=== PATIENT | male | born 1945 | race Caucasian/White ===

== ENCOUNTER → 2018-04-24 | Outpatient (CLI) | payer MEDICARE ==
[2018-04-24 16:02] LABS: Blood Urea Nitrogen 12 mg/dL (9-20)
--- NOTE | 2018-04-25 08:13 | CT ---
EXAMINATION TYPE: CT chest w con DATE OF EXAM: 04/24/2018 COMPARISON: 10/01/2014 HISTORY: f/u lung ca CT DLP: 541 mGycm, Automated exposure control for dose reduction was used. CONTRAST: Performed injected with 100 mL of Isovue 300. TECHNIQUE: Axial images were obtained at 5 mm thick sections. Reconstructed images are reviewed on [employer] computer in the coronal plane. FINDINGS: Portion of the thyroid visualized is normal. There is a 3.5 cm spiculated mass in the left upper lobe. Findings are highly suggestive for recurren t lung cancer. There is some thickening along the major fissure on the right. Small area of pneumonitis within the r ight middle lobe. Series 4 image 19 there is a right infrahilar area of increased density. Series 3 i mage 25. Neoplasm at this level should be considered. Small hiatal hernia is present. There is a 1.0 cm lymph node in the pretracheal space. Multiple small shotty lymph nodes are also pr esent at the level of the aortopulmonic window. Few small left axillary nodes are present. The ascending aorta diameter at the level of the main pulmonary artery is 3.4 cm. The main pulmonary artery diameter at the bifurcation is 2.[address] sections are obtained through the upper abdomen. Calcifications are within the pancreas co mpatible with chronic pancreatitis. The common bile duct and pancreatic duct prominent at the head of the pancreas. Left renal cyst is noted. IMPRESSIONS: 1. Left upper lobe lung mass. Findings are compatible with recurrent lung cancer. 2. Suspicious soft tissue density right infrahilar region right. 3. A 1.0 cm enlarged pretracheal lymph node. 4. Recommend additional workup with PET CT. 5. Chronic pancreatitis. There are dilated pancreatic and common bile ducts at the head of the pancre as. A [place] level critical message alert has been initiated for Cale Arenas DO via the [employer] Critical Results System on 04/25/2018 8:10 AM. This message alert has been sent to Cale godoy DO via the preferences provided by the clinician for the receipt of Radiology Critical Findings. Message ID [id number].
== END | disposition home or self-care (01) ==
LOC: RADCTMAIN 15:07
PROVIDERS: ATTEND Family Medicine
DX: R91.8 Other nonspecific abnormal finding of lung field (principal); R59.0 Localized enlarged lymph nodes; J44.9 Chronic obstructive pulmonary disease, unspecified; Z85.118 Personal history of other malignant neoplasm of bronchus and lung; Z01.812 Encounter for preprocedural laboratory examination
CPT/HCPCS: 82565; 84520; 71260; 36415; Q9967

== ENCOUNTER → 2018-06-15 | Outpatient (CLI) | payer MEDICARE ==
--- NOTE | 2018-06-17 07:09 | PE ---
EXAMINATION TYPE: PET CT fusion skull to thigh DATE OF EXAM: 06/15/2018 COMPARISON: Chest CT April 24, 2018. CT abdomen January 01, 2017. CT chest abdomen and pelvis October 01, 2014. HISTORY: Right-sided lung cancer progress study had surgery in 2008 and radiation treatment in 2016 TECHNIQUE: Following the intravenous administration of 15.07 mCi of F-18 FDG, whole body images are performed from the skull base to the midthigh. Images are reviewed on the computer in the coronal, a xial, and sagittal planes. Reconstructed rotating images are created on independent workstation and reviewed on the computer. A noncontrast CT is performed in conjunction with the PET scan. SCAN: Subsequent Scan FINDINGS: SKULL BASE AND NECK: No areas of suspicious hypermetabolic uptake are present. CHEST, MEDIASTINUM, AND HILAR REGION: There is background mild underlying emphysematous change redemo nstrated. There is redemonstration of left upper lobe mass measuring 3.3 x 3.0 cm axial image 76, max SUV is 11.6. There are right hilar clips and masslike scarring extending anteriorly Image 90, this area is ametabolic consistent with posttreatment change and no residual active maligna ncy. No additional areas of suspicious hypermetabolic uptake in the thorax are identified. ABDOMEN AND PELVIS: No areas of suspicious hypermetabolic uptake are seen. OSSEOUS STRUCTURES: No areas of suspicious hypermetabolic uptake. OTHER CT: Mild to moderate calcified plaque bilateral carotid bulbs level is present. Some calcification and scarring in the right lung base is present. There is moderate to severe 3 vess el coronary artery calcification and/or stents, correlate clinically. Cholecystectomy clips are present. There is calcifications and ductal dilatation and the pancreas, pr esumed product of chronic pancreatitis. Some cystic change in the pancreatic head is unchanged back t hrough 2015 CT presumed product of chronic pancreatitis possible pseudocyst. Severe calcified plaque of aorta is redemonstrated extending into iliac branch vessels. There are sca ttered diverticula throughout the colon most prominent in the sigmoid colon. There is facet arthropathy in the lower lumbar spine. Mild to moderate compression fracture L2 and L 4 level. There is redemonstration of large 6.0 cm lateral diverticulum second portion of duodenum axial image 146 with air-fluid level. There is 5.0 cm simple appearing cyst laterally left kidney axial image 144. IMPRESSION: New neoplasm left upper lobe suspected. No additional areas of suspicious hypermetabolic uptake are identified.
== END | disposition home or self-care (01) ==
LOC: RADPETMAIN 15:36
PROVIDERS: ATTEND Internal Medicine Hematology & Oncology
DX: C34.12 Malignant neoplasm of upper lobe, left bronchus or lung (principal)
CPT/HCPCS: 78815; A9552

== ENCOUNTER 2018-06-20 08:15 | Observation (INO) | payer MEDICARE ==
[2018-06-20] MEDS ORDERED: ALPRAZolam 0.25 MG TAB PO ONE (08:51)
[2018-06-20 09:26] LABS: Platelet Count 464 k/uL (150-450)
[2018-06-20 09:31] LABS: Prothrombin Time 10.4 sec (9.0-12.0)
[2018-06-20] MEDS ORDERED: HYDROmorphone 1 MG/ML 1 ML SYRINGE IVP STA (10:36)
--- NOTE | 2018-06-20 10:57 | XR ---
EXAMINATION TYPE: XR chest 1V portable DATE OF EXAM: 06/20/2018 COMPARISON: 09/30/2015 HISTORY: Post left lung biopsy TECHNIQUE: Single frontal view of the chest is obtained. FINDINGS: There is a large left upper lobe mass and changes of diffuse COPD. Right hilar soft tissue prominence noted. Postbiopsy there is a left apical pneumothorax measuring approximately 15%. Athero sclerotic change aorta. Arthropathy of the shoulders. IMPRESSION: 1. There is an approximate 15% left apical pneumothorax.
--- NOTE | 2018-06-20 11:14 | CT ---
EXAMINATION TYPE: CT biopsy lung RT DATE OF EXAM: 06/20/2018 COMPARISON: HISTORY: Lung mass-left side (biopsy) CT DLP: 2260 mGycm The procedure is discussed with the patient, the risks, complications, benefits and alternatives, wer e discussed and any questions were answered. Informed consent was obtained. The patient is placed s upine on the CT table, prepped and draped in the usual sterile fashion. Utilizing a 18-gauge core biopsy needle access into the left upper lobe lobe mass was achieved with t wo. Pathology pending. All elements of maximal barrier and sterile technique were utilized. The pa tient remained stable throughout the procedure. There is a small approximate 15% postprocedural pneum othorax. Patient was asymptomatic. Chest x-ray to follow. IMPRESSION: 1. Successful CT guided core biopsy of a left upper lobe lung mass
--- NOTE | 2018-06-20 13:06 | XR ---
EXAMINATION TYPE: XR chest 1V DATE OF EXAM: 06/20/2018 COMPARISON: 06/20/2018 HISTORY: Post left lung biopsy TECHNIQUE: Single frontal view of the chest is obtained. FINDINGS: Large left upper lobe lung mass seen. No significant interval change in size of the approx imately 20% left pneumothorax. Right-sided hilar prominence noted with postsurgical changes. Underlyi ng COPD noted. Heart size is at the upper limits of normal. No overt failure. IMPRESSION: Approximate 20% left-sided pneumothorax demonstrates no significant interval change..
--- NOTE | 2018-06-20 15:02 | XR ---
EXAMINATION TYPE: XR chest 1V portable DATE OF EXAM: 06/20/2018 HISTORY: Status post left-sided lung biopsy. Follow-up pneumothorax COMPARISON: 06/20/2018 TECHNIQUE: Single view of the chest is submitted. FINDINGS: Left-sided pneumothorax redemonstrated and appears to be slightly smaller in size and currently is es timated at 15%. No evidence for midline shift. Left upper lobe spiculated mass. Postsurgical changes right lung. Hyperinflation compatible with COPD. The heart is stable. Hilar and mediastinal structures are within normal limits. Degenerative changes are seen of the dorsal spine. IMPRESSION: 1. Left-sided pneumothorax redemonstrated and appears to be slightly smaller in size and currently i s estimated at 15%.
[2018-06-20] MEDS: HYDROmorphone 1 MG/ML 1 ML SYRINGE IVP PRN (15:21)
[2018-06-20] MEDS: HYDROcodone/APAP 10-325MG 1 EACH TAB PO PRN (16:38)
[2018-06-20] MEDS: IPRATROPIUM-ALBUTEROL 3 ML NEB INHALATION SCH (20:13)
[2018-06-20] MEDS: LIPASE PROTEASE AMYLASE PO SCH (20:31)
--- NOTE | 2018-06-20 20:36 | P.HPIM ---
History of Present Illness H&P Date: 06/20/18 Chief Complaint: Pneumothorax after Lung Mass Biopsy Mr. Wen is a very pleasant 72-year-old male patient who has significant history of ETOH and Tobacco Abuse. He has not consumed alcohol in over 3 years, he does continue to smoke. He has medical history consistent with COPD, recurrent Pancreatitis, approximately 10+ episodes over the past 3 years, history of non small cell lung cancer in which he underwent right upper lobectomy in 2003, no systemic chemotherapy was indicated as this was early stage and finding. 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 In 2014 yet another RML lung lesion was identified and biopsy was performed revealing non-small cell lung cancer - adenocarcinoma, this was treated with SBRT. Cardiothoracic surgeon was performed by Dr. aPtricio out of [facility] and his adjuvant radiation therapy with Dr. Kaminski at [facility]. He has been monitored with CT scans by Dr. Kaminski since. In 2014 ZOË nodule 8mm was first identified. His most recent scan showed increase in this lesion and concern for a third primary malignancy. He was seen in consultation with Dr. Lester, a PET-CT was set up as well as a core biopsy of the ZOË mass. Pet Scan was performed on 06/15/18 - No distant mets or FDG-Avid adenopathy was revealed, although the suspicious mass in ZOË was 3.3cmx3.0cm with SUV FDG 11.6. He was therefore set up for Biopsy and this was performed today with interventional radiology as an outpatient. Unfortunately, post procedure a 20%pneumothorax was identified, as he was high risk with his overall poor lung secondary to extensive COPD. A repeat chest xray was performed 4 hours post procedure and did not show worsening of the pneumothorax, although still present. He has complaints of increasing pain since procedure and mild cough, therefore it was felt best to monitor him overnight and repeat another xray in [facility]. I seen and evaluated patient, at bedside. No complaints of shortness of reath at rest, vitals remain stable, mild tachycardia. Oxygen saturation is 98% on room air. He is eating, no nausea or vomitng. Review of Systems A 14 point review of systems was assessed and completed and all negative except HPI Past Medical History Past Medical History: Cancer, GERD/Reflux, Osteoarthritis (OA), Pneumonia Additional Past Medical History / Comment(s): Right lung cancer 2003 and first resection done (got MRSA at that time in incision), second resection in 2008, lung cancer reoccured in 12/2014 and found new nodule in right lung had radiation in February 2015. Pancreatitis,chronic back pain History of Any Multi-Drug Resistant Organisms: MRSA Date of last positivie culture/infection: 2003 MDRO Source:: BACK Past Surgical History: Cholecystectomy, Orthopedic Surgery Additional Past Surgical History / Comment(s): RESECTION TO RIGHT LUNG TWICE (RT MIDDLE AND RT LOWER LOBECTOMY), RT KNEE SCOPE x2 Past Anesthesia/Blood Transfusion Reactions: Motion Sickness Past Psychological History: No Psychological Hx Reported Additional Psychological History / Comment(s): Pt resides with his spouse. He is normally independent. He uses no assistive device or home care. Smoking Status: Unknown if ever smoked Past Alcohol Use History: None Reported, Heavy Additional Past Alcohol Use History / Comment(s): quit smoking 06-10-18,Pt states he smokes about 1 ppd and started smoking at age 14-15 yrs on and off. STOPPED DRINKING ETOH 2015 Past Drug Use History: None Reported - Past Family History Father Family Medical History: Cancer Mother Family Medical History: Dementia Additional Family Medical History / Comment(s): Crohn's disease Medications and Allergies Home Medications Medication Instructions Recorded Confirmed Type HYDROcodone/APAP 10-325MG [[place] 0.5 tab PO BID PRN 06/11/18 06/11/18 History 10-325] Ibandronate Sodium [Boniva] 150 mg PO QMONTH 06/11/18 06/11/18 History Ipratropium/Albuterol Sulfate 1 puff INHALATION QID 06/11/18 06/11/18 History [Combivent Respimat Inhaler] Rvmzok-Lzfcezsw-Clpqmyy [Zenpep 20] 1 each PO AC-TID 06/11/18 06/11/18 History Meloxicam 15 mg PO DAILY 06/11/18 06/11/18 History Omeprazole 20 mg PO DAILY 06/11/18 06/11/18 History Allergies Allergy/AdvReac Type Severity Reaction Status Date / Time No Known Allergies Allergy Verified 06/11/18 10:23 Physical Exam Vitals: Vital Signs Temp Pulse Resp BP BP Pulse Ox 06/20/18 14:25 66 127/66 97 04/18/19 13:25 69 114/65 98 06/20/18 12:55 65 119/66 99 06/20/18 12:25 67 130/66 96 06/20/18 12:22 16 06/20/18 12:10 68 113/71 96 06/20/18 11:55 60 132/72 96 06/20/18 11:40 97.8 F 55 L 16 120/63 98 06/20/18 11:00 59 L 18 121/74 98 06/20/18 10:45 63 16 116/77 97 06/20/18 10:30 65 18 114/89 97 06/20/18 10:23 87 18 108/70 95 06/20/18 10:05 84 18 115/59 93 L 06/20/18 09:34 98.4 F 83 18 133/64 94 L Intake and Output 06/20/18 06/20/18 06/20/18 06:59 14:59 22:59 Intake Total 840 Balance 840 Intake: Oral 240 Other 600 Gen: Alert, NAD Head: NCNT Neck: Supple, trachea midline No palpable adenopathy cervical, supraclavicular Lungs: Decreased throughout, No increased effort or accessory muscle use noted Heart: Tachy, reg Abdomen: Non-tender , ND, BS x4 Extremities: No edema, no rashes Neuro: No sensory or motor deficits Results CBC & Chem 7: 06/20/18 09:15 Labs: Abnormal Lab Results - Last 24 Hours (Table) 06/20/18 Range/Units 09:15 Plt Count 464 H (150-450) k/uL Chest x-ray: report reviewed Thrombosis Risk Factor Assmnt - DVT/VTE Prophylaxis DVT/VTE Prophylaxis: Pharmacologic Prophylaxis ordered - Choose All That Apply Any of the Below Risk Factors Present?: No Other Risk Factors: Yes Each Risk Factor Represents 2 Points: Age 61-74 years Thrombosis Risk Factor Assessment Total Risk Factor Score: 2 Thrombosis Risk Factor Assessment Level: Low Risk Assessment and Plan (1) Pneumothorax after biopsy Current Visit: Yes Status: Acute Code(s): J95.811 - POSTPROCEDURAL PNEUMOTHORAX SNOMED Code(s): 86534822 Plan: Assessment and Recommendations: Left Pneumothorax after biopsy: - 20% left sided pneumothorax - Patient relatively asymptomatic - Oxygenation greater than 95% on room air ZOË Mass in Lung - 3.3cmx3.0cm with FDG avidity 11 - Status Post Core Biopsy - Await Pathology - Supportive care for pain Recurrent Pancreatitis History: - No symptoms at this time Hx: Non-small Cell Lung Cancer in 2004 and 2014 - Treated with RUL resection, Wedge resection and SBRT VTE and GI Prophylaxis. Plan: - Monitor overnight with TMS, q4 hours VS and Pulse ox - Repeat Chest xray in am - PRN Dilaudid/Bowel Regimen - Pulmonary Evaluation DIPSO PLAN: After Chest Xray in am if stable [place] REA
[2018-06-21] MEDS: IPRATROPIUM-ALBUTEROL 3 ML NEB INHALATION SCH ×2 (02:58→08:45)
[2018-06-21] MEDS ORDERED: PANTOPRAZOLE 40 MG TABLET PO SCH (07:30)
[2018-06-21] MEDS: HYDROmorphone 1 MG/ML 1 ML SYRINGE IVP PRN (07:50)
[2018-06-21] MEDS: LIPASE PROTEASE AMYLASE PO SCH (07:51)
[2018-06-21 07:53] VITALS: BP 114/67; RESP 18; TEMP 97.7
[2018-06-21] MEDS: HYDROcodone/APAP 10-325MG 1 EACH TAB PO PRN (08:39)
[2018-06-21 08:55] VITALS: PULSE 84
[2018-06-21] MEDS ORDERED: MELOXICAM 7.5 MG TAB PO SCH (09:00)
--- NOTE | 2018-06-21 09:10 | XR ---
EXAMINATION TYPE: XR chest 2V DATE OF EXAM: 06/21/2018 COMPARISON: NONE TECHNIQUE: PA and lateral views submitted. HISTORY: Pneumothorax FINDINGS: There is a persistent left-sided 15-20% left pneumothorax. Upper lobe mass is again seen and there is evidence of previous surgery in the right with diffuse COPD. Atherosclerotic change aorta. IMPRESSION: 1. Approximate 15-20% left-sided pneumothorax.
--- NOTE | 2018-06-21 12:43 | P.PN ---
Progress Note - Text Progress Note Date: 06/21/18 We were asked to see this gentleman yesterday by Dr. Kilgore as he was at another hospital and received a call for an urgent consult for pneumothorax. As we were in the building already, we examined the patient yesterday who was found to be in no distress, with excellent oxygen saturations on room air, and the ability to achieve 3000 mL on his incentive spirometry. CXR was reviewed by Dr. Osorio, and no intervention was warranted. His CXR this morning was also reviewed by Dr. Osorio who felt his pneumothorax was less than 10%, the patient continues to be in no distress and would like to go home. From our standpoint, there is no surgical intervention warranted and the patient may be discharged to home with follow up in the office. This was discussed with Dr. Kilgore and he is in agreement.
--- NOTE | 2018-06-21 12:51 | P.DS ---
Providers Date of admission: 06/20/18 15:36 Expected date of discharge: 06/21/18 Attending physician: Aurora Lester Consults: 06/20/18 15:32 Consult Physician Routine Consulting Provider: Allan Becerra Consult Reason/Comments: pneumothorax post biopsy Do you want consulting provider notified?: Yes Placement Type Exists?: Yes Primary care physician: Cale Arenas - Discharge Diagnosis(es) (1) Pneumothorax after biopsy Current Visit: Yes Status: Acute Plan - Discharge Summary Discharge Rx Participant: No New Discharge Prescriptions: Continue Ipratropium/Albuterol Sulfate [Combivent Respimat Inhaler] 1 puff INHALATION QID HYDROcodone/APAP 10-325MG [[place] 10-325] 0.5 tab PO BID PRN PRN Reason: Pain Omeprazole 20 mg PO DAILY Meloxicam 15 mg PO DAILY Qahgws-Pgflcvzl-Zjfurzl [Zenpep 20] 1 each PO AC-TID Ibandronate Sodium [Boniva] 150 mg PO QMONTH Discharge Medication List HYDROcodone/APAP 10-325MG [[place] 10-325] 0.5 tab PO BID PRN 06/11/18 [History] Ibandronate Sodium [Boniva] 150 mg PO QMONTH 06/11/18 [History] Ipratropium/Albuterol Sulfate [Combivent Respimat Inhaler] 1 puff INHALATION QID 06/11/18 [History] Jteqhc-Rflefqve-Jjijcaf [Zenpep 20] 1 each PO AC-TID 06/11/18 [History] Meloxicam 15 mg PO DAILY 06/11/18 [History] Omeprazole 20 mg PO DAILY 06/11/18 [History] Follow up Appointment(s)/Referral(s): Aurora Lester MD [STAFF PHYSICIAN] - 1 Week Patient Instructions/Handouts: Needle Biopsy of the Lung (DC)
--- NOTE | 2018-06-21 13:29 | P.CNPUL ---
History of Present Illness Consult date: 06/21/18 Requesting physician: Aurora Lester Reason for consult: other Chief complaint: Small pneumothorax following CT-guided core biopsy of the lung History of present illness: This is a 72-year-old white male patient of Dr. Arenas, with past medical history of recurrent adenocarcinoma of the right lung, which patient underwent right upper lobectomy in 2003, and at that time patient did not require systemic chemotherapy. In 2008 he developed recurrent suspicious area in the right middle lobe and underwent wedge resection, and pathology revealed necrotizing granuloma. In 2014 on the other right middle lobe lung lesion was identified and the biopsy showed adenocarcinoma of the lung was treated with as SBRT. There was a left upper lobe nodule initially measuring 8 mm that has been under surveillance since 2014, with the recent increase in this lesion. Outpatient PET scan on 06/15/2018 showed no distant metastases, with the suspicious mass in the left upper lobe measuring 3.3 cm x 3.0 cm with the SUV 11.6, with no evidence of distant metastases. She underwent CT-guided lung biopsy of the left upper lobe lesion on 06/20/2018, and developed a 20% pneumothorax on the left. Patient does have underlying history of COPD, chronic tobacco abuse, EtOH. Clinically patient remained stable, repeat chest x-ray was taken 4 hours later, and did not show worsening of the pneumothorax. On the chest x-ray was taken this morning, showing 15-20% left-sided pneumothorax. We're asked to see the patient in evaluation for the procedure pneumothorax. During our evaluation patient is resting comfortably in bed, she is on room air, with a pulse ox of 98%, hemodynamically stable, no acute complaints, lung sounds are equal bilaterally, respirations are even and nonlabored. Review of Systems All systems: negative Constitutional: Denies chills, Denies fever Eyes: denies blurred vision, denies pain Ears, nose, mouth and throat: Denies headache, Denies sore throat Cardiovascular: Denies chest pain, Denies shortness of breath Respiratory: Denies cough Gastrointestinal: Denies abdominal pain, Denies diarrhea, Denies nausea, Denies vomiting Musculoskeletal: Denies myalgias Integumentary: Denies pruritus, Denies rash Neurological: Denies numbness, Denies weakness Psychiatric: Denies anxiety, Denies depression Endocrine: Denies fatigue, Denies weight change Past Medical History Past Medical History: Cancer, GERD/Reflux, Osteoarthritis (OA), Pneumonia Additional Past Medical History / Comment(s): Right lung cancer 2003 and first resection done (got MRSA at that time in incision), second resection in 2008, lung cancer reoccured in 12/2014 and found new nodule in right lung had radiation in February 2015. Pancreatitis,chronic back pain History of Any Multi-Drug Resistant Organisms: MRSA Date of last positivie culture/infection: 2003 MDRO Source:: BACK Past Surgical History: Cholecystectomy, Orthopedic Surgery Additional Past Surgical History / Comment(s): RESECTION TO RIGHT LUNG TWICE (RT MIDDLE AND RT LOWER LOBECTOMY), RT KNEE SCOPE x2 Past Anesthesia/Blood Transfusion Reactions: Motion Sickness Past Psychological History: No Psychological Hx Reported Additional Psychological History / Comment(s): Pt resides with his spouse. He is normally independent. He uses no assistive device or home care. Smoking Status: Unknown if ever smoked Past Alcohol Use History: None Reported, Heavy Additional Past Alcohol Use History / Comment(s): quit smoking 06-10-18,Pt states he smokes about 1 ppd and started smoking at age 14-15 yrs on and off. STOPPED DRINKING ETOH 2015 Past Drug Use History: None Reported - Past Family History Father Family Medical History: Cancer Mother Family Medical History: Dementia Additional Family Medical History / Comment(s): Crohn's disease Medications and Allergies Home Medications Medication Instructions Recorded Confirmed Type HYDROcodone/APAP 10-325MG [[place] 0.5 tab PO BID PRN 06/11/18 06/11/18 History 10-325] Ibandronate Sodium [Boniva] 150 mg PO QMONTH 06/11/18 06/11/18 History Ipratropium/Albuterol Sulfate 1 puff INHALATION QID 06/11/18 06/11/18 History [Combivent Respimat Inhaler] Zaexdk-Hepnsavj-Jjeetvm [Zenpep 20] 1 each PO AC-TID 06/11/18 06/11/18 History Meloxicam 15 mg PO DAILY 06/11/18 06/11/18 History Omeprazole 20 mg PO DAILY 06/11/18 06/11/18 History Allergies Allergy/AdvReac Type Severity Reaction Status Date / Time No Known Allergies Allergy Verified 06/11/18 10:23 Physical Exam Vitals: Vital Signs Temp Pulse Pulse Resp BP Pulse Ox 06/21/18 08:55 84 06/21/18 08:46 80 06/21/18 07:53 97.7 F 64 18 114/67 98 06/21/18 04:00 16 06/21/18 00:00 16 06/20/18 23:42 98.4 F 70 16 107/65 95 06/20/18 20:25 79 06/20/18 20:16 77 06/20/18 20:00 16 06/20/18 14:25 66 127/66 97 06/20/18 13:25 69 114/65 98 Intake and Output 06/20/18 06/21/18 06/21/18 22:59 06:59 14:59 Intake Total 840 440 Balance 840 440 Intake: Oral 240 440 Other 600 Other: Voiding Method Toilet Toilet # Voids 1 GENERAL EXAM: Alert, pleasant 72-year-old white male on room air comfortable in no apparent distress. HEAD: Normocephalic/atraumatic. EYES: Normal reaction of pupils, equal size. Conjunctiva pink, sclera white. NOSE: Clear with pink turbinates. THROAT: No erythema or exudates. NECK: No masses, no JVD, no thyroid enlargement, no adenopathy. CHEST: No chest wall deformity. Symmetrical expansion. LUNGS: Equal air entry with no crackles, wheeze, rhonchi or dullness. Diminished breath sounds at the bases CVS: Regular rate and rhythm, normal S1 and S2, no gallops, no murmurs, no rubs ABDOMEN: Soft, nontender. No hepatosplenomegaly, normal bowel sounds, no guarding or rigidity. EXTREMITIES: No clubbing, no edema, no cyanosis, 2+ pulses and upper and lower extremities. MUSCULOSKELETAL: Muscle strength and tone normal. SPINE: No scoliosis or deformity SKIN: No rashes CENTRAL NERVOUS SYSTEM: Alert and oriented -3. No focal deficits, tone is normal in all 4 extremities. PSYCHIATRIC: Alert and oriented -3. Appropriate affect. Intact judgment and insight. Results - Laboratory Findings CBC and BMP: 06/20/18 09:15 PT/INR, D-dimer PT 10.4 sec (9.0-12.0) 06/20/18 09:15 INR 1.0 (<1.2) 06/20/18 09:15 Abnormal lab findings: Abnormal Labs 06/20/18 09:15 Plt Count 464 H - Diagnostic Findings Chest x-ray: report reviewed, image reviewed Assessment and Plan Plan: Assessment: #1. Small postprocedural pneumothorax on the left, estimated to be between 15- 20% following CT-guided lung biopsy of the left upper lobe lesion suspicious for primary lung cancer #2. History of recurrent adenocarcinoma of the right lung, with initial occurrence in 2004 status post right upper lobectomy, and recent recurrence in 2014 in the right middle lobe with biopsy positive for adenocarcinoma treated with SBRT #3. Recent increase in size of the left upper lobe nodule, that he has been under surveillance since 2014, showed increased uptake on the PET scan, no evidence of distant metastases #4. Chronic and ongoing nicotine dependence #5. History of EtOH abuse #6. Previous history of pneumonia #7. GERD/reflux #8. History of MRSA infection in the wound from a previous back surgery Plan: Chest x-rays have been reviewed with Dr. Granado, patient was seen and evaluated by Dr. Granado, clinically stable, pneumothorax in the left lung estimated to be between 15-20%, no intervention needed, patient is cleared for discharge home today. We'll follow up with Dr. Lester. I performed a history & physical examination of the patient and discussed their management with my nurse practitioner, Gayatri Temple. I reviewed the nurse practitioner's note and agree with the documented findings and plan of care. Lung sounds are positive for clear breath sounds. The findings and the impression was discussed with the patient. I attest to the documentation by the nurse practitioner. Time with Patient: Greater than 30
== END 2018-06-21 12:52 | disposition home or self-care (01) ==
LOC: RADPROMAIN 08:15 → 1SOBS 10:58 → RADPROMAIN 15:36 → 1SOBS 15:36
PROVIDERS: ADMIT Internal Medicine Hematology & Oncology; ATTEND Internal Medicine Hematology & Oncology
DX: J95.811 Postprocedural pneumothorax (principal); C34.12 Malignant neoplasm of upper lobe, left bronchus or lung; J44.9 Chronic obstructive pulmonary disease, unspecified; K21.9 Gastro-esophageal reflux disease without esophagitis; G89.29 Other chronic pain; M54.9 Dorsalgia, unspecified; M19.90 Unspecified osteoarthritis, unspecified site; Z79.83 Long term (current) use of bisphosphonates; Z79.1 Long term (current) use of non-steroidal anti-inflammatories (NSAID); Z90.2 Acquired absence of lung [part of]; Z85.118 Personal history of other malignant neoplasm of bronchus and lung; Z87.01 Personal history of pneumonia (recurrent); Z92.21 Personal history of antineoplastic chemotherapy; Z86.14 Personal history of Methicillin resistant Staphylococcus aureus infection; Z87.891 Personal history of nicotine dependence; Z92.3 Personal history of irradiation; Z80.9 Family history of malignant neoplasm, unspecified; Z83.79 Family history of other diseases of the digestive system; Z81.8 Family history of other mental and behavioral disorders
CPT/HCPCS: 94640 ×2; 88305; 85049; 85610; 88342; 88341; 36415; 71045; 71046; 32405; 77012; G0378 ×2; J1170 ×2

== ENCOUNTER → 2018-11-07 | Outpatient (CLI) | payer MEDICARE ==
--- NOTE | 2018-11-07 14:56 | CT ---
EXAMINATION TYPE: CT chest wo/w con DATE OF EXAM: 11/07/2018 COMPARISON: 06/15/2018 HISTORY: Malignant neoplasm of upper lobe, Lt bronchus or lung CT DLP: 657.5 mGycm Automated exposure control for dose reduction was used. CONTRAST: CT scan of the chest is performed without and with IV Contrast, patient injected with 100 mL of Isovu e 300. FINDINGS: LUNGS: Left upper lobe mass currently measures approximately 3.0 x 2.0 x 2.2 cm versus 3.3 cm previou sly. Postoperative changes about the right hilum with the adjacent soft tissue unchanged measuring ap proximately 1.8 cm versus 1.8 cm previously. Right hilar retraction noted. There is severe emphysemat ous change noted and COPD. No additional nodules or masses appreciated at this time. MEDIASTINUM: There are no greater than 1 cm hilar or mediastinal lymph nodes. No pericardial effusi on is seen. Thoracic aorta is of normal caliber. The heart is not enlarged. UPPER ABDOMEN: Chronic pancreatitis changes. Hypoattenuating lesion left kidney. Right-sided nephroli thiasis. Mild Loss of thoracic vertebral body height at several levels. OTHER: No additional significant abnormality is seen. IMPRESSION: 1. Spiculated left upper lobe mass with dimensions given above. This is a site of known malignancy. 2. Postsurgical changes right hilum with residual soft tissue in right hilar retraction unchanged.
== END | disposition home or self-care (01) ==
LOC: RADCTMAIN 12:29
PROVIDERS: ATTEND Radiology Radiation Oncology
DX: C34.12 Malignant neoplasm of upper lobe, left bronchus or lung (principal); Z90.2 Acquired absence of lung [part of]; Z98.890 Other specified postprocedural states
CPT/HCPCS: 82565; 84520; 71270; 36415; Q9967

== ENCOUNTER → 2019-02-17 | Outpatient (CLI) | payer MEDICARE ==
--- NOTE | 2019-02-17 11:24 | CT ---
EXAMINATION TYPE: CT chest abdomen wo/w con DATE OF EXAM: 02/17/2019 COMPARISON: 11/07/2018 as well as a PET/CT 06/15/2018 HISTORY: History of lung cancer. CT DLP: 2018 mGycm CONTRAST: CT scan of the chest, abdomen is performed with Oral Contrast and without and with IV Contrast, patie nt injected with 80 mL of Isovue 300. CT Chest: LUNGS: Left upper lobe mass is smaller in size with nodule now measuring approximately 2.1 x 1.5 cm v ersus 3.0 x 2.2 cm. Postoperative changes about the right hilum with soft tissue noted to measure jorje roximately 2 cm versus 1.8 cm previously. Underlying emphysematous changes. No new masses are seen. N o pleural effusion. MEDIASTINUM: Thoracic aorta is of normal caliber. The heart is not enlarged. No evidence for media stinal mass or adenopathy. HILAR STRUCTURES: No evidence for mass left hilar adenopathy measures approximately 1.7 cm versus 1.7 cm previously. OTHER: No significant abnormality. CONTRAST CT ABDOMEN FINDINGS: LIVER/GB: The gallbladder is surgically absent. No space occupying hepatic lesion. Biliary tree is of normal caliber. PANCREAS: Chronic pancreatitis changes multiple calcifications noted in dilatation of the pancreatic duct. SPLEEN: No splenic enlargement. No lesion seen. ADRENALS: No nodule. No thickening. KIDNEYS/BLADDER: No hydronephrosis. No nephrolithiasis left renal cystic lesion redemonstrated. No solid renal lesions identified. BOWEL: Normal appendix. Normal bowel caliber. No inflammation. LYMPH NODES: No greater than 1cm abdominal or pelvic lymph nodes are appreciated. AORTA: No significant abnormality. OSSEOUS STRUCTURES: No significant abnormality is seen. OTHER: No significant additional abnormality is seen. IMPRESSION: 1. Left upper lobe mass is smaller in size with soft tissue persisting and currently measuring 2.1 x 1.5 cm. 2. Postoperative changes about the right hilum with persistent soft tissue minimally changed relative to prior study. 3. Changes of chronic pancreatitis pancreatic duct dilatation. 4. Loss of vertebral body height unchanged.
== END | disposition home or self-care (01) ==
LOC: RADCTMAIN 09:47
PROVIDERS: ATTEND Radiology Radiation Oncology
DX: K86.1 Other chronic pancreatitis (principal); K86.89 Other specified diseases of pancreas; C34.12 Malignant neoplasm of upper lobe, left bronchus or lung; Z90.2 Acquired absence of lung [part of]; Z98.890 Other specified postprocedural states
CPT/HCPCS: 36415; 71270; 74170; 82565; 84520

== ENCOUNTER → 2019-08-08 | Outpatient (CLI) | payer MEDICARE ==
--- NOTE | 2019-08-08 13:39 | CT ---
EXAMINATION TYPE: CT chest wo con DATE OF EXAM: 08/08/2019 COMPARISON: 02/17/2019, 11/07/2018, 01/01/2017 HISTORY: Malignant neoplasm of Lt upper lung CT DLP: 381.8 mGycm. Automated Exposure Control for Dose Reduction was Utilized. TECHNIQUE: CT scan of the thorax is performed without IV contrast. FINDINGS: LUNGS: Left upper lobe mass measures approximately 3 x 1.6 cm versus 2.1 x 1.5 cm. There is adjacen t subsegmental consolidation. Postoperative changes about the right hilum with soft tissue noted to measure approximately 2 cm vers us 2cm previously. Underlying emphysematous changes. No new masses are seen. No pleural effusion. Additional subsegmenta l consolidation most typical of atelectasis or scar. Pleural-based calcifications are seen which can be associated with asbestos related disease. MEDIASTINUM: Lack of IV contrast is noted to limit evaluation for mediastinal and especially hilar ad enopathy. There are no definitive greater than 1 cm hilar or mediastinal lymph nodes. Calcified lymph nodes are noted and there is extensive coronary artery calcification. Heart size at the upper limits of normal. OTHER: No bladder surgically removed. There is mild intrahepatic biliary dilation likely postoperativ e. Small hiatal hernia is noted. Numerous calcifications involving the pancreas are noted suggestive of chronic pancreatitis. There is a cystic lesion involving the head of the pancreas measuring 2.6 cm . Atherosclerotic change of the aorta noted. Simple appearing left renal cyst noted.. Degenerative change of the spine with multiple age-indeterminate compression deformities are stable. IMPRESSION: 1. Left upper lobe mass measures 3 x 1.6 cm and previously measured 2.1 x 1.5 cm. 2. postsurgical changes involving the right lung with soft tissue prominence measuring 2 cm and stabl e from the prior exam where it measured 2 cm. 3. Diffuse COPD. 4. Changes of chronic pancreatitis with cystic lesion involving the head of the pancreas stable from the exam of 11/07/2018. However, it does appear to be increased in size from the exam of 01/01/2017 whe re it was not seen with certainty. Differential diagnosis would include pancreatic pseudocyst or loca lized dilation of the pancreatic duct. Cystic neoplasm of pancreas not excluded.
== END | disposition home or self-care (01) ==
LOC: RADCTMAIN 12:53
PROVIDERS: ATTEND Radiology Radiation Oncology
DX: R91.8 Other nonspecific abnormal finding of lung field (principal); J44.9 Chronic obstructive pulmonary disease, unspecified; Z98.890 Other specified postprocedural states; C34.12 Malignant neoplasm of upper lobe, left bronchus or lung; Z90.2 Acquired absence of lung [part of]; Z92.3 Personal history of irradiation
CPT/HCPCS: 71250

== ENCOUNTER → 2019-11-14 | Outpatient (CLI) | payer MEDICARE ==
--- NOTE | 2019-11-17 10:45 | PE ---
EXAMINATION TYPE: PET CT fusion skull to thigh DATE OF EXAM: 11/14/2019 COMPARISON: Prior PET/CT June 15, 2018. Prior CT August 08, 2019 and older CTs. HISTORY: Lung cancer progress study. Right-sided lung cancer treated in 2003 and 2008. Left-sided l molina cancer treated with radiation treatment in July 2018 TECHNIQUE: Following the intravenous administration of 9.26 mCi of F-18 FDG, whole body images are p erformed from the skull base to the midthigh. Images are reviewed on the computer in the coronal, ax ial, and sagittal planes. Reconstructed rotating images are created on independent workstation and r eviewed on the computer. A noncontrast CT is performed in conjunction with the PET scan. SCAN: Subsequent Scan FINDINGS: SKULL BASE AND NECK: No new areas of abnormal hypermetabolic uptake. CHEST, MEDIASTINUM, AND HILAR REGION: Background of fairly moderate underlying emphysematous changes redemonstrated. At site of left upper to mid lung neoplasm, there is a persistent spiculated hypermet abolic 2.5 x 2.4 cm lesion axial image 81, max SUV is 7.09 diminished from prior (11.6). There is alyssa e adjacent linear scarring extending laterally and superiorly along with more focal masslike atelecta sis or scarring laterally that is ametabolic axial image 80 on the current study. There is new left suprahilar mass or hypermetabolic adenopathy difficult to discern from adjacent lef t pulmonary artery on noncontrast CT measuring roughly 2.3 x 1.5 cm axial image 87, max SUV is 7.69. There is suspected additional hypermetabolic anterior left hilar 1.9 x 1.6 cm lymph node axial image 90 superior aspect, max SUV is 6.86. There is new 1.0 x 1.0 cm hypermetabolic left tracheobronchial lymph node axial image 85, max SUV is 4.74. Slightly suspicious 1.6 x 0.6 cm subcarinal lymph node axial image 93 shows enlargement, mild hyperme tabolic uptake, max SUV less than 2.5. Following of this area advised. Persistent right hilar surgical clips and masslike scarring extending anteriorly without suspicious h ypermetabolic uptake is redemonstrated. ABDOMEN AND PELVIS: Normal excretion is present. Nonspecific bowel uptake noted. No areas of suspicio us hypermetabolic uptake. No new adrenal masses are noted. OSSEOUS STRUCTURES: No new areas of suspicious hypermetabolic uptake. OTHER CT: Mild to moderate calcified plaque left greater than right carotid bulbs level is redemonstr ated. Some calcification and scarring posteriorly in the right lung base is redemonstrated. There is modera te to severe 3 vessel coronary artery calcification and/or stents and demonstrated, correlate clinica lly. Cholecystectomy clips are present. There is calcifications and ductal dilatation and the pancreas, pr esumed product of chronic pancreatitis. Some cystic change in the pancreatic head is unchanged back t hrough 2015 CT presumed product of chronic pancreatitis possible pseudocyst. Severe calcified plaque of aorta is redemonstrated extending into iliac branch vessels. There are sca ttered diverticula throughout the colon most prominent in the sigmoid colon. There is facet arthropathy in the lower lumbar spine. Mild to moderate compression fracture L2 and L4 level. Scoliotic curvature redemonstrated. There is redemonstration of large 6.0 cm lateral diverticulum second portion of duodenum axial image 150 with air-fluid level. There is 5.0 cm simple appearing cyst laterally left kidney axial image 149. Poorly distended bladder noted. Prominent prostate, Suspect BPH. IMPRESSION: Overall mixed response, improved max SUV in the left upper lung nodule also diminished in size from prior PET/CT. There is however new hypermetabolic thoracic adenopathy noted as detailed ab ove.
== END | disposition home or self-care (01) ==
LOC: RADPETMAIN 10:15
PROVIDERS: ATTEND Internal Medicine Hematology & Oncology
DX: R59.0 Localized enlarged lymph nodes (principal); R91.1 Solitary pulmonary nodule; C34.12 Malignant neoplasm of upper lobe, left bronchus or lung; Z92.3 Personal history of irradiation; Z92.21 Personal history of antineoplastic chemotherapy
CPT/HCPCS: 78815; A9552

== ENCOUNTER → 2019-11-19 | Outpatient (CLI) | payer MEDICARE ==
--- NOTE | 2019-11-19 22:48 | MR ---
EXAMINATION TYPE: MR brain wo/w con DATE OF EXAM: 11/19/2019 COMPARISON: NONE HISTORY: Lung Cancer-rule out mets TECHNIQUE: Multiplanar, multisequence images of the brain and brainstem is performed without and with IV contras t, utilizing 7.5 mL intravenous Gadavist . FINDINGS: Diffusion weighted images demonstrate no evidence of a recent infarct or other diffusion ab normality. There is no worrisome extra-axial fluid collection. Diffuse ventricular and sulcal promin ence. Scattered foci of T2 hyperintensity seen throughout the deep and periventricular white matter. Midline structures demonstrate normal morphology. The craniocervical junction appears within normal limits. Post contrast images demonstrate no suspicious enhancement or enhancing masses. Incidental d ominant left vertebral artery. The dural venous sinuses appear patent. The visualized sinuses are raj ar and the globes are intact. IMPRESSION: Mild to moderate diffuse cerebral atrophy and chronic small vessel ischemic changes. No s uspicious enhancement to suggest metastatic disease to the brain.
== END | disposition home or self-care (01) ==
LOC: RADMRIMAIN 15:30
PROVIDERS: ATTEND Internal Medicine Hematology & Oncology
DX: C34.12 Malignant neoplasm of upper lobe, left bronchus or lung (principal); G31.9 Degenerative disease of nervous system, unspecified; I67.82 Cerebral ischemia
CPT/HCPCS: 70553; A9585

== ENCOUNTER → 2020-01-23 | Outpatient (CLI) | payer MEDICARE ==
--- NOTE | 2020-01-24 08:33 | PE ---
Nuclear medicine PET/CT HISTORY: Lung cancer, C 30 4. 0.2, subsequent Patient received 13 mCi F-18 FDG intravenously in delayed scanning was performed from the skull base to the mid thighs. Localization and attenuation correction CT scan was performed. Correlation to prior nuclear medicine PET/CT 11/14/2019 Chest and neck: There is interval increased rate pharmaceutical uptake, adenopathy in the subcarinal and retrocaval pretracheal mediastinum. Aorticopulmonary window node seen on prior exam is slightly i ncreased in size and also shows radiopharmaceutical uptake as does the patient's left hilar and left upper lobe mass. There is no pleural or pericardial effusion. Coronary artery calcifications are pres ent. No supraclavicular or cervical adenopathy or suspicious radiopharmaceutical uptake. ABDOMEN: There is no evident adrenal mass. No retroperitoneal adenopathy. No abnormal liver uptake is identified. Abnormalities in the head of the pancreas, calcifications consistent with chronic pancre atitis are again seen. Osseous structures are stable. IMPRESSION: There has been some interval progression in mediastinal uptake.
== END | disposition home or self-care (01) ==
LOC: RADPETMAIN 07:44
PROVIDERS: ATTEND Internal Medicine Hematology & Oncology
DX: C34.12 Malignant neoplasm of upper lobe, left bronchus or lung (principal); R91.8 Other nonspecific abnormal finding of lung field
CPT/HCPCS: 78815; A9552

== ENCOUNTER → 2020-04-19 | Outpatient (CLI) | payer MEDICARE ==
[2020-04-19 12:56] LABS: African American GFR (CKD) >90 (>60 ml/min/1.73 sqM); Blood Urea Nitrogen 14 mg/dL (9-20); Non-African American GFR(CKD) >90 (>60 ml/min/1.73 sqM)
--- NOTE | 2020-04-19 15:53 | CT ---
EXAMINATION TYPE: CT chest w con DATE OF EXAM: 04/19/2020 COMPARISON: 08/08/2019 HISTORY: Lung cancer CT DLP: 520 mGycm, Automated exposure control for dose reduction was used. CONTRAST: Performed injected with 100 ml mL of Isovue 300. TECHNIQUE: Axial images were obtained at 5 mm thick sections. Reconstructed images are reviewed on [employer] computer in the coronal plane. FINDINGS: Portion of the thyroid visualized is normal. There is a spiculated mass within the left apex. This measures 3.5 x 2.1 cm. This appears stable with out evidence of interval growth. Some apical emphysematous changes are present. Right infrahilar scarring remains present. The appearance is stable. Emphysematous changes are at the lung bases greater on the right. There may be a left hilar lymph node with a transverse dimension of 0.9 cm. Couple of small pretrache al lymph nodes are present, larger measures 0.9 cm. These appear to have hypodense centers. Enlarged lymphadenopathy is not identified. These were present previously but appear better visualized on thes e postcontrast images. The ascending aorta diameter at the level of the main pulmonary artery is 3.3 cm. The main pulmonary artery diameter at the bifurcation is 2.[address] sections are obtained through the upper abdomen. There is a large left renal cyst. Chronic pancreatitis changes are evident. IMPRESSIONS: 1. Stable appearance to the suspected scarring left apex and right infrahilar region.
== END | disposition home or self-care (01) ==
LOC: RADCTMAIN 12:10
PROVIDERS: ATTEND Internal Medicine Hematology & Oncology
DX: C34.12 Malignant neoplasm of upper lobe, left bronchus or lung (principal)
CPT/HCPCS: 82565; 84520; 71260; 36415; Q9967

== ENCOUNTER → 2020-08-03 | Outpatient (CLI) | payer MEDICARE ==
--- NOTE | 2020-08-03 17:30 | XR ---
EXAMINATION TYPE: XR chest 2V DATE OF EXAM: 08/03/2020 COMPARISON: Chest x-ray dated 06/21/2018 HISTORY: C34.12 F41.9 Z85.118 J44.9 TECHNIQUE: Frontal and lateral views of the chest are obtained. FINDINGS: The masslike density in the left upper lobe is no longer seen, there is some strand-like d ensities at this level. Probable scarring again noted in the right mid lung. Prominence of pulmonary artery may be due to pulmonary artery hypertension. There is no evident pneumothorax or pleural effus ion. Probable scarring present at the right lung base. Patient is rotated. Cardiomediastinal silhouet te shows a similar appearance. There is increased lung volume and flattening the hemidiaphragms consi stent with underlying COPD. IMPRESSION: Posttreatment changes are suspected. Correlate for COPD. There is underlying emphysema.
== END | disposition home or self-care (01) ==
LOC: RADXRMAIN 15:21
PROVIDERS: ATTEND Internal Medicine Hematology & Oncology
DX: J43.9 Emphysema, unspecified (principal); F41.9 Anxiety disorder, unspecified; C34.12 Malignant neoplasm of upper lobe, left bronchus or lung
CPT/HCPCS: 71046

== ENCOUNTER → 2020-08-16 | Outpatient (CLI) | payer MEDICARE ==
--- NOTE | 2020-08-16 22:20 | CT ---
EXAMINATION TYPE: CT ChestAbdPelvis w con DATE OF EXAM: 08/16/2020 COMPARISON: Prior PET/CT January 23, 2020 and older studies. Chest CT April 19, 2020. HISTORY: follow up lung cancer CT DLP: 704.1 mGycm. Automated Exposure Control for Dose Reduction was Utilized. CONTRAST: CT scan of the thorax, abdomen and pelvis is performed with oral and with IV Contrast, patient inject ed with 100 mL of Isovue 300. FINDINGS: LUNGS: Background moderate underlying emphysematous change is redemonstrated. Worsening spiculated le hui in the left upper lobe extending inferiorly to level of the left pulmonary artery measuring 4.9 x 2.5 cm current study increased in size from most recent CT. Areas of abnormal hypermetabolic uptake noted on recent PET/CT. New linear scarring and/or atelectasis superior lateral aspect left lower lobe axial image 24. Additi onal mild areas of groundglass opacity in the left lower lobe. Mild to moderate chronic scarring thro ughout the right lung. No pleural effusion or pneumothorax seen bilaterally. MEDIASTINUM: Marked improvement in abnormal subcarinal enlarged lymph node from prior PET/CT now not enlarged. Similar right tracheobronchial lymph node axial image 22 is smaller in size fairly stable f rom most recent CT. Subcentimeter AP window lymph node axial image 22 also smaller in size from PET/C T stable or slightly smaller from most recent CT. No new greater than 1 cm adenopathy. No cardiomegal y or pericardial effusion is seen. Moderate to severe three-vessel coronary artery calcification. LIVER/GB: Cholecystectomy clips. PANCREAS: Calcifications and glandular atrophy with ductal dilatation in the pancreatic head consiste nt with product of chronic pancreatitis. No significant change from prior. SPLEEN: No significant abnormality is seen. ADRENALS: No significant abnormality is seen. KIDNEYS: There is 5.0 cm thin-walled cyst laterally in the mid to lower pole of the left kidney. Symm etric cord measuring uptake and excretion without hydronephrosis seen bilaterally. Mild wall thickeni ng in the urinary bladder presumed related to outlet obstruction from BPH, correlate clinically. BOWEL: Diffuse colonic diverticulosis greatest in the left and sigmoid colon. No CT evidence for acut e diverticulitis. GENITAL ORGANS: Enlarged prostate consistent with BPH bulging on the bladder base. LYMPH NODES: No greater than 1cm abdominal or pelvic lymph nodes are appreciated. OSSEOUS STRUCTURES: Scoliotic curvature in the lumbar spine. Mild to moderate height loss involving t he L2 and L4 vertebra. Moderate to severe disc space narrowing at right L3-L4 level. Moderate axial j oint space loss in both hips. OTHER: Moderate calcified plaque of the aorta extends into branch vessels. IMPRESSION: Improved thoracic adenopathy from most recent PET/CT. More prominent left upper lobe sca rlike opacity on current study is nonspecific as portion reflected hypermetabolic neoplasm and portio n reflected adjacent atelectatic change and/or scarring on most recent PET/CT. No new suspicious mass es or adenopathy.
== END | disposition home or self-care (01) ==
LOC: RADECHMAIN 11:55
PROVIDERS: ATTEND Internal Medicine Hematology & Oncology
DX: Z03.89 Encounter for observation for other suspected diseases and conditions ruled out (principal); C34.12 Malignant neoplasm of upper lobe, left bronchus or lung; R59.0 Localized enlarged lymph nodes
CPT/HCPCS: 82565; 84520; 71260; 74177; 36415; Q9967

== ENCOUNTER → 2020-09-06 | Outpatient (CLI) | payer MEDICARE ==
--- NOTE | 2020-09-06 16:43 | CT ---
EXAMINATION TYPE: High-resolution CT chest DATE OF EXAM: 09/06/2020 COMPARISON: 08/16/2020 and 04/19/2020 HISTORY: 75-year-old male C34.12, LUNG CA TECHNIQUE: Contiguous high-resolution axial scanning of the chest without IV contrast utilizing 1 mm slice thickness and 1 cm gap per HRCT protocol. Both prone and supine imaging is performed. CT DLP: 612.80 mGycm Automated exposure control for dose reduction was used. FINDINGS: Heart normal size without pericardial effusion. Three-vessel coronary artery calcifications are prese nt. Aorta normal caliber with mild atherosclerotic arch calcifications and shortness of branching anatomy . No thoracic lymphadenopathy aligned for HRCT technique. Background moderate centrilobular emphysema. Redemonstrated focal masslike consolidation and volume loss along the anterior right midlung extendin g from the hilum to the anterior pleural surface. On axial image 14 series 4, there appears slightly more bulky than prior exam measuring 2.1 cm thick versus 1.7 cm, previously. Left upper lobe suprahilar mass measures 4.0 x 2.4 cm versus 4.2 x 2.3 cm, previously. Scattered areas of pleural-parenchymal scarring are redemonstrated bilaterally. No new consolidation or pleural effusion. No honeycombing, thickening of the bronchovascular bundles, tree-in-bud opacities, predominantly grou ndglass. Surgical material in the right lower lobe. Visualized upper abdomen shows partial visualization of a large left renal cyst measuring at least 4. 9 cm. Calcification throughout the atrophic pancreas suggesting sequela of chronic pancreatitis. IMPRESSION: 1. 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 NO SPECIFIC HRCT FINDINGS OF INTERSTITIAL PNEUMONITIS/INTERSTITIAL MARIAM G DISEASE. 2. LEFT UPPER LOBE, SUPRAHILAR MASS IS ESTIMATED AT 4.0 X 2.4 CM (VERSUS 4.2 X 2.3 CM, PREVIOUSLY), N OT SIGNIFICANTLY CHANGED. 3. FOCAL MASSLIKE CONSOLIDATION AND VOLUME LOSS ANTERIOR RIGHT MIDLUNG, LIKELY SITE OF TREATED DISEA SE MAY BE SLIGHTLY MORE BULKY MEASURING 2.1 CM THICK VERSUS 1.7 CM, PREVIOUSLY. CONTINUED FOLLOW-UP R ECOMMENDED. 4. NO DEFINITE RECURRENT MEDIASTINAL LYMPHADENOPATHY ALLOWING FOR HRCT TECHNIQUE. 5. COPD WITH MODERATE EMPHYSEMA. AREAS OF BILATERAL PLEURAL PARENCHYMAL SCARRING AND SOME POST SURGIC AL CHANGE AT THE RIGHT BASE.
== END | disposition home or self-care (01) ==
LOC: RADCTMAIN 15:36
PROVIDERS: ATTEND Internal Medicine Hematology & Oncology
DX: Z03.89 Encounter for observation for other suspected diseases and conditions ruled out (principal); C34.12 Malignant neoplasm of upper lobe, left bronchus or lung; J43.9 Emphysema, unspecified
CPT/HCPCS: 71250

== ENCOUNTER → 2021-01-03 | Outpatient (CLI) | payer MEDICARE ==
[2021-01-03 12:54] LABS: African American GFR (CKD) >90 (>60 ml/min/1.73 sqM); Blood Urea Nitrogen 10 mg/dL (9-20); Non-African American GFR(CKD) 88 (>60 ml/min/1.73 sqM)
--- NOTE | 2021-01-04 09:11 | CT ---
EXAMINATION TYPE: CT ChestAbdPelvis w con DATE OF EXAM: 01/03/2021 COMPARISON: 08/16/2020, 04/19/2020, 01/23/2020 HISTORY: 75-year-old male C34.12 Lung ca, Z01.818 Chemo exposure TECHNIQUE: Contiguous axial scanning of the chest, abdomen, and pelvis performed with IV Contrast, pa tient injected with 100 mL of Isovue 300. Delayed images through the kidneys were obtained. Coronal/s agittal reconstructions performed. CT DLP: 1051.6 mGycm Automated exposure control for dose reduction was used. FINDINGS: CHEST: Heart normal size without pericardial effusion. Three-vessel coronary artery calcifications are prese nt in remarkable for coronary artery disease. Borderline ectasia aortic root 3.5 cm. Mild atherosclerotic arch calcifications within benign short v essel branching anatomy. Borderline to mildly enlarged caliber to the main right and left pulmonary arteries measuring up to 2 .6 cm each suggesting underlying pulmonary arterial hypertension. No thoracic lymphadenopathy by CT size criteria. Moderate to advanced centrilobular emphysema. Focal opacity left upper lobe measures 3.4 x 2.0 cm christine neda 4.2 x 2.3 cm on 08/16/2020. Focal consolidation and volume loss anterior right upper lobe is unchanged. Scattered areas of scarring and some subpleural interstitial thickening are unchanged. Surgical material at the right base. No consolidation or pleural effusion. ABDOMEN: Tiny hiatal hernia. Trace air in the periphery of the left liver lobe suggesting a small focus of por sadiq venous air. Calcifications throughout the pancreas suggesting chronic pancreatitis. The body and tail is atrophic . There is cystic dilatation at the head and neck of the pancreas measuring up to 3.6 x 2.9 cm versus 3.9 x 2.9 cm on 04/19/2020, not significantly changed. Portal venous system is patent. Stable promine nce to the bile duct at 9 mm. 5.9 cm diverticulum projecting anteriorly from the second portion of the duodenum. Cholecystectomy clips. 1.2 cm nodule right adrenal gland and 1.4 cm nodularity left adrenal gland both unchanged. Fullness of the right renal collecting system but with symmetric uptake and excretion of contrast fro m the kidneys, probably transient. Lateral left renal cyst measuring 5.3 cm. Adrenal glands within normal limits. Moderate atherosclerotic calcifications throughout the abdominal aorta and iliac arteries. There may be more severe segmental areas of narrowing within the iliac arteries. No dilated small bowel, free fluid, or free air. Tiny fatty and local hernia. No mesenteric or retroperitoneal lymphadenopathy seen. Unable to exclude pneumatosis along the ascending colon. There are small foci of portal venous air. M oderate stool burden. Generalized colonic diverticulosis. A large 5.5 cm air locule along the distal sigmoid along the posterior bladder dome likely prominent air distention of a colonic diverticula. PELVIS: Bladder is urine distended. Prostate gland enlargement 4.6 cm wide. There may be more focal nodularit y along the left lateral aspect of the prostate gland, axial image 110. Impression onto the posterior bladder base suggesting BPH. There is mild cul-de-sac free fluid noted. No pelvic lymphadenopathy se en. BONES: Moderate degenerative change of the hips. There may be a small early focus of AVN anterior left femor al head. Endplate deformities L2 and L4 vertebral bodies and also higher up at T7 and T8 vertebral nithya dies are unchanged back to 08/16/2020. IMPRESSION: 1. APPARENT PNEUMATOSIS ALONG THE RIGHT SIDE OF THE COLON WITH SMALL FOCI OF PORTAL VENOUS AIR. FINDI NGS CAN BE SEEN IN THE SETTING OF BOWEL WALL ISCHEMIA. CORRELATE WITH LACTIC ACID LEVELS AND SURGICAL CONSULTATION. TRACE PELVIC FREE FLUID IS LIKELY REACTIVE. NO FREE AIR SEEN. 2. THERE IS MODERATE TO SEVERE ATHEROSCLEROTIC CHANGES THROUGHOUT THE ABDOMINAL AORTA AND ILIAC ARTER IES, SIMILAR TO PRIOR EXAM. THE PORTAL VENOUS SYSTEM APPEARS PATENT. 3. COPD WITH ADVANCED EMPHYSEMA AND SCATTERED PLEURAL PARENCHYMAL SCARRING REDEMONSTRATED. FOCAL OPAC ITY LEFT UPPER LOBE IS SLIGHTLY SMALLER AT 3.4 CM VERSUS 4.2 CM, PREVIOUSLY. FOCAL CONSOLIDATION AND VOLUME LOSS ANTERIOR RIGHT UPPER LOBE IS UNCHANGED, LIKELY SITE OF TREATED DISEASE. NO EVIDENCE FOR D ISEASE PROGRESSION. 4. STABLE CHANGES OF CHRONIC PANCREATITIS AND CYSTIC CHANGE AT THE PANCREATIC HEAD AND NECK MEASURING 3.6 X 2.9 CM. IPMN OR CYSTIC PANCREATIC NEOPLASM ARE NOT EXCLUDED AND CAN CONTINUE TO BE FOLLOWED. 5. PROSTATOMEGALY WITH SLIGHT SOFT TISSUE FULLNESS ALONG THE LEFT LATERAL ASPECT. SUSPECTED BPH. GAIL ELATE WITH PSA VALUES TO EXCLUDE UNDERLYING PROSTATE CANCER. 6. CAD, PULMONARY ARTERIAL HYPERTENSION, TINY HIATAL HERNIA, GENERALIZED COLONIC DIVERTICULOSIS, STAB LE NODULARITY OF THE ADRENAL GLANDS, AND STABLE CHRONIC VERTEBRAL BODY ENDPLATE DEFORMITIES. 7. THERE IS A 5.5 CM AIR LOCULE ALONG THE DISTAL SIGMOID COLON, LIKELY LARGE AIR DISTENTION OF A COLO AFTAB DIVERTICULA, NEW FROM PRIOR EXAM. NO ASSOCIATED INFLAMMATION HERE. UNCLEAR CLINICAL SIGNIFICANCE. A Red level critical message alert has been initiated for Aurora Lester MD via the [email or web address] Critical Results System on 01/04/2021 9:07 AM. This message alert has been sent to Aurora Lester MD via the preferences provided by the clinician for the receipt of Radiology Critical Findings. Message ID [id number].
== END | disposition home or self-care (01) ==
LOC: RADCTMAIN 11:55
PROVIDERS: ATTEND Internal Medicine Hematology & Oncology
DX: C34.12 Malignant neoplasm of upper lobe, left bronchus or lung (principal); K63.89 Other specified diseases of intestine; J44.9 Chronic obstructive pulmonary disease, unspecified; K86.1 Other chronic pancreatitis
CPT/HCPCS: 82565; 84520; 71260; 74177; 36415; Q9967

== ENCOUNTER 2021-01-04 12:48 | Emergency (ER) | payer MEDICARE ==
[2021-01-04 13:23] VITALS: TEMP 97
--- NOTE | 2021-01-04 16:10 | ED ---
General Adult HPI - General Chief complaint: Recheck/Abnormal Lab/Rx Stated complaint: sent by Time Seen by Provider: 01/04/21 13:15 Source: patient, RN notes reviewed, old records reviewed Mode of arrival: ambulatory Limitations: no limitations - History of Present Illness Initial comments: This is a 75-year-old male who is came to the emergency department because his oncologist told him that there was a concerning finding on his CAT scan. Maicol t states she has lung cancer started on chemotherapy and is now on immunotherapy. Patient states she went in for routine CT of the chest abdomen pelvis and he got a call today that is oncologist wants to come to the emergency department. Patient denies any chest pain palpitations difficulty breathing or shortness of breath per patient denies abdominal pain patient denies nausea vomiting states she has a little bit of diarrhea. Patient denies any back pain. Patient states he feels at his baseline and has no complaints. - Related Data Home Medications Medication Instructions Recorded Confirmed HYDROcodone/APAP 10-325MG [[place] 0.5 - 1 tab PO BID PRN 06/11/18 01/04/21 10-325] Ipratropium/Albuterol Sulfate 1 puff INHALATION RT-QID 06/11/18 01/04/21 [Combivent Respimat Inhaler] Meloxicam 15 mg PO DAILY 06/11/18 01/04/21 Omeprazole 20 mg PO BID 06/11/18 01/04/21 Durvalumab [Imfinzi] 1 dose IV Q30D 01/04/21 01/04/21 Escitalopram [Lexapro] 20 mg PO DAILY 01/04/21 01/04/21 LORazepam [Ativan] 1 mg PO HS 01/04/21 01/04/21 LORazepam [Ativan] 1 mg PO HS PRN 01/04/21 01/04/21 Levothyroxine Sodium [Synthroid] 50 mcg PO DAILY 01/04/21 01/04/21 Lipase/Protease/Amylase [Emiliano Inamn 24,000 units PO BID 01/04/21 01/04/21 24,000 Units Capsule] Allergies Allergy/AdvReac Type Severity Reaction Status Date / Time No Known Allergies Allergy Verified 01/04/21 16:34 Review of Systems ROS Statement: Those systems with pertinent positive or pertinent negative responses have been documented in the HPI. ROS Other: All systems not noted in ROS Statement are negative. Past Medical History Past Medical History: Cancer, GERD/Reflux, Osteoarthritis (OA), Pneumonia Additional Past Medical History / Comment(s): Right lung cancer 2003 and first resection done (got MRSA at that time in incision), second resection in 2008, lung cancer reoccured in 12/2014 and found new nodule in right lung had radiation in February 2015. Pancreatitis,chronic back pain, lung CA reoccured 2020 History of Any Multi-Drug Resistant Organisms: MRSA Date of last positivie culture/infection: 2003 MDRO Source:: BACK Past Surgical History: Cholecystectomy, Orthopedic Surgery Additional Past Surgical History / Comment(s): RESECTION TO RIGHT LUNG TWICE (RT MIDDLE AND RT LOWER LOBECTOMY), RT KNEE SCOPE x2 Past Anesthesia/Blood Transfusion Reactions: Motion Sickness Past Psychological History: No Psychological Hx Reported Smoking Status: Never smoker Past Alcohol Use History: None Reported Past Drug Use History: None Reported - Past Family History Father Family Medical History: Cancer Mother Family Medical History: Dementia Additional Family Medical History / Comment(s): Crohn's disease General Exam - General Exam Comments Initial Comments: GENERAL: Patient is well-developed and well-nourished. Patient is nontoxic and well- hydrated and is in no acute distress. ENT: Neck is soft and supple. No significant lymphadenopathy is noted. Oropharynx is clear. Moist mucous membranes. Neck has full range of motion without eliciting any pain. EYES: The sclera were anicteric and conjunctiva were pink and moist. Extraocular movements were intact and pupils were equal round and reactive to light. Eyelids were unremarkable. PULMONARY: Unlabored respirations. Good breath sounds bilaterally. No audible rales rhonchi or wheezing was noted. CARDIOVASCULAR: There is a regular rate and rhythm without any murmurs gallops or rubs. ABDOMEN: Soft and nontender with normal bowel sounds. SKIN: Skin is clear with no lesions or rashes and otherwise unremarkable. NEUROLOGIC: Patient is alert and oriented x3. Cranial nerves II through XII are grossly intact. Motor and sensory are also intact. Normal speech, volume and content. Symmetrical smile. MUSCULOSKELETAL: Normal extremities with adequate strength and full range of motion. No lower extremity swelling or edema. No calf tenderness. LYMPHATICS: No significant lymphadenopathy is noted PSYCHIATRIC: Normal psychiatric evaluation. Limitations: no limitations Course Vital Signs 01/04/21 13:15 Temperature 97.0 F L Pulse Rate 75 Respiratory 20 Rate Blood Pressure 123/66 O2 Sat by Pulse 98 Oximetry Medical Decision Making - Medical Decision Making I reviewed the CAT scan shows pneumatosis of the colon and some air in the venous system. I verified this with a second radiologist. I spoke with Dr. Lester he wanted the patient admitted [facility] I spoke with Dr. Gentile said he would be on consult with the patient. I will back in and spoke to the patient and his were in agreement to admission. Approximately an hour after I spoke to the doctor's about admitting the patient the patient decided to leave AMA. - Lab Data Result diagrams: 01/04/21 16:29 01/04/21 16:29 Lab Results 01/04/21 01/04/21 01/04/21 Range/Units 16:29 16:29 16:29 WBC 7.4 (3.8-10.6) k/uL RBC 3.28 L (4.30-5.90) m/uL Hgb 12.1 L (13.0-17.5) gm/dL Hct 34.7 L (39.0-53.0) % MCV 105.9 H (80.0-100.0) fL MCH 36.8 H (25.0-35.0) pg MCHC 34.8 (31.0-37.0) g/dL RDW 12.5 (11.5-15.5) % Plt Count 354 (150-450) k/uL MPV 7.1 Neutrophils % 75 % Lymphocytes % 9 % Monocytes % 9 % Eosinophils % 4 % Basophils % 1 % Neutrophils # 5.5 (1.3-7.7) k/uL Lymphocytes # 0.7 L (1.0-4.8) k/uL Monocytes # 0.7 (0-1.0) k/uL Eosinophils # 0.3 (0-0.7) k/uL Basophils # 0.0 (0-0.2) k/uL Macrocytosis Slight Sodium 126 L (137-145) mmol/L Potassium 4.6 (3.5-5.1) mmol/L Chloride 96 L (98-107) mmol/L Carbon Dioxide 23 (22-30) mmol/L Anion Gap 7 mmol/L BUN 12 (9-20) mg/dL Creatinine 0.72 (0.66-1.25) mg/dL Est GFR (CKD-EPI)AfAm >90 (>60 ml/min/1.73 sqM) Est GFR (CKD-EPI)NonAf >90 (>60 ml/min/1.73 sqM) Glucose 101 H (74-99) mg/dL Plasma Lactic Acid Amado 0.8 (0.7-2.0) mmol/L Calcium 8.6 (8.4-10.2) mg/dL Total Bilirubin 0.5 (0.2-1.3) mg/dL AST 24 (17-59) U/L ALT 19 (4-49) U/L Alkaline Phosphatase 52 (38-126) U/L Total Protein 6.2 L (6.3-8.2) g/dL Albumin 3.6 (3.5-5.0) g/dL Disposition Clinical Impression: Pneumatosis intestinalis, Diarrhea Disposition: Left Against Medical Advice Referrals: Cale Arenas DO [Primary Care Provider] - 1-2 days Time of Disposition: 18:04
[2021-01-04 16:43] LABS: Basophils % (A) 1 %; Eosinophils # (A) 0.3 k/uL (0-0.7); Eosinophils % (A) 4 %; HCT 34.7 % (39.0-53.0); HGB 12.1 gm/dL (13.0-17.5); Lymphocytes # (A) 0.7 k/uL (1.0-4.8); Lymphocytes % (A) 9 %; MCH 36.8 pg (25.0-35.0); MCHC 34.8 g/dL (31.0-37.0); MCV 105.9 fL (80.0-100.0); Macrocytosis Slight; Mean Platelet Volume 7.1; Monocytes # (A) 0.7 k/uL (0-1.0); Monocytes % (A) 9 %; Neutrophils # (A) 5.5 k/uL (1.3-7.7); Neutrophils % (A) 75 %; Platelet Count 354 k/uL (150-450); RBC 3.28 m/uL (4.30-5.90); RDW 12.5 % (11.5-15.5); WBC 7.4 k/uL (3.8-10.6)
[2021-01-04 16:58] LABS: ALT 19 U/L (4-49); AST 24 U/L (17-59); African American GFR (CKD) >90 (>60 ml/min/1.73 sqM); Albumin 3.6 g/dL (3.5-5.0); Alkaline Phosphatase 52 U/L (38-126); Anion Gap 7 mmol/L; Blood Urea Nitrogen 12 mg/dL (9-20); Calcium 8.6 mg/dL (8.4-10.2); Carbon Dioxide 23 mmol/L (22-30); Chloride 96 mmol/L (98-107); Glucose 101 mg/dL (74-99); Non-African American GFR(CKD) >90 (>60 ml/min/1.73 sqM); Potassium 4.6 mmol/L (3.5-5.1); Sodium 126 mmol/L (137-145); Total Bilirubin 0.5 mg/dL (0.2-1.3); Total Protein 6.2 g/dL (6.3-8.2)
[2021-01-04 18:18] VITALS: BP 124/73; PULSE 65; RESP 18
== END 2021-01-04 18:05 | disposition left against medical advice (07) ==
LOC: EC 12:48
DX: K63.89 Other specified diseases of intestine (principal); R19.7 Diarrhea, unspecified; K21.9 Gastro-esophageal reflux disease without esophagitis; Z79.899 Other long term (current) drug therapy
CPT/HCPCS: 36415; 80053; 83605; 85025; 99283

== ENCOUNTER 2021-04-10 18:54 | Inpatient (IN) | payer MEDICARE ==
[2021-04-10] MEDS ORDERED: SODIUM CHLORIDE 0.9% 500 ML 500 ML IV STA (19:17)
[2021-04-10] MEDS ORDERED: IPRATROPIUM-ALBUTEROL 3 ML NEB INHALATION STA (19:17)
--- NOTE | 2021-04-10 19:25 | ED ---
General Adult HPI - General Chief complaint: Shortness of Breath Stated complaint: JENNIFER Time Seen by Provider: 04/10/21 19:15 Source: patient, RN notes reviewed, old records reviewed Mode of arrival: ambulatory Limitations: no limitations - History of Present Illness Initial comments: 75-year-old male, alert and oriented presents to the emergency room ambulatory with complaints of shortness of breath for months. Patient states that over the past 2 days he has had increasing shortness of breath with cough and congestion. He did see his primary care doctor who put him on Zithromax on Sunday. He states he continues to be short of breath worse with exertion. He denies any chest pain. Denies any fevers. He has been vaccinated against coronavirus and received his booster. He does have a history of lung cancer and is currently undergoing treatment. He states he does get infusions at the [facility] and is scheduled next week for infusion. -: month(s) (2) Severity scale (1-10): 0 - Related Data Home Medications Medication Instructions Recorded Confirmed HYDROcodone/APAP 10-325MG [[place] 0.5 tab PO BID 06/11/18 04/10/21 10-325] Ipratropium/Albuterol Sulfate 1 puff INHALATION RT-QID 06/11/18 04/10/21 [Combivent Respimat Inhaler] Meloxicam 15 mg PO DAILY@1200 06/11/18 04/10/21 Omeprazole 20 mg PO DAILY@1200 06/11/18 04/10/21 Durvalumab [Imfinzi] 1 dose IV Q30D 01/04/21 04/10/21 Escitalopram [Lexapro] 20 mg PO DAILY@1200 01/04/21 04/10/21 LORazepam [Ativan] 1 mg PO HS 01/04/21 04/10/21 Lipase/Protease/Amylase [Creon Dr 24,000 units PO BID 01/04/21 04/10/21 24,000 Units Capsule] Acetaminophen Tab [Tylenol Tab] 500 mg PO BID 04/10/21 04/10/21 Azithromycin [Zithromax] 500 mg PO DAILY 04/10/21 04/10/21 Levothyroxine Sodium [Synthroid] 75 mcg PO DAILY 04/10/21 04/10/21 Allergies Allergy/AdvReac Type Severity Reaction Status Date / Time No Known Allergies Allergy Verified 04/10/21 22:59 Review of Systems ROS Statement: Those systems with pertinent positive or pertinent negative responses have been documented in the HPI. ROS Other: All systems not noted in ROS Statement are negative. Past Medical History Past Medical History: Cancer, GERD/Reflux, Osteoarthritis (OA), Pneumonia Additional Past Medical History / Comment(s): Right lung cancer 2003 and first resection done (got MRSA at that time in incision), second resection in 2008, lung cancer reoccured in 12/2014 and found new nodule in right lung had radiation in February 2015. Pancreatitis,chronic back pain, lung CA reoccured 2019 History of Any Multi-Drug Resistant Organisms: MRSA Date of last positivie culture/infection: 2003 MDRO Source:: BACK Past Surgical History: Cholecystectomy, Orthopedic Surgery Additional Past Surgical History / Comment(s): RESECTION TO RIGHT LUNG TWICE (RT MIDDLE AND RT LOWER LOBECTOMY), RT KNEE SCOPE x2 Past Anesthesia/Blood Transfusion Reactions: Motion Sickness Past Psychological History: No Psychological Hx Reported Smoking Status: Never smoker Past Alcohol Use History: None Reported Past Drug Use History: None Reported - Past Family History Father Family Medical History: Cancer Mother Family Medical History: Dementia Additional Family Medical History / Comment(s): Crohn's disease General Exam Limitations: no limitations General appearance: alert, in no apparent distress Eye exam: Present: normal appearance, EOMI ENT exam: Present: normal exam, normal oropharynx, mucous membranes moist Neck exam: Present: normal inspection, full ROM. Absent: tenderness, meningismus, lymphadenopathy, thyromegaly Respiratory exam: Present: wheezes, rales, decreased breath sounds. Absent: rhonchi, stridor, chest wall tenderness Expanded Location: Wheezes: Left, Upper, Lower, Decreased Breath Sounds: Right Cardiovascular Exam: Present: regular rate GI/Abdominal exam: Present: soft. Absent: distended, tenderness Extremities exam: Present: normal inspection, full ROM, normal capillary refill. Absent: tenderness, pedal edema, joint swelling, calf tenderness Back exam: Present: normal inspection. Absent: tenderness, CVA tenderness (R), CVA tenderness (L) Neurological exam: Present: alert, oriented X3, normal gait Psychiatric exam: Present: normal affect, normal mood Skin exam: Present: warm, dry, intact. Absent: cyanosis, diaphoretic Course Vital Signs 04/10/21 04/10/21 04/10/21 18:59 20:30 20:52 Temperature 97.8 F Pulse Rate 90 68 Respiratory 22 16 Rate Blood Pressure 110/71 O2 Sat by Pulse 96 Oximetry 04/10/21 22:04 Temperature Pulse Rate 72 Respiratory 16 Rate Blood Pressure 115/60 O2 Sat by Pulse 97 Oximetry - Reevaluation(s) Reevaluation #1: 04/10/21 21:45 Patient states that he is feeling better after the DuoNeb treatment. Oxygen saturation is 97% however he states when he gets up and walks to the bathroom he gets very short of breath again. He thinks he should stay in the hospital. Lung sounds with inspiratory and expiratory wheezes. Time: 21:45 EKG Findings - EKG Results: EKG: sinus rhythm (Ventricular rate 83, HI interval 0.194, QRS 0.76, QTC 0.458) Medical Decision Making - Medical Decision Making 75-year-old male, alert and oriented presents with complaints of shortness of breath for months worsening over the past 2 days. He was put on zithromax on Sunday by his PCP. He denies any chest pain or fevers. He has been vaccinated against coronavirus with a booster. He does have a history of non-small cell lung cancer, underwent a right upper lobectomy in 2004 and right middle lobe lobectomy in 2014. Currently undergoing treatment at the [facility] and is scheduled next week for infusion. Chest x-ray shows pulmonary fibrotic changes. Bilateral pulmonary scarring not changed from old exam dated 08/03/2020. There is pleural diaphragmatic scarring in the right lung base. Course predominantly interstitial infiltrate in the mid and upper lung calvert with blunting of the right costophrenic angle. No evidence of heart failure. Troponin is elevated at 0.436. EKG shows normal sinus rhythm no ectopy, no ST elevation. Patient was started on heparin. Cardiology was consulted, Dr. Walters at 2206. Sodium is 126 patient states he has had a problem with hyponatremia in the past and his doctor thinks it may be related to his medications. Patient was concerned about getting steroids for his COPD exacerbation. States that his oncologist told him he should not take steroids while getting his infusions which he is scheduled for next week. I did speak with Dr. Lynch who agreed to give patient a dose of solumedrol in the emergency room and then hold further doses until evaluated. Patient will be admitted for a NSTEMI, COPD exacerbation, and hyponatremia. Patient is agreeable to this plan of care. Case discussed with Dr. Treadwell. - Lab Data Result diagrams: 04/10/21 19:52 04/10/21 19:52 Lab Results 04/10/21 04/10/21 04/10/21 Range/Units 19:52 19:52 19:52 WBC 12.2 H (3.8-10.6) k/uL RBC 3.96 L (4.30-5.90) m/uL Hgb 14.2 (13.0-17.5) gm/dL Hct 41.9 (39.0-53.0) % MCV 105.9 H (80.0-100.0) fL MCH 35.8 H (25.0-35.0) pg MCHC 33.8 (31.0-37.0) g/dL RDW 12.1 (11.5-15.5) % Plt Count 341 (150-450) k/uL MPV 7.6 Neutrophils % 83 % Lymphocytes % 6 % Monocytes % 5 % Eosinophils % 4 % Basophils % 1 % Neutrophils # 10.2 H (1.3-7.7) k/uL Lymphocytes # 0.7 L (1.0-4.8) k/uL Monocytes # 0.7 (0-1.0) k/uL Eosinophils # 0.5 (0-0.7) k/uL Basophils # 0.1 (0-0.2) k/uL Macrocytosis Slight PT 10.4 (9.0-12.0) sec INR 1.0 (<1.2) APTT 26.3 (22.0-30.0) sec D-Dimer 0.63 H (<0.60) mg/L FEU Sodium 126 L (137-145) mmol/L Potassium 5.0 (3.5-5.1) mmol/L Chloride 95 L (98-107) mmol/L Carbon Dioxide 22 (22-30) mmol/L Anion Gap 9 mmol/L BUN 14 (9-20) mg/dL Creatinine 0.68 (0.66-1.25) mg/dL Est GFR (CKD-EPI)AfAm >90 (>60 ml/min/1.73 sqM) Est GFR (CKD-EPI)NonAf >90 (>60 ml/min/1.73 sqM) Glucose 104 H (74-99) mg/dL Plasma Lactic Acid Amado (0.7-2.0) mmol/L Calcium 8.9 (8.4-10.2) mg/dL Magnesium 1.8 (1.6-2.3) mg/dL Total Bilirubin 0.7 (0.2-1.3) mg/dL AST 31 (17-59) U/L ALT 30 (4-49) U/L Alkaline Phosphatase 61 (38-126) U/L Troponin I (0.000-0.034) ng/mL Total Protein 7.0 (6.3-8.2) g/dL Albumin 4.1 (3.5-5.0) g/dL 04/10/21 04/10/21 Range/Units 19:52 19:52 WBC (3.8-10.6) k/uL RBC (4.30-5.90) m/uL Hgb (13.0-17.5) gm/dL Hct (39.0-53.0) % MCV (80.0-100.0) fL MCH (25.0-35.0) pg MCHC (31.0-37.0) g/dL RDW (11.5-15.5) % Plt Count (150-450) k/uL MPV Neutrophils % % Lymphocytes % % Monocytes % % Eosinophils % % Basophils % % Neutrophils # (1.3-7.7) k/uL Lymphocytes # (1.0-4.8) k/uL Monocytes # (0-1.0) k/uL Eosinophils # (0-0.7) k/uL Basophils # (0-0.2) k/uL Macrocytosis PT (9.0-12.0) sec INR (<1.2) APTT (22.0-30.0) sec D-Dimer (<0.60) mg/L FEU Sodium (137-145) mmol/L Potassium (3.5-5.1) mmol/L Chloride (98-107) mmol/L Carbon Dioxide (22-30) mmol/L Anion Gap mmol/L BUN (9-20) mg/dL Creatinine (0.66-1.25) mg/dL Est GFR (CKD-EPI)AfAm (>60 ml/min/1.73 sqM) Est GFR (CKD-EPI)NonAf (>60 ml/min/1.73 sqM) Glucose (74-99) mg/dL Plasma Lactic Acid Amado 0.8 (0.7-2.0) mmol/L Calcium (8.4-10.2) mg/dL Magnesium (1.6-2.3) mg/dL Total Bilirubin (0.2-1.3) mg/dL AST (17-59) U/L ALT (4-49) U/L Alkaline Phosphatase (38-126) U/L Troponin I 0.436 H* (0.000-0.034) ng/mL Total Protein (6.3-8.2) g/dL Albumin (3.5-5.0) g/dL Disposition Clinical Impression: Elevated troponin, Hyponatremia, COPD exacerbation, Carcinoma, lung, NSTEMI (non-ST elevated myocardial infarction) Disposition: ADMITTED IP TO THIS HOSP Referrals: Cale Arenas DO [Primary Care Provider] - 1-2 days
--- NOTE | 2021-04-10 20:10 | XR ---
EXAMINATION TYPE: XR chest 2V DATE OF EXAM: 04/10/2021 COMPARISON: 08/03/2020 HISTORY: Short of breath TECHNIQUE: 2 views FINDINGS: There is coarse predominantly interstitial infiltrate in the mid and upper lung calvert. Hea rt size is normal. There is some blunting of the right costophrenic angle. There is no mediastinal ad enopathy. Bony thorax is intact. There is osteopenia. IMPRESSION: Pulmonary fibrotic changes. Bilateral pulmonary scarring not significantly different than old exam. Pleural diaphragmatic scarring right lung base without change. No heart failure.
[2021-04-10 20:12] LABS: Basophils # (A) 0.1 k/uL (0-0.2); Basophils % (A) 1 %; Eosinophils # (A) 0.5 k/uL (0-0.7); Eosinophils % (A) 4 %; HCT 41.9 % (39.0-53.0); HGB 14.2 gm/dL (13.0-17.5); Lymphocytes # (A) 0.7 k/uL (1.0-4.8); Lymphocytes % (A) 6 %; MCH 35.8 pg (25.0-35.0); MCHC 33.8 g/dL (31.0-37.0); MCV 105.9 fL (80.0-100.0); Macrocytosis Slight; Mean Platelet Volume 7.6; Monocytes # (A) 0.7 k/uL (0-1.0); Monocytes % (A) 5 %; Neutrophils # (A) 10.2 k/uL (1.3-7.7); Neutrophils % (A) 83 %; Platelet Count 341 k/uL (150-450); RBC 3.96 m/uL (4.30-5.90); RDW 12.1 % (11.5-15.5); WBC 12.2 k/uL (3.8-10.6)
[2021-04-10 20:27] LABS: Partial Thromboplastin Time 26.3 sec (22.0-30.0); Prothrombin Time 10.4 sec (9.0-12.0)
[2021-04-10 21:20] LABS: ALT 30 U/L (4-49); AST 31 U/L (17-59); African American GFR (CKD) >90 (>60 ml/min/1.73 sqM); Albumin 4.1 g/dL (3.5-5.0); Alkaline Phosphatase 61 U/L (38-126); Anion Gap 9 mmol/L; Blood Urea Nitrogen 14 mg/dL (9-20); Calcium 8.9 mg/dL (8.4-10.2); Carbon Dioxide 22 mmol/L (22-30); Chloride 95 mmol/L (98-107); Glucose 104 mg/dL (74-99); Magnesium 1.8 mg/dL (1.6-2.3); Non-African American GFR(CKD) >90 (>60 ml/min/1.73 sqM); Sodium 126 mmol/L (137-145); Total Bilirubin 0.7 mg/dL (0.2-1.3)
[2021-04-10] MEDS ORDERED: methylPREDNISolone SOD SUCCI 125 MG/2 ML VIAL IV STA (21:55)
[2021-04-10] MEDS ORDERED: HEPARIN SODIUM 1,000 UN/ML (10ML VL) IV PRN (21:56)
[2021-04-10] MEDS ORDERED: HEPARIN SODIUM 1,000 UN/ML (10ML VL) IV ONE (21:56)
[2021-04-10] MEDS ORDERED: ASPIRIN 81 MG PO STA (22:15)
[2021-04-10] MEDS ORDERED: NALOXONE 0.4 MG/ML 1 ML VIAL IV PRN (22:33)
[2021-04-10] MEDS ORDERED: ACETAMINOPHEN TAB 325 MG TAB PO PRN (22:33)
[2021-04-10] MEDS: SODIUM CHLORIDE 0.9% 1,000 ML IV SCH (23:02)
[2021-04-10] MEDS: HEPARIN SOD,PORK IN 0.45% NACL 25,000 UNIT in 0.45% NACL 1 250ML.BAG IV SCH (23:09)
[2021-04-11 04:10] LABS: Basophils % (A) 0 %; Eosinophils # (A) 0.1 k/uL (0-0.7); Eosinophils % (A) 1 %; HCT 40.9 % (39.0-53.0); HGB 13.7 gm/dL (13.0-17.5); Lymphocytes # (A) 0.4 k/uL (1.0-4.8); Lymphocytes % (A) 5 %; MCH 35.8 pg (25.0-35.0); MCHC 33.6 g/dL (31.0-37.0); MCV 106.8 fL (80.0-100.0); Macrocytosis Slight; Mean Platelet Volume 7.4; Monocytes # (A) 0.1 k/uL (0-1.0); Monocytes % (A) 1 %; Neutrophils # (A) 7.3 k/uL (1.3-7.7); Neutrophils % (A) 93 %; Platelet Count 314 k/uL (150-450); RBC 3.84 m/uL (4.30-5.90); WBC 7.9 k/uL (3.8-10.6)
[2021-04-11 04:25] LABS: Partial Thromboplastin Time 51.7 sec (22.0-30.0); Prothrombin Time 10.7 sec (9.0-12.0)
[2021-04-11] MEDS: LEVOTHYROXINE 75 MCG TAB PO SCH (07:11)
[2021-04-11] MEDS: IPRATROPIUM-ALBUTEROL 3 ML NEB INHALATION SCH ×4 (08:04→19:29)
[2021-04-11] MEDS: HYDROcodone/APAP 10-325MG 1 EACH TAB PO SCH ×2 (08:18→21:16)
[2021-04-11] MEDS: ASPIRIN 81 MG PO SCH (08:18)
[2021-04-11] MEDS: AZITHROMYCIN 500 MG TAB PO SCH (08:19)
[2021-04-11] MEDS: PANTOPRAZOLE 40 MG/10 ML VIAL IV SCH (08:19)
[2021-04-11 08:29] LABS: African American GFR (CKD) >90 (>60 ml/min/1.73 sqM); Anion Gap 8 mmol/L; Blood Urea Nitrogen 12 mg/dL (9-20); Calcium 8.9 mg/dL (8.4-10.2); Carbon Dioxide 17 mmol/L (22-30); Chloride 103 mmol/L (98-107); Glucose 218 mg/dL (74-99); Non-African American GFR(CKD) >90 (>60 ml/min/1.73 sqM); Potassium 4.5 mmol/L (3.5-5.1); Sodium 128 mmol/L (137-145)
--- NOTE | 2021-04-11 09:46 | P.HPIM ---
History of Present Illness This is a pleasant 75 years old male with past medical history of GERD, a arthritis, right lung cancer status post resection in 2003 and second resection 2008, recurrent and 2015, pancreatitis, chronic back pain. He follows with Dr. Lester for his lung cancer and he getting radiotherapy at [facility] as well as effusion treatment once a month Presents because of dyspnea , which has been progressively worse over the last 2 weeks patient noticed lately he could not shovel his snow, he got tired when he walks his detached cataract that he had to sit down prior to hospitalize He denies chest pain or coughing. No abdominal pain or weakness or dizziness. He denies smoking, he quit drinking alcohol because of his chronic pancreatitis Vitas looks stable and patient is afebrile and he is saturating 98% on room air WBC this morning was normal at 7.9, hemoglobin 13.7, platelet count is normal 317. D-dimer slightly elevated 0.6. Sodium 126, creatinine normal 0.6. Liver enzymes are normal. Troponin is elevated at 0.4, 0.9 and 0.6. Coronavirus not detected. Chest x-ray: Pulmonary fibrotic changes. Bilateral pulmonary scarring, not changed from old exam. Pleural diaphragmatic scarring right lung base. Without change. No heart failure EKG showed normal sinus rhythm at [address]-T changes Patient was started on heparin drip and aspirin at emergency room. Review of Systems CONSTITUTIONAL: No fever, no malaise, no fatigue. HEENT: No recent visual problems or hearing problems. Denied any sore throat. CARDIOVASCULAR: No orthopnea, PND, no palpitations, no syncope. PULMONARY: No chest wall tendernessTINAL: No diarrhea, no nausea, no vomiting, no abdominal pain. Normoactive bowel sounds. NEUROLOGICAL: No headaches, no weakness, no numbness. HEMATOLOGICAL: Denies any bleeding or petechiae. GENITOURINARY: Denies any burning micturition, frequency, or urgency. MUSCULOSKELETAL/RHEUMATOLOGICAL: Denies any joint pain, swelling, or any muscle pain. ENDOCRINE: Denies any polyuria or polydipsia. Past Medical History Past Medical History: Cancer, GERD/Reflux, Osteoarthritis (OA), Pneumonia Additional Past Medical History / Comment(s): Right lung cancer 2003 and first resection done (got MRSA at that time in incision), second resection in 2008, lung cancer reoccured in 12/2014 and found new nodule in right lung had radiation in February 2015. Pancreatitis,chronic back pain, lung CA reoccured 2019 History of Any Multi-Drug Resistant Organisms: MRSA Date of last positivie culture/infection: 2003 MDRO Source:: BACK Past Surgical History: Cholecystectomy, Orthopedic Surgery Additional Past Surgical History / Comment(s): RESECTION TO RIGHT LUNG TWICE (RT MIDDLE AND RT LOWER LOBECTOMY), RT KNEE SCOPE x2 Past Anesthesia/Blood Transfusion Reactions: Motion Sickness Past Psychological History: No Psychological Hx Reported Smoking Status: Never smoker Past Alcohol Use History: None Reported Past Drug Use History: None Reported - Past Family History Father Family Medical History: Cancer Mother Family Medical History: Dementia Additional Family Medical History / Comment(s): Crohn's disease Medications and Allergies Home Medications Medication Instructions Recorded Confirmed Type HYDROcodone/APAP 10-325MG [[place] 0.5 tab PO BID 06/11/18 04/10/21 History 10-325] Ipratropium/Albuterol Sulfate 1 puff INHALATION RT-QID 06/11/18 04/10/21 History [Combivent Respimat Inhaler] Meloxicam 15 mg PO DAILY@1200 06/11/18 04/10/21 History Omeprazole 20 mg PO DAILY@1200 06/11/18 04/10/21 History Durvalumab [Imfinzi] 1 dose IV Q30D 01/04/21 04/10/21 History Escitalopram [Lexapro] 20 mg PO DAILY@1200 01/04/21 04/10/21 History LORazepam [Ativan] 1 mg PO HS 01/04/21 04/10/21 History Lipase/Protease/Amylase [Creon Dr 24,000 units PO BID 01/04/21 04/10/21 History 24,000 Units Capsule] Acetaminophen Tab [Tylenol Tab] 500 mg PO BID 04/10/21 04/10/21 History Azithromycin [Zithromax] 500 mg PO DAILY 04/10/21 04/10/21 History Levothyroxine Sodium [Synthroid] 75 mcg PO DAILY 04/10/21 04/10/21 History Allergies Allergy/AdvReac Type Severity Reaction Status Date / Time No Known Allergies Allergy Verified 04/10/21 22:59 Physical Exam Vitals: Vital Signs Temp Pulse Resp BP Pulse Ox 04/11/21 06:45 84 18 100/58 96 04/11/21 02:21 67 18 119/62 98 04/10/21 22:04 72 16 115/60 97 04/10/21 21:05 72 04/10/21 20:52 68 04/10/21 20:30 16 04/10/21 18:59 97.8 F 90 22 110/71 96 Intake and Output 04/10/21 04/11/21 04/11/21 22:59 06:59 14:59 Other: Weight 72.575 kg GENERAL: The patient is alert and oriented x3, not in any acute distress. Well developed, well nourished. HEENT: Pupils are round and equally reacting to light. EOMI. No scleral icterus. No conjunctival pallor. Normocephalic, atraumatic. No pharyngeal erythema. No thyromegaly. CARDIOVASCULAR: S1 and S2 present. No murmurs, rubs, or gallops. PULMONARY: Chest is clear to auscultation, no wheezing or crackles. ABDOMEN: Soft, nontender, nondistended, normoactive bowel sounds. No palpable organomegaly. MUSCULOSKELETAL: No joint swelling or deformity. EXTREMITIES: No cyanosis, clubbing, or pedal edema. NEUROLOGICAL: Gross neurological examination did not reveal any focal deficits. SKIN: No rashes. No petechiae Results CBC & Chem 7: 04/11/21 03:59 04/11/21 03:59 Labs: Abnormal Lab Results - Last 24 Hours (Table) 04/10/21 04/10/21 04/10/21 Range/Units 19:52 19:52 19:52 WBC 12.2 H (3.8-10.6) k/uL RBC 3.96 L (4.30-5.90) m/uL MCV 105.9 H (80.0-100.0) fL MCH 35.8 H (25.0-35.0) pg Neutrophils # 10.2 H (1.3-7.7) k/uL Lymphocytes # 0.7 L (1.0-4.8) k/uL APTT (22.0-30.0) sec D-Dimer 0.63 H (<0.60) mg/L FEU Sodium 126 L (137-145) mmol/L Chloride 95 L (98-107) mmol/L Glucose 104 H (74-99) mg/dL Troponin I (0.000-0.034) ng/mL 04/10/21 04/11/21 04/11/21 Range/Units 19:52 00:21 02:54 WBC (3.8-10.6) k/uL RBC (4.30-5.90) m/uL MCV (80.0-100.0) fL MCH (25.0-35.0) pg Neutrophils # (1.3-7.7) k/uL Lymphocytes # (1.0-4.8) k/uL APTT (22.0-30.0) sec D-Dimer (<0.60) mg/L FEU Sodium (137-145) mmol/L Chloride (98-107) mmol/L Glucose (74-99) mg/dL Troponin I 0.436 H* 0.910 H* 0.683 H* (0.000-0.034) ng/mL 04/11/21 04/11/21 Range/Units 03:59 03:59 WBC (3.8-10.6) k/uL RBC 3.84 L (4.30-5.90) m/uL MCV 106.8 H (80.0-100.0) fL MCH 35.8 H (25.0-35.0) pg Neutrophils # (1.3-7.7) k/uL Lymphocytes # 0.4 L (1.0-4.8) k/uL APTT 51.7 H (22.0-30.0) sec D-Dimer (<0.60) mg/L FEU Sodium (137-145) mmol/L Chloride (98-107) mmol/L Glucose (74-99) mg/dL Troponin I (0.000-0.034) ng/mL Assessment and Plan Assessment: Elevated troponin, suspicious for non-STEMI History of right lung cancerUndergoing chemotherapy once a month History of GERD History of osteoarthritis Chronic back pain History of pancreatitis Plan: This is a pleasant 75 years old male who presents with possible non-STEMI Continue with aspirin and heparin drip Cardiology consult Check echocardiogram monitor sodium, check serum and urine osmolality and urine sodium. Check TSH Labs and medication were reviewed.. Continue same treatment. Continue with symptomatic treatment. Resume home medication. Monitor lytes and vitals. DVT and GI prophylaxis. Further recommendations depends on the clinical course of the patient DVT prophylaxis: heparin GI Prophylaxis: Ppi PT/OT: Pending Prognosis is guarded
[2021-04-11 10:13] LABS: T4, Free (Free Thyroxine) 0.94 ng/dL (0.78-2.19)
[2021-04-11] MEDS ORDERED: PANTOPRAZOLE 40 MG TABLET PO SCH (12:00)
[2021-04-11] MEDS ORDERED: IPRATROPIUM-ALBUTEROL 3 ML NEB INHALATION PRN (12:27)
[2021-04-11] MEDS ORDERED: NITROGLYCERIN SL TABS 0.4 MG TAB SUBLINGUAL PRN (12:36)
[2021-04-11] MEDS: NON FORMULARY DRUG (Lipase/Protease/Amylase [Creon Dr 24,000 Unit Capsule] 1 EACH Capsule) PO SCH ×2 (12:59→21:23)
[2021-04-11] MEDS: ESCITALOPRAM 20 MG TAB PO SCH (13:05)
[2021-04-11] MEDS: MELOXICAM 7.5 MG TAB PO SCH (13:05)
[2021-04-11] MEDS: methylPREDNISolone SOD SUCCI 125 MG/2 ML VIAL IV SCH ×3 (13:06→23:54)
[2021-04-11 13:08] LABS: Partial Thromboplastin Time 34.3 sec (22.0-30.0)
[2021-04-11] MEDS: SODIUM CHLORIDE 0.9% 1,000 ML IV SCH ×2 (13:10→23:54)
--- NOTE | 2021-04-11 13:39 | P.CRDCN ---
History of Present Illness History of present illness: This is a 75 year old male with a past medical history of lung cancer, history of 2 prior right lung resections at [facility] in 2004 and in 2008, recurrent in 2015. He follows with Dr. Lester for his lung cancer and is getting radiotherapy,as well as effusion treatment once a month. History of former nicotine dependence states he quit many years ago, former alcohol abuse quit 4-5 years ago, history of chronic pancreatitis, cholecystectomy, hypothyroidism. Patient presents with worsening exertional dyspnea for 2-3 days. He states over the weekend he began to noticed he had worsening shortness of breath with activity. He states he normally can do his daily activities, walk to his garage and shovel the snow with no difficulty. However, over the weekend he states he can barely walk to his garage which is about 50 feet without feeling short of breath. Sunday he was walking into the house, had another episode of acute onset shortness of breath and was also diaphoretic. He denies palpitations, chest pain, nausea, vomiting, lightheadedness, dizziness, syncope or near syncope, he denies symptoms of orthopnea or PND. He denies history of VT, Stroke, Diabetes, CAD, hypertension, dyslipidemia. DIAGNOSTICS EKG reveals sinus rhythm, heart rate heart rate 82, T wave inversion in lead aVL, no significant STT wave abnormality cyst chest acute ischemia. Prior EKG in 2016 with similar findings. Telemetry tracings indicate sinus mechanism, heart rate in the 80s-90s. Chest xray pulmonary changes. Bilateral pulmonary scarring not significantly different from old exam. No heart failure.Diaphragmatic scarring right lung base without change Laboratory reviewed, troponin 0.4, 0.91, 0.68, WBC 7.9, hemoglobin 13.7, platelets 214, sodium 128, potassium 4.5, BUN 12, serum creatinine 0.6, COVID-19 negative. Current home medications include azithromycin 500 mg daily, Lexapro, Combivent inhaler, Synthroid, meloxicam, omeprazole, creon REVIEW OF SYSTEMS At the time of my exam: CONSTITUTIONAL: Denies fever or chills. CARDIOVASCULAR: Denies chest pain, shortness of breath, orthopnea, PND or palpitations. RESPIRATORY: Denies cough. GASTROINTESTINAL: Denies abdominal pain, diarrhea, constipation, nausea or vomiting. MUSCULOSKELETAL: Denies myalgias. NEUROLOGIC: Denies numbness, tingling, headache or weakness. ENDOCRINE: Denies fatigue, weight change, polydipsia or polyurina. GENITOURINARY: Denies burning, hematuria or urgency with micturation. HEMATOLOGIC: Denies history of anemia or bleeding. PHYSICAL EXAMINATION Blood pressure 119/60, heart rate 77, afebrile, oxygen saturation is 95% on room air CONSTITUTIONAL: No apparent distress. HEENT: Head is normocephalic. Pupils are equal, round. Sclerae anicteric. Mucous membranes of the mouth are moist. No JVD. No carotid bruit. CHEST EXAMINATION: Lungs right upper lobe and right lower lobe with expiratory wheezing to auscultation, other lung calvert clear to auscultation. No chest wall tenderness is noted on palpation or with deep breathing. HEART EXAMINATION: Regular rate and rhythm. S1, S2 heard. No murmurs, gallops or rub. ABDOMEN: Soft, nontender. Positive bowel sounds. EXTREMITIES: 2+ peripheral pulses, no lower extremity edema and no calf tenderness. SKIN: Warm, dry NEUROLOGIC EXAMINATION: Patient is awake, alert and oriented x3. ASSESSMENT NSTEMI History of lung cancer status post prior to right lung resections in 2003 and in 2008, recurrent lung cancer in 2014, currently on radiotherapy and effusion treatment once a month Former nicotine dependence Former alcohol abuse History of chronic pancreatitis Hypothyroidism PLAN Continue IV heparin drip Obtain 2D echocardiogram and doppler study to assess cardiac structure and function. Continue aspirin, statin Plan for cardiac catheterization with Dr. Baldwin tomorrow. I have discussed the risks, benefits and alternative therapies for the above- mentioned procedure and for both sedation/analgesia as well as necessary blood product administration, if indicated, as they pertain to this patient. The patient has indicated understanding and acceptance of the risks and procedures discussed. Questions have been answered appropriately and he is agreeable to move forward with the above-stated procedure. Further evaluation based on clinical course Thank you kindly for this consultation. Nurse practitioner note has been reviewed by physician. Signing provider agrees with the documented findings, assessment, and plan of care. Past Medical History Past Medical History: Cancer, GERD/Reflux, Osteoarthritis (OA), Pneumonia Additional Past Medical History / Comment(s): Right lung cancer 2003 and first resection done (got MRSA at that time in incision), second resection in 2008, lung cancer reoccured in 12/2014 and found new nodule in right lung had radiation in February 2015. Pancreatitis,chronic back pain, lung CA reoccured 2019 History of Any Multi-Drug Resistant Organisms: MRSA Date of last positivie culture/infection: 2003 MDRO Source:: BACK Past Surgical History: Cholecystectomy, Orthopedic Surgery Additional Past Surgical History / Comment(s): RESECTION TO RIGHT LUNG TWICE (RT MIDDLE AND RT LOWER LOBECTOMY), RT KNEE SCOPE x2 Past Anesthesia/Blood Transfusion Reactions: Motion Sickness Past Psychological History: No Psychological Hx Reported Smoking Status: Never smoker Past Alcohol Use History: None Reported Past Drug Use History: None Reported - Past Family History Father Family Medical History: Cancer Mother Family Medical History: Dementia Additional Family Medical History / Comment(s): Crohn's disease Medications and Allergies Home Medications Medication Instructions Recorded Confirmed Type HYDROcodone/APAP 10-325MG [[place] 0.5 tab PO BID 06/11/18 04/10/21 History 10-325] Ipratropium/Albuterol Sulfate 1 puff INHALATION RT-QID 06/11/18 04/10/21 History [Combivent Respimat Inhaler] Meloxicam 15 mg PO DAILY@1200 06/11/18 04/10/21 History Omeprazole 20 mg PO DAILY@1200 06/11/18 04/10/21 History Durvalumab [Imfinzi] 1 dose IV Q30D 01/04/21 04/10/21 History Escitalopram [Lexapro] 20 mg PO DAILY@1200 01/04/21 04/10/21 History LORazepam [Ativan] 1 mg PO HS 01/04/21 04/10/21 History Lipase/Protease/Amylase [Creon Dr 24,000 units PO BID 01/04/21 04/10/21 History 24,000 Units Capsule] Acetaminophen Tab [Tylenol Tab] 500 mg PO BID 04/10/21 04/10/21 History Azithromycin [Zithromax] 500 mg PO DAILY 04/10/21 04/10/21 History Levothyroxine Sodium [Synthroid] 75 mcg PO DAILY 04/10/21 04/10/21 History Allergies Allergy/AdvReac Type Severity Reaction Status Date / Time No Known Allergies Allergy Verified 04/10/21 22:59 Physical Exam Vitals: Vital Signs Temp Pulse Resp BP Pulse Ox 04/11/21 06:45 84 18 100/58 96 04/11/21 02:21 67 18 119/62 98 04/10/21 22:04 72 16 115/60 97 04/10/21 21:05 72 04/10/21 20:52 68 04/10/21 20:30 16 04/10/21 18:59 97.8 F 90 22 110/71 96 Intake and Output 04/10/21 04/11/21 04/11/21 22:59 06:59 14:59 Other: Weight 72.575 kg Results 04/11/21 03:59 04/11/21 03:59 Cardiac Enzymes 04/10/21 04/10/21 04/11/21 Range/Units 19:52 19:52 00:21 AST 31 (17-59) U/L Troponin I 0.436 H* 0.910 H* (0.000-0.034) ng/mL 04/11/21 Range/Units 02:54 AST (17-59) U/L Troponin I 0.683 H* (0.000-0.034) ng/mL Coagulation 04/10/21 04/11/21 Range/Units 19:52 03:59 PT 10.4 10.7 (9.0-12.0) sec APTT 26.3 51.7 H (22.0-30.0) sec CBC 04/10/21 04/11/21 Range/Units 19:52 03:59 WBC 12.2 H 7.9 (3.8-10.6) k/uL RBC 3.96 L 3.84 L (4.30-5.90) m/uL Hgb 14.2 13.7 (13.0-17.5) gm/dL Hct 41.9 40.9 (39.0-53.0) % Plt Count 341 314 (150-450) k/uL Comprehensive Metabolic Panel 04/10/21 Range/Units 19:52 Sodium 126 L (137-145) mmol/L Potassium 5.0 (3.5-5.1) mmol/L Chloride 95 L (98-107) mmol/L Carbon Dioxide 22 (22-30) mmol/L BUN 14 (9-20) mg/dL Creatinine 0.68 (0.66-1.25) mg/dL Glucose 104 H (74-99) mg/dL Calcium 8.9 (8.4-10.2) mg/dL AST 31 (17-59) U/L ALT 30 (4-49) U/L Alkaline Phosphatase 61 (38-126) U/L Total Protein 7.0 (6.3-8.2) g/dL Albumin 4.1 (3.5-5.0) g/dL Current Medications Generic Name Dose Route Start Last Admin Trade Name Freq PRN Reason Stop Dose Admin Acetaminophen 650 mg 04/10/21 22:33 Acetaminophen Tab 325 Mg Tab PO Q6HR PRN Mild Pain or Fever > 100.5 Hydrocodone Bitart/Acetaminophen 0.5 each 04/11/21 09:00 Hydrocodone/Apap 10-325mg 1 Each Tab PO BID [facility] Albuterol/Ipratropium 3 ml 04/11/21 08:00 Ipratropium-Albuterol 3 Ml Neb INHALATION RT-QID [facility] Azithromycin 500 mg 04/11/21 09:00 Azithromycin 500 Mg Tab PO DAILY [facility] Escitalopram Oxalate 20 mg 04/11/21 12:00 Escitalopram 20 Mg Tab PO DAILY@1200 [facility] Heparin Sodium (Porcine) 0 unit 04/10/21 21:56 Heparin Sodium 1,000 Un/Ml (10ml Vl) IV PER PROTOCOL PRN Low PTT Protocol Heparin Sodium/Sodium Chloride 250 mls @ 8.709 mls/hr 04/10/21 22:00 04/10/21 23:09 25,000 unit/ Sodium Chloride IV 12 units/kg/hr .Q24H GERALDO 8.709 mls/hr Administration Protocol 12 UNITS/KG/HR Sodium Chloride 1,000 mls @ 75 mls/hr 04/10/21 22:45 04/10/21 23:02 Saline 0.9% IV 75 mls/hr .[id number] GERALDO Administration Levothyroxine Sodium 75 mcg 04/11/21 06:30 04/11/21 07:11 Levothyroxine 75 Mcg Tab PO 75 mcg DAILY@0630 GERALDO Administration Lorazepam 1 mg 04/11/21 21:00 Lorazepam 0.5 Mg Tab PO HS [facility] Meloxicam 15 mg 04/11/21 12:00 Meloxicam 7.5 Mg Tab PO DAILY@1200 [facility] Naloxone HCl 0.2 mg 04/10/21 22:33 Naloxone 0.4 Mg/Ml 1 Ml Vial IV Q2M PRN Opioid Reversal Non-Formulary Medication 24,000 units 04/11/21 09:00 Lipase/Protease/Amylase [Emiliano Inman 24,000 Unit Capsule] PO BID [facility] Pantoprazole Sodium 40 mg 04/11/21 09:00 Pantoprazole 40 Mg/10 Ml Vial IV DAILY [facility]ER[facility] Pantoprazole Sodium 40 mg 04/11/21 12:00 Pantoprazole 40 Mg Tablet PO DAILY@1200 [facility] Intake and Output 04/10/21 04/11/21 04/11/21 22:59 06:59 14:59 Other: Weight 72.575 kg 04/11/21 03:59 04/10/21 19:52
--- NOTE | 2021-04-11 14:04 | P.CNPUL ---
History of Present Illness Consult date: 04/11/21 Requesting physician: Gallo Treadwell Reason for consult: dyspnea Chief complaint: Exertional dyspnea History of present illness: This is a 75 -year-old white male patient of Dr. 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 Both of these lung resections have taken place at the [facility]. In 2014 right middle lobe lung lesion was identified and the biopsy showed adenocarcinoma of the lung and was treated with an SBRT. In 2015, left upper lobe nodule was starting to increase in size and showed increased uptake on the PET scan with no evidence of distant metastasis, patient is under the care of Dr. Lester. He is currently getting radiotherapy and infusion therapy once a month. He does have history of COPD, and chronic nicotine dependence. He has a previous history of EtOH abuse. He has had MRSA infection in the past. Patient presented to the emergency department on 04/10/2021 with complaints of exertional dyspnea, he was at home in his usual state of health, and he was trying to take the trash out of his detached garage when he felt like he could not walk because of his increased shortness of breath, he denied any other symptoms, no chest pain, no cough, no palpitations, no phlegm production, no fever or chills. Chest x-ray in the emergency department showed pulmonary fibrotic changes, bilateral pulmonary scarring, pleural diaphragmatic scarring at the right lung base without change. His EKG on admission showed normal sinus rhythm. No acute ST or T-wave changes. His admission blood work showed a troponin elevation of 0.436, subsequently increased to 0.910, and 0.683. Patient tested negative for COVID-19, his white blood cell count was mildly elevated at 12.2, hemoglobin was 14.2, his d-dimer is 0.63, his INR is 1.0, his sodium is 126, potassium is 5.0, chloride is 95, C O2 is 22, BUN of 14, creatinine 0.68, LFTs are within normal limits. he was started on heparin infusion because of his elevated troponins, cardiology consultation has been obtained, and echocardiogram has been ordered, patient is also being considered for cardiac catheterization. Currently breathing comfortably, he is sitting in the recliner, in the emergency department he is awaiting a bed on selective care unit, he is on room air satting 95%, vital signs have been stable, he is in sinus mechanism with a Review of Systems All systems: negative Constitutional: Denies chills, Denies fever Eyes: denies blurred vision, denies pain Ears, nose, mouth and throat: Denies headache, Denies sore throat Cardiovascular: Reports dyspnea on exertion, Denies chest pain, Denies shortness of breath Respiratory: Denies cough Gastrointestinal: Denies abdominal pain, Denies diarrhea, Denies nausea, Denies vomiting Musculoskeletal: Denies myalgias Integumentary: Denies pruritus, Denies rash Neurological: Denies numbness, Denies weakness Psychiatric: Denies anxiety, Denies depression Endocrine: Denies fatigue, Denies weight change Past Medical History Past Medical History: Cancer, GERD/Reflux, Osteoarthritis (OA), Pneumonia Additional Past Medical History / Comment(s): Right lung cancer 2003 and first resection done (got MRSA at that time in incision), second resection in 2008, lung cancer reoccured in 12/2014 and found new nodule in right lung had radiation in February 2015. Pancreatitis,chronic back pain, lung CA reoccured 2019 History of Any Multi-Drug Resistant Organisms: MRSA Date of last positivie culture/infection: 2003 MDRO Source:: BACK Past Surgical History: Cholecystectomy, Orthopedic Surgery Additional Past Surgical History / Comment(s): RESECTION TO RIGHT LUNG TWICE (RT MIDDLE AND RT LOWER LOBECTOMY), RT KNEE SCOPE x2 Past Anesthesia/Blood Transfusion Reactions: Motion Sickness Past Psychological History: No Psychological Hx Reported Smoking Status: Never smoker Past Alcohol Use History: None Reported Past Drug Use History: None Reported - Past Family History Father Family Medical History: Cancer Mother Family Medical History: Dementia Additional Family Medical History / Comment(s): Crohn's disease Medications and Allergies Home Medications Medication Instructions Recorded Confirmed Type HYDROcodone/APAP 10-325MG [[place] 0.5 tab PO BID 06/11/18 04/10/21 History 10-325] Ipratropium/Albuterol Sulfate 1 puff INHALATION RT-QID 06/11/18 04/10/21 History [Combivent Respimat Inhaler] Meloxicam 15 mg PO DAILY@1200 06/11/18 04/10/21 History Omeprazole 20 mg PO DAILY@1200 06/11/18 04/10/21 History Durvalumab [Imfinzi] 1 dose IV Q30D 01/04/21 04/10/21 History Escitalopram [Lexapro] 20 mg PO DAILY@1200 01/04/21 04/10/21 History LORazepam [Ativan] 1 mg PO HS 01/04/21 04/10/21 History Lipase/Protease/Amylase [Creon Dr 24,000 units PO BID 01/04/21 04/10/21 History 24,000 Units Capsule] Acetaminophen Tab [Tylenol Tab] 500 mg PO BID 04/10/21 04/10/21 History Azithromycin [Zithromax] 500 mg PO DAILY 04/10/21 04/10/21 History Levothyroxine Sodium [Synthroid] 75 mcg PO DAILY 04/10/21 04/10/21 History Allergies Allergy/AdvReac Type Severity Reaction Status Date / Time No Known Allergies Allergy Verified 04/10/21 22:59 Physical Exam Vitals: Vital Signs Temp Pulse Resp BP Pulse Ox 04/11/21 13:12 67 18 119/50 95 04/11/21 12:12 76 04/11/21 12:04 78 04/11/21 09:26 77 16 119/60 95 04/11/21 08:14 72 04/11/21 08:04 72 04/11/21 06:45 84 18 100/58 96 04/11/21 02:21 67 18 119/62 98 04/10/21 22:04 72 16 115/60 97 04/10/21 21:05 72 04/10/21 20:52 68 04/10/21 20:30 16 04/10/21 18:59 97.8 F 90 22 110/71 96 Intake and Output 04/10/21 04/11/21 04/11/21 22:59 06:59 14:59 Intake Total 122.071 Balance 122.071 Intake: Intake, IV Titration 122.071 Amount Heparin Sod,Pork in 0.45% 122.071 NaCl 25,000 unit In 0.45 % NaCl 1 250ml.bag @ 12 UNITS/KG/HR 8.709 mls/hr IV .Q24H [facility] Rx#: [id number] Other: Weight 72.575 kg GENERAL EXAM: Alert, very pleasant, 75-year-old white male, sitting up in the recliner, in the emergency Department, awaiting a bed for selective care unit, breathing comfortable, room air pulse ox is 95% comfortable in no apparent distress. HEAD: Normocephalic/atraumatic. EYES: Normal reaction of pupils, equal size. Conjunctiva pink, sclera white. NOSE: Clear with pink turbinates. THROAT: No erythema or exudates. NECK: No masses, no JVD, no thyroid enlargement, no adenopathy. CHEST: No chest wall deformity. Symmetrical expansion. LUNGS: Equal air entry with a few scattered crackles CVS: Regular rate and rhythm, normal S1 and S2, no gallops, no murmurs, no rubs ABDOMEN: Soft, nontender. No hepatosplenomegaly, normal bowel sounds, no guarding or rigidity. EXTREMITIES: No clubbing, no edema, no cyanosis, 2+ pulses and upper and lower extremities. MUSCULOSKELETAL: Muscle strength and tone normal. SPINE: No scoliosis or deformity SKIN: No rashes CENTRAL NERVOUS SYSTEM: Alert and oriented -3. No focal deficits, tone is normal in all 4 extremities. PSYCHIATRIC: Alert and oriented -3. Appropriate affect. Intact judgment and insight. Results - Laboratory Findings CBC and BMP: 04/11/21 03:59 04/11/21 03:59 PT/INR, D-dimer PT 10.7 sec (9.0-12.0) 04/11/21 03:59 INR 1.0 (<1.2) 04/11/21 03:59 D-Dimer 0.56 mg/L FEU (<0.60) 04/11/21 12:37 Abnormal lab findings: Abnormal Labs 04/10/21 04/10/21 04/10/21 19:52 19:52 19:52 WBC 12.2 H RBC 3.96 L MCV 105.9 H MCH 35.8 H Neutrophils # 10.2 H Lymphocytes # 0.7 L APTT D-Dimer 0.63 H Sodium 126 L Chloride 95 L Carbon Dioxide Glucose 104 H Osmolality Troponin I TSH 04/10/21 04/11/21 04/11/21 19:52 00:21 02:54 WBC RBC MCV MCH Neutrophils # Lymphocytes # APTT D-Dimer Sodium Chloride Carbon Dioxide Glucose Osmolality Troponin I 0.436 H* 0.910 H* 0.683 H* TSH 04/11/21 04/11/21 04/11/21 03:59 03:59 03:59 WBC RBC 3.84 L MCV 106.8 H MCH 35.8 H Neutrophils # Lymphocytes # 0.4 L APTT 51.7 H D-Dimer Sodium 128 L Chloride Carbon Dioxide 17 L Glucose 218 H Osmolality 271 L Troponin I TSH 6.460 H 04/11/21 12:37 WBC RBC MCV MCH Neutrophils # Lymphocytes # APTT 34.3 H D-Dimer Sodium Chloride Carbon Dioxide Glucose Osmolality Troponin I TSH - Diagnostic Findings Chest x-ray: report reviewed, image reviewed Additional studies: EKG reviewed Assessment and Plan Plan: Assessment: #1. Acute non-ST elevated myocardial infarction #2. Exertional dyspnea, related to the above #3. History of lung cancer status post to right lung resection seen 2003 and 2008, recurrent lung cancer in 2014 currently on radiation and infusion treatments, patient follows with Dr. Lester #4. Former nicotine dependence #5. Former alcohol abuse #6. History of chronic pancreatitis #7. Hypothyroidism Plan: From pulmonary perspective chest x-ray showing chronic bilateral pulmonary scarring likely related to previous history of radiation therapy D-dimer is within normal range and patient is already on heparin infusion No further workup is needed for PE Continue nebulized bronchodilators Continue IV Solu-Medrol Cardiology recommendations We'll follow his clinical course I performed a history & physical examination of the patient and discussed their management with my nurse practitioner, Gayatri Temple. I reviewed the nurse practitioner's note and agree with the documented findings and plan of care. Lung sounds are positive for dim breath sounds throughout the lung calvert. The findings and the impression was discussed with the patient. I attest to the documentation by the nurse practitioner. Time with Patient: Greater than 30
[2021-04-11] MEDS: BENZOCAINE/MENTHOL LOZENG 1 EACH LOZENGE MUCOUS MEM PRN (19:05)
[2021-04-11] MEDS: LORazepam 0.5 MG TAB PO SCH (21:16)
[2021-04-11] MEDS: ATORVASTATIN 40 MG TAB PO SCH (21:16)
[2021-04-11] MEDS: HEPARIN SOD,PORK IN 0.45% NACL 25,000 UNIT in 0.45% NACL 1 250ML.BAG IV SCH (23:30)
[2021-04-11] MEDS: SODIUM CHLORIDE 0.9% 1,000 ML in EMPTY BAG 1 BAG IV SCH (23:55)
[2021-04-12] MEDS: LEVOTHYROXINE 75 MCG TAB PO SCH (05:54)
[2021-04-12] MEDS: methylPREDNISolone SOD SUCCI 125 MG/2 ML VIAL IV SCH (05:54)
[2021-04-12] MEDS: ASPIRIN 81 MG PO SCH (05:54)
[2021-04-12] MEDS ORDERED: HEPARIN SODIUM,PORCINE 2,500 UNIT in SODIUM CHLORIDE 0.9% 250 ML IRRIGATION PRN (07:00)
[2021-04-12] MEDS ORDERED: HEPARIN SODIUM,PORCINE 10,000 UNIT in SODIUM CHLORIDE 0.9% 1,000 ML IRRIGATION PRN (07:00)
[2021-04-12] MEDS: IPRATROPIUM-ALBUTEROL 3 ML NEB INHALATION SCH ×4 (07:47→21:04)
[2021-04-12 08:30] LABS: African American GFR (CKD) >90 (>60 ml/min/1.73 sqM); Anion Gap 6 mmol/L; Blood Urea Nitrogen 14 mg/dL (9-20); Calcium 8.9 mg/dL (8.4-10.2); Carbon Dioxide 22 mmol/L (22-30); Chloride 102 mmol/L (98-107); Glucose 129 mg/dL (74-99); Non-African American GFR(CKD) >90 (>60 ml/min/1.73 sqM); Potassium 4.7 mmol/L (3.5-5.1); Sodium 130 mmol/L (137-145)
[2021-04-12] MEDS: PANTOPRAZOLE 40 MG/10 ML VIAL IV SCH (08:57)
[2021-04-12] MEDS: AZITHROMYCIN 500 MG TAB PO SCH (08:57)
[2021-04-12 09:27] LABS: Basophils % (A) 0 %; Eosinophils % (A) 0 %; HCT 38.5 % (39.0-53.0); HGB 12.9 gm/dL (13.0-17.5); Lymphocytes # (A) 0.6 k/uL (1.0-4.8); Lymphocytes % (A) 5 %; MCH 35.8 pg (25.0-35.0); MCHC 33.5 g/dL (31.0-37.0); MCV 106.8 fL (80.0-100.0); Macrocytosis Moderate; Mean Platelet Volume 8.1; Monocytes # (A) 0.8 k/uL (0-1.0); Monocytes % (A) 7 %; Neutrophils # (A) 9.2 k/uL (1.3-7.7); Neutrophils % (A) 85 %; Platelet Count 315 k/uL (150-450); RBC 3.61 m/uL (4.30-5.90); RDW 12.7 % (11.5-15.5); WBC 10.8 k/uL (3.8-10.6)
--- NOTE | 2021-04-12 10:51 | ECHOF ---
Referral Reason:elevated troponin MEASUREMENTS -------- HEIGHT: 170.2 cm WEIGHT: 72.6 kg BP: RVIDd: 2.2 cm (< 3.3) IVSd: 0.9 cm (0.6 - 1.1) LVIDd: 4.1 cm (3.9 - 5.3) LVPWd: 0.9 cm (0.6 - 1.1) IVSs: 1.9 cm LVIDs: 2.0 cm LVPWs: 1.5 cm Ao Diam: 3.9 cm (2.0 - 3.7) AV Cusp: 2.3 cm (1.5 - 2.6) LA Diam: 2.5 cm (2.7 - 3.8) MV EXCURSION: 13.189 mm (> 18.000) MV EF SLOPE: 80 mm/s (70 - 150) EPSS: 1.1 cm MV E Juan: 0.73 m/s MV DecT: 225 ms MV A Juan: 0.62 m/s MV E/A Ratio: 1.18 RAP: 5.00 mmHg RVSP: 17.49 mmHg FINDINGS -------- This was a technically good study. The left ventricular size is normal. Left ventricular wall thickness is normal. Overall left vent ricular systolic function is normal with, an EF between 55 - 60 %. The right ventricle is normal in size. The left atrial size is normal. The right atrial size is normal. The aortic valve is trileaflet and appears structurally normal. The mitral valve is normal. Mild mitral regurgitation is present. The tricuspid valve appears structurally normal. Mild tricuspid regurgitation present. Right vent ricular systolic pressure is normal at < 35 mmHg. There is no pulmonic regurgitation present. The aortic root size is normal. IVC Not well visulized. There is no pericardial effusion. CONCLUSIONS -------- 1. The left ventricular size is normal. 2. Left ventricular wall thickness is normal. 3. Overall left ventricular systolic function is normal with, an EF between 55 - 60 %. 4. Mild mitral regurgitation is present. 5. Mild tricuspid regurgitation present. 6. There is no pericardial effusion. GENERAL FOUNDRY WORKER: Melony Brown [facility]
--- NOTE | 2021-04-12 12:13 | P.PN ---
Subjective Progress Note Date: 04/12/21 Principal diagnosis: Exertional shortness of breath This is a 75 -year-old white male patient of Dr. 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 Both of these lung resections have taken place at the [facility]. In 2014 right middle lobe lung lesion was identified and the biopsy showed adenocarcinoma of the lung and was treated with an SBRT. In 2014, left upper lobe nodule was starting to increase in size and showed increased uptake on the PET scan with no evidence of distant metastasis, patient is under the care of Dr. Lester. He is currently getting radiotherapy and infusion therapy once a month. He does have history of COPD, and chronic nicotine dependence. He has a previous history of EtOH abuse. He has had MRSA infection in the past. Patient presented to the emergency department on 04/10/2021 with complaints of exertional dyspnea, he was at home in his usual state of health, and he was trying to take the trash out of his detached garage when he felt like he could not walk because of his increased shortness of breath, he denied any other symptoms, no chest pain, no cough, no palpitations, no phlegm production, no fever or chills. Chest x-ray in the emergency depart ment showed pulmonary fibrotic changes, bilateral pulmonary scarring, pleural diaphragmatic scarring at the right lung base without change. His EKG on admission showed normal sinus rhythm. No acute ST or T-wave changes. His admission blood work showed a troponin elevation of 0.436, subsequently i ncreased to 0.910, and 0.683. Patient tested negative for COVID-19, his white blood cell count was mildly elevated at 12.2, hemoglobin was 14.2, his d-dimer is 0.63, his INR is 1.0, his sodium is 126, potassium is 5.0, chloride is 95, CO2 is 22, BUN of 14, creatinine 0.68, LFTs are within normal limits. he was started on heparin infusion because of his elevated troponins, cardiology consultation has been obtained, and echocardiogram has been ordered, patient is also being considered for cardiac catheterization. Currently breathing comfortably, he is sitting in the recliner, in the emergency department he is awaiting a bed on selective care unit, he is on room air satting 95%, vital signs have been stable, he is in sinus mechanism with a controlled rate Objective - Vital Signs Vital signs: Vital Signs Temp 97.0 F L 04/12/21 11:46 Pulse 60 04/12/21 11:46 Resp 16 04/12/21 11:46 BP 123/61 04/12/21 11:46 Pulse Ox 97 04/12/21 11:46 Intake & Output 04/11/21 04/12/21 04/12/21 18:59 06:59 18:59 Intake Total 122.071 635 Balance 122.071 635 Weight 83.5 kg Intake: Intake, IV Titration 122.071 215 Amount Heparin Sod,Pork in 0.45% 122.071 NaCl 25,000 unit In 0.45 % NaCl 1 250ml.bag @ 12 UNITS/KG/HR 8.709 mls/hr IV .Q24H [facility] Rx#: [id number] Sodium Chloride 0.9% 1, 215 000 ml In Empty Bag 1 bag @ 1 ML/KG/HR 72.575 mls/ hr IV .[id number] [facility] Rx#: [id number] Oral 420 Other: # Voids 3 - Exam GENERAL EXAM: Alert, very pleasant, 75-year-old white male, resting in bed,breathing comfortable, room air pulse ox is 95% comfortable in no apparent distress. HEAD: Normocephalic/atraumatic. EYES: Normal reaction of pupils, equal size. Conjunctiva pink, sclera white. NOSE: Clear with pink turbinates. THROAT: No erythema or exudates. NECK: No masses, no JVD, no thyroid enlargement, no adenopathy. CHEST: No chest wall deformity. Symmetrical expansion. LUNGS: Equal air entry with a few scattered crackles CVS: Regular rate and rhythm, normal S1 and S2, no gallops, no murmurs, no rubs ABDOMEN: Soft, nontender. No hepatosplenomegaly, normal bowel sounds, no guarding or rigidity. EXTREMITIES: No clubbing, no edema, no cyanosis, 2+ pulses and upper and lower extremities. MUSCULOSKELETAL: Muscle strength and tone normal. SPINE: No scoliosis or deformity SKIN: No rashes CENTRAL NERVOUS SYSTEM: Alert and oriented -3. No focal deficits, tone is normal in all 4 extremities. PSYCHIATRIC: Alert and oriented -3. Appropriate affect. Intact judgment and insight. - Labs CBC & Chem 7: 04/12/21 07:34 04/12/21 07:34 Labs: Abnormal Lab Results - Last 24 Hours (Table) 04/11/21 04/11/21 04/11/21 Range/Units 12:37 12:37 18:46 WBC (3.8-10.6) k/uL RBC (4.30-5.90) m/uL Hgb (13.0-17.5) gm/dL Hct (39.0-53.0) % MCV (80.0-100.0) fL MCH (25.0-35.0) pg Neutrophils # (1.3-7.7) k/uL Lymphocytes # (1.0-4.8) k/uL APTT 34.3 H 43.5 H (22.0-30.0) sec Sodium (137-145) mmol/L Creatinine (0.66-1.25) mg/dL Glucose (74-99) mg/dL Procalcitonin <0.02 L (0.02-0.09) ng/mL 04/12/21 04/12/21 04/12/21 Range/Units 07:34 07:34 07:34 WBC 10.8 H (3.8-10.6) k/uL RBC 3.61 L (4.30-5.90) m/uL Hgb 12.9 L (13.0-17.5) gm/dL Hct 38.5 L (39.0-53.0) % MCV 106.8 H (80.0-100.0) fL MCH 35.8 H (25.0-35.0) pg Neutrophils # 9.2 H (1.3-7.7) k/uL Lymphocytes # 0.6 L (1.0-4.8) k/uL APTT 45.8 H (22.0-30.0) sec Sodium 130 L (137-145) mmol/L Creatinine 0.64 L (0.66-1.25) mg/dL Glucose 129 H (74-99) mg/dL Procalcitonin (0.02-0.09) ng/mL Assessment and Plan Plan: Assessment: #1. Acute non-ST elevated myocardial infarction #2. Exertional dyspnea, related to the above, improved #3. History of lung cancer status post to right lung resection seen 2003 and 2008, recurrent lung cancer in 2015 currently on radiation and infusion treatments, patient follows with Dr. Lester #4. Former nicotine dependence #5. Former alcohol abuse #6. History of chronic pancreatitis #7. Hypothyroidism Plan: Vital signs have been stable overnight Patient states his exertional dyspnea a bit improved No worsening cough, or phlegm production, no wheezing on today's exam We will switch the patient to oral prednisone, continue with bronchodilators Patient is scheduled for cardiac cath today Will await further cardiology recommendations We will continue to follow his clinical course I performed a history & physical examination of the patient and discussed their management with my nurse practitioner, Gayatri Temple. I reviewed the nurse practitioner's note and agree with the documented findings and plan of care. Lung sounds are positive for dim breath sounds throughout the lung calvert. The findings and the impression was discussed with the patient. I attest to the documentation by the nurse practitioner. Time with Patient: Less than 30
[2021-04-12] MEDS ORDERED: VERAPAMIL 2.5 MG/ML 2 ML AMP ONE (13:12)
[2021-04-12] MEDS ORDERED: LIDOCAINE 1% INJ 10MG/ML (20 ML MDV) ONE (13:13)
[2021-04-12] MEDS ORDERED: HEPARIN SODIUM 1,000 UN/ML (10ML VL) ONE (13:13)
[2021-04-12] MEDS ORDERED: IV FLUID CONTINUATION 200 ML IV ONE (13:30)
[2021-04-12] MEDS ORDERED: fentaNYL (PF) 50 MCG/ML 2 ML AMP ONE (13:38)
[2021-04-12] MEDS ORDERED: MIDAZOLAM 2 MG/2 ML VIAL IV ONE (13:40)
[2021-04-12] MEDS ORDERED: fentaNYL (PF) 50 MCG/ML 2 ML AMP IV ONE (13:43)
[2021-04-12] MEDS ORDERED: LIDOCAINE 1% INJ 10MG/ML (20 ML MDV) SQ ONE (13:43)
[2021-04-12] MEDS ORDERED: VERAPAMIL SYRINGE (5 MG/10 ML) INTRAARTER ONE (13:45)
[2021-04-12] MEDS ORDERED: SODIUM CHLORIDE 0.9% 1,000 ML IV ONE (13:57)
[2021-04-12] MEDS ORDERED: IOPAMIDOL-370 125ML BTL INJ ONE (14:05)
--- NOTE | 2021-04-12 14:17 | P.PN ---
Subjective This is a pleasant 75 years old male with past medical history of GERD, a arthritis, right lung cancer status post resection in 2004 and second resection 2008, recurrent and 2015, pancreatitis, chronic back pain. He follows with Dr. Lester for his lung cancer and he getting radiotherapy at [facility] as well as effusion treatment once a month Presents because of dyspnea , which has been progressively worse over the last 2 weeks patient noticed lately he could not shovel his snow, he got tired when he walks his detached cataract that he had to sit down prior to hospitalize He denies chest pain or coughing. No abdominal pain or weakness or dizziness. He denies smoking, he quit drinking alcohol because of his chronic pancreatitis Vitas looks stable and patient is afebrile and he is saturating 98% on room air WBC this morning was normal at 7.9, hemoglobin 13.7, platelet count is normal 317. D-dimer slightly elevated 0.6. Sodium 126, creatinine normal 0.6. Liver enzymes are normal. Troponin is elevated at 0.4, 0.9 and 0.6. Coronavirus not detected. Chest x-ray: Pulmonary fibrotic changes. Bilateral pulmonary scarring, not changed from old exam. Pleural diaphragmatic scarring right lung base. Without change. No heart failure EKG showed normal sinus rhythm at [address]-T changes Patient was started on heparin drip and aspirin at emergency room. 04/12/2021 Patient is admitted for acute non-ST elevation microinfarction patient is undergoing cardiac catheterization today. 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 His lung cancer remission situation is not clear. Constitutional: Denied any fatigue denied any fever. Cardio vascular: denied any chest pain, palpitations Gastrointestinal denied any nausea vomiting Pulmonary: Denied any shortness of breath cough Neurologic denied any new focal deficits All inpatient medications were reviewed and appropriate changes in these medications as dictated in the interval history and assessment and plan. Physical exam: GENERAL: The patient is alert and oriented x3, not in any acute distress. Well developed, well nourished. HEENT: Pupils are round and equally reacting to light. EOMI. No scleral icterus. No conjunctival pallor. Normocephalic, atraumatic. No pharyngeal erythema. No thyromegaly. CARDIOVASCULAR: S1 and S2 present. No murmurs, rubs, or gallops. PULMONARY: Chest is clear to auscultation, no wheezing or crackles. ABDOMEN: Soft, nontender, nondistended, normoactive bowel sounds. No palpable organomegaly. MUSCULOSKELETAL: No joint swelling or deformity. EXTREMITIES: No cyanosis, clubbing, or pedal edema. NEUROLOGICAL: Gross neurological examination did not reveal any focal deficits. SKIN: No rashes. No petechiae Assessment and Plan Assessment: Elevated troponin, suspicious for non-STEMI: Patient is undergoing cardiac Physician today -Exertional dyspnea probably secondary to coronary artery disease -Hypothyroidism--hyponatremia probably hypovolemic hyponatremia improving with IV fluids there may be a competent of SIADH. Urine osmolality and urine random sodium were obtained which is not consistent with hyperkalemia but patient is already receiving IV fluids lung cancerUndergoing Luce was chemo therapy undergoing radiation GERD osteoarthritis Chronic back pain History of pancreatitis DVT prophylaxis: heparin GI Prophylaxis: Ppi Objective - Vital Signs Vital signs: Vital Signs Temp 97.0 F L 04/12/21 11:46 Pulse 60 04/12/21 11:46 Resp 16 04/12/21 11:46 BP 123/61 04/12/21 11:46 Pulse Ox 97 04/12/21 11:46 Intake & Output 04/11/21 04/12/21 04/12/21 18:59 06:59 18:59 Intake Total 122.071 635 300 Balance 122.071 635 300 Weight 83.5 kg Intake: IV 300 Intake, IV Titration 122.071 215 Amount Heparin Sod,Pork in 0.45% 122.071 NaCl 25,000 unit In 0.45 % NaCl 1 250ml.bag @ 12 UNITS/KG/HR 8.709 mls/hr IV .Q24H [facility] Rx#: [id number] Sodium Chloride 0.9% 1, 215 000 ml In Empty Bag 1 bag @ 1 ML/KG/HR 72.575 mls/ hr IV .[id number] [facility] Rx#: [id number] Oral 420 Other: # Voids 3 - Labs CBC & Chem 7: 04/12/21 07:34 04/12/21 07:34 Labs: Abnormal Lab Results - Last 24 Hours (Table) 04/11/21 04/11/21 04/12/21 Range/Units 12:37 18:46 07:34 WBC 10.8 H (3.8-10.6) k/uL RBC 3.61 L (4.30-5.90) m/uL Hgb 12.9 L (13.0-17.5) gm/dL Hct 38.5 L (39.0-53.0) % MCV 106.8 H (80.0-100.0) fL MCH 35.8 H (25.0-35.0) pg Neutrophils # 9.2 H (1.3-7.7) k/uL Lymphocytes # 0.6 L (1.0-4.8) k/uL APTT 43.5 H (22.0-30.0) sec Sodium (137-145) mmol/L Creatinine (0.66-1.25) mg/dL Glucose (74-99) mg/dL Procalcitonin <0.02 L (0.02-0.09) ng/mL 04/12/21 04/12/21 Range/Units 07:34 07:34 WBC (3.8-10.6) k/uL RBC (4.30-5.90) m/uL Hgb (13.0-17.5) gm/dL Hct (39.0-53.0) % MCV (80.0-100.0) fL MCH (25.0-35.0) pg Neutrophils # (1.3-7.7) k/uL Lymphocytes # (1.0-4.8) k/uL APTT 45.8 H (22.0-30.0) sec Sodium 130 L (137-145) mmol/L Creatinine 0.64 L (0.66-1.25) mg/dL Glucose 129 H (74-99) mg/dL Procalcitonin (0.02-0.09) ng/mL
--- NOTE | 2021-04-12 16:07 | P.CONS ---
History of Present Illness - Reason for Consult Consult date: 04/12/21 Lung cancer Requesting physician: Vannessa Fulton - Chief Complaint SOB - History of Present Illness Mr. Wen is a very pleasant pt of Dr. Lester diagnosed with NSCLC in 2004, treated with RUL lobectomy. 2008 had RML granuloma removed with wedge resection. In 2014,he was found to have a suspicious lesion in RML,biopsy was positive for adenocarcinoma of the lung,it was treated with SBRT,completed in 2014 at [place]. 06/15/2018 PET revealed suspicious uptake in the ZOË mass that was seen previously, now larger at 3.5cm. CT guided biopsy was positive for adenocarcino ma consistent with lung primary, had SBRT completed in July 2018. PDL-1 was 15%, NGS revealed TP53 mutation. 08/08/19 CT chest revealed 3 cm ZOË mass (the previously irradiated one). 11/14/19 PET revealed persistent, but less, uptake in ZOË lesion, there was new left suprahilar lesion measured 2.3 cm with SUV of 7.69, new 1.9cm left hilar node, new 1 cm left tracheobronchial node and 1.6 cm subcarinal node with SUV 2.5. He was referred to Dr Villa, underwent EBUS but biopsies were negative, not diagnostic, mediastinoscopy could not be done due to his previous procedures. 01/23/20 PET revealed further disease progression in his chest. On 02/11/20 started weekly carboplatin/taxol with ra diation therapy and completed on 03/24/2020. 04/19/20 CT chest revealed slight improvement in his disease. 05/03/20 he started durvalumab. 08/17/20 CT chest revealed improvement in his disease. 09/06/[address] of chest revealed stable disease, no pneumonitis, significant COPD. 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 01/03/21 CT CAP revealed improvement in his lung cancer, however, there was a free air in abdomen, referred to ER at that time for evaluation. He has had cycle 12 of maintenance imfinzi, Q 4 weeks, due tomorrow. Pt admitted with SOB, progressive over 3 weeks, associated with cough, denied chest pain or tightness, he had elevated troponins, Na+ 128, CXR showing scarring, CBC, CMP overall normal. Pt may have some activity intolerance. No fever, nausea, abd pain acute changes in bowel or bladder. Review of Systems 10 point ROS is neg except as stated in HPI Past Medical History Past Medical History: Cancer, GERD/Reflux, Osteoarthritis (OA), Pneumonia Additional Past Medical History / Comment(s): Right lung cancer 2003 and first resection done (got MRSA at that time in incision), second resection in 2008, lung cancer reoccured in 12/2014 and found new nodule in right lung had radiation in February 2015. Pancreatitis,chronic back pain, lung CA reoccured 2019 History of Any Multi-Drug Resistant Organisms: MRSA Year Discovered:: 2003 MDRO Source:: BACK Past Surgical History: Cholecystectomy, Orthopedic Surgery Additional Past Surgical History / Comment(s): RESECTION TO RIGHT LUNG TWICE (RT MIDDLE AND RT LOWER LOBECTOMY), RT KNEE SCOPE x2 Past Anesthesia/Blood Transfusion Reactions: Motion Sickness Past Psychological History: No Psychological Hx Reported Smoking Status: Never smoker Past Alcohol Use History: None Reported Past Drug Use History: None Reported - Past Family History Father Family Medical History: Cancer Mother Family Medical History: Dementia Additional Family Medical History / Comment(s): Crohn's disease Medications and Allergies Home Medications Medication Instructions Recorded Confirmed Type HYDROcodone/APAP 10-325MG [[place] 0.5 tab PO BID 06/11/18 04/10/21 History 10-325] Ipratropium/Albuterol Sulfate 1 puff INHALATION RT-QID 06/11/18 04/10/21 History [Combivent Respimat Inhaler] Meloxicam 15 mg PO DAILY@1200 06/11/18 04/10/21 History Omeprazole 20 mg PO DAILY@1200 06/11/18 04/10/21 History Durvalumab [Imfinzi] 1 dose IV Q30D 01/04/21 04/10/21 History Escitalopram [Lexapro] 20 mg PO DAILY@1200 01/04/21 04/10/21 History LORazepam [Ativan] 1 mg PO HS 01/04/21 04/10/21 History Lipase/Protease/Amylase [Creon Dr 24,000 units PO BID 01/04/21 04/10/21 History 24,000 Units Capsule] Acetaminophen Tab [Tylenol Tab] 500 mg PO BID 04/10/21 04/10/21 History Azithromycin [Zithromax] 500 mg PO DAILY 04/10/21 04/10/21 History Levothyroxine Sodium [Synthroid] 75 mcg PO DAILY 04/10/21 04/10/21 History Allergies Allergy/AdvReac Type Severity Reaction Status Date / Time No Known Allergies Allergy Verified 04/10/21 22:59 Physical Exam Vitals: Vital Signs Temp Pulse Pulse Resp BP BP Pulse Ox 04/12/21 08:01 84 04/12/21 07:50 80 04/12/21 03:48 98.1 F 70 18 120/62 94 L 04/12/21 02:00 75 20 04/12/21 00:00 75 20 140/80 96 04/11/21 19:37 79 04/11/21 19:30 80 95 04/11/21 18:00 84 18 130/57 94 L 04/11/21 15:30 72 04/11/21 15:09 74 04/11/21 13:12 67 18 119/50 95 04/11/21 12:12 76 04/11/21 12:04 78 04/11/21 09:26 77 16 119/60 95 Intake and Output 04/11/21 04/12/21 04/12/21 22:59 06:59 14:59 Intake Total 395 240 Balance 395 240 Intake: Intake, IV Titration 75 140 Amount Sodium Chloride 0.9% 1, 75 140 000 ml In Empty Bag 1 bag @ 1 ML/KG/HR 72.575 mls/ hr IV .[id number] [facility] Rx#: [id number] Oral 320 100 Other: # Voids 3 Weight 83.5 kg - Constitutional General appearance: average body habitus, cooperative, no acute distress - EENT Eyes: anicteric sclerae, EOMI ENT: hearing grossly normal, normal oropharynx - Neck Neck: no lymphadenopathy - Respiratory Respiratory: bilateral: CTA - Cardiovascular Rhythm: regular Heart sounds: normal: S1, S2 Abnormal Heart Sounds: no systolic murmur, no diastolic murmur, no rub, no S3 Gallop, no S4 Gallop, no click, no other leg Peripheral Edema: bilateral: None - Gastrointestinal General gastrointestinal: no absent bowel sounds, no decreased bowel sounds, no distended, no hepatomegaly, no hyperactive bowel sounds, normal bowel sounds, no organomegaly, no rigid, no scaphoid, soft, no splenomegaly, no tenderness, no umbilical hernia, no ventral hernia - Integumentary Integumentary: normal - Neurologic Neurologic: CNII-XII intact - Musculoskeletal Musculoskeletal: strength equal bilaterally - Psychiatric Psychiatric: A&O x's 3, appropriate affect, intact judgment & insight Results CBC & Chem 7: 04/12/21 07:34 04/12/21 07:34 Labs: Abnormal Lab Results - Last 24 Hours (Table) 04/11/21 04/11/21 04/11/21 Range/Units 03:59 12:37 12:37 APTT 34.3 H (22.0-30.0) sec Sodium 128 L (137-145) mmol/L Carbon Dioxide 17 L (22-30) mmol/L Creatinine (0.66-1.25) mg/dL Glucose 218 H (74-99) mg/dL Osmolality 271 L (280-301) mosm/kg Procalcitonin <0.02 L (0.02-0.09) ng/mL TSH 6.460 H (0.465-4.680) mIU/L 04/11/21 04/12/21 Range/Units 18:46 07:34 APTT 43.5 H (22.0-30.0) sec Sodium 130 L (137-145) mmol/L Carbon Dioxide (22-30) mmol/L Creatinine 0.64 L (0.66-1.25) mg/dL Glucose 129 H (74-99) mg/dL Osmolality (280-301) mosm/kg Procalcitonin (0.02-0.09) ng/mL TSH (0.465-4.680) mIU/L Comments: ECHO report reviewed Chest x-ray: report reviewed Assessment and Plan (1) Elevated troponin Narrative/Plan: Cardiology has seen pt. Plan for PCTA, possible stent. If nothing found, recommend CTA to rule out PE. b Current Visit: Yes Status: Acute Priority: High Code(s): R77.8 - OTHER SPECIFIED ABNORMALITIES OF PLASMA PROTEINS SNOMED Code(s): 239338015 (2) Adenocarcinoma, lung Narrative/Plan: Stage IIIA. Pt has been on maintenance imfinzi x 12 cycles and has done very well. Last scans in Jan, no evidence of cancer progression. He will see Dr. Lester prior to resuming imfinzi. Appt in DC plan Current Visit: No Status: Chronic Priority: Medium Code(s): C34.90 - MALIGNANT NEOPLASM OF UNSP PART OF UNSP BRONCHUS OR LUNG SNOMED Code(s): 596432175 Plan: Doctor attests: I performed a history and physical examination of this patient, developed impression and plan of care, discussed with dictator. I agree with dictators note, documented as a scribe.
[2021-04-12] MEDS: SODIUM CHLORIDE 0.9% 1,000 ML IV SCH (16:33)
[2021-04-12] MEDS: NON FORMULARY DRUG (Lipase/Protease/Amylase [Creon Dr 24,000 Unit Capsule] 1 EACH Capsule) PO SCH ×2 (16:33→21:19)
[2021-04-12] MEDS: SODIUM CHLORIDE 0.9% 1,000 ML in EMPTY BAG 1 BAG IV SCH (16:33)
[2021-04-12] MEDS: MELOXICAM 7.5 MG TAB PO SCH (16:35)
[2021-04-12] MEDS: ESCITALOPRAM 20 MG TAB PO SCH (16:36)
[2021-04-12] MEDS: HYDROcodone/APAP 10-325MG 1 EACH TAB PO SCH ×2 (16:36→20:18)
[2021-04-12] MEDS: HEPARIN SOD,PORK IN 0.45% NACL 25,000 UNIT in 0.45% NACL 1 250ML.BAG IV SCH (17:44)
[2021-04-12] MEDS: LORazepam 0.5 MG TAB PO SCH (20:17)
[2021-04-12] MEDS: BENZOCAINE/MENTHOL LOZENG 1 EACH LOZENGE MUCOUS MEM PRN (20:17)
[2021-04-12] MEDS: ATORVASTATIN 40 MG TAB PO SCH (20:17)
--- NOTE | 2021-04-12 21:04 | P.CARDCATH ---
Description of Procedure: PROCEDURES PERFORMED: Left heart catheterization, bilateral coronary angiography INDICATION: NSTEMI HISTORY: Patient is a pleasant 75 year old male with history of lung cancer who has been having new episodes of dyspnea with minimal activity and was noted to have mildly elevated troponins concerning for unstable angina symptoms and therefore heart catheterization was recommmended. CONSENT:I have discussed the risks, benefits and alternative therapies for the above-mentioned procedure and for both sedation/analgesia as well as necessary blood product administration, if indicated, as they pertain to this patient. The patient has indicated understanding and acceptance of the risks and procedures discussed. PROCEDURE: After the risks, benefits and alternatives of the above mentioned procedure explained in detail with the patient, informed consent was obtained. Patient was taken to the catheterization lab and prepped and draped in usual fashion. 1% lidocaine was used to anesthetize the right radial artery. A 6- [place] sheath was placed in the right radial artery using modified Seldinger technique. Left coronary angiography was performed with a 5-[place] JL 3.5 catheter and right coronary angiography was performed with a 5-[place] JR5 catheter in various views. A 5-[place] FR5 catheter was inserted into the left v entricle and pressure measurements were obtained. The right radial sheath was removed and a TR band was placed with hemostasis achieved. The patient tolerated the procedure well. Patient was transported back to the post catheterization holding area in stable condition. Conscious Sedation: Patient was monitored under the direct supervision of vision of myself for conscious sedation using Versed and fentanyl for a total duration of 18 minutes HEMODYNAMICS: Ao: 139/75 LV: 129/3, LVEDP 9 SELECTIVE CORONARY ARTERIOGRAPHY: LEFT MAIN: The left main is a large caliber vessel which trifurcates into the LAD, ramus and circumflex. There is no significant stenosis. LEFT ANTERIOR DESCENDING CORONARY ARTERY: LAD is a large caliber vessel which wraps around to the apex. There is a mid LAD 40-50% stenosis at the level of a moderate caliber diagonal 1 branch. RAMUS INTERMEDIUS: The ramus is moderate caliber vessel with mid luminal irregularities. LEFT CIRCUMFLEX CORONARY ARTERY: Left circumflex is a moderate caliber vessel with ostial circumflex 30% stenosis and otherwise mild luminal irregularities and gives off 2 OM branches. RIGHT CORONARY ARTERY: The right coronary artery is a large caliber vessel which gives off a PDA and PLV branch and is the dominant vessel. There is calcification of the mid RCA however only 10-20% stenosis of the RCA. FINAL IMPRESSION: 1. Mild to moderate CAD as described above with 40-50% mid LAD stenosis, 30% ostial circumflex stenosis and 10-20% RCA stenosis. 2. Low normal left sided filling pressures PLAN: 1. Aggressive risk factor modification per most recent ACC/AHA guidelines. 2. Relatively normal epicardial coronary arteries with worst LAD lesion being 40-50% stenosis. Would recommend medical therapy however given rise and fall of troponins, microvascular dysfunction is a consideration and may consider trial of antianginals.
[2021-04-12] MEDS ORDERED: RX INFO: IV CONTRAST WAS GIVEN 1 EACH MISC MISCELLANE PRN (21:05)
[2021-04-12] MEDS: METOPROLOL SUCCINATE (ER) 25 MG TAB.ER.24H PO SCH (21:22)
[2021-04-13 00:25] VITALS: RESP 16
[2021-04-13] MEDS: SODIUM CHLORIDE 0.9% 1,000 ML in EMPTY BAG 1 BAG IV SCH (05:14)
[2021-04-13] MEDS: SODIUM CHLORIDE 0.9% 1,000 ML IV SCH (05:14)
[2021-04-13] MEDS: LEVOTHYROXINE 75 MCG TAB PO SCH (05:49)
[2021-04-13] MEDS: BENZOCAINE/MENTHOL LOZENG 1 EACH LOZENGE MUCOUS MEM PRN (06:11)
[2021-04-13] MEDS: IPRATROPIUM-ALBUTEROL 3 ML NEB INHALATION SCH ×3 (07:33→16:13)
[2021-04-13] MEDS: NON FORMULARY DRUG (Lipase/Protease/Amylase [Creon Dr 24,000 Unit Capsule] 1 EACH Capsule) PO SCH (07:59)
[2021-04-13 08:00] LABS: HCT 40.3 % (39.0-53.0); MCH 35.1 pg (25.0-35.0); MCHC 32.3 g/dL (31.0-37.0); MCV 108.7 fL (80.0-100.0); Macrocytosis Moderate; Mean Platelet Volume 7.5; Platelet Count 344 k/uL (150-450); RBC 3.71 m/uL (4.30-5.90); RDW 12.8 % (11.5-15.5); WBC 9.8 k/uL (3.8-10.6)
[2021-04-13] MEDS: ASPIRIN 81 MG PO SCH (08:00)
[2021-04-13] MEDS: PANTOPRAZOLE 40 MG/10 ML VIAL IV SCH (08:00)
[2021-04-13] MEDS: HYDROcodone/APAP 10-325MG 1 EACH TAB PO SCH (08:01)
[2021-04-13] MEDS: AZITHROMYCIN 500 MG TAB PO SCH (08:02)
[2021-04-13] MEDS: METOPROLOL SUCCINATE (ER) 25 MG TAB.ER.24H PO SCH (08:02)
[2021-04-13 08:07] LABS: African American GFR (CKD) >90 (>60 ml/min/1.73 sqM); Anion Gap 7 mmol/L; Blood Urea Nitrogen 14 mg/dL (9-20); Calcium 8.4 mg/dL (8.4-10.2); Carbon Dioxide 20 mmol/L (22-30); Chloride 102 mmol/L (98-107); Glucose 103 mg/dL (74-99); Non-African American GFR(CKD) >90 (>60 ml/min/1.73 sqM); Potassium 4.1 mmol/L (3.5-5.1); Sodium 129 mmol/L (137-145)
[2021-04-13] MEDS ORDERED: predniSONE 10 MG TAB PO SCH (09:00)
--- NOTE | 2021-04-13 10:38 | P.PN ---
Subjective Progress Note Date: 04/13/21 Principal diagnosis: Exertional shortness of breath This is a 75 -year-old white male patient of Dr. 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 Both of these lung resections have taken place at the [facility]. In 2014 right middle lobe lung lesion was identified and the biopsy showed adenocarcinoma of the lung and was treated with an SBRT. In 2014, left upper lobe nodule was starting to increase in size and showed increased uptake on the PET scan with no evidence of distant metastasis, patient is under the care of Dr. Lester. He is currently getting radiotherapy and infusion therapy once a month. He does have history of COPD, and chronic nicotine dependence. He has a previous history of EtOH abuse. He has had MRSA infection in the past. Patient presented to the emergency department on 04/10/2021 with complaints of exertional dyspnea, he was at home in his usual state of health, and he was trying to take the trash out of his detached garage when he felt like he could not walk because of his increased shortness of breath, he denied any other symptoms, no chest pain, no cough, no palpitations, no phlegm production, no fever or chills. Chest x-ray in the emergency depart ment showed pulmonary fibrotic changes, bilateral pulmonary scarring, pleural diaphragmatic scarring at the right lung base without change. His EKG on admission showed normal sinus rhythm. No acute ST or T-wave changes. His admission blood work showed a troponin elevation of 0.436, subsequently i ncreased to 0.910, and 0.683. Patient tested negative for COVID-19, his white blood cell count was mildly elevated at 12.2, hemoglobin was 14.2, his d-dimer is 0.63, his INR is 1.0, his sodium is 126, potassium is 5.0, chloride is 95, CO2 is 22, BUN of 14, creatinine 0.68, LFTs are within normal limits. he was started on heparin infusion because of his elevated troponins, cardiology consultation has been obtained, and echocardiogram has been ordered, patient is also being considered for cardiac catheterization. Currently breathing comfortably, he is sitting in the recliner, in the emergency department he is awaiting a bed on selective care unit, he is on room air satting 95%, vital signs have been stable, he is in sinus mechanism with a controlled rate On 04/13/2021 patient seen in follow-up on selective care unit, his awake and alert, in no acute distress, breathing comfortably, he is currently on room air with pulse ox of 100%, no worsening dyspnea, no cough, no phlegm production, no acute events overnight, patient had a heart catheterization yesterday and was found to have mild to moderate CAD with 40-50% mid LAD stenosis, 30% ostial circumflex stenosis in 10-20% RCA stenosis with low normal left-sided filling pressures, and aggressive risk modification strategy was recommended and medical therapy. In terms of his COPD, and currently seems to be stable, patient's IV steroids have been transitioned to oral prednisone taper. He remains on nebulized bronchodilators. He has had no fever or chills, today's labs have been reviewed, his white blood cell count is 9.8, hemoglobin is 13, platelet count is 344, serum sodium is 129, potassium is 4.1, chloride is 102, CO2 is 20, BUN is 14 creatinine 0.7. D-dimer was 0.56, patient remains on heparin infusion, CTA chest is pending to rule out possibility of underlying pulmonary embolism. Objective - Vital Signs Vital signs: Vital Signs Temp 97.5 F L 04/13/21 06:51 Pulse 67 04/13/21 08:12 Resp 16 04/13/21 08:12 BP 141/76 04/13/21 06:51 Pulse Ox 100 04/13/21 07:33 Intake & Output 04/12/21 04/13/21 04/13/21 18:59 06:59 18:59 Intake Total 400 1010 Output Total 1 Balance 399 1010 Intake: IV 400 Intake, IV Titration 750 Amount Sodium Chloride 0.9% 1, 750 000 ml @ 75 mls/hr IV . [id number] [facility] Rx#:[id number] Oral 260 Output: Urine 1 Other: Voiding Method Toilet # Voids 3 - Exam GENERAL EXAM: Alert, very pleasant, 75-year-old white male, resting in bed,breathing comfortable, room air pulse ox is 100% comfortable in no apparent distress. HEAD: Normocephalic/atraumatic. EYES: Normal reaction of pupils, equal size. Conjunctiva pink, sclera white. NOSE: Clear with pink turbinates. THROAT: No erythema or exudates. NECK: No masses, no JVD, no thyroid enlargement, no adenopathy. CHEST: No chest wall deformity. Symmetrical expansion. LUNGS: Equal air entry with a few scattered crackles CVS: Regular rate and rhythm, normal S1 and S2, no gallops, no murmurs, no rubs ABDOMEN: Soft, nontender. No hepatosplenomegaly, normal bowel sounds, no guarding or rigidity. EXTREMITIES: No clubbing, no edema, no cyanosis, 2+ pulses and upper and lower extremities. MUSCULOSKELETAL: Muscle strength and tone normal. SPINE: No scoliosis or deformity SKIN: No rashes CENTRAL NERVOUS SYSTEM: Alert and oriented -3. No focal deficits, tone is normal in all 4 extremities. PSYCHIATRIC: Alert and oriented -3. Appropriate affect. Intact judgment and insight. - Labs CBC & Chem 7: 04/13/21 06:55 04/13/21 06:55 Labs: Abnormal Lab Results - Last 24 Hours (Table) 04/13/21 04/13/21 04/13/21 Range/Units 00:23 06:55 06:55 RBC 3.71 L (4.30-5.90) m/uL MCV 108.7 H (80.0-100.0) fL MCH 35.1 H (25.0-35.0) pg APTT 55.8 H (22.0-30.0) sec Sodium 129 L (137-145) mmol/L Carbon Dioxide 20 L (22-30) mmol/L Glucose 103 H (74-99) mg/dL Assessment and Plan Plan: Assessment: #1. Acute non-ST elevated myocardial infarction, status post heart cathet erization which showed mild to moderate CAD with 40-50% mid LAD stenosis, 30% ostial circumflex stenosis in 10-20% RCA stenosis with low normal left-sided filling pressures, and aggressive risk modification strategy was recommended and medical therapy. #2. Exertional dyspnea, related to the above, improved #3. History of lung cancer status post to right lung resection seen 2003 and 2008, recurrent lung cancer in 2014 currently on radiation and infusion treatments, patient follows with Dr. Lester #4. Former nicotine dependence #5. Former alcohol abuse #6. History of chronic pancreatitis #7. Hypothyroidism Plan: Vital signs have been stable overnight No worsening dyspnea, no cough, no phlegm production, no fever Heart catheterization results have been noted CAD Medical management per cardiology Continue with the prednisone 30 mg daily, continue with bronchodilators Patient continues on heparin infusion until pulmonary embolism has been ruled out, CTA chest is pending this morning Overall clinically has improved since admission, vital signs have been stable We'll continue to follow his clinical course I performed a history & physical examination of the patient and discussed their management with my nurse practitioner, Gayatri Temple. I reviewed the nurse practitioner's note and agree with the documented findings and plan of care. Lung sounds are positive for dim breath sounds throughout the lung calvert. The findings and the impression was discussed with the patient. I attest to the documentation by the nurse practitioner. Time with Patient: Less than 30
[2021-04-13 11:35] VITALS: TEMP 97.6
[2021-04-13] MEDS: ESCITALOPRAM 20 MG TAB PO SCH (11:35)
[2021-04-13] MEDS: MELOXICAM 7.5 MG TAB PO SCH (11:35)
--- NOTE | 2021-04-13 12:04 | P.PN ---
Subjective Progress Note Date: 04/13/21 Objective - Vital Signs Vital signs: Vital Signs Temp 97.6 F 04/13/21 11:32 Pulse 84 04/13/21 11:32 Resp 16 04/13/21 11:32 BP 141/76 04/13/21 06:51 Pulse Ox 98 04/13/21 11:32 Intake & Output 04/12/21 04/13/21 04/13/21 18:59 06:59 18:59 Intake Total 400 1010 120 Output Total 1 Balance 399 1010 120 Intake: IV 400 Intake, IV Titration 750 Amount Sodium Chloride 0.9% 1, 750 000 ml @ 75 mls/hr IV . [id number] [facility] Rx#:[id number] Oral 260 120 Output: Urine 1 Other: Voiding Method Toilet # Voids 3 - Constitutional General appearance: Present: average body habitus, cooperative, no acute distress - EENT Eyes: Present: anicteric sclerae, EOMI ENT: Present: hearing grossly normal, normal oropharynx - Respiratory Respiratory: bilateral: CTA - Cardiovascular Rhythm: regular Heart sounds: normal: S1, S2 Abnormal Heart Sounds: Absent: systolic murmur, diastolic murmur, rub, S3 Gallop, S4 Gallop, click, other - Peripheral edema leg Peripheral Edema: bilateral: None - Gastrointestinal General gastrointestinal: Present: normal bowel sounds, soft - Neurologic Neurologic: Present: CNII-XII intact - Musculoskeletal Musculoskeletal: Present: strength equal bilaterally - Psychiatric Psychiatric: Present: A&O x's 3, appropriate affect, intact judgment & insight - Labs CBC & Chem 7: 04/13/21 06:55 04/13/21 06:55 Labs: Abnormal Lab Results - Last 24 Hours (Table) 04/13/21 04/13/21 04/13/21 Range/Units 00:23 06:55 06:55 RBC 3.71 L (4.30-5.90) m/uL MCV 108.7 H (80.0-100.0) fL MCH 35.1 H (25.0-35.0) pg APTT 55.8 H (22.0-30.0) sec Sodium 129 L (137-145) mmol/L Carbon Dioxide 20 L (22-30) mmol/L Glucose 103 H (74-99) mg/dL - Imaging and Cardiology Cardiology notes reviewed Assessment and Plan (1) Elevated troponin Narrative/Plan: Cardiology has seen pt. S/P PCTA, no stents needed. Pending CTA to rule out PE as a possible cause for elevated troponins. Pt remains on heparin drip until confirmed. If PE, BLE doppler for baseline will be ordered as will oral an ticoagulation. If no PE then heparin can be discontinued from a Hem/Onc standpoint. Current Visit: Yes Status: Acute Priority: High Code(s): R77.8 - OTHER SPECIFIED ABNORMALITIES OF PLASMA PROTEINS SNOMED Code(s): 372790982 (2) Adenocarcinoma, lung Narrative/Plan: Stage IIIA. Pt has been on maintenance imfinzi x 12 cycles and has done very well. Last scans in Jan, no evidence of cancer progression. He will see Dr. Lester prior to resuming imfinzi. Appt in DC plan Current Visit: No Status: Chronic Priority: Medium Code(s): C34.90 - MALIGNANT NEOPLASM OF UNSP PART OF UNSP BRONCHUS OR LUNG SNOMED Code(s): 543344398
--- NOTE | 2021-04-13 13:47 | CT ---
EXAMINATION TYPE: CT chest angio for PE DATE OF EXAM: 04/13/2021 COMPARISON: 01/03/2021 and 08/16/2020 HISTORY: 75-year-old male SOB, lung cancer TECHNIQUE: Contiguous axial scanning of the chest performed with IV Contrast, patient injected with 1 00 mL of Isovue 370. Coronal/sagittal MIP reconstructions performed. CT DLP: 3639 mGycm Automated exposure control for dose reduction was used. FINDINGS: Heart normal size without pericardial effusion. No flattening of the septum reflux of contrast into t he hepatic veins. Three-vessel coronary artery calcifications are present in remarkable for coronary artery disease. Mild atherosclerotic plaque and calcifications aortic arch with conventional branching anatomy. Large caliber to the main right pulmonary arteries measuring 2.7 cm compatible with pulmonary hyperte nsion. Satisfactory opacification of the pulmonary arterial system without evidence for pulmonary emb olus. No enlarging thoracic lymphadenopathy. Moderate emphysematous change. 3.6 x 2.3 cm left perihilar masslike opacity (versus 3.4 x 2.0 cm, pre viously). Overall similar appearance. Postsurgical change with pleural parenchymal scarring at the posterior right base. Focal volume loss and consolidation anterior right upper lobe is also unchanged, likely site of treat ed disease. Scattered endobronchial opacification involving segmental branches of the lower lobes and right middl e lobe. Suspect prior right upper lobectomy. Small hiatal hernia. Partially visualized cyst lateral left kidney measuring at least 4.9 cm and genao ges of chronic pancreatitis. Cystic area in the region of the pancreatic neck and distal body unchang ed. Duodenal diverticulum measuring 7.0 cm redemonstrated along with mild nodular thickening of the a drenal glands. There appears to be diffuse fold thickening of the gastric fundus and body should be correlated clini mauricio. Bones: Mild endplate deformities of T7 and T8 are unchanged. Osteopenia. IMPRESSION: 1. NO EVIDENCE FOR PULMONARY EMBOLUS. 2. COPD WITH MODERATE EMPHYSEMA AND PULMONARY ARTERIAL HYPERTENSION. CAD WITH 3 VESSEL CORONARY ARTER Y CALCIFICATIONS. 3. RELATIVELY STABLE LEFT PERIHILAR MASSLIKE OPACITY MEASURING 3.6 X 2.3 CM (VERSUS 3.4 X 2.0 CM, PRE VIOUSLY). APPROPRIATE ONCOLOGIC FOLLOW-UP RECOMMENDED. 4. STABLE VOLUME LOSS AND CONSOLIDATION ANTERIOR RIGHT UPPER LOBE LIKELY SITE OF TREATED DISEASE. 5. A FEW SCATTERED AREAS OF ENDOBRONCHIAL OPACIFICATION INVOLVING SEGMENTAL BRANCHES OF THE LOWER LOB ES AND RIGHT MIDDLE LOBE COMPATIBLE WITH AREAS OF MUCOID DEBRIS AND RETAINED PROMINENT SECRETIONS. 6. DIFFUSE FOLD THICKENING OF THE GASTRIC FUNDUS AND BODY. CORRELATE CLINICALLY FOR POSSIBLE GASTRITI S.
--- NOTE | 2021-04-13 15:39 | P.PN ---
Subjective This is a 75 year old male with a past medical history of lung cancer, history of 2 prior right lung resections at [facility] in 2004 and in 2008, recurrent in 2015. He follows with Dr. Lester for his lung cancer and is getting radiotherapy,as well as effusion treatment once a month. History of former nicotine dependence states he quit many years ago, former alcohol abuse quit 4-5 years ago, history of chronic pancreatitis, cholecystectomy, hypothyroidism. Patient presents with worsening exertional dyspnea for 2-3 days. He states over the weekend he began to noticed he had worsening shortness of breath with activity. He states he normally can do his daily activities, walk to his garage and shovel the snow with no difficulty. However, over the weekend he states he can barely walk to his garage which is about 50 feet without feeling short of breath. Sunday he was walking into the house, had another episode of acute onset shortness of breath and was also diaphoretic. On admission patient's troponins were elevated 0.4, 0.9, 0.68. Cardiac catheterization was recommended. On 04/12/2021 patient underwent cardiac catheterization with Dr. Baldwin which revealed Mild to moderate CAD with 40-50% mid LAD stenosis, 30% ostial circumf luz elena stenosis and 10-20% RCA stenosis. 04/13/2021 Patient seen and examined at bedside, no distress. Denies any chest pain or shortness of breath. Patient underwent computed tomography scan of the chest today which revealed no evidence of pulmonary embolism, COPD with moderate emphysema and pulmonary artery hypertension, CAD with 3 vessel coronary artery calcifications, relatively stable left perihilar masslike opacity, stable volume loss and consolidation anterior right upper lobe. Echocardiogram revealed EF 5560 percent, mild mitral regurgitation, mild tricuspid regurgitation. PHYSICAL EXAMINATION Vitals reviewed CONSTITUTIONAL: No apparent distress. HEENT: Neck Supple. No JVD CHEST EXAMINATION: Lungs right upper lobe and right lower lobe with expiratory wheezing to auscultation, other lung calvert clear to auscultation. No chest wall tenderness is noted on palpation or with deep breathing. HEART EXAMINATION: Regular rate and rhythm. S1, S2 heard. No murmurs, gallops or rub. ABDOMEN: Soft, nontender. Positive bowel sounds. EXTREMITIES: 2+ peripheral pulses, no lower extremity edema and no calf tenderness. SKIN: Warm, dry NEUROLOGIC EXAMINATION: Patient is awake, alert and oriented x3. ASSESSMENT Mild to moderate Coronary artery disease with 40-50% mid LAD stenosis, 30% ostial circumflex stenosis and 10-20% RCA stenosis. History of lung cancer status post prior to right lung resections in 2003 and in 2008, recurrent lung cancer in 2014, currently on radiotherapy and effusion treatment once a month Former nicotine dependence Former alcohol abuse History of chronic pancreatitis Hypothyroidism PLAN From cardiology perspective, CTA with no evidence of pulmonary embolism. Patient is stable to be discharged home from a cardiology perspective. Recommend continuing aspirin 81 mg daily, atorvastatin 40 mg daily metoprolol 12.5 mg daily Patient to follow up outpatient with Dr. Baldwin Nurse practitioner note has been reviewed by physician. Signing provider agrees with the documented findings, assessment, and plan of care. Objective - Vital Signs Vital signs: Vital Signs Temp 97.6 F 04/13/21 11:32 Pulse 84 04/13/21 11:32 Resp 16 04/13/21 11:32 BP 141/76 04/13/21 06:51 Pulse Ox 98 04/13/21 11:32 Intake & Output 04/12/21 04/13/21 04/13/21 18:59 06:59 18:59 Intake Total 400 1010 341.349 Output Total 1 Balance 399 1010 341.349 Intake: IV 400 Intake, IV Titration 750 221.349 Amount Heparin Sod,Pork in 0.45% 221.349 NaCl 25,000 unit In 0.45 % NaCl 1 250ml.bag @ 12 UNITS/KG/HR 8.709 mls/hr IV .Q24H [facility] Rx#: [id number] Sodium Chloride 0.9% 1, 750 000 ml @ 75 mls/hr IV . [id number] [facility] Rx#:[id number] Oral 260 120 Output: Urine 1 Other: Voiding Method Toilet # Voids 3 6 - Labs CBC & Chem 7: 04/13/21 06:55 04/13/21 06:55 Labs: Abnormal Lab Results - Last 24 Hours (Table) 04/13/21 04/13/21 04/13/21 Range/Units 00:23 06:55 06:55 RBC 3.71 L (4.30-5.90) m/uL MCV 108.7 H (80.0-100.0) fL MCH 35.1 H (25.0-35.0) pg APTT 55.8 H (22.0-30.0) sec Sodium 129 L (137-145) mmol/L Carbon Dioxide 20 L (22-30) mmol/L Glucose 103 H (74-99) mg/dL
[2021-04-13 17:39] VITALS: BP 130/75; PULSE 93
--- NOTE | 2021-04-14 15:01 | P.DS ---
Providers Date of admission: 04/10/21 23:30 Attending physician: Vannessa Fulton MD Consults: 04/10/21 22:34 Consult Physician Routine Consulting Provider: Allan Becerra Consult Reason/Comments: COPD exacerbation Do you want consulting provider notified?: Yes Consult Physician Routine Consulting Provider: Tawnya Walters Consult Reason/Comments: NSTEMI Do you want consulting provider notified?: Already Contacted 04/12/21 08:45 Consult Physician Urgent Consulting Provider: Keenan Pederson Consult Reason/Comments: lung cancer Do you want consulting provider notified?: Yes [facility]: Final Diagnosis -Elevated troponin, suspicious for non-STEMI: Coronary artery disease with medical management -Exertional dyspnea probably secondary to coronary artery disease -Hypothyroidism -hyponatremia probably hypovolemic hyponatremia improving with IV fluids there may be a competent of SIADH. -lung cancer with resection x3 history, recurrent, finished chemo therapy undergoing radiation -History COPD -GERD -osteoarthritis -Chronic back pain -History of pancreatitis -History chronic tobacco use, quit in 2019 Discharge Disposition Patient stable for discharge home, cleared by consultations. Hospital Course This is a pleasant 75 regular male who presents to the hospital with complaints of shortness of breath for months. Patient states that over the past 2 days he's had increasing shortness of breath with cough and congestion he was started on Zithromax from his PCP however he continues to be short of breath which is worse with exertion. Denies chest pain, fevers. Vaccinated against Covid with booster. Patient is a history of lung cancer and he is currently undergoing radiation, he has had 3 lumbar sections in the past and also had chemotherapy in the past. He gets his infusions at [facility] to schedule for an infusion next week. Past medical history significant for GERD, osteoporosis, pneumonia, rule out cancer diagnosed in 1999 for an first resection done at that time he did get MRSA in the incision, second resection in 2008, lung cancer recurred in December 2014 and found a nodule and right lung had radiation in February 2015. Also with history of pancreatitis, chronic back pain and recurrence of lung cancer in 2019. Patient lives with spouse and is usually independent patient quit smoking in 2019 with a 1 pack per day history. Chest x-ray on admission shows pulmonary fibrotic changes with bilateral pulmonary scarring. Patient admitted to hospital with consultations placed to cardiology pulmonary and oncology services. Vital signs on admission afebrile, heart rate 90, blood pressure 110/71, 96% room air. Labs on admission show white count 12.2, hemoglobin 14.2, d-dimer 0.63, sodium 126, potassium 5.0, chloride 95, CO2 22, glucose 104, troponins elevated to 0.436, 0.910, and 0.683. Calcitonin less than 0.02, TSH 6.460 and free T4 0.94. Urine osmolality 504, urine random sodium 102. Covid PCR not detected. Echocardiogram shows an EF of 55-60% with mild mitral regurgitation and mild tricuspid regurgitation. Patient underwent cardiac catheterization which revealed [id number] coronary artery disease with 40-50% mid LAD stenosis, 30% ostial circumflex stenosis and 10-20% RCA stenosis. Patient also had CTA chest negative for pulmonary embolism, COPD with moderate emphysema and pulmonary artery hypertension, demonstrates coronary artery disease with three-vessel coronary artery calcifications and relatively stable left perihilar masslike opacity stable volume loss and consolidation anterior right upper lobe. Patient treated with updrafts, IV steroids, PO Zithromax. Started on Lipitor, Toprol-XL, baby aspirin and sublingual nitroglycerin on discharge. Will complete oral steroid taper. 04/13/2021 Patient evaluated today resting in bed. Underwent CT angiography. He was cleared by all consultations for discharge. He currently denies chest pain, cough, shortness of breath. No acute events overnight. Patient's hopeful for discharge today. Labs today show white count 9.8, hemoglobin stable 13, sodium 129, potassium 4.1, chloride 102, CO2 20, BUN 14, creatinine 0.70, blood glucose 103, calcium 8.4. Patient does state that his sodium has been chronically low since he was started on creon after his insurance stopped covering the pancrease. Lungs are clear, S1-S2 auscultated, abdomen soft nontender, focal neurological exam is negative. Patient cleared for discharge to follow-up in the office with primary, cardiology, pulmonary and oncology services. Repeat labs in 2 days. Please see medication reconciliation for list of current medications. Thank you for allowing us to participate in the care of this patient. Patient Condition at Discharge: Fair Plan - Discharge Summary New Discharge Prescriptions: New Benzocaine/Menthol Lozeng [Cepacol lozenge] 1 each MUCOUS MEM Q6HR PRN lozenge PRN Reason: Cough predniSONE See Taper PO DAILY #7 tab Azithromycin [Zithromax] 500 mg PO DAILY #2 tab Atorvastatin [Lipitor] 40 mg PO HS #30 tab Nitroglycerin Sl Tabs [Nitrostat] 0.4 mg SUBLINGUAL Q5M PRN #20 tab PRN Reason: Chest Pain Metoprolol Succinate (ER) [Toprol XL] 12.5 mg PO DAILY #30 tab Aspirin 81 mg PO DAILY #30 tab Continue Ipratropium/Albuterol Sulfate [Combivent Respimat Inhaler] 1 puff INHALATION RT-QID HYDROcodone/APAP 10-325MG [[place] 10-325] 0.5 tab PO BID Omeprazole 20 mg PO DAILY@1200 Meloxicam 15 mg PO DAILY@1200 Durvalumab [Imfinzi] 1 dose IV Q30D LORazepam [Ativan] 1 mg PO HS Acetaminophen Tab [Tylenol] 500 mg PO BID Lipase/Protease/Amylase [Emiliano Inman 24,000 Unit Capsule] 24,000 units PO BID Escitalopram [Lexapro] 20 mg PO DAILY@1200 Levothyroxine Sodium [Synthroid] 75 mcg PO DAILY Discontinued Azithromycin [Zithromax] 500 mg PO DAILY Discharge Medication List HYDROcodone/APAP 10-325MG [[place] 10-325] 0.5 tab PO BID 06/11/18 [History] Ipratropium/Albuterol Sulfate [Combivent Respimat Inhaler] 1 puff INHALATION RT- QID 06/11/18 [History] Meloxicam 15 mg PO DAILY@1200 06/11/18 [History] Omeprazole 20 mg PO DAILY@1200 06/11/18 [History] Durvalumab [Imfinzi] 1 dose IV Q30D 01/04/21 [History] Escitalopram [Lexapro] 20 mg PO DAILY@1200 01/04/21 [History] LORazepam [Ativan] 1 mg PO HS 01/04/21 [History] Lipase/Protease/Amylase [Emiliano Inman 24,000 Unit Capsule] 24,000 units PO BID 01/04/21 [History] Acetaminophen Tab [Tylenol] 500 mg PO BID 04/10/21 [History] Levothyroxine Sodium [Synthroid] 75 mcg PO DAILY 04/10/21 [History] Aspirin 81 mg PO DAILY #30 tab 04/13/21 [Rx] Atorvastatin [Lipitor] 40 mg PO HS #30 tab 04/13/21 [Rx] Azithromycin [Zithromax] 500 mg PO DAILY #2 tab 04/13/21 [Rx] Benzocaine/Menthol Lozeng [Cepacol lozenge] 1 each MUCOUS MEM Q6HR PRN lozenge 04/13/21 [Rx] Metoprolol Succinate (ER) [Toprol XL] 12.5 mg PO DAILY #30 tab 04/13/21 [Rx] Nitroglycerin Sl Tabs [Nitrostat] 0.4 mg SUBLINGUAL Q5M PRN #20 tab 04/13/21 [Rx] predniSONE See Taper PO DAILY #7 tab 04/13/21 [Rx] Follow up Appointment(s)/Referral(s): Loiusa Kilgore MD [STAFF PHYSICIAN] - 04/29/21 2:45 pm (with Herminia Patel TIN FLIPPER) Valente Baldwin DO [STAFF PHYSICIAN] - 04/20/21 3:00 pm () Cale Arenas DO [Primary Care Provider] - 04/19/21 8:20 am (with Nancy) Aurora Lester MD [STAFF PHYSICIAN] - 04/26/21 2:30 pm Ambulatory/Diagnostic Orders: Basic Metabolic Panel [LAB.AMB] Time Frame: 2 Days, Location: None Selected Patient Instructions/Handouts: COPD (Chronic Obstructive Pulmonary Disease) (DC), Heart Catheterization (DC) Discharge Disposition: HOME SELF-CARE
== END 2021-04-13 17:27 | disposition home or self-care (01) | DRG 281 ==
LOC: EC 18:54 → 3SCARD 23:30
PROVIDERS: ADMIT Internal Medicine; ATTEND Internal Medicine
PROC: 4A023N7 Measurement of Cardiac Sampling and Pressure, Left Heart, Percutaneous Approach (ICD-10-PCS; principal; 2021-04-12 10:30)
PROC: B2111ZZ Fluoroscopy of Multiple Coronary Arteries using Low Osmolar Contrast (ICD-10-PCS; principal; 2021-04-12 10:30)
DX: I21.4 Non-ST elevation (NSTEMI) myocardial infarction (principal); C34.12 Malignant neoplasm of upper lobe, left bronchus or lung; E22.2 Syndrome of inappropriate secretion of antidiuretic hormone; I27.21 Secondary pulmonary arterial hypertension; E86.1 Hypovolemia; E03.9 Hypothyroidism, unspecified; J43.9 Emphysema, unspecified; Z20.822 Contact with and (suspected) exposure to COVID-19; I25.10 Atherosclerotic heart disease of native coronary artery without angina pectoris; J98.4 Other disorders of lung; I08.1 Rheumatic disorders of both mitral and tricuspid valves; K21.9 Gastro-esophageal reflux disease without esophagitis; G89.29 Other chronic pain; M54.9 Dorsalgia, unspecified; F10.11 Alcohol abuse, in remission; M81.0 Age-related osteoporosis without current pathological fracture; M19.90 Unspecified osteoarthritis, unspecified site; Z79.890 Hormone replacement therapy; Z79.1 Long term (current) use of non-steroidal anti-inflammatories (NSAID); Z79.899 Other long term (current) drug therapy; Z90.2 Acquired absence of lung [part of]; Z87.891 Personal history of nicotine dependence; Z90.49 Acquired absence of other specified parts of digestive tract; Z87.19 Personal history of other diseases of the digestive system; Z87.01 Personal history of pneumonia (recurrent); Z86.14 Personal history of Methicillin resistant Staphylococcus aureus infection; Z87.39 Personal history of other diseases of the musculoskeletal system and connective tissue; Z92.21 Personal history of antineoplastic chemotherapy; Z98.890 Other specified postprocedural states; Z83.79 Family history of other diseases of the digestive system; Z82.0 Family history of epilepsy and other diseases of the nervous system; Z80.9 Family history of malignant neoplasm, unspecified
CPT/HCPCS: 36415; 71046; 71275; 80048; 80053; 83605; 83735; 83930; 83935; 84145; 84300; 84439; 84443; 84484; 85025; 85027; 85379; 85610; 85730; 87635; 93005; 93306; 93458; 94640; 94760; 96361; 96365; 96366; 96375; 96376; 99285

== ENCOUNTER 2021-07-22 23:49 | Observation (INO) | payer MEDICARE ==
[2021-07-23] MEDS ORDERED: SODIUM CHLORIDE 0.9% 1,000 ML IV STA ×2 (00:22→03:16)
[2021-07-23] MEDS ORDERED: IPRATROPIUM-ALBUTEROL 3 ML NEB INHALATION STA ×2 (00:22→03:16)
--- NOTE | 2021-07-23 00:23 | ED ---
SOB HPI - General Chief Complaint: Shortness of Breath Stated Complaint: SOB Time Seen by Provider: 07/23/21 00:11 Source: patient, RN notes reviewed, old records reviewed Mode of arrival: EMS Limitations: no limitations - History of Present Illness Initial Comments: this is a 76-year-old male presenting with lung cancer history of lung cancer chest pain shortness of breath right-sided chest pain right-sided shortness of breath no travel history no sick contacts no fevers increased cough and increased congestion. Patient has history of lung cancer no history of DVT. Patient's symptoms are significant currently. MD Complaint: shortness of breath, cough, anxiety -: hour(s) Severity: moderate Severity scale (1-10): 7 Quality: aching Consistency: constant Improves With: oxygen, rest Worsens With: exertion, movement Known History Of: COPD, recurrent pneumonia Context: recent URI, anxiety, recent illness Associated Symptoms: chest pain, cough, sputum production Treatments Prior to Arrival: none - Related Data Home Medications Medication Instructions Recorded Confirmed HYDROcodone/APAP 10-325MG [[place] 0.5 tab PO BID 06/11/18 04/10/21 10-325] Ipratropium/Albuterol Sulfate 1 puff INHALATION RT-QID 06/11/18 04/10/21 [Combivent Respimat Inhaler] Meloxicam 15 mg PO DAILY@1200 06/11/18 04/10/21 Omeprazole 20 mg PO DAILY@1200 06/11/18 04/10/21 Durvalumab [Imfinzi] 1 dose IV Q30D 01/04/21 04/10/21 Escitalopram [Lexapro] 20 mg PO DAILY@1200 01/04/21 04/10/21 LORazepam [Ativan] 1 mg PO HS 01/04/21 04/10/21 Lipase/Protease/Amylase [Creon Dr 24,000 units PO BID 01/04/21 04/10/21 24,000 Unit Capsule] Acetaminophen Tab [Tylenol] 500 mg PO BID 04/10/21 04/10/21 Levothyroxine Sodium [Synthroid] 75 mcg PO DAILY 04/10/21 04/10/21 Previous Rx's Medication Instructions Recorded Aspirin 81 mg PO DAILY #30 tab 04/13/21 Atorvastatin [Lipitor] 40 mg PO HS #30 tab 04/13/21 Azithromycin [Zithromax] 500 mg PO DAILY #2 tab 04/13/21 Benzocaine/Menthol Lozeng [Cepacol 1 each MUCOUS MEM Q6HR PRN lozenge 04/13/21 lozenge] Metoprolol Succinate (ER) [Toprol 12.5 mg PO DAILY #30 tab 04/13/21 XL] Nitroglycerin Sl Tabs [Nitrostat] 0.4 mg SUBLINGUAL Q5M PRN #20 tab 04/13/21 predniSONE See Taper PO DAILY #7 tab 04/13/21 Allergies Allergy/AdvReac Type Severity Reaction Status Date / Time No Known Allergies Allergy Verified 04/10/21 22:59 Review of Systems ROS Statement: Those systems with pertinent positive or pertinent negative responses have been documented in the HPI. ROS Other: All systems not noted in ROS Statement are negative. Past Medical History Past Medical History: Cancer, GERD/Reflux, Osteoarthritis (OA), Pneumonia Additional Past Medical History / Comment(s): Right lung cancer 2003 and first resection done (got MRSA at that time in incision), second resection in 2008, lung cancer reoccured in 12/2014 and found new nodule in right lung had radi ation in February 2015. Pancreatitis,chronic back pain, lung CA reoccured 2020 History of Any Multi-Drug Resistant Organisms: MRSA Date of last positivie culture/infection: 2003 MDRO Source:: BACK Past Surgical History: Cholecystectomy, Orthopedic Surgery Additional Past Surgical History / Comment(s): RESECTION TO RIGHT LUNG TWICE (RT MIDDLE AND RT LOWER LOBECTOMY), RT KNEE SCOPE x2 Past Anesthesia/Blood Transfusion Reactions: Motion Sickness Past Psychological History: No Psychological Hx Reported Smoking Status: Never smoker Past Alcohol Use History: None Reported Past Drug Use History: None Reported - Past Family History Father Family Medical History: Cancer Mother Family Medical History: Dementia Additional Family Medical History / Comment(s): Crohn's disease General Exam General appearance: alert, in no apparent distress, anxious Head exam: Present: atraumatic, normocephalic, normal inspection Eye exam: Present: normal appearance, PERRL, EOMI. Absent: scleral icterus, conjunctival injection, periorbital swelling ENT exam: Present: normal exam, mucous membranes moist Neck exam: Present: normal inspection. Absent: tenderness, meningismus, lymphadenopathy Respiratory exam: Present: respiratory distress, wheezes, accessory muscle use, decreased breath sounds, prolonged expiratory. Absent: rales, rhonchi, stridor Cardiovascular Exam: Present: regular rate, normal rhythm, normal heart sounds. Absent: systolic murmur, diastolic murmur, rubs, gallop, clicks GI/Abdominal exam: Present: soft, normal bowel sounds. Absent: distended, tenderness, guarding, rebound, rigid Extremities exam: Present: normal inspection, full ROM, normal capillary refill. Absent: tenderness, pedal edema, joint swelling, calf tenderness Back exam: Present: normal inspection Neurological exam: Present: alert, oriented X3, CN II-XII intact Psychiatric exam: Present: normal affect, normal mood Skin exam: Present: warm, dry, intact, normal color. Absent: rash Course Vital Signs 07/22/21 07/23/21 07/23/21 23:51 00:38 00:44 Temperature 98.0 F Pulse Rate 79 82 84 Respiratory 20 Rate Blood Pressure 133/76 O2 Sat by Pulse Oximetry 07/23/21 02:24 Temperature Pulse Rate 98 Respiratory 24 Rate Blood Pressure 141/73 O2 Sat by Pulse 98 Oximetry - Reevaluation(s) Reevaluation #1: 07/23/21 03:19 medical record is reviewed Reevaluation #2: 07/23/21 03:19 patient has no real improvement so far here in the ER Reevaluation #3: 07/23/21 03:20 patient informed results questions answered - Consultations Consultation #1: spoke with TEE to agrees to admit this patient Medical Decision Making - Medical Decision Making 76 male with lung cancer and COPD. Severe COPD exacerbation with hypoxia recurrent breathing treatments and cough. Patient will be admitted for monitoring of pulse ox repeated breathing treatments and oxygen - Lab Data Result diagrams: 07/23/21 00:41 07/23/21 00:41 Lab Results 07/23/21 07/23/21 07/23/21 Range/Units 00:41 00:41 00:41 WBC 17.6 H (3.8-10.6) k/uL RBC 3.70 L (4.30-5.90) m/uL Hgb 12.8 L (13.0-17.5) gm/dL Hct 38.5 L (39.0-53.0) % MCV 104.0 H (80.0-100.0) fL MCH 34.5 (25.0-35.0) pg MCHC 33.2 (31.0-37.0) g/dL RDW 12.4 (11.5-15.5) % Plt Count 301 (150-450) k/uL MPV 7.1 Neutrophils % 89 % Lymphocytes % 4 % Monocytes % 3 % Eosinophils % 3 % Basophils % 0 % Neutrophils # 15.7 H (1.3-7.7) k/uL Lymphocytes # 0.6 L (1.0-4.8) k/uL Monocytes # 0.5 (0-1.0) k/uL Eosinophils # 0.6 (0-0.7) k/uL Basophils # 0.0 (0-0.2) k/uL Macrocytosis Slight PT 10.5 (9.0-12.0) sec INR 1.0 (<1.2) APTT 24.8 (22.0-30.0) sec D-Dimer 0.77 H (<0.60) mg/L FEU Sodium 128 L (137-145) mmol/L Potassium 4.1 (3.5-5.1) mmol/L Chloride 98 (98-107) mmol/L Carbon Dioxide 24 (22-30) mmol/L Anion Gap 6 mmol/L BUN 13 (9-20) mg/dL Creatinine 0.64 L (0.66-1.25) mg/dL Est GFR (CKD-EPI)AfAm >90 (>60 ml/min/1.73 sqM) Est GFR (CKD-EPI)NonAf >90 (>60 ml/min/1.73 sqM) Glucose 118 H (74-99) mg/dL Calcium 8.8 (8.4-10.2) mg/dL Magnesium 1.8 (1.6-2.3) mg/dL Total Bilirubin 0.6 (0.2-1.3) mg/dL AST 20 (17-59) U/L ALT 19 (4-49) U/L Alkaline Phosphatase 72 (38-126) U/L Troponin I (0.000-0.034) ng/mL NT-Pro-B Natriuret Pep pg/mL Total Protein 6.4 (6.3-8.2) g/dL Albumin 3.9 (3.5-5.0) g/dL 07/23/21 07/23/21 Range/Units 00:41 00:41 WBC (3.8-10.6) k/uL RBC (4.30-5.90) m/uL Hgb (13.0-17.5) gm/dL Hct (39.0-53.0) % MCV (80.0-100.0) fL MCH (25.0-35.0) pg MCHC (31.0-37.0) g/dL RDW (11.5-15.5) % Plt Count (150-450) k/uL MPV Neutrophils % % Lymphocytes % % Monocytes % % Eosinophils % % Basophils % % Neutrophils # (1.3-7.7) k/uL Lymphocytes # (1.0-4.8) k/uL Monocytes # (0-1.0) k/uL Eosinophils # (0-0.7) k/uL Basophils # (0-0.2) k/uL Macrocytosis PT (9.0-12.0) sec INR (<1.2) APTT (22.0-30.0) sec D-Dimer (<0.60) mg/L FEU Sodium (137-145) mmol/L Potassium (3.5-5.1) mmol/L Chloride (98-107) mmol/L Carbon Dioxide (22-30) mmol/L Anion Gap mmol/L BUN (9-20) mg/dL Creatinine (0.66-1.25) mg/dL Est GFR (CKD-EPI)AfAm (>60 ml/min/1.73 sqM) Est GFR (CKD-EPI)NonAf (>60 ml/min/1.73 sqM) Glucose (74-99) mg/dL Calcium (8.4-10.2) mg/dL Magnesium (1.6-2.3) mg/dL Total Bilirubin (0.2-1.3) mg/dL AST (17-59) U/L ALT (4-49) U/L Alkaline Phosphatase (38-126) U/L Troponin I <0.012 (0.000-0.034) ng/mL NT-Pro-B Natriuret Pep 109 pg/mL Total Protein (6.3-8.2) g/dL Albumin (3.5-5.0) g/dL - EKG Data -: EKG Interpreted by Me (EKG shows sinus rhythm 69 VA 161 QRS 90 QTC 410) - Radiology Data Radiology results: report reviewed (chest x-ray CT chest are relatively unchanged from prior, positive mass), image reviewed Disposition Clinical Impression: Cancer of right lung, COPD exacerbation, Acute exacerbation of chronic bronchitis, Hypoxia Disposition: ADMITTED IP TO THIS HOSP Condition: Fair Is patient prescribed a controlled substance at d/c from ED?: No Referrals: Cale Arenas DO [Primary Care Provider] - 1-2 days
[2021-07-23 01:06] LABS: Basophils % (A) 0 %; Eosinophils # (A) 0.6 k/uL (0-0.7); Eosinophils % (A) 3 %; HCT 38.5 % (39.0-53.0); HGB 12.8 gm/dL (13.0-17.5); Lymphocytes # (A) 0.6 k/uL (1.0-4.8); Lymphocytes % (A) 4 %; MCH 34.5 pg (25.0-35.0); MCHC 33.2 g/dL (31.0-37.0); Macrocytosis Slight; Mean Platelet Volume 7.1; Monocytes # (A) 0.5 k/uL (0-1.0); Monocytes % (A) 3 %; Neutrophils # (A) 15.7 k/uL (1.3-7.7); Neutrophils % (A) 89 %; Platelet Count 301 k/uL (150-450); RDW 12.4 % (11.5-15.5); WBC 17.6 k/uL (3.8-10.6)
[2021-07-23 01:25] LABS: ALT 19 U/L (4-49); AST 20 U/L (17-59); African American GFR (CKD) >90 (>60 ml/min/1.73 sqM); Albumin 3.9 g/dL (3.5-5.0); Alkaline Phosphatase 72 U/L (38-126); Anion Gap 6 mmol/L; Blood Urea Nitrogen 13 mg/dL (9-20); Calcium 8.8 mg/dL (8.4-10.2); Carbon Dioxide 24 mmol/L (22-30); Chloride 98 mmol/L (98-107); Glucose 118 mg/dL (74-99); Magnesium 1.8 mg/dL (1.6-2.3); Non-African American GFR(CKD) >90 (>60 ml/min/1.73 sqM); Potassium 4.1 mmol/L (3.5-5.1); Sodium 128 mmol/L (137-145); Total Bilirubin 0.6 mg/dL (0.2-1.3); Total Protein 6.4 g/dL (6.3-8.2)
[2021-07-23 01:35] LABS: Partial Thromboplastin Time 24.8 sec (22.0-30.0); Prothrombin Time 10.5 sec (9.0-12.0)
--- NOTE | 2021-07-23 01:53 | XR ---
EXAMINATION TYPE: XR chest 1V portable DATE OF EXAM: 07/23/2021 COMPARISON: 05/27/2021 HISTORY: Short of breath TECHNIQUE: FINDINGS: There is coarse interstitial density in the lungs. There is some coalescent infiltrate left upper lobe. There is emphysematous changes in the upper lobes. Heart size is normal. There are chest leads. No obvious heart failure. Bony thorax is intact. IMPRESSION: Emphysema and pulmonary fibrosis. There is increasing infiltrate left upper lobe compared to old exam.
--- NOTE | 2021-07-23 02:59 | CT ---
EXAMINATION TYPE: CT angio chest DATE OF EXAM: 07/23/2021 COMPARISON: 04/13/2021 HISTORY: SOB/elevated d-dimer. rule out PE CT DLP: 321.8 mGycm Automated exposure control for dose reduction was used. CONTRAST: Performed with IV Contrast, patient injected with 100 mL of Isovue 370. Images obtained from the thoracic inlet to the diaphragm with IV contrast. There are Three-D postproc essed images. There is some mild pulmonary emphysema. There is a stellate 4 cm infiltrate in the left midlung field this is in the posterior segment left upper lobe. Thoracic aorta is atheromatous. No aneurysm. No dissection. Ascending aorta measures 3.4 cm. There is no evidence of filling defect in the pulmonary arteries. There is right upper lobe mild perihilar in filtrate. The thoracic spine shows no focal bone destruction. There is 20% wedging of T7 vertebra. IMPRESSION: No evidence of pulmonary embolism. Left upper lobe mass without much change compared to 04/13/2021 CT s can. Right upper lobe perihilar infiltrate also without much change. Emphysema and pulmonary fibrosis.
[2021-07-23] MEDS ORDERED: methylPREDNISolone SOD SUCCI 125 MG/2 ML VIAL IV STA (03:16)
[2021-07-23] MEDS ORDERED: HYDROmorphone 1 MG/ML 1 ML SYRINGE IVP STA (03:16)
[2021-07-23] MEDS ORDERED: SODIUM CHLORIDE 0.9% 500 ML 500 ML IV STA (03:16)
[2021-07-23] MEDS: methylPREDNISolone SOD SUCCI 125 MG/2 ML VIAL IV SCH ×3 (07:44→20:01)
[2021-07-23] MEDS ORDERED: ALBUTEROL NEBULIZED 2.5 MG/3 ML INHALATION SCH (08:00)
[2021-07-23] MEDS: HYDROmorphone 1 MG/ML 1 ML SYRINGE IVP PRN ×2 (08:42→13:51)
--- NOTE | 2021-07-23 11:09 | P.HPIM ---
History of Present Illness H&P Date: 07/23/21 Chief Complaint: Shortness of breath Patient is a 76-year-old male with a known history of lung cancer in 2003 status postresection, recurrence and 2008 and 2014 status post radiation in February 2015, chronic back pain, pancreatitis and GERD and osteoarthritis also currently some day smoker presents to ER with complaints of worsening shortness of breath. Patient is also having right-sided sharp chest pain when he came to ER. Does have cough and congestion and whitish sputum production. Patient was unable to bring out any sputum and felt tightness in the chest. Patient is also complaining of headache with coughing. No fever no chills. No nausea vomiting or abdominal pain or diarrhea. Denies any dysuria or hematuria. Chest x-ray showed emphysema and pulmonary fibrosis. There is increasing infiltrate left upper lobe compared to prior exam. Laboratory test showed WBC 17.6 hemoglobin 12.8 and platelets 301 D-dimer is 0.77 CT angio of the chest showed no evidence of pulmonary embolism. Left upper lobe mass without much change compared to 04/13/2021 CT scan. Right upper lobe perihilar infiltrate also without much change. EKG showed normal sinus rhythm Sodium 128 potassium 4.1 chloride 98 bicarb is 24 BUN 13 and creatinine 0.64 and blood sugar is 118 troponin x1 negative proBNP 109 and liver enzymes are not elevated. Albumin 3.9. Review of Systems Constitutional: Patient denies any fever or chills . No generalized weakness or weight loss. Abdomen: Patient denied nausea vomiting and diarrhea and abdominal pain. Chest tightness. Cardiovascular: Patient denies any chest pain or short of breath no pa lpitations. Respiratory: Patient does have cough without sputum production and shortness of breath Neurologic: Patient denied any numbness or tingling headache. Musculoskeletal: Patient denies any complaints of joint swelling or deformity. Skin: Negative Psychiatric: Negative Endocrine: No heat or cold intolerance. No recent weight gain. Genitourinary: No dysuria or hematuria. All other 14 point ROS negative except the above Past Medical History Past Medical History: Cancer, GERD/Reflux, Osteoarthritis (OA), Pneumonia Additional Past Medical History / Comment(s): Right lung cancer 2003 and first resection done (got MRSA at that time in incision), second resection in 2008, lung cancer reoccured in 12/2014 and found new nodule in right lung had radiation in February 2015. Pancreatitis,chronic back pain, lung CA reoccured 2019 History of Any Multi-Drug Resistant Organisms: MRSA Date of last positivie culture/infection: 2003 MDRO Source:: BACK Past Surgical History: Cholecystectomy, Orthopedic Surgery Additional Past Surgical History / Comment(s): RESECTION TO RIGHT LUNG TWICE (RT MIDDLE AND RT LOWER LOBECTOMY), RT KNEE SCOPE x2 Past Anesthesia/Blood Transfusion Reactions: Motion Sickness Past Psychological History: No Psychological Hx Reported Additional Psychological History / Comment(s): Pt resides with his spouse. He is normally independent. He uses no assistive device or home care. Smoking Status: Current some day smoker, Former smoker Past Alcohol Use History: None Reported Additional Past Alcohol Use History / Comment(s): Pt states he smokes about 1 ppd and started smoking at age 14-15 yrs on and off. Pt states last cigarette about a month ago. STOPPED DRINKING ETOH 2015 Past Drug Use History: None Reported - Past Family History Father Family Medical History: Cancer Mother Family Medical History: Dementia Additional Family Medical History / Comment(s): Crohn's disease Medications and Allergies Home Medications Medication Instructions Recorded Confirmed Type HYDROcodone/APAP 10-325MG [[place] 0.5 tab PO TID@0000,1200,1700 06/11/18 07/23/21 History 10-325] Ipratropium/Albuterol Sulfate 1 puff INHALATION RT-QID 06/11/18 07/23/21 History [Combivent Respimat Inhaler] Meloxicam 15 mg PO DAILY@1200 06/11/18 07/23/21 History Omeprazole 20 mg PO DAILY@1200 06/11/18 07/23/21 History Escitalopram [Lexapro] 20 mg PO DAILY@1200 01/04/21 07/23/21 History LORazepam [Ativan] 1 mg PO HS@0000 01/04/21 07/23/21 History Lipase/Protease/Amylase [Creon Dr 24,000 units PO AC-BID 01/04/21 07/23/21 History 24,000 Unit Capsule] Atorvastatin [Lipitor] 40 mg PO DAILY@1200 07/23/21 07/23/21 History Docusate [Colace] 200 mg PO HS@0000 07/23/21 07/23/21 History Levothyroxine Sodium [Synthroid] 125 mcg PO DAILY@1200 07/23/21 07/23/21 History Allergies Allergy/AdvReac Type Severity Reaction Status Date / Time No Known Allergies Allergy Verified 07/23/21 11:38 Physical Exam Vitals: Vital Signs Temp Pulse Pulse Resp BP BP Pulse Ox 07/23/21 08:00 98.0 F 110 H 17 116/65 98 07/23/21 04:55 98.2 F 108 H 16 109/58 96 07/23/21 03:50 102 H 24 113/56 99 07/23/21 03:40 112 H 07/23/21 03:30 103 H 24 140/72 99 07/23/21 03:29 111 H 07/23/21 02:24 98 24 141/73 98 07/23/21 00:44 84 07/23/21 00:38 82 07/22/21 23:51 98.0 F 79 20 133/76 Intake and Output 07/22/21 07/23/21 07/23/21 22:59 06:59 14:59 Intake Total 100 Output Total 150 Balance -50 Intake: Intake, IV Titration 100 Amount Sodium Chloride 0.9% 1, 100 000 ml @ 130 mls/hr IV . Q7H42M STA Rx#:[id number] Output: Urine 150 Other: # Voids 1 # Bowel Movements 0 Weight 69.4 kg PHYSICAL EXAMINATION: Patient is lying in the bed comfortably, no acute distress, awake alert and oriented.. HEENT: Normocephalic. Neck is supple. Pupils reactive. Nostrils clear. Oral cavity is moist. Neck reveals no JVD, carotid bruits, or thyromegaly. CHEST EXAMINATION: Trachea is central. Symmetrical expansion. Bilateral diminished sound and diffuse wheezing. CARDIAC: Normal S1, S2 with no gallops. No murmurs ABDOMEN: Soft. Bowel sounds normal. No organomegaly. No abdominal bruits. Extremities: reveal no edema. No clubbing or cyanosis Neurologically awake, alert, oriented x3 with well-coordinated movements. No focal deficits noted Skin: No rash or skin lesions. Psychiatric: Coperative. Nonsuicidal Musculoskeletal: No joint swelling or deformity. Normal range of motion. Results CBC & Chem 7: 07/23/21 00:41 07/23/21 00:41 Labs: Abnormal Lab Results - Last 24 Hours (Table) 07/23/21 07/23/21 07/23/21 Range/Units 00:41 00:41 00:41 WBC 17.6 H (3.8-10.6) k/uL RBC 3.70 L (4.30-5.90) m/uL Hgb 12.8 L (13.0-17.5) gm/dL Hct 38.5 L (39.0-53.0) % MCV 104.0 H (80.0-100.0) fL Neutrophils # 15.7 H (1.3-7.7) k/uL Lymphocytes # 0.6 L (1.0-4.8) k/uL D-Dimer 0.77 H (<0.60) mg/L FEU Sodium 128 L (137-145) mmol/L Creatinine 0.64 L (0.66-1.25) mg/dL Glucose 118 H (74-99) mg/dL Thrombosis Risk Factor Assmnt - DVT/VTE Prophylaxis DVT/VTE Prophylaxis: Pharmacologic Prophylaxis ordered - Choose All That Apply Each Factor Represents 1 point: Abnormal pulmonary function (COPD) Each Risk Factor Represents 3 Points: Age 75 years or older Thrombosis Risk Factor Assessment Total Risk Factor Score: 4 Thrombosis Risk Factor Assessment Level: Moderate Risk Assessment and Plan Assessment: Worsening shortness of breath secondary to acute COPD exacerbation History of lung cancer diagnosed in 2004s/p resection with recurrence in 2008 and right lung nodule in 2015 status postradiation. Hypovolemic hyponatremia Leukocytosis Elevated D-dimer level. CTA negative for PE GERD Osteoarthritis History of smoking DVT prophylaxis with heparin subcu Plan: Patient be continued on IV Solu-Medrol and duo nebs every 4 hourly as needed. Patient will be started on azithromycin and continue with home medications and follow closely. GI and DVT prophylaxis. Pulmonary will be consulted. Prognosis is guarded. Time with Patient: Greater than 30
[2021-07-23] MEDS: IPRATROPIUM-ALBUTEROL 3 ML NEB INHALATION SCH ×4 (12:03→19:36)
[2021-07-23] MEDS: HYDROcodone/APAP 10-325MG 1 EACH TAB PO SCH ×3 (15:11→21:21)
[2021-07-23] MEDS: HEPARIN SODIUM,PORCINE/PF 5,000 UNIT/0.5 ML SYRINGE SQ SCH ×2 (15:12→21:21)
[2021-07-23] MEDS: AZITHROMYCIN 500 MG TAB PO SCH (15:12)
[2021-07-23] MEDS ORDERED: HEPARIN SODIUM,PORCINE/PF 5,000 UNIT/0.5 ML SYRINGE SQ SCH (16:00)
[2021-07-23] MEDS ORDERED: ARTIFICIAL TEARS-HYPROMELLOSE DROPS 15 ML BTL BOTH EYES PRN (16:59)
[2021-07-23] MEDS: LIPASE 5,000/PROTEASE 17,000/AMYLASE 24,000 PO SCH (17:03)
[2021-07-23] MEDS: FAMOTIDINE 20 MG TAB PO SCH (20:01)
[2021-07-23] MEDS: DOCUSATE 100 MG CAP PO SCH (21:20)
[2021-07-23] MEDS: LORazepam 1 MG TAB PO SCH (21:21)
[2021-07-23] MEDS: IPRATROPIUM-ALBUTEROL 3 ML NEB INHALATION PRN (23:35)
[2021-07-24] MEDS: methylPREDNISolone SOD SUCCI 125 MG/2 ML VIAL IV SCH ×4 (02:01→20:14)
[2021-07-24] MEDS: FAMOTIDINE 20 MG TAB PO SCH ×2 (07:20→20:14)
[2021-07-24] MEDS: AZITHROMYCIN 500 MG TAB PO SCH (07:20)
[2021-07-24] MEDS: LIPASE 5,000/PROTEASE 17,000/AMYLASE 24,000 PO SCH ×2 (07:20→16:35)
[2021-07-24] MEDS: HEPARIN SODIUM,PORCINE/PF 5,000 UNIT/0.5 ML SYRINGE SQ SCH ×3 (07:21→23:13)
[2021-07-24] MEDS: IPRATROPIUM-ALBUTEROL 3 ML NEB INHALATION SCH ×4 (07:47→23:10)
[2021-07-24 09:32] LABS: Basophils # (A) 0.01 X 10*3/uL (0.00-0.10); Basophils % (A) 0.1 %; Eosinophils # (A) 0 X 10*3/uL (0.04-0.35); Eosinophils % (A) 0 %; HCT 33.5 % (39.6-50.0); HGB 11.5 g/dL (13.0-17.0); Immature Grans, Automated 0.7 %; Lymphocytes # (A) 0.36 X 10*3/uL (0.90-5.00); Lymphocytes % (A) 3.8 %; MCH 34.4 pg (27.0-32.0); MCHC 34.3 g/dL (32.0-37.0); MCV 100.3 fL (80.0-97.0); Mean Platelet Volume 9.1 fL (9.5-12.2); Monocytes # (A) 0.48 X 10*3/uL (0.20-1.00); NRBC Per 100 WBC 0 /100 WBCS (0.0-0.0); Neutrophils # (A) 8.65 X 10*3/uL (1.80-7.70); Neutrophils % (A) 90.4 %; Platelet Count 280 X 10*3/uL (140-440); RBC 3.34 X 10*6/uL (4.40-5.60); RDW 12.7 % (11.5-14.5); WBC 9.57 X 10*3/uL (4.50-10.00)
[2021-07-24 09:45] LABS: African American GFR (CKD) 99.9 (60.0-200.0); Anion Gap 9.7 mmol/L (10.00-18.00); Blood Urea Nitrogen 11.2 mg/dL (9.0-27.0); Calcium 9.3 mg/dL (8.7-10.3); Carbon Dioxide 24.3 mmol/L (20.0-27.5); Non-African American GFR(CKD) 86.2 (60.0-200.0); Potassium 4.2 mmol/L (3.5-5.5)
[2021-07-24] MEDS: HYDROcodone/APAP 10-325MG 1 EACH TAB PO SCH ×3 (11:59→23:12)
[2021-07-24] MEDS ORDERED: ESCITALOPRAM 20 MG TAB PO SCH (12:00)
[2021-07-24] MEDS ORDERED: ATORVASTATIN 40 MG TAB PO SCH (12:00)
[2021-07-24] MEDS ORDERED: PANTOPRAZOLE 40 MG TABLET PO SCH (12:00)
[2021-07-24] MEDS ORDERED: LEVOTHYROXINE 125 MCG TAB PO SCH (12:00)
--- NOTE | 2021-07-24 14:01 | P.CNPUL ---
History of Present Illness Consult date: 07/24/21 Requesting physician: Itzel Ayers Reason for consult: dyspnea, COPD Chief complaint: Shortness of breath, cough, congestion History of present illness: Physical very pleasant 76-year-old male patient who has a known history of anxiety, arthritis, alcohol abuse chronic pancreatitis, mild chronic obstructive pulmonary disease with an FEV1 value 85% of predicted. He also has a history of non-small cell lung cancer originally diagnosed in 2003. He had a right upper lobectomy. In 2008 there is a suspicious lesion in the right middle lobe he had undergone a wedge resection that was found to be positive for necrotizing granuloma. In 2014 he had another suspicious lesion in the right middle lobe and biopsy was positive for adenocarcinoma of the lung. He was treated with SB RT which was completed in 2014 at [facility]. He had another recurrence and subsequent SB RT in July 2017. In January 2020 PET scan reviewed further progression he was started on carboplatin and Taxol with radiation therapy completed in March 2020. In May 2020 is started on Imfinzi. Most recent computed tomography scan of the chest revealed a relatively stable left perihilar masslike opacity measuring 3.6 x 2.3 cm versus 3.4 x 2.0 previously. He follows with Dr. Lester and was due for another PET scan tomorrow. He had presented here to the emergency room last evening with increasing shortness of breath cough, congestion and wheezing. No fever or chills. No nausea vomiting or diarrhea. Chest x-ray revealed evidence of emphysema and pulmonary fibrosis. Increase infiltrate in the left upper lobe compared to old exam. CT angiogram ruled out pulmonary embolism. There is identified left upper lobe mass without much change compared to April 2021 CAT scan. Right upper lobe perihilar infiltrate also without much change. White count 9.5. Hemoglobin 11.5. Platelet count 280. Sodium 129. Potassium 4.2. BUN 11. Creatinine 0.8. Troponin negative 1. ProBNP 109. D-dimer 0.77. He was initiated on azithromycin, IV Solu-Medrol and DuoNeb inhalations. Heparin for DVT prophylaxis. He is seen today in consultation on the regular medical floor. He is currently sitting up at the bedside. Awake and alert in no acute distress. Feeling a bit better today compared to yesterday. He is maintaining O2 saturations in the upper 90s on 3 L/m per nasal cannula. He is afebrile. Hemodynamically stable Review of Systems REVIEW OF SYSTEMS: CONSTITUTIONAL: Denies any recent significant weight loss or weight gain. EYES: Denies change in vision. EARS, NOSE, MOUTH, THROAT: Denies headaches, denies sore throat. CARDIOVASCULAR: Denies chest pain, palpitations or syncopal episodes. RESPIRATORY: Positive for shortness of breath, cough, congestion no hemoptysis. GASTROINTESTINAL: Denies change in appetite, denies abdominal pain GENITOURINARY: Denies hematuria, denies infections. MUSKULOSKELETAL: Denies pain, denies swelling. INTEGUMENTARY: Denies rash, denies eczema. NEUROLOGICAL: Denies recent memory loss, no recent seizure activity. PSYCHIATRIC: Denies anxiety, denies depression. HEMATOLOGIC/LYMPHATIC: Denies anemia, denies enlarged lymph nodes. Past Medical History Past Medical History: Cancer, GERD/Reflux, Osteoarthritis (OA), Pneumonia Additional Past Medical History / Comment(s): Right lung cancer 2003 and first resection done (got MRSA at that time in incision), second resection in 2008, lung cancer reoccured in 12/2014 and found new nodule in right lung had radiation in February 2015. Pancreatitis,chronic back pain, lung CA reoccured 2020 History of Any Multi-Drug Resistant Organisms: MRSA Date of last positivie culture/infection: 2003 MDRO Source:: BACK Past Surgical History: Cholecystectomy, Orthopedic Surgery Additional Past Surgical History / Comment(s): RESECTION TO RIGHT LUNG TWICE (RT MIDDLE AND RT LOWER LOBECTOMY), RT KNEE SCOPE x2 Past Anesthesia/Blood Transfusion Reactions: Motion Sickness Past Psychological History: No Psychological Hx Reported Additional Psychological History / Comment(s): Pt resides with his spouse. He is normally independent. He uses no assistive device or home care. Smoking Status: Current some day smoker, Former smoker Past Alcohol Use History: None Reported Additional Past Alcohol Use History / Comment(s): Pt states he smokes about 1 ppd and started smoking at age 14-15 yrs on and off. Pt states last cigarette about a month ago. STOPPED DRINKING ETOH 2015 Past Drug Use History: None Reported - Past Family History Father Family Medical History: Cancer Mother Family Medical History: Dementia Additional Family Medical History / Comment(s): Crohn's disease Medications and Allergies Home Medications Medication Instructions Recorded Confirmed Type HYDROcodone/APAP 10-325MG [[place] 0.5 tab PO TID@0000,1200,1700 06/11/18 07/23/21 History 10-325] Ipratropium/Albuterol Sulfate 1 puff INHALATION RT-QID 06/11/18 07/23/21 History [Combivent Respimat Inhaler] Meloxicam 15 mg PO DAILY@1200 06/11/18 07/23/21 History Omeprazole 20 mg PO DAILY@1200 06/11/18 07/23/21 History Escitalopram [Lexapro] 20 mg PO DAILY@1200 01/04/21 07/23/21 History LORazepam [Ativan] 1 mg PO HS@0000 01/04/21 07/23/21 History Lipase/Protease/Amylase [Creon Dr 24,000 units PO AC-BID 01/04/21 07/23/21 History 24,000 Unit Capsule] Atorvastatin [Lipitor] 40 mg PO DAILY@1200 07/23/21 07/23/21 History Docusate [Colace] 200 mg PO HS@0000 07/23/21 07/23/21 History Levothyroxine Sodium [Synthroid] 125 mcg PO DAILY@1200 07/23/21 07/23/21 History Allergies Allergy/AdvReac Type Severity Reaction Status Date / Time No Known Allergies Allergy Verified 07/23/21 11:38 Physical Exam Vitals: Vital Signs Temp Pulse Pulse Resp BP Pulse Ox 07/24/21 11:59 102 H 07/24/21 11:44 100 07/24/21 07:45 17 07/24/21 07:29 98.2 F 89 17 112/67 98 07/24/21 02:00 97.8 F 91 18 136/72 97 07/23/21 23:46 104 H 07/23/21 23:37 104 H 07/23/21 19:43 104 H 07/23/21 19:37 104 H 07/23/21 19:31 98 F 105 H 18 134/68 97 07/23/21 16:05 108 H 07/23/21 15:55 92 L 07/23/21 15:52 107 H 07/23/21 14:00 98.1 F 109 H 17 130/64 96 Intake and Output 07/23/21 07/24/21 07/24/21 22:59 06:59 14:59 Other: # Voids 3 3 # Bowel Movements 1 GENERAL EXAM: Alert, very pleasant 76-year-old male patient, on 3 L nasal cannula, fairly comfortable in no apparent distress. HEAD: Normocephalic. EYES: Normal reaction of pupils, equal size. NOSE: Clear with pink turbinates. THROAT: No erythema or exudates. NECK: No masses, no JVD. CHEST: No chest wall deformity. LUNGS: Equal air entry with bilateral end expiratory wheeze, diminished. CVS: S1 and S2 normal with no audible murmur, regular rhythm. ABDOMEN: No hepatosplenomegaly, normal bowel sounds, no guarding or rigidity. SPINE: No scoliosis or deformity SKIN: No rashes CENTRAL NERVOUS SYSTEM: No focal deficits, tone is normal in all 4 extremities. EXTREMITIES: There is no peripheral edema. No clubbing, no cyanosis. Peripheral pulses are intact. Results - Laboratory Findings CBC and BMP: 07/24/21 06:27 07/24/21 06:27 PT/INR, D-dimer PT 10.5 sec (9.0-12.0) 07/23/21 00:41 INR 1.0 (<1.2) 07/23/21 00:41 D-Dimer 0.77 mg/L FEU (<0.60) H 07/23/21 00:41 Abnormal lab findings: Abnormal Labs 07/23/21 07/23/21 07/23/21 00:41 00:41 00:41 WBC 17.6 H RBC 3.70 L Hgb 12.8 L Hct 38.5 L MCV 104.0 H MCH MPV Immature Gran # Neutrophils # 15.7 H Lymphocytes # 0.6 L Eosinophils # D-Dimer 0.77 H Sodium 128 L Chloride Anion Gap Creatinine 0.64 L Glucose 118 H 07/24/21 07/24/21 06:27 06:27 WBC RBC 3.34 L Hgb 11.5 L Hct 33.5 L MCV 100.3 H MCH 34.4 H MPV 9.1 L Immature Gran # 0.07 H Neutrophils # 8.65 H Lymphocytes # 0.36 L Eosinophils # 0 L D-Dimer Sodium 129 L Chloride 95 L Anion Gap 9.70 L Creatinine Glucose 202 H - Diagnostic Findings Chest x-ray: image reviewed CT scan - chest: image reviewed Assessment and Plan Assessment: Acute exacerbation of chronic obstructive pulmonary disease History of non-small cell lung cancer diagnosed in 2004 status post right upper lobectomy, he has since had several recurrences and treatment History of anxiety History of alcohol-induced chronic pancreatitis Nonobstructive coronary artery disease, cardiac catheterization in April 2021 Former smoker quit in 2018 after nearly 60 years of smoking Plan: The patient was seen and evaluated Chest x-ray and CAT scan reviewed Continue antibiotics, bronchodilators, IV Solu-Medrol Check a pro-calcitonin Titrate the FiO2 as tolerated Possible discharge in the a.m. to keep PET scan appointment in the p.m. We'll continue to follow and make further recommendations based on his clinical status I have personally seen and examined the patient, performed the documentation and the assessment and plan as written. Number of minutes spent on the visit: 20.
[2021-07-24] MEDS: LORazepam 1 MG TAB PO SCH (23:12)
[2021-07-24] MEDS: DOCUSATE 100 MG CAP PO SCH (23:12)
[2021-07-25] MEDS: IPRATROPIUM-ALBUTEROL 3 ML NEB INHALATION PRN (01:07)
[2021-07-25 01:25] VITALS: TEMP 98.3
[2021-07-25] MEDS: methylPREDNISolone SOD SUCCI 125 MG/2 ML VIAL IV SCH ×2 (02:18→08:15)
[2021-07-25 07:30] VITALS: BP 128/66; RESP 17
[2021-07-25] MEDS: FAMOTIDINE 20 MG TAB PO SCH (08:15)
[2021-07-25] MEDS: AZITHROMYCIN 500 MG TAB PO SCH (08:15)
[2021-07-25] MEDS: LIPASE 5,000/PROTEASE 17,000/AMYLASE 24,000 PO SCH (08:15)
[2021-07-25] MEDS: HEPARIN SODIUM,PORCINE/PF 5,000 UNIT/0.5 ML SYRINGE SQ SCH (08:15)
[2021-07-25] MEDS: IPRATROPIUM-ALBUTEROL 3 ML NEB INHALATION SCH ×2 (08:45→12:27)
--- NOTE | 2021-07-25 09:42 | P.PN ---
Subjective Progress Note Date: 07/24/21 Patient is a 76-year-old male with a known history of lung cancer in 2004 status postresection, recurrence and 2008 and 2014 status post radiation in February 2015, chronic back pain, pancreatitis and GERD and osteoarthritis also currently some day smoker presents to ER with complaints of worsening shortness of breath. Patient is also having right-sided sharp chest pain when he came to ER. Does have cough and congestion and whitish sputum production. Patient was unable to bring out any sputum and felt tightness in the chest. Patient is also complaining of headache with coughing. No fever no chills. No nausea vomiting or abdominal pain or diarrhea. Denies any dysuria or hematuria. Chest x-ray showed emphysema and pulmonary fibrosis. There is increasing infiltrate left upper lobe compared to prior exam. Laboratory test showed WBC 17.6 hemoglobin 12.8 and platelets 301 D-dimer is 0.77 CT angio of the chest showed no evidence of pulmonary embolism. Left upper lobe mass without much change compared to 04/13/2021 CT scan. Right upper lobe perihilar infiltrate also without much change. EKG showed normal sinus rhythm Sodium 128 potassium 4.1 chloride 98 bicarb is 24 BUN 13 and creatinine 0.64 and blood sugar is 118 troponin x1 negative proBNP 109 and liver enzymes are not elevated. Albumin 3.9. 07/24/21 Patient is currently resting in the bed comfortably. Awake alert and oriented 3. Breathing status is better. Patient is less wheezing today. No complaints of chest pain. Cough without sputum production. Patient is able to cough better now without any tightness. No nausea vomiting abdominal pain or diarrhea. Patient is being continued on IV Solu-Medrol and adverse the form of azithromycin. Pulmonary is on board. Next and patient is scheduled to get PET scan tomorrow as an outpatient. Current medications reviewed. Objective - Vital Signs Vital signs: Vital Signs Temp 97.8 F 07/24/21 18:18 Pulse 96 07/24/21 20:14 Resp 18 07/24/21 18:18 BP 129/68 07/24/21 18:18 Pulse Ox 98 07/24/21 18:18 Intake & Output 07/24/21 07/24/21 07/25/21 06:59 18:59 06:59 Other: # Voids 3 4 # Bowel Movements 1 - Exam PHYSICAL EXAMINATION: Patient is lying in the bed comfortably, no acute distress, awake alert and oriented.. HEENT: Normocephalic. Neck is supple. Pupils reactive. Nostrils clear. Oral cavity is moist. Neck reveals no JVD, carotid bruits, or thyromegaly. CHEST EXAMINATION: Trachea is central. Symmetrical expansion. Basilar diminished sounds and expiratory wheezing. Improved air entry.. CARDIAC: Normal S1, S2 with no gallops. No murmurs ABDOMEN: Soft. Bowel sounds normal. No organomegaly. No abdominal bruits. Extremities: reveal no edema. No clubbing or cyanosis Neurologically awake, alert, oriented x3 with well-coordinated movements. No focal deficits noted Skin: No rash or skin lesions. Psychiatric: Coperative. Nonsuicidal Musculoskeletal: No joint swelling or deformity. Normal range of motion. - Labs CBC & Chem 7: 07/24/21 06:27 07/24/21 06:27 Labs: Abnormal Lab Results - Last 24 Hours (Table) 07/24/21 07/24/21 07/24/21 Range/Units 06:27 06:27 06:27 RBC 3.34 L (4.40-5.60) X 10*6/uL Hgb 11.5 L (13.0-17.0) g/dL Hct 33.5 L (39.6-50.0) % MCV 100.3 H (80.0-97.0) fL MCH 34.4 H (27.0-32.0) pg MPV 9.1 L (9.5-12.2) fL Immature Gran # 0.07 H (0.00-0.04) X 10*3/uL Neutrophils # 8.65 H (1.80-7.70) X 10*3/uL Lymphocytes # 0.36 L (0.90-5.00) X 10*3/uL Eosinophils # 0 L (0.04-0.35) X 10*3/uL Sodium 129 L (135-145) mmol/L Chloride 95 L (96-109) mmol/L Anion Gap 9.70 L (10.00-18.00) mmol/L Glucose 202 H (70-110) mg/dL Procalcitonin <0.02 L (0.02-0.09) ng/mL Assessment and Plan Assessment: Worsening shortness of breath secondary to acute COPD exacerbation History of lung cancer diagnosed in 2004s/p resection with recurrence in 2008 and right lung nodule in 2015 status postradiation. Hypovolemic hyponatremia Leukocytosis Elevated D-dimer level. CTA negative for PE GERD Osteoarthritis History of smoking DVT prophylaxis with heparin subcu Plan: Patient be continued on IV Solu-Medrol and duo nebs every 4 hourly as needed. Patient will be continued on azithromycin and continue with home medications and follow closely. GI and DVT prophylaxis. Pulmonary is on board. Prognosis is guarded. Time with Patient: Greater than 30
[2021-07-25] MEDS ORDERED: predniSONE 20 MG TAB PO SCH (09:45)
--- NOTE | 2021-07-25 12:12 | P.PN ---
Subjective Progress Note Date: 07/25/21 Physical very pleasant 76-year-old male patient who has a known history of anxiety, arthritis, alcohol abuse chronic pancreatitis, mild chronic obstructive pulmonary disease with an FEV1 value 85% of predicted. He also has a history of non-small cell lung cancer originally diagnosed in 2004. He had a right upper lobectomy. In 2008 there is a suspicious lesion in the right middle lobe he had undergone a wedge resection that was found to be positive for necrotizing granuloma. In 2014 he had another suspicious lesion in the right middle lobe and biopsy was positive for adenocarcinoma of the lung. He was treated with SB RT which was completed in 2014 at [place]. He had another recurrence and s ubsequent SB RT in July 2017. In January 2020 PET scan reviewed further progression he was started on carboplatin and Taxol with radiation therapy completed in March 2020. In May 2020 is started on Imfinzi. Most recent computed tomography scan of the chest revealed a relatively stable left pe rihilar masslike opacity measuring 3.6 x 2.3 cm versus 3.4 x 2.0 previously. He follows with Dr. Lester and was due for another PET scan tomorrow. He had presented here to the emergency room last evening with increasing shortness of breath cough, congestion and wheezing. No fever or chills. No nausea vomiting or diarrhea. Chest x-ray revealed evidence of emphysema and pulmonary fibrosis. Increase infiltrate in the left upper lobe compared to old exam. CT angiogram ruled out pulmonary embolism. There is identified left upper lobe mass without much change compared to April 2021 CAT scan. Right upper lobe perihilar infiltrate also without much change. White count 9.5. Hemoglobin 11.5. Platelet count 280. Sodium 129. Potassium 4.2. BUN 11. Creatinine 0.8. Troponin negative 1. ProBNP 109. D-dimer 0.77. He was initiated on azithromycin, IV Solu-Medrol and DuoNeb inhalations. Heparin for DVT prophylaxis. He is seen today in consultation on the regular medical floor. He is currently sitting up at the bedside. Awake and alert in no acute distress. Feeling a bit better today compared to yesterday. He is maintaining O2 saturations in the upper 90s on 3 L/m per nasal cannula. He is afebrile. Hemodynamically stable Days evaluation of 07/25/2021, the patient is being slightly better compared to yesterday. He is admitted for an acute COPD exacerbation. He is currently receiving a combination of bronchodilators and steroids. He is currently on room air oxygen. Note that he has COPD and he also has history of lung cancer and the patient has undergone extensive evaluations and treatments in the past and was urgently diagnosed in 2003 and he had a right upper lobectomy and subsequently had another lesion the right middle lobe for which underwent wedge resection and this turned out to be positive for granuloma. In 2014, he had another lesion the right middle lobe the turn down attendant to be positive for adenocarcinoma. He was treated with SB RT. Subsequently, he another SB RT treatment on the left and the patient was receiving immunotherapy for a total of 1 year and he received Imfinzi and I reviewed most recent CAT scan of the chest from 04/13/2021 and 07/24/2021 and it shows stable findings. A PET scan is to follow to assess the metabolic activity that was noted to be quite active and a previous PET scan from 2019. No hemoptysis. No pleurisy. Objective - Vital Signs Vital signs: Vital Signs Temp 98.3 F 07/25/21 07:29 Pulse 90 07/25/21 08:57 Resp 17 07/25/21 08:00 BP 128/66 07/25/21 07:29 Pulse Ox 99 07/25/21 08:45 FiO2 Intake & Output 07/24/21 07/25/21 07/25/21 18:59 06:59 18:59 Other: # Voids 4 2 # Bowel Movements 1 - Exam GENERAL EXAM: Alert, very pleasant 76-year-old male patient, on 3 L nasal cannula, fairly comfortable in no apparent distress. HEAD: Normocephalic. EYES: Normal reaction of pupils, equal size. NOSE: Clear with pink turbinates. THROAT: No erythema or exudates. NECK: No masses, no JVD. CHEST: No chest wall deformity. LUNGS: Equal air entry with bilateral end expiratory wheeze, diminished. CVS: S1 and S2 normal with no audible murmur, regular rhythm. ABDOMEN: No hepatosplenomegaly, normal bowel sounds, no guarding or rigidity. SPINE: No scoliosis or deformity SKIN: No rashes CENTRAL NERVOUS SYSTEM: No focal deficits, tone is normal in all 4 extremities. EXTREMITIES: There is no peripheral edema. No clubbing, no cyanosis. Peripheral pulses are intact. - Labs CBC & Chem 7: 07/24/21 06:27 07/24/21 06:27 Labs: Abnormal Lab Results - Last 24 Hours (Table) 07/24/21 Range/Units 06:27 Procalcitonin <0.02 L (0.02-0.09) ng/mL Assessment and Plan Plan: Acute exacerbation of chronic obstructive pulmonary disease, and a chest x-ray is showing some COPD with upper lobe predominance. There is some chronic scarring along the right hilar area. Also some scarring in the left suprahilar area and the left upper lobe. The most recent CAT scan of the chest done on 04/13/2021 showed no pulmonary embolism, COPD with moderate emphysematous changes bilaterally, stable left perihilar masslike opacity measuring 3.6 x 2.3 cm in size and some volume loss and consolidation in the anterior aspect of the right upper lobe and few scattered areas of endobronchial opacification involving the segmental branches of the lower lobes probably related to mucous plugs. Repeat CAT scan from this current admission is stable masses in the left upper lobe without any significant change and stable opacity in the left upper lobe and the right upper lobe without any change in addition to background COPD. The most recent PET/CT done on this patient on 01/23/2020 showed evidence of increased metabolic activity in the left hilum, left upper lobe mass and adenopathy in the subcarinal and bilateral caval/pretracheal mediastinum. As such, it's highly likely that the patient may have some residual lung cancer. History of non-small cell lung cancer diagnosed in 2004 status post right upper lobectomy, he has since had several recurrences and treatment History of anxiety History of alcohol-induced chronic pancreatitis Nonobstructive coronary artery disease, cardiac catheterization in April 2021 Former smoker quit in 2019 after nearly 60 years of smoking Plan: Chest x-ray and CAT scan reviewed Continue antibiotics, bronchodilators, IV Solu-Medrol Clinically improving Check a pro-calcitonin was negative, <0.02 Titrate the FiO2 as tolerated Possible discharge in the a.m. to keep PET scan appointment in the p.m. We'll continue to follow and make further recommendations based on his clinical status
[2021-07-25 12:28] VITALS: PULSE 100
--- NOTE | 2021-08-09 14:41 | P.DS ---
Providers Date of admission: 07/23/21 03:16 Expected date of discharge: 07/25/21 Attending physician: Itzel Ayers Consults: 07/23/21 12:37 Consult Physician Routine Consulting Provider: Louisa Kilgore Consult Reason/Comments: copd Do you want consulting provider notified?: Yes Primary care physician: [facility] Course: discharge diagnosis Worsening shortness of breath secondary to acute COPD exacerbation History of lung cancer diagnosed in 2003 s/p resection with recurrence in 2008 and right lung nodule in 2014 status postradiation, immunotherapy. Hypovolemic hyponatremia Leukocytosis Elevated D-dimer level. CTA negative for PE GERD Osteoarthritis History of smoking DVT prophylaxis with heparin subcu Hospital course Patient is a 76-year-old male with a known history of lung cancer in 2003 status postresection, recurrence and 2008 and 2014 status post radiation in February 2015, chronic back pain, pancreatitis and GERD and osteoarthritis also currently some day smoker presents to ER with complaints of worsening shortness of breath. Patient is also having right-sided sharp chest pain when he came to ER. Does have cough and congestion and whitish sputum production. Patient was unable to bring out any sputum and felt tightness in the chest. Patient is also complaining of headache with coughing. No fever no chills. No nausea vomiting or abdominal pain or diarrhea. Denies any dysuria or hematuria. Chest x-ray showed emphysema and pulmonary fibrosis. There is increasing infiltrate left upper lobe compared to prior exam. Laboratory test showed WBC 17.6 hemoglobin 12.8 and platelets 301 D-dimer is 0.77 CT angio of the chest showed no evidence of pulmonary embolism. Left upper lobe mass without much change compared to 04/13/2021 CT scan. Right upper lobe perihilar infiltrate also without much change. EKG showed normal sinus rhythm Sodium 128 potassium 4.1 chloride 98 bicarb is 24 BUN 13 and creatinine 0.64 and blood sugar is 118 troponin x1 negative proBNP 109 and liver enzymes are not elevated. Albumin 3.9. 07/24/21 Patient is currently resting in the bed comfortably. Awake alert and oriented 3. Breathing status is better. Patient is less wheezing today. No complaints of chest pain. Cough without sputum production. Patient is able to cough better now without any tightness. No nausea vomiting abdominal pain or diar izabella. Patient is being continued on IV Solu-Medrol and adverse the form of azithromycin. Pulmonary is on board. Next and patient is scheduled to get PET scan tomorrow as an outpatient. 07/25/2021 Patient is currently living with her. Feels better. No complaints of chest pain or worsening shortness of breath. Down to room air. No fever no chills. Denied on IV steroids and DuoNeb's. Patient was diagnosed with right middle lobe adenocarcinoma and is on immunotherapy for one year. Stable findings as per repeat computed tomography scan per pulmonary. Outpatient PET scan was recommended. Otherwise patient denied any hemoptysis. No nausea vomiting or abdominal pain or diarrhea. Tolerating oral diet. Patient is being discharged home today.patient will be continued on prednisone tapering course. PHYSICAL EXAMINATION: Patient is lying in the bed comfortably, no acute distress, awake alert and oriented.. HEENT: Normocephalic. Neck is supple. Pupils reactive. Nostrils clear. Oral cavity is moist. Neck reveals no JVD, carotid bruits, or thyromegaly. CHEST EXAMINATION: Trachea is central. Symmetrical expansion. Minimal expiratory wheezing. Improved air entry.. CARDIAC: Normal S1, S2 with no gallops. No murmurs ABDOMEN: Soft. Bowel sounds normal. No organomegaly. No abdominal bruits. Extremities: reveal no edema. No clubbing or cyanosis Neurologically awake, alert, oriented x3 with well-coordinated movements. No focal deficits noted Skin: No rash or skin lesions. Psychiatric: Coperative. Nonsuicidal Musculoskeletal: No joint swelling or deformity. Normal range of motion. Vital signs: Vital Signs Temp 98.3 F 07/25/21 07:29 Pulse 90 07/25/21 08:57 Resp 17 07/25/21 08:00 BP 128/66 07/25/21 07:29 Pulse Ox 99 07/25/21 08:45 FiO2 Intake & Output 07/24/21 07/25/21 07/25/21 18:59 06:59 18:59 Other: # Voids 4 2 # Bowel Movements 1 Patient Condition at Discharge: Fair Plan - Discharge Summary Discharge Rx Participant: Yes New Discharge Prescriptions: New predniSONE See Taper PO DIRECTED #26 tab Continue Ipratropium/Albuterol Sulfate [Combivent Respimat Inhaler] 1 puff INHALATION RT-QID HYDROcodone/APAP 10-325MG [Hillman 10-325] 0.5 tab PO TID@0000,1200,1700 Omeprazole 20 mg PO DAILY@1200 Meloxicam 15 mg PO DAILY@1200 LORazepam [Ativan] 1 mg PO HS@0000 Atorvastatin [Lipitor] 40 mg PO DAILY@1200 Lipase/Protease/Amylase [Emiliano Inman 24,000 Unit Capsule] 24,000 units PO AC-BID Escitalopram [Lexapro] 20 mg PO DAILY@1200 Levothyroxine Sodium [Synthroid] 125 mcg PO DAILY@1200 Docusate [Colace] 200 mg PO HS@0000 Discharge Medication List HYDROcodone/APAP 10-325MG [Hillman 10-325] 0.5 tab PO TID@0000,1200,1700 06/11/18 [History] Ipratropium/Albuterol Sulfate [Combivent Respimat Inhaler] 1 puff INHALATION RT- QID 06/11/18 [History] Meloxicam 15 mg PO DAILY@1200 06/11/18 [History] Omeprazole 20 mg PO DAILY@1200 06/11/18 [History] Escitalopram [Lexapro] 20 mg PO DAILY@1200 01/04/21 [History] LORazepam [Ativan] 1 mg PO HS@0000 01/04/21 [History] Lipase/Protease/Amylase [Emiliano Inman 24,000 Unit Capsule] 24,000 units PO AC-BID 01/04/21 [History] Atorvastatin [Lipitor] 40 mg PO DAILY@1200 07/23/21 [History] Docusate [Colace] 200 mg PO HS@0000 07/23/21 [History] Levothyroxine Sodium [Synthroid] 125 mcg PO DAILY@1200 07/23/21 [History] predniSONE See Taper PO DIRECTED #26 tab 07/25/21 [Rx] Follow up Appointment(s)/Referral(s): Cale Arenas DO [Primary Care Provider] - 08/03/21 9:20 am (at [facility]) Patient Instructions/Handouts: COPD (Chronic Obstructive Pulmonary Disease) (DC) Discharge Disposition: HOME SELF-CARE
== END 2021-07-25 13:13 | disposition home or self-care (01) ==
LOC: EC 23:49 → 4SSUR 07-23 03:16 → INTOOBSV 07-23 03:16 → 4SSUR 07-23 04:01 → UNDODISIN 07-25 13:13
PROVIDERS: ADMIT Hospitalist; ATTEND Hospitalist
DX: J43.9 Emphysema, unspecified (principal); C34.91 Malignant neoplasm of unspecified part of right bronchus or lung; E87.1 Hypo-osmolality and hyponatremia; J84.10 Pulmonary fibrosis, unspecified; R09.02 Hypoxemia; R79.89 Other specified abnormal findings of blood chemistry; D72.829 Elevated white blood cell count, unspecified; J20.9 Acute bronchitis, unspecified; E86.1 Hypovolemia; K21.9 Gastro-esophageal reflux disease without esophagitis; M19.90 Unspecified osteoarthritis, unspecified site; G89.29 Other chronic pain; M54.9 Dorsalgia, unspecified; R51.9 Headache, unspecified; I25.10 Atherosclerotic heart disease of native coronary artery without angina pectoris; F10.11 Alcohol abuse, in remission; F41.9 Anxiety disorder, unspecified; Z79.1 Long term (current) use of non-steroidal anti-inflammatories (NSAID); Z79.82 Long term (current) use of aspirin; Z79.890 Hormone replacement therapy; Z79.891 Long term (current) use of opiate analgesic; Z79.899 Other long term (current) drug therapy; Z28.310 Unvaccinated for COVID-19; Z87.19 Personal history of other diseases of the digestive system; Z85.118 Personal history of other malignant neoplasm of bronchus and lung; Z87.01 Personal history of pneumonia (recurrent); Z92.3 Personal history of irradiation; Z86.14 Personal history of Methicillin resistant Staphylococcus aureus infection; Z90.49 Acquired absence of other specified parts of digestive tract; Z90.2 Acquired absence of lung [part of]; Z98.890 Other specified postprocedural states; Z87.891 Personal history of nicotine dependence; Z80.9 Family history of malignant neoplasm, unspecified; Z83.79 Family history of other diseases of the digestive system; Z82.0 Family history of epilepsy and other diseases of the nervous system
CPT/HCPCS: 96361 ×3; 96376 ×3; 96372 ×3; 96374; 96375; 99285; 36415; 94640 ×6; 94760; 93005; 85379; 83880; 80053; 80048; 83735; 84484; 85025 ×2; 85610; 85730; 84145; 71045; 71275; G0378 ×3; J2930 ×3; J1170; Q9967; J1644 ×3

== ENCOUNTER → 2021-12-28 | Outpatient (CLI) | payer MEDICARE ==
[2021-12-28 12:21] LABS: African American GFR (CKD) >90 (>60 ml/min/1.73 sqM); Blood Urea Nitrogen 10 mg/dL (9-20); Non-African American GFR(CKD) 90 (>60 ml/min/1.73 sqM)
--- NOTE | 2021-12-28 22:56 | CT ---
EXAMINATION TYPE: CT ChestAbdPelvis w con DATE OF EXAM: 12/28/2021 COMPARISON: Most recent prior whole body CT January 2021 and older CTs HISTORY: f/u lung ca CT DLP: 585.5 mGycm. Automated Exposure Control for Dose Reduction was Utilized. CONTRAST: CT scan of the thorax, abdomen and pelvis is performed with oral and with IV Contrast, patient inject ed with 70cc mL of Isovue 300. FINDINGS: LUNGS: Background moderate to advanced underlying emphysematous change is redemonstrated. Fairly stab le spiculated mass or neoplasm in the left upper lobe measuring 4.2 x 2.4 cm current study. Inferior medial extension to the level of pulmonary hilum is redemonstrated. No significant change from most r ecent CTs. Persistent linear scarring superior to this redemonstrated. Focal scarring in the periphe ry of mid left lung axial image 24 redemonstrated. Focal irregular scarring right hilar region extending anteriorly and slightly superiorly series 4 jc sures 26 is not significantly changed from most recent CTs consistent with scar tissue. [id number] ate right basilar linear scarring is more prominent from priors. No pleural effusion or pneumothorax seen bilaterally. MEDIASTINUM: No new greater than 1 cm mediastinal adenopathy. No cardiomegaly or pericardial effusion is seen. Moderate to severe three-vessel coronary artery calcification. LIVER/GB: Cholecystectomy clips are redemonstrated. PANCREAS: Calcifications and glandular atrophy with ductal dilatation in the proximal pancreatic body consistent with product of chronic pancreatitis are redemonstrated. SPLEEN: No significant abnormality is seen. ADRENALS: Slight nodular thickening to both adrenal glands redemonstrated favoring benign lipid rich hyperplasia. KIDNEYS: There is 5.3 cm thin-walled cyst laterally in the midpole level of the left kidney redemonst rated. Symmetric cortical medullary uptake and excretion without hydronephrosis seen bilaterally. Mil d moderate concentric wall thickening in the urinary bladder presumed related to outlet obstruction f rom BPH is redemonstrated. BOWEL: Diffuse colonic diverticulosis greatest in the left and sigmoid colon. No CT evidence for acut e diverticulitis. Stomach poorly distended and suboptimally evaluated on current study. Large 6.7 cm duodenal diverticulum with air-fluid level axial image 72 redemonstrated. Oral contrast does not reac h colonic level. GENITAL ORGANS: Enlarged prostate consistent with BPH bulging on the bladder base is redemonstrated. LYMPH NODES: No greater than 1cm abdominal or pelvic lymph nodes are appreciated. OSSEOUS STRUCTURES: Scoliotic curvature in the lumbar spine. Mild to moderate chronic height loss inv olving the L2 and L4 vertebra is redemonstrated. Moderate to severe disc space narrowing at right L3- L4 level is redemonstrated. Moderate axial joint space loss in both hips. 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 Subacute or nonhealed chronic right posterior lateral rib fractures involving seventh and eighth ribs are now noted. OTHER: Moderate calcified plaque of the aorta extends into branch vessels. IMPRESSION: Stable left upper lobe spiculated mass or neoplasm. No new thoracic adenopathy. No new moya spicious nodules or masses. Overall stable findings from most recent CT
== END | disposition home or self-care (01) ==
LOC: RADCTMAIN 11:35
PROVIDERS: ATTEND Internal Medicine Hematology & Oncology
DX: C34.12 Malignant neoplasm of upper lobe, left bronchus or lung (principal)
CPT/HCPCS: 82565; 84520; 71260; 74177; 36415; Q9967

== ENCOUNTER 2022-01-09 19:48 | Inpatient (IN) | payer MEDICARE ==
[2022-01-09] MEDS ORDERED: MORPHINE SULFATE 4 MG/ML SYRINGE IV STA (20:29)
[2022-01-09] MEDS ORDERED: ONDANSETRON 4 MG/2 ML VIAL IVP STA (20:29)
[2022-01-09] MEDS ORDERED: SODIUM CHLORIDE 0.9% 1,000 ML IV STA (20:29)
--- NOTE | 2022-01-09 20:40 | ED ---
General Adult HPI - General Chief complaint: Back Pain/Injury Stated complaint: lower back pain Time Seen by Provider: 01/09/22 20:24 Source: patient, EMS Mode of arrival: EMS Limitations: no limitations - History of Present Illness Initial comments: Patient is a 76-year-old male with history of lung cancer presenting with chief complaint of centralized back pain. Patient has history of chronic pancreatitis, states that this feels identical to a flareup. Patient states pain has been ongoing for last 4 days. When asked to describe the pain patient says "it just hurts". Patient is uncooperative with obtaining history. No chest pain, difficulty breathing, abdominal pain, nausea, vomiting, hematochezia, melena, hematemesis, dysuria, hematuria, fever, chills, palpitations, weakness. - Related Data Home Medications Medication Instructions Recorded Confirmed HYDROcodone/APAP 10-325MG [[place] 0.5 tab PO TID@0000,1200,1700 06/11/18 07/23/21 10-325] Ipratropium/Albuterol Sulfate 1 puff INHALATION RT-QID 06/11/18 07/23/21 [Combivent Respimat Inhaler] Meloxicam 15 mg PO DAILY@1200 06/11/18 07/23/21 Omeprazole 20 mg PO DAILY@1200 06/11/18 07/23/21 Escitalopram [Lexapro] 20 mg PO DAILY@1200 01/04/21 07/23/21 LORazepam [Ativan] 1 mg PO HS@0000 01/04/21 07/23/21 Lipase/Protease/Amylase [Emiliano Inman 24,000 units PO AC-BID 01/04/21 07/23/21 24,000 Unit Capsule] Atorvastatin [Lipitor] 40 mg PO DAILY@1200 07/23/21 07/23/21 Docusate [Colace] 200 mg PO HS@0000 07/23/21 07/23/21 Levothyroxine Sodium [Synthroid] 125 mcg PO DAILY@1200 07/23/21 07/23/21 Previous Rx's Medication Instructions Recorded predniSONE See Taper PO DIRECTED #26 tab 07/25/21 Allergies Allergy/AdvReac Type Severity Reaction Status Date / Time No Known Allergies Allergy Verified 07/23/21 11:38 Review of Systems ROS Statement: Those systems with pertinent positive or pertinent negative responses have been documented in the HPI. ROS Other: All systems not noted in ROS Statement are negative. Past Medical History Past Medical History: Cancer, GERD/Reflux, Osteoarthritis (OA), Pneumonia Additional Past Medical History / Comment(s): Right lung cancer 2003 and first resection done (got MRSA at that time in incision), second resection in 2008, lung cancer reoccured in 12/2014 and found new nodule in right lung had radiation in February 2015. Pancreatitis,chronic back pain, lung CA reoccured 2020 History of Any Multi-Drug Resistant Organisms: MRSA Date of last positivie culture/infection: 2003 MDRO Source:: BACK Past Surgical History: Cholecystectomy, Orthopedic Surgery Additional Past Surgical History / Comment(s): RESECTION TO RIGHT LUNG TWICE (RT MIDDLE AND RT LOWER LOBECTOMY), RT KNEE SCOPE x2 Past Anesthesia/Blood Transfusion Reactions: Motion Sickness Past Psychological History: No Psychological Hx Reported Additional Psychological History / Comment(s): Pt resides with his spouse. He is normally independent. He uses no assistive device or home care. Smoking Status: Current some day smoker, Former smoker Past Alcohol Use History: None Reported Additional Past Alcohol Use History / Comment(s): Pt states he smokes about 1 ppd and started smoking at age 14-15 yrs on and off. Pt states last cigarette about a month ago. STOPPED DRINKING ETOH 2015 Past Drug Use History: None Reported - Past Family History Father Family Medical History: Cancer Mother Family Medical History: Dementia Additional Family Medical History / Comment(s): Crohn's disease General Exam Limitations: no limitations General appearance: alert, in no apparent distress Head exam: Present: atraumatic, normocephalic, normal inspection Eye exam: Present: normal appearance, PERRL, EOMI. Absent: scleral icterus, conjunctival injection, periorbital swelling Neck exam: Present: normal inspection Respiratory exam: Present: normal lung sounds bilaterally. Absent: respiratory distress, wheezes, rales, rhonchi, stridor Cardiovascular Exam: Present: regular rate, normal rhythm, normal heart sounds. Absent: systolic murmur, diastolic murmur, rubs, gallop, clicks GI/Abdominal exam: Present: soft. Absent: distended, tenderness, guarding, rebound, rigid Back exam: Present: normal inspection, tenderness Neurological exam: Present: alert, oriented X3, CN II-XII intact Psychiatric exam: Present: normal affect, normal mood Skin exam: Present: warm, dry, intact, normal color. Absent: rash Course Vital Signs 01/09/22 01/09/22 19:50 22:41 Temperature 98 F Pulse Rate 66 61 Respiratory 18 18 Rate Blood Pressure 139/94 136/68 O2 Sat by Pulse 96 100 Oximetry EKG Findings - EKG Comments: EKG Findings:: Sinus rhythm rate of 69. [place] interval 165. QRS 90. QT 403. QTC 422. Normal axis. Medical Decision Making - Medical Decision Making Patient is a 76-year-old male with history of lung cancer presenting with chief complaint of thoracic back pain. Patient states that for the last several days he has had increasing pain, states that it feels identical to chronic pancreatitis flareups. Physical examination is unremarkable. Lab work shows sodium of 122, patient was also hyperchloremic, this is likely due to poor oral intake. He is receiving IVF. X-ray shows progressing T7 compression fracture. Patient will be admitted for hyponatremia. I spoke with Dr. Munson who accepted admission of this patient. I discussed this case with my attending Dr. Nevarez. - Lab Data Result diagrams: 01/09/22 21:19 01/09/22 21:19 Lab Results 01/09/22 01/09/22 01/09/22 Range/Units 20:47 21:17 21:19 WBC 11.0 H (3.8-10.6) k/uL RBC 4.22 L (4.30-5.90) m/uL Hgb 14.6 (13.0-17.5) gm/dL Hct 41.6 (39.0-53.0) % MCV 98.4 (80.0-100.0) fL MCH 34.7 (25.0-35.0) pg MCHC 35.2 (31.0-37.0) g/dL RDW 13.7 (11.5-15.5) % Plt Count 322 (150-450) k/uL MPV 7.6 Neutrophils % 80 % Lymphocytes % 7 % Monocytes % 8 % Eosinophils % 2 % Basophils % 0 % Neutrophils # 8.9 H (1.3-7.7) k/uL Lymphocytes # 0.7 L (1.0-4.8) k/uL Monocytes # 0.9 (0-1.0) k/uL Eosinophils # 0.2 (0-0.7) k/uL Basophils # 0.0 (0-0.2) k/uL PT (9.0-12.0) sec INR (<1.2) APTT (22.0-30.0) sec Sodium (137-145) mmol/L Potassium (3.5-5.1) mmol/L Chloride (98-107) mmol/L Carbon Dioxide (22-30) mmol/L Anion Gap mmol/L BUN (9-20) mg/dL Creatinine (0.66-1.25) mg/dL Est GFR (CKD-EPI)AfAm (>60 ml/min/1.73 sqM) Est GFR (CKD-EPI)NonAf (>60 ml/min/1.73 sqM) Glucose (74-99) mg/dL Plasma Lactic Acid [place] 1.0 (0.7-2.0) mmol/L Calcium (8.4-10.2) mg/dL Total Bilirubin (0.2-1.3) mg/dL AST (17-59) U/L ALT (4-49) U/L Alkaline Phosphatase (38-126) U/L Total Protein (6.3-8.2) g/dL Albumin (3.5-5.0) g/dL Amylase (30-110) U/L Lipase (23-300) U/L Urine Color Yellow Urine Appearance Clear (Clear) Urine pH 6.0 (5.0-8.0) Ur Specific [place] 1.029 (1.001-1.035) Urine Protein Trace H (Negative) Urine Glucose (UA) Negative (Negative) Urine Ketones Negative (Negative) Urine Blood Negative (Negative) Urine Nitrite Negative (Negative) Urine Bilirubin Negative (Negative) Urine Urobilinogen 2.0 (<2.0) mg/dL Ur Leukocyte Esterase Negative (Negative) 01/09/22 01/09/22 Range/Units 21:19 21:19 WBC (3.8-10.6) k/uL RBC (4.30-5.90) m/uL Hgb (13.0-17.5) gm/dL Hct (39.0-53.0) % MCV (80.0-100.0) fL MCH (25.0-35.0) pg MCHC (31.0-37.0) g/dL RDW (11.5-15.5) % Plt Count (150-450) k/uL MPV Neutrophils % % Lymphocytes % % Monocytes % % Eosinophils % % Basophils % % Neutrophils # (1.3-7.7) k/uL Lymphocytes # (1.0-4.8) k/uL Monocytes # (0-1.0) k/uL Eosinophils # (0-0.7) k/uL Basophils # (0-0.2) k/uL PT 10.7 (9.0-12.0) sec INR 1.0 (<1.2) APTT 28.8 (22.0-30.0) sec Sodium 122 L (137-145) mmol/L Potassium 4.6 (3.5-5.1) mmol/L Chloride 90 L (98-107) mmol/L Carbon Dioxide 22 (22-30) mmol/L Anion Gap 10 mmol/L BUN 15 (9-20) mg/dL Creatinine 0.60 L (0.66-1.25) mg/dL Est GFR (CKD-EPI)AfAm >90 (>60 ml/min/1.73 sqM) Est GFR (CKD-EPI)NonAf >90 (>60 ml/min/1.73 sqM) Glucose 102 H (74-99) mg/dL Plasma Lactic Acid [place] (0.7-2.0) mmol/L Calcium 9.1 (8.4-10.2) mg/dL Total Bilirubin 1.1 (0.2-1.3) mg/dL AST 34 (17-59) U/L ALT 23 (4-49) U/L Alkaline Phosphatase 91 (38-126) U/L Total Protein 7.4 (6.3-8.2) g/dL Albumin 4.7 (3.5-5.0) g/dL Amylase 52 (30-110) U/L Lipase 52 (23-300) U/L Urine Color Urine Appearance (Clear) Urine pH (5.0-8.0) Ur Specific [place] (1.001-1.035) Urine Protein (Negative) Urine Glucose (UA) (Negative) Urine Ketones (Negative) Urine Blood (Negative) Urine Nitrite (Negative) Urine Bilirubin (Negative) Urine Urobilinogen (<2.0) mg/dL Ur Leukocyte Esterase (Negative) Disposition Clinical Impression: Hyponatremia, Compression fracture of T7 vertebra, Hypochloremia Disposition: ADMITTED IP TO THIS HOSP Condition: Fair Time of Disposition: 23:14 Decision to Admit Reason: Admit from EC Decision Date: 01/09/22 Decision Time: 23:21
[2022-01-09 20:57] LABS: Appearance,Urine Clear (Clear); Bilirubin,Urine Negative (Negative); Blood,Urine Negative (Negative); Color,Urine Yellow; Glucose,Urine (UA) Negative (Negative); Ketones,Urine Negative (Negative); Leukocyte Esterase,Urine Negative (Negative); Nitrite,Urine Negative (Negative); Protein,Urine Trace (Negative); Specific Gravity,Urine 1.029 (1.001-1.035)
[2022-01-09 21:36] LABS: Basophils % (A) 0 %; Eosinophils # (A) 0.2 k/uL (0-0.7); Eosinophils % (A) 2 %; HCT 41.6 % (39.0-53.0); HGB 14.6 gm/dL (13.0-17.5); Lymphocytes # (A) 0.7 k/uL (1.0-4.8); Lymphocytes % (A) 7 %; MCH 34.7 pg (25.0-35.0); MCHC 35.2 g/dL (31.0-37.0); MCV 98.4 fL (80.0-100.0); Mean Platelet Volume 7.6; Monocytes # (A) 0.9 k/uL (0-1.0); Monocytes % (A) 8 %; Neutrophils # (A) 8.9 k/uL (1.3-7.7); Neutrophils % (A) 80 %; Platelet Count 322 k/uL (150-450); RBC 4.22 m/uL (4.30-5.90); RDW 13.7 % (11.5-15.5)
[2022-01-09 21:45] LABS: Partial Thromboplastin Time 28.8 sec (22.0-30.0); Prothrombin Time 10.7 sec (9.0-12.0)
[2022-01-09 21:55] LABS: ALT 23 U/L (4-49); AST 34 U/L (17-59); African American GFR (CKD) >90 (>60 ml/min/1.73 sqM); Albumin 4.7 g/dL (3.5-5.0); Alkaline Phosphatase 91 U/L (38-126); Amylase 52 U/L (30-110); Anion Gap 10 mmol/L; Blood Urea Nitrogen 15 mg/dL (9-20); Calcium 9.1 mg/dL (8.4-10.2); Carbon Dioxide 22 mmol/L (22-30); Chloride 90 mmol/L (98-107); Glucose 102 mg/dL (74-99); Lipase 52 U/L (23-300); Non-African American GFR(CKD) >90 (>60 ml/min/1.73 sqM); Potassium 4.6 mmol/L (3.5-5.1); Sodium 122 mmol/L (137-145); Total Bilirubin 1.1 mg/dL (0.2-1.3); Total Protein 7.4 g/dL (6.3-8.2)
--- NOTE | 2022-01-09 22:29 | XR ---
EXAMINATION TYPE: XR thoracic spine complete DATE OF EXAM: 01/09/2022 COMPARISON: 05/27/2021 HISTORY: Back pain TECHNIQUE: 3 view FINDINGS: There is osteopenia. There is 75% anterior wedging of T7 vertebra. There is no paraspinal m ass. There is some bilateral perihilar pulmonary infiltrates. Posterior elements are intact. IMPRESSION: There is a T7 compression fracture which has progressed compared to old chest x-ray. No d efinite evidence of a new fracture.
[2022-01-09] MEDS ORDERED: HYDROmorphone 1 MG/ML 1 ML SYRINGE IVP STA (23:06)
[2022-01-09] MEDS ORDERED: SODIUM CHLORIDE 0.9% 1,000 ML IV SCH (23:15)
[2022-01-09] MEDS ORDERED: NALOXONE 0.4 MG/ML 1 ML VIAL IV PRN (23:58)
[2022-01-10 01:27] LABS: African American GFR (CKD) >90 (>60 ml/min/1.73 sqM); Anion Gap 7 mmol/L; Blood Urea Nitrogen 13 mg/dL (9-20); Calcium 8.5 mg/dL (8.4-10.2); Carbon Dioxide 22 mmol/L (22-30); Chloride 97 mmol/L (98-107); Glucose 97 mg/dL (74-99); Non-African American GFR(CKD) >90 (>60 ml/min/1.73 sqM); Sodium 126 mmol/L (137-145)
[2022-01-10 01:28] LABS: Potassium 4.6 mmol/L (3.5-5.1)
[2022-01-10] MEDS ORDERED: HYDROmorphone 0.5 MG/0.5 ML SYRINGE IVP STA (01:45)
[2022-01-10 02:39] LABS: Creatinine,Urine Random 17.5 mg/dL
[2022-01-10 04:23] LABS: African American GFR (CKD) >90 (>60 ml/min/1.73 sqM); Anion Gap 5 mmol/L; Blood Urea Nitrogen 11 mg/dL (9-20); Calcium 8.3 mg/dL (8.4-10.2); Carbon Dioxide 23 mmol/L (22-30); Chloride 101 mmol/L (98-107); Glucose 96 mg/dL (74-99); Non-African American GFR(CKD) >90 (>60 ml/min/1.73 sqM); Potassium 4.5 mmol/L (3.5-5.1); Sodium 129 mmol/L (137-145)
[2022-01-10] MEDS ORDERED: HYDROcodone/APAP 5-325MG 1 EACH TAB PO STA (04:49)
--- NOTE | 2022-01-10 05:00 | P.HPIM ---
History of Present Illness H&P Date: 01/10/22 The patient is a 76-year-old male with a PMH of COPD, chronic pancreatitis with insufficiency, hyperlipidemia and hypothyroidism who presented to the emergency room with complaints of back pain. The patient reports that over the past 4-5 days, his been experiencing diffuse mid back pain, 7 out of 10 on maximal intensity, worsened with movement, nonradiating, with no alleviating features. He denied experiencing weakness or numbness of the lower extremities. Also denied difficulty with gait. Denied experiencing anorexia, chest discomfort, shortness of breath, fever, chills, cough, nausea, vomiting, abdominal pain, diarrhea. Thoracic spine x-ray revealed a T7 compression fracture progress from prior. EKG revealed sinus rhythm at [address]/T-wave changes noted as reviewed by me. Laboratory evaluation was remarkable for sodium of 122, chloride 90, lactic acid 1.0 with UA unremarkable. Review of systems: Pertinent positives and negatives as discussed in HPI, a complete review of systems was performed and all other systems are negative. Physical examination: General: non toxic, no distress, appears at stated age, normal weight Derm: no unusual rashes/lesions, warm Head: atraumatic, normocephalic, symmetric Eyes: EOMI, no lid lag, anicteric sclera, pupils equal round reactive to light ENT: Nose and ears atraumatic Neck: No cervical lymphadenopathy, trachea midline, supple Mouth: no lip lesion, mucus membranes moist Cardiovascular: S1S2 reg, no murmur, positive dorsalis pedis pulse bilateral, no edema Lungs: CTA bilateral, no rhonchi, no rales, no accessory muscle use Abdominal: soft, nontender to palpation, no guarding, diffuse thoracic par avertebral tenderness Ext: muscle strength 5 out of 5 in all 4 extremities grossly, no gross muscle atrophy, no contractures, Neuro: CN II-XI grossly intact, no gross focal neuro deficits Psych: Alert, oriented, appropriate affect Assessment/plan Hyponatrema -Patient notes that she has a long-standing history of hyponatremia and was told that it was likely due to his pancreatic enzyme supplementation -Workup sent -Status post IV fluids -Monitor BMP and avoid overcorrection Thoracic spinal compression fracture -Orthopedic surgery consulted -Patient denying lower extremity pain or weakness -Denying urinary incontinence DVT prophylaxis -Heparin subq The patient is admitted with an anticipated greater than 2 midnight stay for evaluation of hyponatremia CODE STATUS: Full Code Discussed with: Patient Anticipated discharge date: 2-[address]: Home Past Medical History Past Medical History: Cancer, GERD/Reflux, Osteoarthritis (OA), Pneumonia Additional Past Medical History / Comment(s): Right lung cancer 2003 and first resection done (got MRSA at that time in incision), second resection in 2008, lung cancer reoccured in 12/2014 and found new nodule in right lung had radiation in February 2015. Pancreatitis,chronic back pain, lung CA reoccured 2019 History of Any Multi-Drug Resistant Organisms: MRSA Date of last positivie culture/infection: 2003 MDRO Source:: BACK Past Surgical History: Cholecystectomy, Orthopedic Surgery Additional Past Surgical History / Comment(s): RESECTION TO RIGHT LUNG TWICE (RT MIDDLE AND RT LOWER LOBECTOMY), RT KNEE SCOPE x2 Past Anesthesia/Blood Transfusion Reactions: Motion Sickness Past Psychological History: No Psychological Hx Reported Additional Psychological History / Comment(s): Pt resides with his spouse. He is normally independent. He uses no assistive device or home care. Smoking Status: Current some day smoker, Former smoker Past Alcohol Use History: None Reported Additional Past Alcohol Use History / Comment(s): Pt states he smokes about 1 ppd and started smoking at age 14-15 yrs on and off. Pt states last cigarette about a month ago. STOPPED DRINKING ETOH 2015 Past Drug Use History: None Reported - Past Family History Father Family Medical History: Cancer Mother Family Medical History: Dementia Additional Family Medical History / Comment(s): Crohn's disease Medications and Allergies Home Medications Medication Instructions Recorded Confirmed Type HYDROcodone/APAP 10-325MG [[place] 0.5 tab PO TID@0000,1200,1700 06/11/18 07/23/21 History 10-325] Ipratropium/Albuterol Sulfate 1 puff INHALATION RT-QID 06/11/18 07/23/21 History [Combivent Respimat Inhaler] Meloxicam 15 mg PO DAILY@1200 06/11/18 07/23/21 History Omeprazole 20 mg PO DAILY@1200 06/11/18 07/23/21 History Escitalopram [Lexapro] 20 mg PO DAILY@1200 01/04/21 07/23/21 History LORazepam [Ativan] 1 mg PO HS@0000 01/04/21 07/23/21 History Lipase/Protease/Amylase [Emiliano In[place] 24,000 units PO AC-BID 01/04/21 07/23/21 History 24,000 Unit Capsule] Atorvastatin [Lipitor] 40 mg PO DAILY@1200 07/23/21 07/23/21 History Docusate [Colace] 200 mg PO HS@0000 07/23/21 07/23/21 History Levothyroxine Sodium [Synthroid] 125 mcg PO DAILY@1200 07/23/21 07/23/21 History predniSONE See Taper PO DIRECTED #26 tab 07/25/21 Rx Allergies Allergy/AdvReac Type Severity Reaction Status Date / Time No Known Allergies Allergy Verified 07/23/21 11:38 Physical Exam Vitals: Vital Signs Temp Pulse Resp BP Pulse Ox 01/10/22 01:37 63 18 144/69 96 01/09/22 22:41 61 18 136/68 100 01/09/22 19:50 98 F 66 18 139/94 96 Intake and Output 01/09/22 01/09/22 01/10/22 14:59 22:59 06:59 Output Total 1400 Balance -1400 Output: Urine 1400 Other: Weight 68.039 kg Results CBC & Chem 7: 01/09/22 21:19 01/10/22 03:52 Labs: Abnormal Lab Results - Last 24 Hours (Table) 01/09/22 01/09/22 01/09/22 Range/Units 20:47 21:19 21:19 WBC 11.0 H (3.8-10.6) k/uL RBC 4.22 L (4.30-5.90) m/uL Neutrophils # 8.9 H (1.3-7.7) k/uL Lymphocytes # 0.7 L (1.0-4.8) k/uL Sodium 122 L (137-145) mmol/L Chloride 90 L (98-107) mmol/L Creatinine 0.60 L (0.66-1.25) mg/dL Glucose 102 H (74-99) mg/dL Osmolality (280-301) mosm/kg Calcium (8.4-10.2) mg/dL Urine Protein Trace H (Negative) 01/10/22 01/10/22 Range/Units 00:36 03:52 WBC (3.8-10.6) k/uL RBC (4.30-5.90) m/uL Neutrophils # (1.3-7.7) k/uL Lymphocytes # (1.0-4.8) k/uL Sodium 126 L 129 L (137-145) mmol/L Chloride 97 L (98-107) mmol/L Creatinine 0.56 L 0.54 L (0.66-1.25) mg/dL Glucose (74-99) mg/dL Osmolality 264 L (280-301) mosm/kg Calcium 8.3 L (8.4-10.2) mg/dL Urine Protein (Negative)
[2022-01-10] MEDS: HEPARIN SODIUM,PORCINE/PF 5,000 UNIT/0.5 ML SYRINGE SQ SCH ×2 (09:21→16:12)
[2022-01-10 12:15] LABS: African American GFR (CKD) >90 (>60 ml/min/1.73 sqM); Anion Gap 4 mmol/L; Blood Urea Nitrogen 10 mg/dL (9-20); Calcium 8.6 mg/dL (8.4-10.2); Carbon Dioxide 29 mmol/L (22-30); Chloride 98 mmol/L (98-107); Glucose 97 mg/dL (74-99); Non-African American GFR(CKD) >90 (>60 ml/min/1.73 sqM); Potassium 4.7 mmol/L (3.5-5.1); Sodium 131 mmol/L (137-145)
--- NOTE | 2022-01-10 12:19 | CT ---
EXAMINATION TYPE: CT thoracic spine wo con CT DLP: 696.1 mGycm, Automated exposure control for dose reduction was used. DATE OF EXAM: 01/10/2022 11:26 AM COMPARISON: 12/28/2021 CT chest abdomen pelvis.. Chest CT to 04/13/2021. CLINICAL INDICATION:Male, 76 years old with history of compression fracture, hx of lung cancer; back pain TECHNIQUE: Axial images of the thoracic spine were obtained without contrast. Coronal and sagittal re formats were performed. FINDINGS: Progression of compression deformity at T7 with greater than 70% height loss this has prog ressed from 04/13/2021 where it was approximately 50% height loss and worse from 12/28/2021. No evidenc e of retropulsion. Spinal canal is patent but there is moderate bilateral neural foraminal stenosis. There is mild increased kyphosis at this level. Additional multilevel disc degeneration changes are s een throughout the spine with osteophyte formation and disc space narrowing. No significant spinal ca nal stenosis or neural foraminal stenosis. Left upper lung consolidation as seen on prior imaging. Sc attered facet joint arthropathy seen throughout the spine. Sclerosis of the arterial vasculature with emphysema changes throughout the lungs. Nonobstructing renal calculi versus vascular calcifications bilaterally. IMPRESSION: 1. Progression of T7 vertebral body compression fracture with now greater than 70% height loss. No s ignificant spinal canal stenosis. There is moderate bilateral neural foraminal stenosis at this level (T7-T8). This is progressed since 12/28/2021. 2. No significant spinal canal stenosis or neural foraminal stenosis.
--- NOTE | 2022-01-10 12:35 | P.CNOR ---
History of Present Illness - [facility] Consult date: 01/10/22 Consult reason: back pain History of present illness: Patient is a 76-year-old male who presented to [facility] with regards to pain in his mid back region. Patient states the pain has been going on for the last 4-5 days. Patient states that he was very active over the last few weeks doing yard work, which required a lot of bending down and twisting. Patient denies any obvious trauma, this including falls. Patient does have a previous history of a back injury for 5 years ago. Denies any surgery at that time. He states he also had broken a few vertebrae in his neck when he was working back in the 60s, he stated he had worn a back brace for quite a while. Patient normally ambulates diagnosis devices. Patient denies any pain in the bilateral upper or lower extremities. Currently patient denies any headaches, lightheadedness, chest pain. Patient denies any numbness or tingling in bilateral upper or lower extremities. He denies any obvious incontinence with bowel or bladder. He states that he has been constipated over the last few days, he admits to taking more pain medication normal. Review of Systems Constitutional: Reports as per HPI Past Medical History Past Medical History: Coronary Artery Disease (CAD), Cancer, COPD, GERD/Reflux, Hyperlipidemia, Osteoarthritis (OA), Thyroid Disorder Additional Past Medical History / Comment(s): 2003 NSCLC/adenocarcinoma with R upper lobe resection, 2008 R middle lobe granuloma/wedge resection, 2014 suspicious lesion RML/biopsy+/tx with radiation, 2018 L upper lobe lung cancer treated with radiation, 2019 new L lung lesions/nondiagnostic biopsy/treated with chemo/radiation, 2020 immunotherapy, pt states currently no treatment for lung cancer, chronic pancreatitis, 2021 NSTEMI/cardiac cath done/treated medical ly, back pain, 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 History of Any Multi-Drug Resistant Organisms: MRSA Year Discovered:: 2003 MDRO Source:: BACK Past Surgical History: Cholecystectomy, Heart Catheterization, Orthopedic Surgery Additional Past Surgical History / Comment(s): 2003 RUL lobectomy, 2008 R middle lobe wedge resection, bilateral lung biopsies/EBUS, R iknee arthroscopies x2, 2021 cardiac cath. Past Anesthesia/Blood Transfusion Reactions: No Reported Reaction, Motion Sickness Smoking Status: Former smoker - Past Family History Father Family Medical History: Cancer Mother Family Medical History: Dementia Additional Family Medical History / Comment(s): Crohn's disease Medications and Allergies Home Medications Medication Instructions Recorded Confirmed Type HYDROcodone/APAP 10-325MG [[place] 0.5 tab PO TID@0000,1200,1700 06/11/18 07/23/21 History 10-325] Ipratropium/Albuterol Sulfate 1 puff INHALATION RT-QID 06/11/18 07/23/21 History [Combivent Respimat Inhaler] Meloxicam 15 mg PO DAILY@1200 06/11/18 07/23/21 History Omeprazole 20 mg PO DAILY@1200 06/11/18 07/23/21 History Escitalopram [Lexapro] 20 mg PO DAILY@1200 01/04/21 07/23/21 History LORazepam [Ativan] 1 mg PO HS@0000 01/04/21 07/23/21 History Lipase/Protease/Amylase [Creon Dr 24,000 units PO AC-BID 01/04/21 07/23/21 History 24,000 Unit Capsule] Atorvastatin [Lipitor] 40 mg PO DAILY@1200 07/23/21 07/23/21 History Docusate [Colace] 200 mg PO HS@0000 07/23/21 07/23/21 History Levothyroxine Sodium [Synthroid] 125 mcg PO DAILY@1200 07/23/21 07/23/21 History predniSONE See Taper PO DIRECTED #26 tab 07/25/21 Rx Allergies Allergy/AdvReac Type Severity Reaction Status Date / Time No Known Allergies Allergy Verified 07/23/21 11:38 Physical Examination Gen: AOx3, NAD VSS stable at this time Integument: No obvious open lesions or examined throughout the cervical, thoracic or lumbar spine. There is no obvious ecchymosis or areas of soft tissue swelling. Palpation: Nontender with palpation to the cervical and lumbar spine. He is tender with palpation and the paravertebral muscles on the right side near the T6-T7 vertebrae. He has mild midline tenderness in that region. ROM: Full range of motion in all major muscle groups of the bilateral upper and lower extremities. 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25) mg/dL Glucose 102 H (74-99) mg/dL Osmolality (280-301) mosm/kg Calcium (8.4-10.2) mg/dL Urine Protein Trace H (Negative) Ur Random Sodium (40-220) mmol/L 01/10/22 01/10/22 01/10/22 Range/Units 00:26 00:36 03:52 WBC (3.8-10.6) k/uL RBC (4.30-5.90) m/uL Neutrophils # (1.3-7.7) k/uL Lymphocytes # (1.0-4.8) k/uL Sodium 126 L 129 L (137-145) mmol/L Chloride 97 L (98-107) mmol/L Creatinine 0.56 L 0.54 L (0.66-1.25) mg/dL Glucose (74-99) mg/dL Osmolality 264 L (280-301) mosm/kg Calcium 8.3 L (8.4-10.2) mg/dL Urine Protein (Negative) Ur Random Sodium <20 L (40-220) mmol/L 01/10/22 Range/Units 10:39 WBC (3.8-10.6) k/uL RBC (4.30-5.90) m/uL Neutrophils # (1.3-7.7) k/uL Lymphocytes # (1.0-4.8) k/uL Sodium 131 L (137-145) mmol/L Chloride (98-107) mmol/L Creatinine (0.66-1.25) mg/dL Glucose (74-99) mg/dL Osmolality (280-301) mosm/kg Calcium (8.4-10.2) mg/dL Urine Protein (Negative) Ur Random Sodium (40-220) mmol/L H & H 01/09/22 Range/Units 21:19 Hgb 14.6 (13.0-17.5) gm/dL Hct 41.6 (39.0-53.0) % Coagulation 01/09/22 Range/Units 21: INR 1.0 (<1.2) Result Diagrams: 01/09/22 21:19 01/10/22 10:39 Assessment and Plan Assessment: Back pain T7 vetebral body compression fracture Multiple medical comorbidities Plan: Imaging: Computed tomography scan of the thoracic spine along with thoracic area were reviewed. Given this progression of the T7 vertebral body compression fracture. No severe evidence of spinal canal stenosis is presented. Bilateral neural foraminal stenosis present Plan: I was able to discuss the case, this including the physical exam findings and imaging studies might attending Dr. Pop. No emergent orthopedic surgical intervention is recommended at this time We did discuss briefly surgical options, this to include kyphoplasty versus posterior stabilization. Patient's current findings, this to include no acute n europathic signs we would like to hold off on surgery and attempt conservative measures. We discussed the possibility of bracing. I was actually able to visualize the patient ambulating, he was doing very well with no assistive device. Medical management, please address constipation Weight-bear as tolerated Pain control, would recommend utilizing is normally prescribed medication, consider muscle relaxers GI and DVT prophylaxis per primary medical service We will continue to follow patient during inpatient stay Time with Patient: Less than 30
--- NOTE | 2022-01-10 12:42 | P.PN ---
Progress Note - Text Progress Note Date: 01/10/22 Hospitalist Interval Note Patient seen and examined at bedside. Vital signs reviewed General: non toxic, no distress, appears at stated age, normal weight Derm: no unusual rashes/lesions, warm Head: atraumatic, normocephalic, symmetric Eyes: EOMI, no lid lag, anicteric sclera, pupils equal round reactive to light ENT: Nose and ears atraumatic Neck: No cervical lymphadenopathy, trachea midline, supple Mouth: no lip lesion, mucus membranes moist Cardiovascular: S1S2 reg, no murmur, positive dorsalis pedis pulse bilateral, no edema Lungs: CTA bilateral, no rhonchi, no rales, no accessory muscle use Abdominal: soft, nontender to palpation, no guarding, diffuse thoracic paravertebral tenderness Ext: muscle strength 5 out of 5 in all 4 extremities grossly, no gross muscle atrophy, no contractures, Neuro: CN II-XI grossly intact, no gross focal neuro deficits Psych: Alert, oriented, appropriate affec Assessment/Plan: Hyponatremia -Long-standing history -Possibly drug-induced -Sodium improving Thoracic spinal compression fracture -Orthopedics consulted - no acute interventions Constipation -Senna twice a day This is an update note for patient , for full note on [01/10/22 at 4:49]. There is no charge associated with this note.
[2022-01-10] MEDS ORDERED: IPRATROPIUM-ALBUTEROL 3 ML NEB INHALATION PRN (13:42)
[2022-01-10] MEDS: SENNOSIDES 8.6 MG TAB PO SCH ×2 (13:57→20:36)
[2022-01-10] MEDS: ATORVASTATIN 40 MG TAB PO SCH (13:58)
[2022-01-10] MEDS: MELOXICAM 7.5 MG TAB PO SCH (13:58)
[2022-01-10] MEDS: HYDROcodone/APAP 10-325MG 1 EACH TAB PO PRN ×2 (14:00→20:29)
[2022-01-10] MEDS: PANTOPRAZOLE 40 MG TABLET PO SCH (14:00)
[2022-01-10 14:04] VITALS: RESP 16
[2022-01-10] MEDS: LEVOTHYROXINE 125 MCG TAB PO SCH (14:07)
[2022-01-10] MEDS: ESCITALOPRAM 20 MG TAB PO SCH (14:07)
[2022-01-10] MEDS ORDERED: NICOTINE GUM (POLACRILEX) 2 MG GUM BUCCAL PRN (14:13)
[2022-01-10] MEDS: LORazepam 1 MG TAB PO PRN (20:29)
[2022-01-10] MEDS: SYMBICORT 160-4.5 MCG INHALER INHALATION SCH (21:43)
[2022-01-11] MEDS: HEPARIN SODIUM,PORCINE/PF 5,000 UNIT/0.5 ML SYRINGE SQ SCH ×4 (00:58→23:21)
[2022-01-11] MEDS: LEVOTHYROXINE 125 MCG TAB PO SCH (06:27)
[2022-01-11] MEDS: SYMBICORT 160-4.5 MCG INHALER INHALATION SCH ×2 (08:02→20:28)
[2022-01-11] MEDS ORDERED: MAGNESIUM CITRATE 296 ML BOTTLE PO ONE (09:36)
[2022-01-11] MEDS ORDERED: polyethylene glycoL 3350 17 GM POWD.PACK PO STA (09:45)
[2022-01-11] MEDS: HYDROcodone/APAP 10-325MG 1 EACH TAB PO PRN ×2 (10:28→22:21)
[2022-01-11] MEDS: PANTOPRAZOLE 40 MG TABLET PO SCH (10:28)
[2022-01-11] MEDS: ESCITALOPRAM 20 MG TAB PO SCH (10:28)
[2022-01-11] MEDS: MELOXICAM 7.5 MG TAB PO SCH (10:30)
[2022-01-11] MEDS: ATORVASTATIN 40 MG TAB PO SCH (10:31)
[2022-01-11] MEDS: SENNOSIDES 8.6 MG TAB PO SCH ×2 (10:31→21:26)
[2022-01-11 11:30] LABS: African American GFR (CKD) 101.5 (60.0-200.0); Anion Gap 10.8 mmol/L (10.00-18.00); BUN/Creat Ratio 11.86 Ratio (12.00-20.00); Blood Urea Nitrogen 9.1 mg/dL (9.0-27.0); Calcium 8.7 mg/dL (8.7-10.3); Carbon Dioxide 21.8 mmol/L (20.0-27.5); Non-African American GFR(CKD) 87.6 (60.0-200.0); Potassium 4.3 mmol/L (3.5-5.5)
--- NOTE | 2022-01-11 11:32 | P.PN ---
Subjective Progress Note Date: 01/11/22 Principal diagnosis: Back pain Patient examined today at bedside, he is sleeping on initial exam. He is easily awoken while today. He states the pain is slightly better compared to yesterday. He did get some sleep last night which he does feel has helped. He still continues to have mid region back pain. He denies any numbness or tingling in the bilateral upper or lower extremity is. He denies any acute changes in bowel or bladder function. He continues to be constipated, he is passing gas. Objective - Vital Signs Vital signs: Vital Signs Temp 98.3 F 01/11/22 05:00 Pulse 60 01/11/22 05:00 Resp 16 01/11/22 05:00 BP 101/48 01/11/22 05:00 Pulse Ox 93 L 01/11/22 05:00 FiO2 Intake & Output 01/10/22 01/11/22 01/11/22 18:59 06:59 18:59 Weight 68.039 kg Other: # Voids 3 0 - Exam Gen: AOx3, NAD VSS stable at this time Integument: No obvious open lesions or examined throughout the cervical, thoracic or lumbar spine. There is no obvious ecchymosis or areas of soft tissue swelling. Palpation: Nontender with palpation to the cervical and lumbar spine. He is tender with palpation and the paravertebral muscles on the right side near the T6-T7 vertebrae. He has mild midline tenderness in that region. ROM: Full range of motion in all major muscle groups of the bilateral upper and lower extremities. 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 55 strength appreciated in the bilateral lower extremities with hip flexion, knee extension, knee flexion, plantar flexion, dorsiflexion, EHL, FHL Reflexes: 2/4 in all UE and LE Negative Genna's bilaterally Negative Babinski bilaterally Negative Clonus bilaterally - Labs CBC & Chem 7: 01/09/22 21:19 01/10/22 10:39 Labs: Abnormal Lab Results - Last 24 Hours (Table) 01/10/22 Range/Units 10:39 Sodium 131 L (137-145) mmol/L Assessment and Plan Assessment: Back pain T7 vetebral body compression fracture Multiple medical comorbidities Plan: Plan: No orthopedic surgical intervention is recommended at this time We again discussed possible treatment options, would like to continue with conservative measures. Patient will avoid heavy lifting, bending or twisting. We are recommending the patient follow-up in the outpatient setting in the next 1-2 weeks for recheck and evaluation by Dr. Pop Medical recommendations Weight-bear as tolerated Pain control, would recommend utilizing is normally prescribed medication, consider muscle relaxers GI and DVT prophylaxis per primary medical service Orthopedically patient is stable at this time, we will be signing off. Please contact our office with any further questions. Follow-up information will be placed and discharge plan
[2022-01-11] MEDS ORDERED: bisacodyL 10 MG SUPP RECTAL STA ×2 (15:08→18:35)
--- NOTE | 2022-01-11 15:53 | P.PN ---
Subjective Progress Note Date: 01/11/22 Principal diagnosis: back pain Hospital Course: 76-year-old male with history of chronic pancreatitis, dyslipidemia, hypothyroidism presented for acute on chronic back pain. Thoracic spine x-ray revealed a T7 compression fracture which was previously noted, and has progressed. No definitive acute fracture noted. Orthopedics was consulted. Thoracic spine CT revealed progression of T7 vertebral body compression fracture with now greater than 70% height loss. No significant spinal canal stenosis. Moderate bilateral neural foraminal stenosis at level T7to T8. Orthopedics recommended conservative management. Patient also has opiate-induced constipation, started on senna and MiraLAX. Subjective: Patient seen and examined at bedside. No acute events overnight. Patient continues to have minimal back pain, has constipation. No bowel movements as of yet. He denies any chest pain, shortness of breath, nausea, vomiting, urinary issues. He is passing gas. Pertinent positives and negatives as discussed above, a complete review of systems was performed and all other systems are negative. Vitals Signs Reviewed. General: nontoxic, no distress, appears at stated age Derm: warm, dry Head: atraumatic, normocephalic, symmetric Eyes: EOMI, no lid lag, anicteric sclera Mouth: no lip lesion, mucus membranes moist Cardiovascular: S1S2 reg, no murmur Lungs: CTA bilateral, no rhonchi, no rales , no accessory muscle use Abdominal: soft, nontender to palpation, no guarding, no appreciable organomegaly Ext: no gross muscle atrophy, no edema, no contractures Neuro: CN II-XI grossly intact, no focal neuro deficits Psych: Alert, oriented, appropriate affect Assessment and Plan: Chronic Hyponatremia -Euvolemic -Stable sodium levels -Possibly related to medication T7 spinal compression fracture Acute on chronic back pain -Orthopedics consult -Conservative management -Pain control Opiate-induced Constipation -Senna and MiraLAX -Bisacodyl suppository Chronic medical problems: Hyperthyroidism Dyslipidemia chronic pancreatitis - holding creon Mood disorder -Medication reviewed and reconciled DVT ppx: Heparin subcu Code status: Full code Anticipated discharge place: Home Anticipated discharge time: Tomorrow Objective - Vital Signs Vital signs: Vital Signs Temp 97.4 F L 01/11/22 12:08 Pulse 76 01/11/22 12:08 Resp 16 01/11/22 12:08 BP 126/70 01/11/22 12:08 Pulse Ox 98 11/09/22 12:08 FiO2 Intake & Output 01/10/22 01/11/22 01/11/22 18:59 06:59 18:59 Intake Total 200 Balance 200 Weight 68.039 kg Intake: Oral 200 Other: # Voids 3 0 - Labs CBC & Chem 7: 01/09/22 21:19 01/11/22 04:41 Labs: Abnormal Lab Results - Last 24 Hours (Table) 01/11/22 Range/Units 04:41 Sodium 130 L (135-145) mmol/L BUN/Creatinine Ratio 11.86 L (12.00-20.00) Ratio
[2022-01-12] MEDS: LORazepam 1 MG TAB PO PRN (00:36)
[2022-01-12] MEDS ORDERED: NA PHOS,M-B/NA PHOS,DI-BA 133 ML ENEMA RECTAL ONE (01:26)
[2022-01-12 05:14] VITALS: BP 133/76; PULSE 62; TEMP 97.5
[2022-01-12] MEDS: LEVOTHYROXINE 125 MCG TAB PO SCH (06:17)
[2022-01-12] MEDS: SYMBICORT 160-4.5 MCG INHALER INHALATION SCH (07:56)
[2022-01-12] MEDS: ATORVASTATIN 40 MG TAB PO SCH (09:43)
[2022-01-12] MEDS: MELOXICAM 7.5 MG TAB PO SCH (09:43)
[2022-01-12] MEDS: SENNOSIDES 8.6 MG TAB PO SCH (09:44)
[2022-01-12] MEDS: ESCITALOPRAM 20 MG TAB PO SCH (09:44)
[2022-01-12] MEDS: HEPARIN SODIUM,PORCINE/PF 5,000 UNIT/0.5 ML SYRINGE SQ SCH (09:44)
[2022-01-12] MEDS: PANTOPRAZOLE 40 MG TABLET PO SCH (09:44)
--- NOTE | 2022-01-12 13:17 | P.DS ---
Providers Date of admission: 01/09/22 22:52 Expected date of discharge: 01/12/22 Attending physician: Ivan Munson MD Consults: 01/09/22 23:58 Consult Physician Urgent Consulting Provider: Shaan Pop Consult Reason/Comments: T7 compression fracture Do you want consulting provider notified?: Yes [facility] Course: Discharge Diagnosis: Euvolemic hypotonic hyponatremia T7 spinal compression fracture Constipation Hypothyroidism Dyslipidemia Chronic pancreatitis Hospital Course: 76-year-old male with history of chronic pancreatitis, dyslipidemia, hypothyroidism presented for acute on chronic back pain. Thoracic spine x-ray revealed a T7 compression fracture which was previously noted, and has progressed. No definitive acute fracture noted. Orthopedics was consulted. Thoracic spine CT revealed progression of T7 vertebral body compression fracture with now greater than 70% height loss. No significant spinal canal stenosis. Moderate bilateral neural foraminal stenosis at level T7to T8. Orthopedics recommended conservative management. Patient also has opiate-induced constipation, started on senna. Patient had a BM prior to discharge. Patient seen and examined at bedside. Vital signs reviewed and stable. General: nontoxic, no distress, appears at stated age Derm: warm, dry Head: atraumatic, normocephalic, symmetric Eyes: EOMI, no lid lag, anicteric sclera Mouth: no lip lesion, mucus membranes moist Cardiovascular: S1S2 reg, no murmur Lungs: CTA bilateral, no rhonchi, no rales , no accessory muscle use Abdominal: soft, nontender to palpation, no guarding, no appreciable organomegaly Ext: no gross muscle atrophy, no edema, no contractures Neuro: CN II-XI grossly intact, no focal neuro deficits Psych: Alert, oriented, appropriate affect A total of 38 minutes of time were spent preparing this complex discharge summary. Patient was discharged on 01/12/22 at 9:14. Patient Condition at Discharge: Stable Plan - Discharge Summary Discharge Rx Participant: No New Discharge Prescriptions: New Sennosides [Senokot] 8.6 mg PO BID #60 tab Continue Ipratropium/Albuterol Sulfate [Combivent Respimat Inhaler] 1 puff INHALATION RT-QID PRN PRN Reason: Shortness Of Breath HYDROcodone/APAP 10-325MG [[place] 10-325] 1 tab PO BID PRN PRN Reason: Pain Omeprazole 20 mg PO BID Meloxicam 15 mg PO DAILY LORazepam [Ativan] 1 mg PO HS PRN PRN Reason: Anxiety Atorvastatin [Lipitor] 40 mg PO DAILY Econazole Nitrate [Econazole Nitrate 1%] 1 applic TOPICAL BID PRN PRN Reason: Rash Escitalopram [Lexapro] 20 mg PO DAILY Levothyroxine Sodium [Synthroid] 125 mcg PO DAILY Budesonide/Formoterol Fumarate [Symbicort 160-4.5 Mcg Inhaler] 2 puff INHALATION RT-BID Ibandronate Sodium [Boniva] 150 mg PO Q30D Discontinued Lipase/Protease/Amylase [Emiliano Inman 24,000 Unit Capsule] 24,000 units PO AC-BID Discharge Medication List HYDROcodone/APAP 10-325MG [[place] 10-325] 1 tab PO BID PRN 06/11/18 [History] Ipratropium/Albuterol Sulfate [Combivent Respimat Inhaler] 1 puff INHALATION RT- QID PRN 06/11/18 [History] Meloxicam 15 mg PO DAILY 06/11/18 [History] Omeprazole 20 mg PO BID 06/11/18 [History] Escitalopram [Lexapro] 20 mg PO DAILY 01/04/21 [History] LORazepam [Ativan] 1 mg PO HS PRN 01/04/21 [History] Atorvastatin [Lipitor] 40 mg PO DAILY 07/23/21 [History] Levothyroxine Sodium [Synthroid] 125 mcg PO DAILY 07/23/21 [History] Budesonide/Formoterol Fumarate [Symbicort 160-4.5 Mcg Inhaler] 2 puff INHALATION RT-BID 01/10/22 [History] Econazole Nitrate [Econazole Nitrate 1%] 1 applic TOPICAL BID PRN 01/10/22 [History] Ibandronate Sodium [Boniva] 150 mg PO Q30D 01/10/22 [History] Sennosides [Senokot] 8.6 mg PO BID #60 tab 01/12/22 [Rx] Follow up Appointment(s)/Referral(s): Shaan Pop DO [Doctor of Osteopathic Medicine] - 01/24/22 10:00 am (YOU WILL BE SEEN BY NP. KASSY) Cale Arenas DO [Primary Care Provider] - 11/18/22 2:00 pm ([place] office) Patient Instructions/Handouts: Vertebral Compression Fracture (DC), Hyponatremia (GEN) Activity/Diet/Wound Care/Special Instructions: Orthopedic discharge instructions: 1. Avoid excessive twisting and bending, avoid heavy lifting 2. Recommend weight-bear as tolerated 3. Plan for [facility] [address] Pop, contact office for any questions Please see your PCP in 1-2 weeks. Discharge Disposition: HOME SELF-CARE
== END 2022-01-12 11:05 | disposition home or self-care (01) | DRG 543 ==
LOC: EC 19:48 → 5NMEDONC 22:52
PROVIDERS: ADMIT Internal Medicine; ATTEND Internal Medicine
DX: M48.54XA Collapsed vertebra, not elsewhere classified, thoracic region, initial encounter for fracture (principal); C34.90 Malignant neoplasm of unspecified part of unspecified bronchus or lung; E87.1 Hypo-osmolality and hyponatremia; K86.1 Other chronic pancreatitis; E03.9 Hypothyroidism, unspecified; I25.10 Atherosclerotic heart disease of native coronary artery without angina pectoris; M48.04 Spinal stenosis, thoracic region; K59.03 Drug induced constipation; T40.605A Adverse effect of unspecified narcotics, initial encounter; J44.9 Chronic obstructive pulmonary disease, unspecified; E78.5 Hyperlipidemia, unspecified; E05.90 Thyrotoxicosis, unspecified without thyrotoxic crisis or storm; K21.9 Gastro-esophageal reflux disease without esophagitis; M19.90 Unspecified osteoarthritis, unspecified site; E87.8 Other disorders of electrolyte and fluid balance, not elsewhere classified; F39 Unspecified mood [affective] disorder; G89.29 Other chronic pain; Z79.1 Long term (current) use of non-steroidal anti-inflammatories (NSAID); Z79.890 Hormone replacement therapy; Z79.899 Other long term (current) drug therapy; Z85.118 Personal history of other malignant neoplasm of bronchus and lung; Z87.891 Personal history of nicotine dependence; Z92.3 Personal history of irradiation; X58.XXXA Exposure to other specified factors, initial encounter; Z86.14 Personal history of Methicillin resistant Staphylococcus aureus infection; Z90.49 Acquired absence of other specified parts of digestive tract
CPT/HCPCS: 36415; 72072; 72128; 80048; 80053; 81003; 82150; 82570; 83605; 83690; 83930; 83935; 84300; 85025; 85610; 85730; 93005; 94640; 96361; 96374; 96375; 99284

== ENCOUNTER 2022-02-09 10:25 | Day surgery (SDC) | payer MEDICARE ==
[2022-02-02 11:10] VITALS: BMI 23.5
[~2022-02-09 10:25] MED LIST: ACETAMINOPHEN TAB 500 MG TAB PO PRN; GABAPENTIN 300 MG CAP PO PRN; ONDANSETRON 4 MG/2 ML VIAL IVP PRN; TRANEXAMIC ACID IN NACL,ISO-OS 1,000 MG in SALINE 1 100ML.BAG IVPB PRN
[2022-02-09] MEDS ORDERED: LACTATED RINGERS 1,000 ML IV ONE ×2 (11:37→12:59)
--- NOTE | 2022-02-09 12:12 | P.HPOR ---
History of Present Illness H&P Date: 02/09/22 Chief Complaint: T back pain 76 yo presents after working in garden with thoracic back pain that is refractory to conservative measures. He c/p pain in back that radiates to ribs. Denies any SHARMA, f/c/sob/cp at this time. States no leg pain. No bowel or bladder issues. States ready for surgery. Review of Systems 14 points review of systems completed and as stated in HPI, all other systems reviewed are negative. Past Medical History Past Medical History: Coronary Artery Disease (CAD), Cancer, COPD, GERD/Reflux, Hyperlipidemia, Osteoarthritis (OA), Thyroid Disorder Additional Past Medical History / Comment(s): compression fx to back, 2003 NSCLC/adenocarcinoma with R upper lobe resection, 2008 R middle lobe granuloma/wedge resection, 2014 suspicious lesion RML/biopsy+/tx with radiation, 2018 L upper lobe lung cancer treated with radiation, 2019 new L lung lesions/nondiagnostic biopsy/treated with chemo/radiation, 2020 immunotherapy, pt states currently no treatment for lung cancer, chronic pancreatitis, 2021 NSTEMI/cardiac cath done/treated medically, back pain, 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 History of Any Multi-Drug Resistant Organisms: MRSA Date of last positivie culture/infection: 2003 MDRO Source:: BACK Past Surgical History: Cholecystectomy, Heart Catheterization, Orthopedic Surgery Additional Past Surgical History / Comment(s): 2003 RUL lobectomy, 2008 R middle lobe wedge resection, bilateral lung biopsies/EBUS, R iknee arthroscopies x2, 2021 cardiac cath. Past Anesthesia/Blood Transfusion Reactions: No Reported Reaction, Motion Sickness Smoking Status: Former smoker - Past Family History Father Family Medical History: Cancer Mother Family Medical History: Dementia Additional Family Medical History / Comment(s): Crohn's disease Medications and Allergies Home Medications Medication Instructions Recorded Confirmed Type HYDROcodone/APAP 10-325MG [[place] 1 tab PO BID PRN 06/11/18 02/09/22 History 10-325] Ipratropium/Albuterol Sulfate 1 puff INHALATION RT-QID 06/11/18 02/09/22 History [Combivent Respimat Inhaler] Meloxicam 15 mg PO DAILY 06/11/18 02/09/22 History Omeprazole 20 mg PO QAM 06/11/18 02/09/22 History Escitalopram [Lexapro] 20 mg PO QAM 01/04/21 02/09/22 History LORazepam [Ativan] 1 mg PO HS PRN 01/04/21 02/09/22 History Atorvastatin [Lipitor] 40 mg PO DAILY 07/23/21 02/09/22 History Levothyroxine Sodium [Synthroid] 125 mcg PO QAM 07/23/21 02/09/22 History Budesonide/Formoterol Fumarate 2 puff INHALATION RT-BID 01/10/22 02/09/22 History [Symbicort 160-4.5 Mcg Inhaler] Sennosides [Senokot] 8.6 mg PO BID #60 tab 01/12/22 02/09/22 Rx Lipase/Protease/Amylase [Creon Dr 1 capsule PO BID 02/02/22 02/09/22 History 24,000 Unit Capsule] Allergies Allergy/AdvReac Type Severity Reaction Status Date / Time No Known Allergies Allergy Verified 02/02/22 09:13 Physical Examination Osteopathic Statement: *. No significant issues noted on an osteopathic structural exam other than those noted in the History and Physical/Consult. PHYSICAL EXAMINATION: Vitals: stable at this time General: Awake, alert, appropriate for age, in no acute distress. HEENT: No unusual neck masses around region of lateral neck triangle, thyroid, supraclavicular groove. [Heart: Regular rate and rhythm, normal S1, S2 and no murmur/gallop.] [Lungs: Clear to auscultation bilaterally with no use of accessory muscles.] Extremities: Skin warm and dry without no acute lesions, coloration, temperature, skin intact, no tenderness or erythema. Integument: Hairy patches: Absent Dorsal skin dimples: Absent Cafe au lait spots: Absent Surgical incisions: [] Palpation: Please see Pain drawing on Intake sheet for further detail. (Tenderness = T, Nontender = NT, Swelling = S, Ecchymosis = E) Findings on Midline and paraspinal palpation and percussion: Cervical: NT Thoracic: tenderness to palpation midline thoracic spine Lumbar: NT Sacral: NT Special findings: none POSTURAL and MUSCULO-SKELETAL EVALUATION: Coronal Balance: Neutral Recumbent testing: Patient can lay flat on back Sagittal Balance: positive Shoulder Profile: [Level] VASCULAR STATUS : Wrist Pulses: [2/4 bilateral radial and ulnar] Pedal Pulses: [2/4 bilateral DP and PT] Color: [Normal] Edema: [None] NEUROLOGIC EXAMINATION: Mental Status: Awake and alert, fully oriented, with normal attention, concentration and memory, and fluent, appropriate speech. Cranial Nerves: I: Olfactory not tested. II: Visual acuity normal, no visual field deficit noted with confrontation. III,IV: Normal pupillary reflexes & intact extraocular movements without nystagmus. V,: Intact symmetrical facial sensation. VII: Intact symmetrical facial motor movement VIII: Hearing intact. IX,X: Intact gag, swallow, & normal voice. XI: Sternocleidomastoid, trapezius function intact. XII: Tongue midline with normal movements. Special Tests: L'hermitte's Sign: Absent Spurling'Sign: Absent Bilateral Cubital percussion test: Absent Bilateral Rosina-Tinel sign - Carpal region: Absent Bilateral Straight Leg Raising: Absent Bilateral Motor Exam (0-5/5, N/T) STRENGTH UPPER EXTREMITY [5]/5 in all major muscle groups of the UE b/l [Except:] LOWER EXTREMITY [5]/5 in all major muscle groups of the LE b/l [Except:] REFLEXES Upper Extremity: RIGHT [2]/4 LEFT [2]/4 Lower Extremity: RIGHT [2]/4 LEFT [2]/4 Pathological Reflexes Ramachandran's: RIGHT [Absent] LEFT [Absent] Babinski: RIGHT [Absent] LEFT [Absent] Clonus: RIGHT [None] LEFT [None] SENSORY Pain and LT sense [Intact C5-T1 and L2-S1] Dermatomal deficit [None] Gait and Functional Evaluation: Ambulatory aids: cane Results Xray and Ct are reviewed which show T7 VCF 40% compression of superior endplate with associated kyphotic alignment. No retropulsion. NO stenosis. No lesions noted. No other fractures at this time. Assessment and Plan Assessment: 76 yo male T7 VCF 40% compression Mechanical thoracic back pain Plan: Spine Surgery Clinical and Risk Review Saulo is a 76 yo male presenting for evaluation of T back pain. It was my pleasure to have seen and examined Saulo. In our visit today we have had a chance to go over subjective complaints, physical examination findings and treatments including the natural course history without intervention and various interventional options. The patients imaging demonstrates T7 VCF 40% compression. On physical exam, Saulo demonstrates TTP of T spine over the T7-9 area midline with some paraspinal TTP. There is kyphotic alignment. I have explained to the patient that as their condition progresses it will cause further neurological deficits and eventual paralysis. Based on the patients imaging, physical exam, and the rapid progression and disabling nature of their symptoms, at this time I recommend surgery in the form or a: [id number] with biopsy I discussed the risk and benefits of this procedure at length with Saulo. The patient His agreed to considered pursuing the procedure abovementioned. Prior to surgery, she should follow up with her PCP (Cardio, ID, IM etc) for clearance. Questions were invited and answered, and the patient wishes to proceed as outlined below. Currently, I am recommendin. T7 kyphoplasty with biopsy 2. Follow up with PCP for surgical clearance 3. Review of surgical risks and benefits as well as an educational packet on the proposed surgical procedure. Risks: All surgical procedures come with inherent risks, including those related to positioning, anesthesia, intraoperative findings, and postoperative complications. It is important to understand that surgery does not come with any guarantee of a successful outcome as complications and adverse events are always possible. The patient was given a handout in office today discussing the surgical procedure and risks associated with the intervention, both of which were discussed with the patient. These risks include but are not limited to the following: * Experiencing same, different or even worse symptoms in back, neck, arms, or legs compared to before surgery. * Requiring further surgery or other forms of treatment presently or at some time in the future at same or other levels of the intended spine surgery. * On an extreme but fortunately relatively rare basis severe complication such as blindness, stroke, heart attack, temporary and/or permanent nerve injury, paralysis, coma, or may occur, sometimes without known explanation. * Surgical complications may include but are not limited to risk of infection, fluid accumulation in the surgical dissection site, including a seroma or hematoma, that requires additional surgery, wound drainage, bleeding, new numbness or weakness, vision changes/loss, spinal fluid leakage, non-healing and/or infected incision, headaches, difficulty or inability to swallow, hoarseness, hemopneumothorax, pneumothorax, impotence, retrograde ejaculation, vaginal dryness; injury to nerves, spinal cord, blood vessels, lymphatics or other vital organs (i.e., bowel injury, injury to the great vessels); heterotopic bone formation; complications related to the hardware such as screws, rods, cages including misplaced hardware, device failure, instrumentation at the wrong spine level, hardware fracture/breakage, or hardware loosening; vertebral failure of the spinal column above or below the newly placed hardware; retained surgical instrumentations or devices and the need for further surgery. * Medical risks of the planned spine surgery include but are not limited to generalized Infections to the whole body or local areas outside of the surgical site (sepsis), heart attack, bleeding, anaphylaxis, meningitis, seizure, epilepsy, hearing loss, burn franco, laceration of the head or other areas of the body, bruising, hypersensitivity of the skin, bladder over distension; allergic reaction; shoulder injury related to positioning; fat, blood and air clots to other areas of the body like heart, lungs, brain; failure of internal organs such as lungs, kidneys, liver and excessive bleeding. If blood transfusions are necessary, note that transfusions may cause intolerance reactions such as anaphylaxis or other complex reactions. * Despite best efforts, the results of spine surgery might not heal in terms of bone, soft tissues such as skin, fascia, ligaments, and joints. Additionally, in order to achieve best possible results, spine surgery may be carried out beyond the initially planned levels and involve decompression, fusion including insertion of hardware at levels other than the original intended area of surgical interest change some portions of the procedure in order to ensure the best possible outcomes. * With spine surgery and spinal fusion, there are different off label uses of instrumentation (devices, implants and hardware) as well as biological substances (bone morphogenic proteins, demineralized bone matrix) as well as using extra bone from allograft sources (i.e. cadaver bone) or autograft (iliac crest bone, ribs, or the spine itself). The patient has been given information about these practices and their inherent risks and benefits. The patient has had a chance to review all the listed information, has been given print outs detailing this information, and has had all his/her questions answered to their satisfaction. It was my pleasure to have seen and examined Saulo. In our visit today we have had a chance to go over my understanding of our patient's current condition, the natural course history without intervention and various interventional options. Questions were invited and answered, and the patient wishes to proceed as outlined above. I have seen and examined the patient for 25 minutes and we have spent more than 50% of the time in repeat and detailed counseling about the patient's condition, its natural course history with out and as much as can be predicted with surgery and re-review of various surgical treatment options. In conclusion, Saulo and his requested we proceed with the above suggested surgery and are willing to accept risks and limitations of the suggested surgery as nature of the disease process and our best attempts at treatment for the condition. Thank you again for allowing us to be part of your patient's care. Please don't hesitate to contact me if you have any further questions. Signed and authenticated by: Shaan Irwin [facility] [address], [address] [address]
[2022-02-09] MEDS ORDERED: PROPOFOL 10 MG/ML 20 ML VIAL IV ONE (12:14)
[2022-02-09] MEDS ORDERED: fentaNYL (PF) 50 MCG/ML 2 ML AMP ONE (12:14)
[2022-02-09] MEDS ORDERED: LIDOCAINE 2% INJ 20 MG/ML (2 ML VIAL) ONE (12:14)
[2022-02-09] MEDS ORDERED: WATER FOR INJECTION, STERILE 10 ML VIAL IV ONE (12:14)
[2022-02-09] MEDS ORDERED: GLYCOPYRROLATE 0.2 MG/ML 2 ML VIAL ONE (12:14)
[2022-02-09] MEDS ORDERED: MIDAZOLAM 2 MG/2 ML VIAL ONE (12:14)
[2022-02-09] MEDS ORDERED: ePHEDrine 50 MG/ML 1 ML VIAL ONE (12:14)
[2022-02-09] MEDS ORDERED: SUCCINYLCHOLINE CHLORIDE 200 MG/10 ML VIAL IV ONE (12:14)
[2022-02-09] MEDS ORDERED: PHENYLEPHRINE-0.9% NACL SYG 1,000 MCG/10 ML SYRINGE ONE (12:14)
[2022-02-09] MEDS ORDERED: BUPIVACAIN-EPI 0.25%-1:200,000 30 ML VIAL SQ ONE (12:20)
[2022-02-09] MEDS ORDERED: IOPAMIDOL M200 10 ML VIAL MISCELLANE ONE (12:20)
--- NOTE | 2022-02-09 13:14 | FL ---
EXAMINATION TYPE: FL guidance operating room DATE OF EXAM: 02/09/2022 HISTORY: Fluoroscopy time 51 seconds of fluoroscopy provided. IMPRESSION: 1. Fluoroscopy time.
--- NOTE | 2022-02-09 13:18 | XR ---
Fluoroscopy History: KYPHOPLASTY T7 KYPHOPLASTY T7. 51 SEC FL TIME. 4 PICS ON SYN
--- NOTE | 2022-02-09 13:20 | P.DS ---
Providers Expected date of discharge: 02/09/22 Attending physician: Shaan Pop DO Primary care physician: [facility] Course: Hospital Course: The patient was evaluated preoperatively and found to have the diagnosis of T7 compression fracture. They underwent appropriate preoperative care and were willing to undergo the intended procedure. They underwent a successful T7 kyphoplasty, were recovered appropriately. Their pain was well controlled through their stay and they were started on appropriate medications. The patient will be discharged home with appropriate medications, instructions and follow-up information and in stable condition. Patient Condition at Discharge: Good Plan - Discharge Summary Discharge Rx Participant: No New Discharge Prescriptions: New HYDROcodone/APAP 10-325MG [[place] 10-325] 1 tab PO Q4-6H PRN #56 tab PRN Reason: Pain Sennosides/Docusate Sodium [Senna Plus 8.6-50 mg Tablet] 1 each PO DAILY PRN #20 tablet PRN Reason: Constipation cefaDROXiL [Duricef] 500 mg PO Q12HR 3 Days #6 cap Cyclobenzaprine [Flexeril] 5 mg PO BID #30 tablet No Action Ipratropium/Albuterol Sulfate [Combivent Respimat Inhaler] 1 puff INHALATION RT-QID HYDROcodone/APAP 10-325MG [[place] 10-325] 1 tab PO BID PRN PRN Reason: Pain Omeprazole 20 mg PO QAM Meloxicam 15 mg PO DAILY LORazepam [Ativan] 1 mg PO HS PRN PRN Reason: Anxiety Atorvastatin [Lipitor] 40 mg PO DAILY Escitalopram [Lexapro] 20 mg PO QAM Levothyroxine Sodium [Synthroid] 125 mcg PO QAM Budesonide/Formoterol Fumarate [Symbicort 160-4.5 Mcg Inhaler] 2 puff INHALATION RT-BID Sennosides [Senokot] 8.6 mg PO BID #60 tab Lipase/Protease/Amylase [Creon Dr 24,000 Unit Capsule] 1 capsule PO BID Discharge Medication List HYDROcodone/APAP 10-325MG [[place] 10-325] 1 tab PO BID PRN 06/11/18 [History] Ipratropium/Albuterol Sulfate [Combivent Respimat Inhaler] 1 puff INHALATION RT- QID 06/11/18 [History] Meloxicam 15 mg PO DAILY 06/11/18 [History] Omeprazole 20 mg PO QAM 06/11/18 [History] Escitalopram [Lexapro] 20 mg PO QAM 01/04/21 [History] LORazepam [Ativan] 1 mg PO HS PRN 01/04/21 [History] Atorvastatin [Lipitor] 40 mg PO DAILY 07/23/21 [History] Levothyroxine Sodium [Synthroid] 125 mcg PO QAM 07/23/21 [History] Budesonide/Formoterol Fumarate [Symbicort 160-4.5 Mcg Inhaler] 2 puff INHALATION RT-BID 01/10/22 [History] Sennosides [Senokot] 8.6 mg PO BID #60 tab 01/12/22 [Rx] Lipase/Protease/Amylase [Creon Dr 24,000 Unit Capsule] 1 capsule PO BID 02/02/22 [History] Cyclobenzaprine [Flexeril] 5 mg PO BID #30 tablet 02/09/22 [Rx] HYDROcodone/APAP 10-325MG [[place] 10-325] 1 tab PO Q4-6H PRN #56 tab 02/09/22 [Rx] Sennosides/Docusate Sodium [Senna Plus 8.6-50 mg Tablet] 1 each PO DAILY PRN #20 tablet 02/09/22 [Rx] cefaDROXiL [Duricef] 500 mg PO Q12HR 3 Days #6 cap 02/09/22 [Rx] Follow up Appointment(s)/Referral(s): Cale Arenas DO [Primary Care Provider] - 1 Week Shaan Pop DO [Doctor of Osteopathic Medicine] - 2 Weeks Patient Instructions/Handouts: Kyphoplasty (DC), Pain Management (DC) Activity/Diet/Wound Care/Special Instructions: May remove dressing within 2 days. Maintain clean and dry. Patient may shower. There is one stitch and glue, allow soap and water to run over incision and pat dry. Glue will fall off on its own. Take pain medication as prescribed. Follow up in office in 2 weeks. Please feel free to contact the office for any questions or concerns. Discharge Disposition: HOME SELF-CARE
[2022-02-09 13:24] VITALS: RESP 16; TEMP 97
[2022-02-09 14:21] VITALS: BP 109/62; PULSE 82
--- NOTE | 2022-02-11 08:59 | P.OP ---
Date of Procedure: 02/09/22 Preoperative Diagnosis: 1. T7 VCF 40% 2. Mechanical back pain Postoperative Diagnosis: 1. T7 VCF 80% 2. Mechanical back pain Procedure(s) Performed: 1. T7 biopsy with kyphoplasty (06969) 2. fluoroscopic guided needle localization of T7 vertebral body Implants: [employer] Anesthesia: GETA Surgeon: Shaan Pop Pretzel Packer #1: Anastasiia Ayala Estimated Blood Loss (ml): 2 IV fluids (ml): 1,000 Urine output (ml): 0 Pathology: other (T7 vertebral body) Condition: stable Disposition: PACU Indications for Procedure: Saulo is a 76 yo male presenting for evaluation of T back pain. It was my pleasure to have seen and examined Saulo. In our visit today we have had a chance to go over subjective complaints, physical examination findings and treatments including the natural course history without intervention and various interventional options. The patients imaging demonstrates T7 VCF 40% compression. On physical exam, Saulo demonstrates TTP of T spine over the T7-9 area midline with some paraspinal TTP. There is kyphotic alignment. I have explained to the patient that as their condition progresses it will cause further neurological deficits and eventual paralysis. Based on the patients imaging, physical exam, and the rapid progression and disabling nature of their symptoms, at this time I recommend surgery in the form or a: [id number] with biopsy I discussed the risk and benefits of this procedure at length with Saulo. The patient His agreed to considered pursuing the procedure abovementioned. Prior to surgery, she should follow up with her PCP (Cardio, ID, IM etc) for clearance. Questions were invited and answered, and the patient wishes to proceed as outlined below. Currently, I am recommendin. T7 kyphoplasty with biopsy Description of Procedure: The patient was seen and examined in the preoperative area. All preoperative protocols were followed. Informed consent was obtained risks and benefits of the procedure were discussed at length. Risks including bleeding infection damage to the surrounding tissue and risk of reoperation were discussed with the patient. Risk of anesthesia up to and including was a discussed with the patient. These are outlined in the risk review. They were willing to accept these risks and all of the risks of surgery. The patient was given a weight- based dose of antibiotics in the form of 2 g Ancef. The patient was seen and evaluated by the anesthesia team who deemed them fit for surgery. The site was marked, the patient was willing to proceed with the procedure. The patient was transferred to the operative suite by the Department of anesthesia. They were then drifted off to sleep by the department anesthesia and GETA was performed. The patient tolerated this well. [ Once confirmation of lines and ventilation the patient was transferred to a [prone Guru table very carefully]. All bony prominences including wrists, elbows, axilla, chest, hips, and thighs, and feet were padded very well. Special attention was paid to the genitalia and these were padded accordingly. SCDs were placed on bilateral lower extremities and were connected. Arms were well padded and placed [on arm boards up and out in the 90/90 position]. Once in position, again we confirmed good ventilation capabilities and that lines were running appropriately. The patient's thoracic spine was then exposed. 1010s were placed outlining the incision site. Standard alcohol was used to clean the incision site and allowed to dry. C-arm was used for needle localization of T7 vertebral body and pedicles on AP and lateral we then to biomark the patient and confirm level for incision which was marked with a skin marker. Operative briefing was performed with all teams and everyone in agreement to proceed. The patient was then prepped and draped in a normal sterile fashion. Timeout was then performed and all parties were in agreement with the procedure to be performed. skin arnav was made over the previously marked area. Jamshidi was introduced into the pedicle and finally into the vertebral body through the pedicle cord or using AP lateral fluoroscopy. due to the patient's delay to surgery from the insurance company the fracture had collapsed more significantly than his preoperative films demonstrated. We advanced the Jamshidi as far anterior as possible while still maintaining inside the vertebral body. Once it was as anterior as possible within the body we then passed a drill followed by a curet followed by a biopsy needle. Biopsy was then sent for pathology. We then attempted to pass a balloon and inflated however there was not enough room to get full inflation. We then under pulsed lateral fluoroscopy cemented the vertebral body. There is no symmetric angiogram or myelogram. We then replaced the stylet and withdrew the Jamshidi there was no trailing. We then irrigated the wound and closed with a simple stitch and glue. The patient was transferred back to their hospital bed atraumatically. Patient was then awakened and extubated by the department of anesthesia having tolerated the procedure very well with no complications. They were transferred to the postoperative care unit in stable condition.
== END 2022-02-09 15:00 | disposition home or self-care (01) ==
LOC: OR 10:25
PROVIDERS: ATTEND Orthopaedic Surgery
DX: S22.060G Wedge compression fracture of T7-T8 vertebra, subsequent encounter for fracture with delayed healing (principal); I25.10 Atherosclerotic heart disease of native coronary artery without angina pectoris; J44.9 Chronic obstructive pulmonary disease, unspecified; K21.9 Gastro-esophageal reflux disease without esophagitis; E78.5 Hyperlipidemia, unspecified; M19.90 Unspecified osteoarthritis, unspecified site; E03.9 Hypothyroidism, unspecified; Z90.49 Acquired absence of other specified parts of digestive tract; Z87.891 Personal history of nicotine dependence; Z83.79 Family history of other diseases of the digestive system; Z79.1 Long term (current) use of non-steroidal anti-inflammatories (NSAID); Z79.51 Long term (current) use of inhaled steroids; Z79.899 Other long term (current) drug therapy
CPT/HCPCS: 22513; 88307; 72070; C1713; J2250; J0330; J0690; J2405; J3010; J2370; J2704; Q9966; J2001

== ENCOUNTER → 2022-06-14 | Outpatient (CLI) | payer MEDICARE ==
[2022-06-14 12:32] LABS: African American GFR (CKD) >90 (>60 ml/min/1.73 sqM); Blood Urea Nitrogen 11 mg/dL (9-20); Non-African American GFR(CKD) >90 (>60 ml/min/1.73 sqM)
--- NOTE | 2022-06-15 21:08 | CT ---
EXAMINATION TYPE: CT ChestAbdPelvis w con CT DLP: 1104 mGycm, Automated exposure control for dose reduction was used. DATE OF EXAM: 06/14/2022 1:56 PM COMPARISON: CT 01/10/2022, 12/28/2021 CLINICAL INDICATION:Male, 76 years old with history of C34.12, Hx lung ca, 6 month followup Technique: Multiple axial images of the chest, abdomen, and pelvis were obtained. Two-dimensional cor onal and sagittal reconstructions were obtained. Contrast used:100 mL of Isovue 300 with IV Contrast, Oral contrast used: with Oral Contrast Findings: CHEST: LUNGS/ PLEURA: * Interval increase in size of the right measuring up to 11 mm, previously 8 mm. Series 4 image 23. * Increased density about left upper lobe nodule measuring 7 mm personally measuring 5-6 mm. Series 4 image 13 * Spiculated mass near the anterior right pulmonary hilum is similar morphology given differences in respiration and technique * Stable left lower lobe peripheral posterior nodular density measuring 5 mm series 4 image 30. * Left upper lobe masslike scarring is unchanged from prior measuring 3.4 x 2.4 cm. As a similar mor phology to prior. No focal consolidation, pneumothorax or pleural effusion. There is streaky scarring changes in the ri ght lung base posteriorly. AIRWAY: Patent and unremarkable. HEART: Size within normal limits. Atherosclerosis of the coronary arteries. MEDIASTINUM: No gross evidence of adenopathy. VASCULATURE: No aortic aneurysm. No evidence for arterial central filling defect to suggest pulmonar y embolism. Limited evaluation of the more distal ulnar arterial vasculature due to bolus timing. MUSCULOSKELETAL: Right rib 7 and 8 rib fractures of which the rib 8 fracture is incompletely fused. S clerosis within the spine at area of compression deformity vertebroplasty changes. SOFT TISSUES/LYMPH NODES: Unremarkable. LOWER NECK: No significant findings. ABDOMEN: ABDOMEN LIVER: No suspicious masses. GALLBLADDER AND BILE DUCTS: Mild central intrahepatic biliary dilation, similar to prior. The gallbla dder appears surgically absent. PANCREAS: Tortuous nodular main pancreatic duct. There is multiple calcifications seen within the carl creatic parenchyma overall chronic pancreatitis changes and dilated main pancreatic duct is not signi ficantly changed. SPLEEN: Unremarkable. ADRENAL GLANDS: Unremarkable. KIDNEYS AND URETERS: No evidence of hydronephrosis or renal calculus. The ureters are unremarkable. Left renal cyst is unchanged from prior. PELVIS BLADDER: Unremarkable REPRODUCTIVE: Prostate is enlarged in size measuring 5.2 cm in transverse dimension. Median lobe hype rtrophy changes. ABDOMEN & PELVIS STOMACH AND BOWEL: No evidence of bowel obstruction. Scattered colonic diverticula present. Lateral s econd portion duodenal diverticulum is unchanged. PERITONEUM: No evidence of pneumoperitoneum or free fluid. VASCULATURE: Severe atherosclerotic calcifications are present throughout the abdominal aorta and its branches. MUSCULOSKELETAL: No acute osseous abnormalities LYMPH NODES: No gross evidence for lymphadenopathy. SOFT TISSUE/ABDOMINAL WALL: Fat-containing umbilical hernia. IMPRESSION: 1. Enlarging right lower lobe and left upper lobe pulmonary nodules concerning for progressive disea se. The remainder of the findings in the lung appear relatively stable. No evidence for adenopathy wi thin the field of view. 2. Prostatomegaly with median lobe hypertrophy correlate with serum PSA.
== END | disposition home or self-care (01) ==
LOC: RADCTMAIN 11:50
PROVIDERS: ATTEND Internal Medicine Hematology & Oncology
DX: C34.12 Malignant neoplasm of upper lobe, left bronchus or lung (principal); N40.0 Benign prostatic hyperplasia without lower urinary tract symptoms; F41.9 Anxiety disorder, unspecified; E03.9 Hypothyroidism, unspecified; R91.8 Other nonspecific abnormal finding of lung field; Z85.118 Personal history of other malignant neoplasm of bronchus and lung
CPT/HCPCS: 82565; 84520; 71260; 74177; 36415; Q9967

== ENCOUNTER → 2022-08-18 | Outpatient (CLI) | payer MEDICARE ==
--- NOTE | 2022-08-19 07:44 | PE ---
EXAMINATION TYPE: PET CT fusion skull to thigh DATE OF EXAM: 08/18/2022 CLINICAL INDICATION:Male, 77 years old with history of C34.12; TECHNIQUE: Following the intravenous administration of 11.1 mCi of F-18 FDG, whole body images are performed from the skull base to the midthigh. Images are reviewed on the computer in the coronal, a xial, and sagittal planes. Reconstructed rotating images are created on independent workstation and reviewed on the computer. A non-contrast CT is performed in conjunction with the PET scan. Glucose level 85 mg/dL COMPARISON: CT 06/14/2022, PET/CT 01/23/2020, FINDINGS: Mediastinal SUV mean is 1.7. Hepatic parenchyma SUV mean is 1.8. SKULL BASE AND NECK: No suspicious radiotracer activity. CHEST, MEDIASTINUM, AND HILAR REGION: * Bilateral perihilar suspected postsurgical change max SUV on the left measuring up to 1.7 within t he right up to max SUV 1.5. * Right lower lobe spares segment pulmonary nodule spiculated borders measuring 10 mm Max SUV 1.0. * Right lower lobe focus of metabolic activity Max SUV 1.3 with soft tissue and adjacent air cyst me asuring up to 10 mm. This has increased in soft tissue fullness compared to prior. Left upper lung pulmonary nodule measuring 8 mm increase in size in the interval max SUV 0.7. ABDOMEN AND PELVIS: No suspicious radiotracer activity. OSSEOUS STRUCTURES: No suspicious radiotracer activity. OTHER CT: Bilaterally aphakia. Bifurcations and coronary arteries. Secretions nearly pancreas suspicious for chronic pancreatitis. L eft renal cyst. Right nonobstructing calculi versus vascular septations. The gallbladder appears surg ically absent. Moderate stool burden. Scattered colonic diverticula. IMPRESSION: 1. Right upper and lower lobe pulmonary nodules measuring 10 mm each with increased radiotracer upta ke concerning for recurrent disease/metastatic. 2. Left upper lung pulmonary nodule continues to increase in size without elevated FDG activity abov e background levels. This could be due to its small size. Attention on follow-up imaging. 3. Left perihilar and right anterior perihilar suspected posttreatment change given low metabolic ac tivity.
== END | disposition home or self-care (01) ==
LOC: RADPETMAIN 11:41
PROVIDERS: ATTEND Surgery
DX: C34.12 Malignant neoplasm of upper lobe, left bronchus or lung (principal); R91.8 Other nonspecific abnormal finding of lung field
CPT/HCPCS: 78815; A9552

== ENCOUNTER → 2022-12-08 | Outpatient (CLI) | payer MEDICARE ==
--- NOTE | 2022-12-10 16:01 | PE ---
EXAMINATION TYPE: PET CT fusion skull to thigh DATE OF EXAM: 12/08/2022 COMPARISON: CT chest abdomen and pelvis 06/14/2022 Prior PET/CT: 08/18/2022 HISTORY: Left upper lobe lung cancer TECHNIQUE: Following the intravenous administration of 12.06 mCi of F-18 FDG, whole body images are performed from the skull base to the midthigh. Images are reviewed on the computer in the coronal, a xial, and sagittal planes. Reconstructed rotating images are created on independent workstation and reviewed on the computer. A localization and attenuation correction CT is performed in conjunction with the PET scan. DLP: 280.08 mGycm SCAN: Subsequent Blood glucose: 92 mg/dL Average Mediastinum SUV: 1.71 Average Liver SUV: 1.97 FINDINGS: NECK: No abnormal uptake THORAX: There is vague uptake within the area of pneumonitis within the right upper lung field, image 72, SUV 0.84. This area would be too small for diagnostic evaluation for metastasis. Close monitorin g is recommended. There is mild uptake within a punctate density within the anterior left upper lobe, image 67, SUV 0.9 9. This may be below normal threshold for metastasis evaluation. Additional punctate nodule at this l evel has an SUV value of 0.68. There is intermediate uptake through the left upper lobe mass has an SUV of 1.55, image 73. Intermedi ate uptake is also noted within the right hilar mass with an SUV of 1.54, image 86. Correlate for nadja ated lung cancer. Underlying pneumonia could be considered. There is a focus of intense radiotracer accumulation within a nodule in the periphery of the right mi d lung. Image 81, SUV 2.25. There is focal uptake within a nodule within the right middle lobe, imag e 101, SUV 3.63. Some increased radiotracer accumulation is at the right hilum, image 88, SUV 2.05. This appears dimin ished from comparison. ABDOMEN: No abnormal uptake PELVIS: No abnormal uptake OSSEOUS STRUCTURES: There is some intermediate uptake within the right lower cervical spine may be re lated to uncovertebral joint degenerative changes has an SUV of 2.4. Image 40. Suspicious uptake for osseous metastasis is not otherwise identified. LOCALIZATION CT: No significant changes. COMPARISON: Right upper lobe nodule in the periphery lateral position has increased radiotracer from comparison. Right renal lobe nodule has increased SUV value from comparison study. Left upper lobe no dule appears essentially stable in SUV. IMPRESSION: 1. Intermediate uptake within perihilar masslike areas could be related to treated neoplasm. No incre ased SUV from comparison study. 2. At least 2 right lung nodules with increased uptake suspicious for metastatic disease. These have increased SUV values from comparison. 3. There are several low to intermediate areas of uptake bilaterally within the lung calvert with low to intermediate uptake discussed above. Size however suggests these are below threshold for detection of metastasis and should be considered possible early metastatic disease. A marked interval change f rom comparison however is not evident. Close follow-up recommended.
== END | disposition home or self-care (01) ==
LOC: RADPETMAIN 10:59
PROVIDERS: ATTEND Internal Medicine Hematology & Oncology
DX: C34.12 Malignant neoplasm of upper lobe, left bronchus or lung (principal); R91.8 Other nonspecific abnormal finding of lung field
CPT/HCPCS: 78815; A9552

== ENCOUNTER 2022-12-28 12:42 | Day surgery (SDC) | payer MEDICARE ==
[2022-12-27 12:05] VITALS: BMI 20.9
[~2022-12-28 12:42] MED LIST changes: -ACETAMINOPHEN TAB 500 MG TAB PO PRN; +DEXAMETHASONE SOD PHOSPHATE 4 MG/ML 1 ML VIAL IV ONE; -GABAPENTIN 300 MG CAP PO PRN; +LACTATED RINGERS 1,000 ML IV SCH; +ONDANSETRON 4 MG/2 ML VIAL IVP ONE; -ONDANSETRON 4 MG/2 ML VIAL IVP PRN; -TRANEXAMIC ACID IN NACL,ISO-OS 1,000 MG in SALINE 1 100ML.BAG IVPB PRN; +fentaNYL (PF) 50 MCG/ML 2 ML AMP IV PRN
--- NOTE | 2022-12-28 13:29 | CT ---
EXAMINATION TYPE: CT chest wo con CT DLP: 242.2 mGycm, Automated exposure control for dose reduction was used. DATE OF EXAM: 12/28/2022 1:15 PM COMPARISON: PET/CT 12/08/2022, 08/18/2022, CT chest abdomen pelvis 06/14/2022 CLINICAL INDICATION:Male, 77 years old with history of ION BRONCH; [facility], pre-op bronch TECHNIQUE: Multiple axial images were obtained through the chest without IV contrast. Lack of IV or o ral contrast limits evaluation of solid and hollow organ viscera. . Coronal and sagittal reformats re viewed. For bronchoscopy planning purposes. FINDINGS: LUNGS/ PLEURA: No pleural effusion pneumothorax. Moderate emphysematous changes. Suture material iden tified within the right lower lobe from prior surgery. Additional suture material identified within t he right upper lobe from prior surgery. Redemonstration of spiculated mass within the left upper lobe extending to the hilum measuring grossly 4.4 x 3.0 cm. Redemonstration of right upper lung spiculate d mass extending towards the hilum measuring grossly 5.1 x 3.4 cm. Additional spiculated nodule with in the right midlung measuring 1.4 cm again. Additional smaller scattered densities again demonstrate d. AIRWAY: There is mass effect with invasion into the right upper lobe bronchus. There is encasement of the left upper lobe bronchus. HEART: Size within normal limits. No pericardial effusion. Coronary artery calcifications and/or sten ts. MEDIASTINUM: No gross evidence of pathologically enlarged lymph nodes. VASCULATURE: No aortic aneurysm. Atherosclerotic of the aorta and its branches. MUSCULOSKELETAL: No acute osseous abnormalities. Remote right-sided rib fractures. Vertebral augmenta tion is from prior compression deformity involving the T7 vertebral body with kyphotic angulation. SOFT TISSUES/LYMPH NODES: Unremarkable. LOWER NECK: No significant findings. UPPER ABDOMEN: Chronic pancreatitis with innumerable pancreatic parenchymal calcifications. Left rina l cyst measuring up to 4.7 cm. Post cholecystomy changes. Nonobstructive right renal 5 memory calculu s. IMPRESSION: Redemonstration of left upper lobe perihilar spiculated mass with additional right midlung perihilar spiculated mass. Additional right midlung spiculated nodule redemonstrated. Findings again concerning for recurrence/metastasis until proven otherwise.
[2022-12-28] MEDS ORDERED: PROPOFOL 10 MG/ML 20 ML VIAL IV ONE (14:58)
[2022-12-28] MEDS ORDERED: PHENYLEPHRINE-0.9% NACL SYG 1,000 MCG/10 ML SYRINGE ONE (14:58)
[2022-12-28] MEDS ORDERED: NEOSTIGMINE 1 MG/ML 10 ML VIAL ONE (14:58)
[2022-12-28] MEDS ORDERED: GLYCOPYRROLATE 0.2 MG/ML 2 ML VIAL ONE (14:58)
[2022-12-28] MEDS ORDERED: ePHEDrine 50 MG/ML 1 ML VIAL ONE (14:58)
[2022-12-28] MEDS ORDERED: fentaNYL (PF) 50 MCG/ML 2 ML AMP ONE (14:58)
[2022-12-28] MEDS ORDERED: LIDOCAINE 1% INJ 10MG/ML (20 ML MDV) ONE (14:58)
[2022-12-28] MEDS ORDERED: SUCCINYLCHOLINE CHLORIDE 200 MG/10 ML VIAL IV ONE (14:58)
[2022-12-28] MEDS ORDERED: ROCURONIUM 10 MG/ML (5 ML VIAL) IV ONE (14:58)
--- NOTE | 2022-12-28 17:09 | FL ---
Intraoperative/procedural fluoroscopic services were provided. Total fluoroscopy time is 5 minutes 49 seconds with a total of 4 submitted images to PACS. Please see the operative/procedural note for fur ther details. DAP: 6.7972 Gycm2
[2022-12-28 17:22] VITALS: TEMP 97.6
--- NOTE | 2022-12-28 17:37 | P.PCN ---
Date of Procedure: 12/28/22 Operative Findings: Right lower lobe nodules, PET Avid Left upper lobe opacity post radiation therapy, PET non avid Postoperative Diagnosis: Right lower lobe nodules, PET Avid, Left upper lobe opacity post radiation therapy, PET non avid Procedure(s) Performed: Flexible bronchoscopy Robotic-assisted bronchoscopy and addition to radial ultrasound evaluation of the pulmonary nodules in the right lower lobe, 2 nodules were biopsied, lesion #1 and #2, including transbronchial needle aspirate of transbronchial biopsies and a bronchial lavage Robotic-assisted transbronchial needle aspirate, transbronchial biopsies, downey sbronchial brushing of the left upper lobe opacity, including transbronchial biopsy and transbronchial brushing and a bronchial lavage Anesthesia: FATMATA Surgeon: Allan Becerra Estimated Blood Loss (ml): 0 Pathology: other Condition: stable Disposition: same day Operative Findings: A physical exam was performed. Informed consent was obtained from the patient after explaining all the risks (pneumothorax, life threatening bleeding, infection and adverse effects due to medications), benefits and alternatives to the procedure which the patient appeared to understand and so stated. The patient was connected to the monitoring devices. General anesthesia was induced and the patient was intubated by anesthesia. A final timeout was performed and the procedure confirmed by the attending staff bronchoscopist. The bronchoscope was inserted and the airway examined. The airway examination was within normal and the stump to a previous right upper lobectomy was within normal limits The flexible bronchoscope was removed and the robotic bronchoscope was inserted. Registration was completed. I next guided the robotic bronchoscope using the navigation system into the right lower lobe lesion #1. Once in proper position, the bronchoscope was frozen. The radial EBUS probe was placed through the bronchoscope and confirmed abnormal u/s images vs normal lung. A needle was placed through the working channel and under fluoroscopic guidance, we sampled the area thought to have the mass twice. We then used a cloud biopsy pattern with ultrasound confirmation for 2 additional passes with the needle. U/S evaluation was then used to reconfirm location. Forceps were next introduced through working channel and extended the appropriate distance and 3 transbronchial biopsies were performed using fluoroscopic guidance. The u/s probe was then reinserted to confirm location. When confirmed this process was repeated for a total of 6 transbronchial biopsies. 40ml of saline was then instilled into the area of the lesion. The robotic bronchoscope was removed and the airway inspected with a flexible bronchoscope and 10 ml of effluent from the BAL was collected. The aspirate was bloody and ultimately declotted and based on that, the sample was discarded. Following that, the robotic bronchoscope was directed to lesion #2. The bronchoscope was directed towards the lesion. Ultrasound evaluation with the radial probe did not give the appropriate signal. Nevertheless, the lesion was clearly seen on the fluoroscopic images. Based on that, transbronchial biopsies of the right lower lobe lesion #2 was performed and a total of 6 a biopsies were obtained and a bronchioloalveolar lavage of the area was also performed utilizing 20 mL saline. Return volume was in the order of 5 and mouth Subsequently, the robotic bronchoscope was directed to the left upper lobe. Once in proper position, the bronchoscope was frozen. Ultrasound evaluation confirmed the location and following that transbronchial biopsy of the left upper lobe opacity was done with a total of 6 a biopsies were obtained. Endobronchial brushings were obtained. The bronchial lavage of the left upper lobe opacity was also done utilizing a 20 mL of saline and 10 mL were obtained in return. Fluoroscopic check for pneumothorax was negative upon completion of the procedure. There was 0 ml blood loss with the procedure. Flex bronchoscope was inserted and regular suctioning was done. At the completion of the procedure, no residual secretions or bloody material within the airway. The bronchoscope was removed. The patient was extubated. FINDINGS: 1.The airways appeared normal, normal right upper lobe stump 2 Successful navigation, ultrasonographic identification, and biopsies of right right lower lobe lesion #1 and his #2 in addition to her left upper lobe opacity. 3.The the radial ultrasound view was (Concentric/Eccentric)}. The radial signal was absent in the right lower lobe lesion #2. RECOMMENDATIONS: Await pathology and cytology results The referring physician will be alerted to the results when available. The patient was advised to follow up with the referring physician with the biopsy results Patient will be called with results.
[2022-12-28 17:59] VITALS: RESP 20
--- NOTE | 2022-12-28 18:08 | XR ---
EXAMINATION TYPE: XR chest 1V portable DATE OF EXAM: 12/28/2022 5:55 PM CLINICAL INDICATION:Male, 77 years old with history of bronchoscopy; [facility] COMPARISON: Chest radiographs from 07/23/2021 TECHNIQUE: XR chest 1V portable Frontal view of the chest. FINDINGS: Lungs/Pleura: Prominent interstitial lung markings are seen scattered throughout the lungs with heidi ening of the diaphragm and increased lucency of the lung apices. No evidence of focal consolidation, pneumothorax or pleural effusion. Pulmonary vascularity: Unremarkable. Heart/mediastinum: Cardiomediastinal silhouette is unremarkable. Musculoskeletal: No acute osseous pathology. Other findings: None IMPRESSION: Chronic changes without acute pulmonary process. No significant change from prior.
[2022-12-28 18:17] VITALS: BP 99/61; PULSE 91
== END 2022-12-28 18:25 | disposition home or self-care (01) ==
LOC: ORWHC2ENDO 12:42
PROVIDERS: ATTEND Internal Medicine Critical Care Medicine
DX: R91.1 Solitary pulmonary nodule (principal); E78.5 Hyperlipidemia, unspecified; J44.9 Chronic obstructive pulmonary disease, unspecified; E03.9 Hypothyroidism, unspecified; K21.9 Gastro-esophageal reflux disease without esophagitis; Z79.890 Hormone replacement therapy; Z79.899 Other long term (current) drug therapy; Z79.51 Long term (current) use of inhaled steroids
CPT/HCPCS: 88108; 88305; 88342; 88341; 71045; 71250; 31628; 31629; 31624; J0330; J1100; J2710; J2405; J2001; J3010; J2704; J2371; S2900

== ENCOUNTER → 2023-06-21 | Outpatient (CLI) | payer MEDICARE ==
--- NOTE | 2023-06-21 15:11 | PE ---
EXAMINATION TYPE: PET CT fusion skull to thigh DATE OF EXAM: 06/21/2023 COMPARISON: CT chest 12/28/2022 Prior PET/CT: 12/08/2022 HISTORY: Lung cancer TECHNIQUE: Following the intravenous administration of 10.13 mCi of F-18 FDG, whole body images are performed from the skull base to the midthigh. Images are reviewed on the computer in the coronal, a xial, and sagittal planes. Reconstructed rotating images are created on independent workstation and reviewed on the computer. A localization and attenuation correction CT is performed in conjunction with the PET scan. DLP: 176.45 mGycm SCAN: Subsequent Blood glucose: 99 mg/dL Average Mediastinum SUV: 1.8 Average Liver SUV: 2.38 FINDINGS: NECK: No abnormal uptake THORAX: Hyperintense uptake is within the tiny nodule in the anterior left upper lobe, image 70, SUV 3.97. Previous SUV 0.66 There is hyperintense uptake within a tiny nodule in the anterior right upper lung field, image 75, S UV 2.63. Previous SUV 0.84 There is a small nodule with intermediate uptake in the periphery of the right mid lung. Image 84, CUI V 1.89. Previous SUV 2.25. There is a focus of radiotracer within the right lower lung field image 103, SUV 7.58. Previous SUV 3.63. There is vague uptake within the increased density within the left suprahilar region at the level of the aortic arch. Maximum SUV 2.73 with an average of 1.46. Vague uptake is within the anterior right hilar region with a maximum SUV of 2.16 and a mean of 0.87, example image 89. Right hilar lymph node image 91 may has some mild uptake with SUV of 2.82. ABDOMEN: No abnormal uptake PELVIS: There is a focus of intense uptake in the lateral mid left pelvis. This is felt to most likel y be within the ureter. However clear confirmation with additional radiotracer is not apparent. Diffe rential could include a lymph node. OSSEOUS STRUCTURES: Some subtle intermediate signal may be within the lateral right mid rib, image 91 , SUV 1.49. LOCALIZATION CT: The density in the left suprahilar region has a more intermediate signal on the curr ent examination.. Likewise the anterior right hilar density. Punctate spiculated densities however co rrelate with the areas of increased uptake. COMPARISON: Uptake within the lung nodules is increasing. Perihilar densities remain intermediate IMPRESSION: 1. Increasing radiotracer uptake within small pulmonary nodules present bilaterally. 2. Intermediate signal within perihilar densities. 3. There may be a small lymph node within the anterior right hilar region with increased uptake.
== END | disposition home or self-care (01) ==
LOC: RADPETMAIN 11:31
PROVIDERS: ATTEND Internal Medicine Hematology & Oncology
DX: C34.31 Malignant neoplasm of lower lobe, right bronchus or lung (principal); R91.8 Other nonspecific abnormal finding of lung field; J98.4 Other disorders of lung
CPT/HCPCS: 78815; A9552

== ENCOUNTER → 2023-08-13 | Outpatient (CLI) | payer MEDICARE ==
[2023-08-13 14:31] LABS: African American GFR (CKD) >90 (>60 ml/min/1.73 sqM); Blood Urea Nitrogen 17 mg/dL (9-20); Non-African American GFR(CKD) >90 (>60 ml/min/1.73 sqM)
--- NOTE | 2023-08-13 15:33 | CT ---
EXAMINATION TYPE: CT chest w con CT DLP: 184.2 mGycm, Automated exposure control for dose reduction was used. DATE OF EXAM: 08/13/2023 3:00 PM COMPARISON: Pet/CT 06/20/2022, CT 12/28/2022 CLINICAL INDICATION:Male, 78 years old with history of C34.31 MALIGNANT NEOPLASM OF LOWER LOBE, RIGHT BRO; [facility], Lung ca. x 20 years TECHNIQUE: Multiple axial images were obtained through the chest. Sagittal and coronal reformats were created for review. Contrast used:100 mL of Isovue 300 with IV Contrast (None if empty) Oral contrast used: (None if empty) FINDINGS: LUNGS/ PLEURA: Right upper lung nodule is not significantly changed measuring 8 mm series 3 image 23. Right lower lung pulmonary nodule measuring up to 12 mm is also not significantly changed given diff erences in slice selection. Scarring changes in the lung base also look similar measuring up to 17 mm . The left upper lung masslike perihilar consolidation extending towards the periphery is also simila r to prior. AIRWAY: Patent and unremarkable. HEART: Size within normal limits. Moderate to severe atherosclerosis. MEDIASTINUM: No gross evidence of adenopathy. VASCULATURE: No aortic aneurysm. MUSCULOSKELETAL: No acute osseous abnormalities, compression deformity with vertebroplasty changes at T7. There is complete height loss anteriorly of the T7 vertebrae.. SOFT TISSUES/LYMPH NODES: Unremarkable. LOWER NECK: No significant findings. UPPER ABDOMEN: Left renal cyst. Mild dilation of the extrahepatic persistent likely secondary to post cholecystectomy physiology. IMPRESSION: 1. Stable appearance of the lungs compared to 06/21/2023 other findings in the chest are not signific antly changed from immediate prior. Continued surveillance imaging recommended. 2. Moderate to severe coronary artery atherosclerosis.
== END | disposition home or self-care (01) ==
LOC: RADCTMAIN 13:50
PROVIDERS: ATTEND Internal Medicine Hematology & Oncology
DX: I25.10 Atherosclerotic heart disease of native coronary artery without angina pectoris (principal); C34.31 Malignant neoplasm of lower lobe, right bronchus or lung; C34.12 Malignant neoplasm of upper lobe, left bronchus or lung; F41.9 Anxiety disorder, unspecified; E03.9 Hypothyroidism, unspecified
CPT/HCPCS: 82565; 84520; 71260; 36415; Q9967

== ENCOUNTER → 2023-12-10 | Outpatient (CLI) | payer MEDICARE ==
[2023-12-10 14:53] LABS: African American GFR (CKD) >90 (>60 ml/min/1.73 sqM); Blood Urea Nitrogen 13 mg/dL (9-20); Non-African American GFR(CKD) >90 (>60 ml/min/1.73 sqM)
--- NOTE | 2023-12-10 16:40 | CT ---
EXAMINATION TYPE: CT chest w con CT DLP: Combined DLP of 1204 mGycm, Automated exposure control for dose reduction was used. DATE OF EXAM: 12/10/2023 4:29 PM COMPARISON: 08/13/2023, 06/21/2023 CLINICAL INDICATION: Male, 78 years old with history of C34.12 LUNG CANCER; PH, Follow up for lung C A TECHNIQUE: Multiple axial images were obtained through the chest. Sagittal and coronal reformats were created for review. MIP was performed on a separate workstation. Contrast used:100ml mL of Isovue 370 with IV Contrast (None if empty) Oral contrast used: (None if empty) FINDINGS: LUNGS/ PLEURA: Area of scarring with increased nodular density in scarring series 5 image 12 measurin g 13 x 10 mm previously 10 x 8 mm other areas of parenchymal abnormality in the right lung and left u pper lung are stable compared to prior. AIRWAY: Patent and unremarkable. HEART: Size within normal limits. Moderate to severe atherosclerosis. MEDIASTINUM: No gross evidence of adenopathy. VASCULATURE: No aortic aneurysm. MUSCULOSKELETAL: No acute osseous abnormalities, compression deformity with vertebroplasty changes at T7. There is complete height loss anteriorly of the T7 vertebrae.. SOFT TISSUES/LYMPH NODES: Unremarkable. LOWER NECK: No significant findings. IMPRESSION: Increasing size of nodule in the scarring in the left upper lung correlate with PET/CTs for metabolic activity. No additional suspicious abnormalities in the lungs. No lymphadenopathy. [facility], , 12/10/2023 4:38 PM
== END | disposition home or self-care (01) ==
LOC: RADCTMAIN 14:12
PROVIDERS: ATTEND Internal Medicine Hematology & Oncology
DX: C34.12 Malignant neoplasm of upper lobe, left bronchus or lung
CPT/HCPCS: 36415; 71260; 82565; 84520

== ENCOUNTER → 2023-12-10 | Outpatient (CLI) | payer MEDICARE ==
--- NOTE | 2023-12-10 16:48 | CT ---
EXAMINATION TYPE: CT abdomen pelvis w con CT DLP: Combined DLP of 1204 mGycm, Automated exposure control for dose reduction was used. DATE OF EXAM: 12/10/2023 4:28 PM COMPARISON: 06/21/2023 CLINICAL INDICATION: Male, 78 years old with history of K40.90 UNIL INGUINAL HERNIA; Inguinal hernia. TECHNIQUE: Axial CT abdomen pelvis w con;Sagittal and coronal reformats were created on a separate w orkstation. Contrast used:100ml mL of Isovue 370 with IV Contrast, (none if empty) Oral contrast used: with Oral Contrast (none if empty) FINDINGS: LOWER CHEST: Unremarkable ABDOMEN LIVER: Unremarkable GALLBLADDER AND BILE DUCTS: Gallbladder is surgically absent with mild intrahepatic and extra hepatic biliary dilatation likely physiologic and a postcholecystectomy change. No evidence of choledocholit hiasis. PANCREAS: Scattered calcifications throughout the pancreas. SPLEEN: Unremarkable. ADRENAL GLANDS: Unremarkable. KIDNEYS AND URETERS: No evidence of hydronephrosis or renal calculus. The ureters are unremarkable. Calcifications in the renal sinus is likely vascular in etiology. PELVIS BLADDER: Unremarkable REPRODUCTIVE: Prostate is enlarged in size measuring 5.0 cm in transverse dimension. ABDOMEN & PELVIS STOMACH AND BOWEL: No evidence of bowel obstruction. PERITONEUM/RETROPERITONEUM: No evidence of pneumoperitoneum or free fluid. VASCULATURE: Severe atherosclerotic calcifications are present throughout the abdominal aorta and its branches. No evidence of aortic aneurysm. MUSCULOSKELETAL: Severe degeneration changes throughout the spine with 50% height loss of L4 and L2 v ertebral bodies. Multilevel degeneration with osteophyte formation and facet joint arthropathy and di sc space narrowing. No scoliosis changes of the spine. No evidence of infarct versus avascular necros is of the left femoral head is similar prior LYMPH NODES: No gross evidence for lymphadenopathy. SOFT TISSUE/ABDOMINAL WALL: There is fluid in the left inguinal canal region. IMPRESSION: 1. No evidence for lymphadenopathy or evidence for recurrence. 2. Chronic pancreatitis changes. 3. Intrahepatic and extrahepatic biliary dilation possibly physiologic from cholecystectomy change a nd/or sequela prior pancreatitis. 4. Severe atherosclerosis of the arterial vasculature. 5. Compression deformities to the L2 and L4 vertebral bodies with at least 50% height loss. [facility], Workstation: [employer]ade [id number], 12/10/2023 4:46 PM
== END | disposition home or self-care (01) ==
LOC: RADCTMAIN 14:04
PROVIDERS: ATTEND Family Medicine
DX: K40.90 Unilateral inguinal hernia, without obstruction or gangrene, not specified as recurrent
CPT/HCPCS: 74177

== ENCOUNTER → 2023-12-27 | Outpatient (CLI) | payer MEDICARE ==
--- NOTE | 2023-12-27 17:25 | PE ---
EXAMINATION TYPE: PET CT fusion skull to thigh DATE OF EXAM: 12/27/2023 CLINICAL INDICATION:Male, 78 years old with history of C34.31 LUNG CANCER; TECHNIQUE: Following the intravenous administration of 11.53 mCi of F-18 FDG, whole body images are performed from the skull base to the midthigh. Images are reviewed on the computer in the coronal, axial, and sagittal planes. Reconstructed rotating images are created on independent workstation and reviewed on the computer. A non-contrast CT is performed in conjunction with the PET scan. Glucose level 96 mg/dL CT DLP: 243.04 mGycm, Automated exposure control for dose reduction was used. COMPARISON: CT 12/10/2023, 08/13/2023, 12/28/2022, 06/14/2022 PET/CT 06/21/2023, 12/08/2022, 08/18/2022 MRI : None FINDINGS: Mediastinal SUV mean is 1.8. Hepatic parenchyma SUV mean is 2.2. SKULL BASE AND NECK: No suspicious radiotracer activity. CHEST, MEDIASTINUM, AND HILAR REGION: Postsurgical changes with suture and linear scarring within the right upper lung. Similar left pleura l posterior calcifications. Centrilobular emphysematous changes redemonstrated. Increasing small righ t pleural effusion. Development of trace left pleural effusion. Lateral right upper lobe pleural-based nodular density measuring up to 1.7 cm with a maximum SUV of 5 .2, 1.9. Anterior right upper lobe soft tissue thickening with postsurgical change with a maximum SUV of 4.4, 3.7. Spiculated left perihilar 3.5 x 2.8 cm mass with a maximum SUV of 2.8, previously 2.7. The anterior satellite spiculated nodule measuring 1.2 cm within the left upper lobe with a maximum S UV of 9.8, previously 4.4. Tiny right upper lobe perihilar 6 mm nodular density with a maximum SUV of 2.5. Anterior right midlung spiculated nodular density measuring up to 1.4 cm with a maximum SUV of 2.7, 7 .6 Calcified right hilar lymph node measuring up to 1.5 cm with a maximum SUV of 6.1, previously 2.1. Anterior right suprahilar focal region of FDG activity measuring 4.0, 2.9. ABDOMEN AND PELVIS: No suspicious radiotracer activity. OSSEOUS STRUCTURES: Focal radiotracer uptake within the C5 vertebral body with a maximum SUV of 3.5. OTHER CT: Moderate to severe atherosclerotic calcification of aorta and its branches. Moderate red[place] ry artery calcifications. Multiple calcifications within the pancreas likely representing chronic carl creatitis changes. Left renal cyst. Right nonobstructing calculi versus vascular calcifications. Circ umferential wall thickening of the stomach demonstrated. Trace free fluid in the pelvis. Prostate mayra cifications. The gallbladder appears surgically absent. Similar mild intra and extra hepatic biliary ductal dilatation. May be related to stricture from chronic pancreatitis versus physiologic changes f rom cholecystectomy. Moderate stool burden. Scattered colonic diverticula. T7 compression deformity w ith vertebroplasty changes. Near complete height loss again. Central compression deformity of the L2 and L4 vertebral bodies redemonstrated. 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 Similar fluid within the left inguinal canal. IMPRESSION: Overall mixed response to therapy. 1. Increasing radiotracer uptake within an left upper lobe anterior spiculated nodular density and a right lateral midline increasing size pleural-based density. 2. Decreased radiotracer activity within a right anterior midlung nodular density from prior exam. 3. Similar residual radiotracer uptake within a spiculated left perihilar mass with similar appearan ce likely representing treated disease. 4. Mildly increased radiotracer activity within a subcarinal and right perihilar lymph node. 5. Focal increased radiotracer signal within the C5 vertebral body which may represent osseous metas tasis. Consider nuclear medicine bone scan. [facility], , 12/27/2023 5:23 PM
== END | disposition home or self-care (01) ==
LOC: RADPETMAIN 14:48
PROVIDERS: ATTEND Internal Medicine Hematology & Oncology
CPT/HCPCS: 78815

== ENCOUNTER 2024-02-28 16:11 | Inpatient (IN) | payer MEDICARE ==
--- NOTE | 2024-02-28 17:03 | ED ---
General Adult HPI - General Source: patient, EMS, RN notes reviewed Mode of arrival: EMS <Jelena Jernigan - Last Filed: 02/28/24 20:44> <Anmol Barrett - Last Filed: 02/28/24 22:46> - General Chief complaint: Back Pain/Injury Stated complaint: Back pain Time Seen by Provider: 02/28/24 16:40 - History of Present Illness Initial comments: 78-year-old male presents to the emergency department for evaluation of low back pain. Patient states that this has been going on for around 1 week. He notes that the pain is worse with some movements and better when he lays on his recliner. He reports that he has [place] at home and states that he has been needing to take more than he usually does. He states that the pain is in his low back centrally and radiates to the left. He denies any numbness, tingling. Denies loss of bowel or bladder function. Denies recent fever, chills. Patient reports a history of lung cancer and follows with Dr. Lester. (Jelena Jernigan) - Related Data Home Medications Medication Instructions Recorded Confirmed Ipratropium/Albuterol Sulfate 1 puff INHALATION RT-QID PRN 06/11/18 02/28/24 [Combivent Respimat Inhaler] Meloxicam 15 mg PO DAILY 06/11/18 02/28/24 Omeprazole 20 mg PO BID 06/11/18 02/28/24 Escitalopram [Lexapro] 20 mg PO DAILY 01/04/21 02/28/24 LORazepam [Ativan] 1 mg PO HS 01/04/21 02/28/24 Atorvastatin [Lipitor] 40 mg PO DAILY 07/23/21 02/28/24 Levothyroxine Sodium [Synthroid] 125 mcg PO DAILY 07/23/21 02/28/24 HYDROcodone/APAP 5-325MG [[place] 1 tab PO 5XD 12/27/22 02/28/24 5-325] bisacodyL [Dulcolax] 10 mg PO BID 02/28/24 02/28/24 Allergies Allergy/AdvReac Type Severity Reaction Status Date / Time No Known Allergies Allergy Verified 02/28/24 16:18 Review of Systems ROS Other: All systems not noted in ROS Statement are negative. <Jelena Jernigan - Last Filed: 02/28/24 20:44> ROS Other: All systems not noted in ROS Statement are negative. <Anmol Barrett - Last Filed: 02/28/24 22:46> ROS Statement: Those systems with pertinent positive or pertinent negative responses have been documented in the HPI. Past Medical History Past Medical History: Cancer, GERD/Reflux, Osteoarthritis (OA), Pneumonia Additional Past Medical History / Comment(s): Right lung cancer 2003 and first resection done (got MRSA at that time in incision), second resection in 2008, lung cancer reoccured in 12/2014 and found new nodule in right lung had radiation in February 2015. Pancreatitis,chronic back pain, lung CA reoccured 2020 History of Any Multi-Drug Resistant Organisms: MRSA Date of last positivie culture/infection: 2003 MDRO Source:: BACK Past Surgical History: Cholecystectomy, Orthopedic Surgery Additional Past Surgical History / Comment(s): RESECTION TO RIGHT LUNG TWICE (RT MIDDLE AND RT LOWER LOBECTOMY), RT KNEE SCOPE x2 Past Anesthesia/Blood Transfusion Reactions: Motion Sickness Past Psychological History: No Psychological Hx Reported Smoking Status: Current some day smoker Past Alcohol Use History: None Reported, Occasional Past Drug Use History: None Reported - Past Family History Mother Family Medical History: Dementia Additional Family Medical History / Comment(s): Crohn's disease Father Family Medical History: Cancer, Respiratory Disorder Additional Family Medical History / Comment(s): mesothelioma. <Kelbymarco aJelena vergara - Last Filed: 02/28/24 20:44> General Exam Limitations: no limitations General appearance: alert, in no apparent distress Head exam: Present: atraumatic, normocephalic, normal inspection Eye exam: Present: normal appearance, PERRL, EOMI. Absent: scleral icterus, conjunctival injection, periorbital swelling ENT exam: Present: normal exam, mucous membranes moist Neck exam: Present: normal inspection. Absent: tenderness, meningismus, lymphadenopathy Respiratory exam: Present: normal lung sounds bilaterally. Absent: respiratory distress, wheezes, rales, rhonchi, stridor Cardiovascular Exam: Present: regular rate, normal rhythm, normal heart sounds. Absent: systolic murmur, diastolic murmur, rubs, gallop, clicks GI/Abdominal exam: Present: soft, normal bowel sounds. Absent: distended, tenderness, guarding, rebound, rigid Extremities exam: Present: normal inspection, full ROM, normal capillary refill, other (DP and PT pulses 2+). Absent: tenderness, pedal edema, joint swelling, calf tenderness Back exam: Present: full ROM, tenderness Neurological exam: Present: alert, oriented X3 Psychiatric exam: Present: normal affect, normal mood Skin exam: Present: warm, dry, intact, normal color. Absent: rash <Jelena Jernigan - Last Filed: 02/28/24 20:44> Course <Anmol Barrett - Last Filed: 02/28/24 22:46> Vital Signs 02/28/24 02/28/24 16:15 17:56 Temperature 98.4 F 98.7 F Pulse Rate 84 86 Respiratory 16 16 Rate Blood Pressure 127/80 145/75 O2 Sat by Pulse 94 L 95 Oximetry - Reevaluation(s) Reevaluation #1: 02/28/24 22:46 Asked to enter a placement order, no other interaction. (Anmol Barrett) Medical Decision Making - Lab Data Result diagrams: 02/28/24 17:10 02/28/24 17:10 <Jelena Jernigan - Last Filed: 02/28/24 20:44> - Lab Data Result diagrams: 02/28/24 17:10 02/28/24 17:10 <Anmol Barrett - Last Filed: 02/28/24 22:46> - Medical Decision Making Was pt. sent in by a medical professional or institution ([facility], REGROOVER, urgent care, hospital, or correction...) When possible be specific @ -[No] Did you speak to anyone other than the patient for history (EMS, parent, family, police, friend...)? What history was obtained from this source @ -[EMS provided some history of this patient] Did you review nursing and triage notes (agree or disagree)? Why? @ -[I reviewed and agree with nursing and triage notes] Were old charts reviewed (outside hosp., previous admission, EMS record, old EKG, old radiological studies, urgent care reports/EKG's, correction records)? Report findings @ -[No old charts were reviewed] Differential Diagnosis (chest pain, altered mental status, abdominal pain women, abdominal pain men, vaginal bleeding, weakness, fever, dyspnea, syncope, headache, dizziness, GI bleed, back pain, seizure, CVA, palpatations, mental health, musculoskeletal)? @ -[Differential Back Pain: Strain, zoster, cauda equina syndrome, epidural abscess, vertebral osteomyeliti s, discitis, fracture, subluxation, disc herniation, DJD, spinal stenosis, dissection, AAA, pancreatitis, peptic ulcer disease, pyelonephritis, kidney stone, this is not meant to be an all-inclusive list. ] EKG interpreted by me (3pts min.). @ -[None] X-rays interpreted by me (1pt min.). @ -[None done] CT interpreted by me (1pt min.). @ -[None done] U/S interpreted by me (1pt. min.). @ -[None done] What testing was considered but not performed or refused? (CT, X-rays, U/S, labs)? Why? @ -[None] What meds were considered but not given or refused? Why? @ -[None] Did you discuss the management of the patient with other professionals (professionals i.e. , PA, REGROOVER, lab, RT, psych nurse, social secretary, brusher tender, teacher, community reinvestment act officer, outpatient case manager)? Give summary @ -[No] Was smoking cessation discussed for >3mins.? @ -[No] Was critical care preformed (if so, how long)? @ -[No] Were there social determinants of health that impacted care today? How? (Homelessness, low income, unemployed, alcoholism, drug addiction, transportation, low edu. Level, literacy, decrease access to med. care, long-term, rehab)? @ -[No] Was there de-escalation of care discussed even if they declined (Discuss DNR or withdrawal of care, Hospice)? DNR status @ -[No] What co-morbidities impacted this encounter? (DM, HTN, Smoking, COPD, CAD, Cancer, CVA, ARF, Chemo, Hep., AIDS, mental health diagnosis, sleep apnea, morbid obesity)? @ -[None] Was patient admitted / discharged? Hospital course, mention meds given and route, prescriptions, significant lab abnormalities, going to OR and other pertinent info. @ -[hospital course] Undiagnosed new problem with uncertain prognosis? @ -[No] Drug Therapy requiring intensive monitoring for toxicity (Heparin, Nitro, Insulin, Cardizem)? @ -[No] Were any procedures done? @ -[No] Diagnosis/symptom? @ -[default] Acute, or Chronic, or Acute on Chronic? @ -[default] Uncomplicated (without systemic symptoms) or Complicated (systemic symptoms)? @ -[default] Side effects of treatment? @ -[No] Exacerbation, Progression, or Severe Exacerbation? @ -[No] Poses a threat to life or bodily function? How? (Chest pain, USA, PR, pneumonia, PE, COPD, DKA, ARF, appy, cholecystitis, CVA, Diverticulitis, Homicidal, Suicidal, threat to staff... and all critical care pts) @ -[No] (Jelena Jernigan) - Lab Data Lab Results 02/28/24 02/28/24 02/28/24 Range/Units 17:10 17:10 17:10 WBC 9.8 (3.8-10.6) k/uL RBC 3.33 L (4.30-5.90) m/uL Hgb 11.6 L (13.0-17.5) gm/dL Hct 34.8 L (39.0-53.0) % MCV 104.5 H (80.0-100.0) fL MCH 34.9 (25.0-35.0) pg MCHC 33.4 (31.0-37.0) g/dL RDW 12.8 (11.5-15.5) % Plt Count 361 (150-450) k/uL MPV 6.9 Neutrophils % 84 % Lymphocytes % 5 % Monocytes % 8 % Eosinophils % 1 % Basophils % 0 % Neutrophils # 8.2 H (1.3-7.7) k/uL Lymphocytes # 0.5 L (1.0-4.8) k/uL Monocytes # 0.8 (0-1.0) k/uL Eosinophils # 0.1 (0-0.7) k/uL Basophils # 0.0 (0-0.2) k/uL Macrocytosis Slight Sodium 125 L (137-145) mmol/L Potassium 4.2 (3.5-5.1) mmol/L Chloride 93 L (98-107) mmol/L Carbon Dioxide 29 (22-30) mmol/L Anion Gap 3 mmol/L BUN 14 (9-20) mg/dL Creatinine 0.60 L (0.66-1.25) mg/dL Est GFR (CKD-EPI)AfAm >90 (>60 ml/min/1.73 sqM) Est GFR (CKD-EPI)NonAf >90 (>60 ml/min/1.73 sqM) Glucose 85 (74-99) mg/dL Calcium 8.1 L (8.4-10.2) mg/dL Total Bilirubin 0.5 (0.2-1.3) mg/dL AST 19 (17-59) U/L ALT 13 (4-49) U/L Alkaline Phosphatase 79 (38-126) U/L Total Protein 5.4 L (6.3-8.2) g/dL Albumin 3.1 L (3.5-5.0) g/dL Urine Color Yellow Urine Appearance Clear (Clear) Urine pH 6.5 (5.0-8.0) Ur Specific [place] 1.021 (1.001-1.035) Urine Protein Negative (Negative) Urine Glucose (UA) Negative (Negative) Urine Ketones Negative (Negative) Urine Blood Negative (Negative) Urine Nitrite Negative (Negative) Urine Bilirubin Negative (Negative) Urine Urobilinogen 2.0 (<2.0) mg/dL Ur Leukocyte Esterase Negative (Negative) Disposition Is patient prescribed a controlled substance at d/c from ED?: No <Jelena Jernigan - Last Filed: 02/28/24 20:44> <Anmol Barrett - Last Filed: 02/28/24 22:46> Clinical Impression: Compression fracture, Pleural effusion, Hyponatremia Disposition: ADMITTED IP TO THIS HOSP Condition: Stable Referrals: Cale Arenas DO [Primary Care Provider] - 1-2 days
[2024-02-28] MEDS: MORPHINE SULFATE 2 MG/ML SYRINGE IVP ONE (17:10)
[2024-02-28 17:25] LABS: Appearance,Urine Clear (Clear); Basophils % (A) 0 %; Bilirubin,Urine Negative (Negative); Blood,Urine Negative (Negative); Color,Urine Yellow; Eosinophils # (A) 0.1 k/uL (0-0.7); Eosinophils % (A) 1 %; Glucose,Urine (UA) Negative (Negative); HCT 34.8 % (39.0-53.0); HGB 11.6 gm/dL (13.0-17.5); Ketones,Urine Negative (Negative); Leukocyte Esterase,Urine Negative (Negative); Lymphocytes # (A) 0.5 k/uL (1.0-4.8); Lymphocytes % (A) 5 %; MCH 34.9 pg (25.0-35.0); MCHC 33.4 g/dL (31.0-37.0); MCV 104.5 fL (80.0-100.0); Macrocytosis Slight; Mean Platelet Volume 6.9; Monocytes # (A) 0.8 k/uL (0-1.0); Monocytes % (A) 8 %; Neutrophils # (A) 8.2 k/uL (1.3-7.7); Neutrophils % (A) 84 %; Nitrite,Urine Negative (Negative); PH, Urine 6.5 (5.0-8.0); Platelet Count 361 k/uL (150-450); Protein,Urine Negative (Negative); RBC 3.33 m/uL (4.30-5.90); RDW 12.8 % (11.5-15.5); Specific Gravity,Urine 1.021 (1.001-1.035); WBC 9.8 k/uL (3.8-10.6)
[2024-02-28 17:39] LABS: ALT 13 U/L (4-49); AST 19 U/L (17-59); African American GFR (CKD) >90 (>60 ml/min/1.73 sqM); Albumin 3.1 g/dL (3.5-5.0); Alkaline Phosphatase 79 U/L (38-126); Anion Gap 3 mmol/L; Blood Urea Nitrogen 14 mg/dL (9-20); Calcium 8.1 mg/dL (8.4-10.2); Carbon Dioxide 29 mmol/L (22-30); Chloride 93 mmol/L (98-107); Glucose 85 mg/dL (74-99); Non-African American GFR(CKD) >90 (>60 ml/min/1.73 sqM); Potassium 4.2 mmol/L (3.5-5.1); Sodium 125 mmol/L (137-145); Total Bilirubin 0.5 mg/dL (0.2-1.3); Total Protein 5.4 g/dL (6.3-8.2)
--- NOTE | 2024-02-28 17:56 | CT ---
EXAMINATION TYPE: CT abdomen pelvis wo con DATE OF EXAM: 02/28/2024 5:40 PM COMPARISON: 12/27/2023 CLINICAL INDICATION: Male, 78 years old with history of back pain; Back pain. TECHNIQUE: Axial CT abdomen pelvis wo con;Sagittal and coronal reformats were created on a separate workstation. Contrast used: mL of , (none if empty) Oral contrast used: without Oral Contrast (none if empty) CT DLP: 409.6 mGycm, Automated exposure control for dose reduction was used. FINDINGS: LOWER CHEST: Unremarkable ABDOMEN LIVER: Unremarkable GALLBLADDER AND BILE DUCTS: The gallbladder is surgically absent. PANCREAS: Unremarkable. SPLEEN: Unremarkable. ADRENAL GLANDS: Unremarkable. KIDNEYS AND URETERS: Nonobstructing renal sinus calcifications versus vascular calcifications. No anival dence of hydronephrosis or renal calculus. The ureters are unremarkable. Left renal cyst. PELVIS BLADDER: No evidence for wall thickening or mass given limitations of exam. REPRODUCTIVE: Unremarkable. ABDOMEN & PELVIS STOMACH AND BOWEL: No evidence of bowel obstruction. Scattered colonic diverticula. Large stool burde n in the rectum. PERITONEUM/RETROPERITONEUM: No evidence of pneumoperitoneum. Trace free fluid in the abdomen. VASCULATURE: Moderate atherosclerotic calcifications are present throughout the abdominal aorta and i ts branches. No evidence of aortic aneurysm. MUSCULOSKELETAL: L1 vertebral body curvilinear lucencies compatible with fracture lines best apprecia johnathan on series 202 image 74 with 50% height loss. Mild retropulsion of 5 mm. Disc degeneration changes are present throughout the thoracolumbar spine. There is scoliosis changes of the spine similar prio r. Stable L4 compression fracture 50% height loss. Left proximal femur lesion unchanged from prior os jose luis avascular necrosis versus post treatment changes. LYMPH NODES: No gross evidence for lymphadenopathy. SOFT TISSUE/ABDOMINAL WALL: Unremarkable IMPRESSION: 1. New from 12/10/2023 Acute compression fracture of L1 vertebral body with up to 50% height loss. Mi nimal 5 mm of retropulsion. 2. Stable L4 vertebral body compression fracture with up to 50% height loss. 3. Moderate to severe degeneration changes of the spine. 4. Small bilateral pleural effusions with associated atelectasis. Superimposed scarring and emphysem a noted. 5. Colonic diverticulosis. [facility], , 02/28/2024 5:54 PM
[2024-02-28] MEDS: SODIUM CHLORIDE 0.9% 1,000 ML IV SCH (19:20)
[2024-02-28] MEDS: HYDROmorphone 0.5 MG/0.5 ML SYRINGE IVP STA (19:33)
[2024-02-28] MEDS ORDERED: NALOXONE 0.4 MG/ML 1 ML VIAL IV PRN (20:46)
[2024-02-28] MEDS ORDERED: ACETAMINOPHEN TAB 325 MG TAB PO PRN (20:46)
[2024-02-28] MEDS: MORPHINE SULFATE 4 MG/ML SYRINGE IV PRN (22:59)
[2024-02-29 00:46] LABS: African American GFR (CKD) >90 (>60 ml/min/1.73 sqM); Anion Gap 5 mmol/L; Blood Urea Nitrogen 12 mg/dL (9-20); Calcium 8.6 mg/dL (8.4-10.2); Carbon Dioxide 26 mmol/L (22-30); Chloride 94 mmol/L (98-107); Glucose 86 mg/dL (74-99); Non-African American GFR(CKD) >90 (>60 ml/min/1.73 sqM); Potassium 4.2 mmol/L (3.5-5.1); Sodium 125 mmol/L (137-145)
[2024-02-29] MEDS: HYDROmorphone 0.5 MG/0.5 ML SYRINGE IVP PRN (01:32)
--- NOTE | 2024-02-29 02:50 | P.HPIM ---
History of Present Illness H&P Date: 02/28/24 Chief Complaint: Back pain Patient is a 78-year-old male with history of lung cancer and follows with Dr. Lester (last treatment was a year ago with a combination of chemotherapy and radiation), GERD, osteoarthritis, history of pneumonia presented to the emergency department for evaluation of low back pain. Patient stated that the back pain started all of a sudden last while he was sitting in a chair. The pain gradually got worse over time which prompted the patient to come to the emergency department for evaluation. He currently endorses a dull pressure-like lumbar back pain on the left side. He reports the pain to be constant in nature with a severity of 8 out of 10. He has tried taking hydrocodone which did help relieve his pain temporarily. He has not tried taking Tylenol or Motrin thus far. Patient is able to walk but is limited due to the lumbar back pain. Patient denies fever, chills, chest pain, shortness of breath, dizziness, lightheadedness, nausea/vomiting, urinary/bowel incontinence, upper or lower extremity numbness or tingling, lower extremity weakness, hematochezia/melena, constipation. Patient does report having occasional d iarrhea. ED documentation reviewed. In the ED patient was treated with morphine 2 mg IV x 1, Dilaudid 0.5 mg IV x 1 Vitals on admission temperature 98.7, pulse rate 86, respiratory rate 16, blood pressure 145/75, O2 sat 95% on room air CT of abdomen pelvis shows new findings from 12/10/2023 acute compression fracture of L1 vertebral body with up to 50% height loss. Minimal 5 mm of r etropulsion. Stable L4 vertebral body compression fracture with up to 50% height loss. Moderate to severe degeneration changes of the spine. Small bilateral pleural effusions with associated atelectasis. Superimposed scarring and emphysema noted. Colonic diverticulosis. Labs on admission show WBC 9.8, hemoglobin 11.6, hematocrit 34.8, MCV 104.5, platelet 361, neutrophils 8.2, sodium 125, potassium 4.2, chloride 93, carbon dioxide 29, BUN 14, creatinine 0.60, glucose 85, calcium 8.1, albumin 3.1 UA shows negative for nitrites and leukocyte esterase Review of systems: Pertinent positives and negatives as discussed in HPI, a complete review of systems was performed and all other systems are negative. PMH: History of lung cancer, GERD, osteoarthritis, history of pneumonia PSH: Lung resection in 2004 and 2009, cholecystectomy, orthopedic surgery FMH: Father had a history of mesothelioma was a smoker Allergies: No known drug allergies Social history: Tobacco: Current someday smoker Alcohol: None reported Recreational drugs: No drug use Travel: No travel history Sick contacts: No sick contacts Physical examination: Vital signs reviewed General: nontoxic, no distress, appears at stated age, well-appearing Derm: warm, dry, intact Head: atraumatic, normocephalic, symmetric Eyes: EOMI, anicteric sclera Mouth: no lip lesion, mucus membranes moist Cardiovascular: S1 S2 reg, no murmur Lungs: CTA bilateral, no rhonchi, no rales, no accessory muscle use Abdominal: soft, non-tender to palpation Extremities: No cyanosis, clubbing, or pedal edema. Musculoskeletal: Paravertebral muscle tender to palpation in the lumbar region on the left side, no midline tenderness Neuro: Alert, Oriented to time, person, place, Gross neurological examination d id not reveal any focal deficits. Cranial nerves II to XII grossly intact. Bilateral upper and lower extremity muscle strength and sensation intact. Psych: well appearing, appropriate affect Assessment/Plan: 78-year-old male with history of lung cancer follows with Dr. Lester, GERD, osteoarthritis, history of pneumonia presented to the emergency department for evaluation of low back pain. Patient will be admitted to inpatient medicine service. Active: #. Acute compression fracture Consult orthopedic surgery CT of abdomen pelvis shows new findings from 12/10/2023 acute compression fracture of L1 vertebral body with up to 50% height loss. Minimal 5 mm of retropulsion. Stable L4 vertebral body compression fracture with up to 50% height loss. Moderate to severe degeneration changes of the spine. Small bilateral pleural effusions with associated atelectasis. Superimposed scarring and emphysema noted. Colonic diverticulosis. Pain control as needed with Tylenol, Dilaudid and morphine #. Hyponatremia Sodium 125 Continue normal saline at 75 cc an hour Monitor morning BMP q4 Na not changing, will add salt tabs , urine osmolality low , suspecting low solute diet #. Macrocytic anemia Hemoglobin 11.6, MCV 104.5 Patient denies hematochezia/melena Continue to monitor morning CBC Chronic: #. GERD Restart home omeprazole 20 mg twice daily #. Hyperlipidemia Restart home Lipitor 40 mg daily #. Hypothyroidism Restart home Synthroid 125 mcg daily F: No restrictions E: Replete as needed N: Regular diet A: EMS DVT prophylaxis: Lovenox 40 mg subcu daily The patient is admitted with an anticipated more than 2 midnight stay for evaluation of acute compression fracture CODE STATUS: Full code Discussed with: Patient Anticipated discharge place: Home I have seen and evaluated the patient today. I Discussed the case with the resident and agree with the resident's findings I edited the assessment and plan as necessary as documented in the resident's note. Past Medical History Past Medical History: Cancer, GERD/Reflux, Osteoarthritis (OA), Pneumonia Additional Past Medical History / Comment(s): Right lung cancer 2003 and first resection done (got MRSA at that time in incision), second resection in 2008, lung cancer reoccured in 12/2014 and found new nodule in right lung had radiation in February 2015. Pancreatitis,chronic back pain, lung CA reoccured 2020 History of Any Multi-Drug Resistant Organisms: MRSA Date of last positivie culture/infection: 2003 MDRO Source:: BACK Past Surgical History: Cholecystectomy, Orthopedic Surgery Additional Past Surgical History / Comment(s): RESECTION TO RIGHT LUNG TWICE (RT MIDDLE AND RT LOWER LOBECTOMY), RT KNEE SCOPE x2 Past Anesthesia/Blood Transfusion Reactions: Motion Sickness Past Psychological History: No Psychological Hx Reported Smoking Status: Current some day smoker Past Alcohol Use History: None Reported, Occasional Past Drug Use History: None Reported - Past Family History Mother Family Medical History: Dementia Additional Family Medical History / Comment(s): Crohn's disease Father Family Medical History: Cancer, Respiratory Disorder Additional Family Medical History / Comment(s): mesothelioma. Medications and Allergies Home Medications Medication Instructions Recorded Confirmed Type Ipratropium/Albuterol Sulfate 1 puff INHALATION RT-QID PRN 06/11/18 02/28/24 History [Combivent Respimat Inhaler] Meloxicam 15 mg PO DAILY 06/11/18 02/28/24 History Omeprazole 20 mg PO BID 06/11/18 02/28/24 History Escitalopram [Lexapro] 20 mg PO DAILY 01/04/21 02/28/24 History LORazepam [Ativan] 1 mg PO HS 01/04/21 02/28/24 History Atorvastatin [Lipitor] 40 mg PO DAILY 07/23/21 02/28/24 History Levothyroxine Sodium [Synthroid] 125 mcg PO DAILY 07/23/21 02/28/24 History HYDROcodone/APAP 5-325MG [[place] 1 tab PO 5XD 12/27/22 02/28/24 History 5-325] bisacodyL [Dulcolax] 10 mg PO BID 02/28/24 02/28/24 History Allergies Allergy/AdvReac Type Severity Reaction Status Date / Time No Known Allergies Allergy Verified 02/28/24 16:18 Physical Exam Vitals: Vital Signs Temp Pulse Resp BP Pulse Ox 02/28/24 17:56 98.7 F 86 16 145/75 95 02/28/24 16:15 98.4 F 84 16 127/80 94 L Intake and Output 02/28/24 02/28/24 02/28/24 06:59 14:59 22:59 Other: Weight 58.967 kg Results CBC & Chem 7: 02/29/24 03:25 02/29/24 03:25 Labs: Abnormal Lab Results - Last 24 Hours (Table) 02/28/24 02/28/24 Range/Units 17:10 17:10 RBC 3.33 L (4.30-5.90) m/uL Hgb 11.6 L (13.0-17.5) gm/dL Hct 34.8 L (39.0-53.0) % MCV 104.5 H (80.0-100.0) fL Neutrophils # 8.2 H (1.3-7.7) k/uL Lymphocytes # 0.5 L (1.0-4.8) k/uL Sodium 125 L (137-145) mmol/L Chloride 93 L (98-107) mmol/L Creatinine 0.60 L (0.66-1.25) mg/dL Calcium 8.1 L (8.4-10.2) mg/dL Total Protein 5.4 L (6.3-8.2) g/dL Albumin 3.1 L (3.5-5.0) g/dL
[2024-02-29 03:43] LABS: Basophils % (A) 0 %; Eosinophils # (A) 0.2 k/uL (0-0.7); Eosinophils % (A) 2 %; HCT 39.9 % (39.0-53.0); Lymphocytes # (A) 0.7 k/uL (1.0-4.8); Lymphocytes % (A) 7 %; MCH 34.4 pg (25.0-35.0); MCHC 32.7 g/dL (31.0-37.0); MCV 105.4 fL (80.0-100.0); Macrocytosis Slight; Mean Platelet Volume 7.2; Monocytes % (A) 10 %; Neutrophils # (A) 7.8 k/uL (1.3-7.7); Neutrophils % (A) 78 %; Platelet Count 433 k/uL (150-450); RBC 3.78 m/uL (4.30-5.90); RDW 12.8 % (11.5-15.5)
[2024-02-29 03:58] LABS: African American GFR (CKD) >90 (>60 ml/min/1.73 sqM); Anion Gap 4 mmol/L; Blood Urea Nitrogen 10 mg/dL (9-20); Calcium 8.8 mg/dL (8.4-10.2); Carbon Dioxide 24 mmol/L (22-30); Chloride 96 mmol/L (98-107); Glucose 88 mg/dL (74-99); Non-African American GFR(CKD) >90 (>60 ml/min/1.73 sqM); Potassium 4.3 mmol/L (3.5-5.1); Sodium 124 mmol/L (137-145)
[2024-02-29] MEDS: LEVOTHYROXINE 125 MCG TAB PO SCH (07:40)
[2024-02-29 08:16] LABS: Basophils % (A) 0 %; Eosinophils # (A) 0.1 k/uL (0-0.7); Eosinophils % (A) 1 %; HCT 36.5 % (39.0-53.0); Lymphocytes # (A) 0.5 k/uL (1.0-4.8); Lymphocytes % (A) 5 %; MCH 34.3 pg (25.0-35.0); MCHC 32.9 g/dL (31.0-37.0); MCV 104.2 fL (80.0-100.0); Macrocytosis Slight; Mean Platelet Volume 7.4; Monocytes # (A) 0.9 k/uL (0-1.0); Monocytes % (A) 9 %; Neutrophils # (A) 8.3 k/uL (1.3-7.7); Neutrophils % (A) 82 %; Platelet Count 399 k/uL (150-450); RDW 12.9 % (11.5-15.5); WBC 10.1 k/uL (3.8-10.6)
[2024-02-29 08:32] LABS: African American GFR (CKD) >90 (>60 ml/min/1.73 sqM); Anion Gap 5 mmol/L; Blood Urea Nitrogen 10 mg/dL (9-20); Calcium 8.4 mg/dL (8.4-10.2); Carbon Dioxide 26 mmol/L (22-30); Chloride 94 mmol/L (98-107); Glucose 81 mg/dL (74-99); Non-African American GFR(CKD) >90 (>60 ml/min/1.73 sqM); Potassium 4.1 mmol/L (3.5-5.1); Sodium 125 mmol/L (137-145)
[2024-02-29] MEDS ORDERED: SODIUM CHLORIDE TAB 1 GM TAB PO SCH (09:00)
[2024-02-29] MEDS: PANTOPRAZOLE 40 MG TABLET PO SCH (09:19)
[2024-02-29] MEDS: ATORVASTATIN 40 MG TAB PO SCH (09:19)
[2024-02-29] MEDS: bisacodyL 5 MG TABLET.DR PO SCH (09:19)
[2024-02-29] MEDS: ESCITALOPRAM 20 MG TAB PO SCH (09:19)
[2024-02-29] MEDS: ENOXAPARIN 40 MG/0.4 ML SYRINGE SQ SCH (09:20)
--- NOTE | 2024-02-29 10:09 | P.NPCON ---
History of Present Illness - Reason for Consult hyponatremia - History of Present Illness Reason for consultation: Hyponatremia History of present illness: Patient is a 78-year-old male seen in renal consultation for hyponatremia. Sodium level this admission has been in the range of 124-125. Looking at prior records, it seems patient sodium level was in the range of 1 26-1 30 even back in January 2022. Patient states his sodium level has been running low for years. He does take Mobic daily. Patient does admit to history of lung cancer for which she has undergone surgery in the past. Patient states he is scheduled to undergo radiation in the near future. Oral intake has been fair. Denies v omiting or diarrhea. He denies excessive fluid intake. Admits to drinking 6 cups of coffee and 2 to 3 glasses of water daily. Denies use of diuretics. No edema. Has been voiding. Currently on normal saline. Denies chest pain or shortness of breath. Patient came to the hospital due to low back pain. Patient states he has had back pain which is mostly chronic in nature but worsened over the last 1 week. He does admit to back surgery couple years ago. He denies any trauma. Vital signs are stable. General: No acute distress. HEENT: Head exam is unremarkable. LUNGS: No audible rhonchi or wheezes. HEART: Rate and Rhythm are regular. ABDOMEN: Nontender. EXTREMITITES: No edema. Past Medical History Past Medical History: Cancer, GERD/Reflux, Osteoarthritis (OA), Pneumonia Additional Past Medical History / Comment(s): Right lung cancer 2003 and first resection done (got MRSA at that time in incision), second resection in 2008, lung cancer reoccured in 12/2014 and found new nodule in right lung had radiation in February 2015. Pancreatitis,chronic back pain, lung CA reoccured 2019 History of Any Multi-Drug Resistant Organisms: MRSA Date of last positivie culture/infection: 2003 MDRO Source:: BACK Past Surgical History: Cholecystectomy, Orthopedic Surgery Additional Past Surgical History / Comment(s): RESECTION TO RIGHT LUNG TWICE (RT MIDDLE AND RT LOWER LOBECTOMY), RT KNEE SCOPE x2 Past Anesthesia/Blood Transfusion Reactions: Motion Sickness Past Psychological History: No Psychological Hx Reported Smoking Status: Current some day smoker Past Alcohol Use History: None Reported, Occasional Past Drug Use History: None Reported - Past Family History Mother Family Medical History: Dementia Additional Family Medical History / Comment(s): Crohn's disease Father Family Medical History: Cancer, Respiratory Disorder Additional Family Medical History / Comment(s): mesothelioma. Medications and Allergies Home Medications Medication Instructions Recorded Confirmed Type Ipratropium/Albuterol Sulfate 1 puff INHALATION RT-QID PRN 06/11/18 02/28/24 History [Combivent Respimat Inhaler] Meloxicam 15 mg PO DAILY 06/11/18 02/28/24 History Omeprazole 20 mg PO BID 06/11/18 02/28/24 History Escitalopram [Lexapro] 20 mg PO DAILY 01/04/21 02/28/24 History LORazepam [Ativan] 1 mg PO HS 01/04/21 02/28/24 History Atorvastatin [Lipitor] 40 mg PO DAILY 07/23/21 02/28/24 History Levothyroxine Sodium [Synthroid] 125 mcg PO DAILY 07/23/21 02/28/24 History HYDROcodone/APAP 5-325MG [[place] 1 tab PO 5XD 12/27/22 02/28/24 History 5-325] bisacodyL [Dulcolax] 10 mg PO BID 02/28/24 02/28/24 History Allergies Allergy/AdvReac Type Severity Reaction Status Date / Time No Known Allergies Allergy Verified 02/28/24 16:18 Physical Exam Vitals: Vital Signs Temp Pulse Pulse Resp BP BP BP 02/29/24 07:20 98.3 F 55 L 17 110/65 02/28/24 23:28 97.7 F 86 19 144/76 02/28/24 22:58 83 18 140/79 02/28/24 17:56 98.7 F 86 16 145/75 02/28/24 16:15 98.4 F 84 16 127/80 Pulse Ox 02/29/24 07:20 95 02/28/24 23:28 92 L 02/28/24 22:58 93 L 02/28/24 17:56 95 02/28/24 16:15 94 L Intake and Output 02/28/24 02/29/24 02/29/24 22:59 06:59 14:59 Intake Total 2600 Balance 2600 Intake: Oral 2600 Other: # Voids 6 Weight 58.967 kg 58.967 kg Results - Lab Results Most recent lab results Calcium 8.4 mg/dL (8.4-10.2) 02/29/24 07:17 02/29/24 07:17 02/29/24 07:17 Assessment and Plan Plan: Assessment: 1. Hyponatremia. Euvolemic. No improvement with IV fluids. 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 Sodium level 125 today. Urine osmolality 367 and urine sodium 99. 2. Low back pain with acute L1 vertebral body compression fracture. 3. Lung cancer. Plan: Hep-Lock IV fluids. Add 1200 cc fluid restriction. Add urea. Encouraged oral intake. Repeat labs in the morning. Check TSH and cortisol level. Will give Samsca if sodium level not better tomorrow. Thank you for the consultation. I will continue to follow the patient with you during his hospital stay.
[2024-02-29] MEDS: UREA 15 GM POWD.PACK PO SCH (11:33)
--- NOTE | 2024-02-29 12:26 | P.PN ---
Subjective Progress Note Date: 02/29/24 Hospital Course: [] Pertinent Imaging: [] Subjective: [] Pertinent positives and negatives as discussed above, a complete review of systems was performed and all other systems are negative. Vitals Signs Reviewed. General: [nontoxic], [no distress], [appears at stated age] Derm: [warm], [dry] Head: [atraumatic], [normocephalic], [symmetric] Eyes: [EOMI], [no lid lag], [anicteric sclera] Mouth: [no lip lesion], [mucus membranes moist] Cardiovascular: [S1S2 reg], [no murmur] Lungs: decreased breath sounds on the right side, [no rhonchi, no rales] , [no accessory muscle use] Abdominal: [soft], [ nontender to palpation], [no guarding], [no appreciable organomegaly] Ext: [no gross muscle atrophy], [no edema], [no contractures] Neuro: [ CN II-XI grossly intact], [no focal neuro deficits] Psych: [Alert], [oriented], [appropriate affect] Data Reviewed Today: Pertinent Labs: No leukocytosis, hemoglobin 12.0, stable, macrocytosis present, sodium stable 125, creatinine normal Imaging: Reviewed CT abdomen pelvis Assessment and Plan: Acute L1 compression fracture, L4 compression fracture -ortho Consulted, appreciate recommendations -Pain management: Dilaudid 0.5 every 2 hours as needed, morphine 4 mg every 4 hours as needed Acute euvolemic hyponatremia, concern for SIADH -Nephrology following -No improvement after IV hydration, stop IV fluid -Fluid restriction 1200 cc -Check urea, TSH, cortisol, follow-up BMP -May require Samsca if no improvement with fluid restriction Lung cancer status post chemo, surgery and radiation Shortness of breath Emphysema Small bilateral pleural effusions bilateral atelectasis -Plan for chemo and radiation therapy in 3 weeks -Patient states that he sometimes gets episodes of shortness of breath and his oncologist prescribed him Medrol Dosepak -02/28 complains of worsening shortness of breath on exertion -Will give prednisone 30 mg daily for 3 days, will adjust the dose pending clinical course -incentive spirometry Macrocytic anemia -No signs of bleeding, continue to monitor -Check B12 and folate levels [Chronic:] GERD, continue PPI HLD: Continue statins Hypothyroidism: Continue levothyroxine DVT ppx Lovenox Anticipated discharge place: TBD Anticipated discharge time: 24-48 hours Objective - Vital Signs Vital signs: Vital Signs Temp 98.3 F 02/29/24 07:20 Pulse 55 L 02/29/24 07:20 Resp 17 02/29/24 07:20 BP 110/65 02/29/24 07:20 Pulse Ox 95 02/29/24 07:20 FiO2 Intake & Output 02/28/24 02/29/24 02/29/24 18:59 06:59 18:59 Intake Total 2600 Balance 2600 Weight 58.967 kg 58.967 kg Intake: Oral 2600 Other: # Voids 6 - Labs CBC & Chem 7: 02/29/24 07:17 02/29/24 07:17 Labs: Abnormal Lab Results - Last 24 Hours (Table) 02/28/24 02/28/24 02/28/24 Range/Units 17:10 17:10 19:20 RBC 3.33 L (4.30-5.90) m/uL Hgb 11.6 L (13.0-17.5) gm/dL Hct 34.8 L (39.0-53.0) % MCV 104.5 H (80.0-100.0) fL Neutrophils # 8.2 H (1.3-7.7) k/uL Lymphocytes # 0.5 L (1.0-4.8) k/uL Sodium 125 L (137-145) mmol/L Chloride 93 L (98-107) mmol/L Creatinine 0.60 L (0.66-1.25) mg/dL Osmolality (275-295) mOsm/kg Calcium 8.1 L (8.4-10.2) mg/dL Total Protein 5.4 L (6.3-8.2) g/dL Albumin 3.1 L (3.5-5.0) g/dL Urine Osmolality 367 L (400-1100) mOsm/kg 02/28/24 02/29/24 02/29/24 Range/Units 19:22 00:04 03:25 RBC 3.78 L (4.30-5.90) m/uL Hgb (13.0-17.5) gm/dL Hct (39.0-53.0) % MCV 105.4 H (80.0-100.0) fL Neutrophils # 7.8 H (1.3-7.7) k/uL Lymphocytes # 0.7 L (1.0-4.8) k/uL Sodium 125 L (137-145) mmol/L Chloride 94 L (98-107) mmol/L Creatinine 0.52 L (0.66-1.25) mg/dL Osmolality 268 L (275-295) mOsm/kg Calcium (8.4-10.2) mg/dL Total Protein (6.3-8.2) g/dL Albumin (3.5-5.0) g/dL Urine Osmolality (400-1100) mOsm/kg 02/29/24 02/29/24 02/29/24 Range/Units 03:25 07:17 07:17 RBC 3.50 L (4.30-5.90) m/uL Hgb 12.0 L (13.0-17.5) gm/dL Hct 36.5 L (39.0-53.0) % MCV 104.2 H (80.0-100.0) fL Neutrophils # 8.3 H (1.3-7.7) k/uL Lymphocytes # 0.5 L (1.0-4.8) k/uL Sodium 124 L 125 L (137-145) mmol/L Chloride 96 L 94 L (98-107) mmol/L Creatinine 0.54 L 0.52 L (0.66-1.25) mg/dL Osmolality (275-295) mOsm/kg Calcium (8.4-10.2) mg/dL Total Protein (6.3-8.2) g/dL Albumin (3.5-5.0) g/dL Urine Osmolality (400-1100) mOsm/kg
[2024-02-29] MEDS: predniSONE 10 MG TAB PO SCH (12:28)
--- NOTE | 2024-02-29 17:59 | P.CNOR ---
History of Present Illness - [facility] Consult date: 02/29/24 Requesting physician: Jelena Jernigan Consult reason: other (compression fx) History of present illness: Patient is a 78-year-old male who presented to the emergency department yesterday due to low back pain. Orthopedics was consulted due to vertebral compression fracture. Patient was seen at bedside this morning lying in the semirecumbent position. During exam patient was able to quickly sit up at the edge of the bed without mentioning any pain. Patient states last he was sitting at home in his chair when he began to have some left-sided low back pain which was pretty intense. Patient denies having any trauma/falls. Patient says the pain seems to come and go since last . Patient denies any significant previous spine surgery history although he said he did have surgery performed by Dr. Pop in February 2022 for T7 kyphoplasty with biopsy. Patient describes the pain in the low back on the left side is dull pressure- like. Patient denies any radiation of pain. Patient denies any numbness or tingling down the lower extremities. Patient denies any saddle anesthesia or loss of bowel/bladder control. Patient states she does take [place] which does help relieve the pain somewhat. Patient states at home he does use a walking stick and when he is out and about he does use a cane. Patient denies any significant cardiac history. Patient denies any chest pain, fever, shortness of breath, nausea, vomiting, change in vision. Past Medical History Past Medical History: Cancer, GERD/Reflux, Osteoarthritis (OA), Pneumonia Additional Past Medical History / Comment(s): Right lung cancer 2003 and first resection done (got MRSA at that time in incision), second resection in 2008, lung cancer reoccured in 12/2014 and found new nodule in right lung had radiation in February 2015. Pancreatitis,chronic back pain, lung CA reoccured 2019 History of Any Multi-Drug Resistant Organisms: MRSA Year Discovered:: 2003 MDRO Source:: BACK Past Surgical History: Cholecystectomy, Orthopedic Surgery Additional Past Surgical History / Comment(s): RESECTION TO RIGHT LUNG TWICE (RT MIDDLE AND RT LOWER LOBECTOMY), RT KNEE SCOPE x2 Past Anesthesia/Blood Transfusion Reactions: Motion Sickness Past Psychological History: No Psychological Hx Reported Smoking Status: Current some day smoker Past Alcohol Use History: None Reported, Occasional Past Drug Use History: None Reported - Past Family History Mother Family Medical History: Dementia Additional Family Medical History / Comment(s): Crohn's disease Father Family Medical History: Cancer, Respiratory Disorder Additional Family Medical History / Comment(s): mesothelioma. Medications and Allergies Home Medications Medication Instructions Recorded Confirmed Type Ipratropium/Albuterol Sulfate 1 puff INHALATION RT-QID PRN 06/11/18 02/28/24 History [Combivent Respimat Inhaler] Meloxicam 15 mg PO DAILY 06/11/18 02/28/24 History Omeprazole 20 mg PO BID 06/11/18 02/28/24 History Escitalopram [Lexapro] 20 mg PO DAILY 01/04/21 02/28/24 History LORazepam [Ativan] 1 mg PO HS 01/04/21 02/28/24 History Atorvastatin [Lipitor] 40 mg PO DAILY 07/23/21 02/28/24 History Levothyroxine Sodium [Synthroid] 125 mcg PO DAILY 07/23/21 02/28/24 History HYDROcodone/APAP 5-325MG [[place] 1 tab PO 5XD 12/27/22 02/28/24 History 5-325] bisacodyL [Dulcolax] 10 mg PO BID 02/28/24 02/28/24 History Allergies Allergy/AdvReac Type Severity Reaction Status Date / Time No Known Allergies Allergy Verified 02/28/24 16:18 Physical Examination Inspection: Negative for any open fractures, significant erythema/ecchymosis/open wounds. Sensation: Equal, symmetric, bilat intact throughout the upper and lower extremities on exam. Palpation: There is some very mild tenderness with patient over the left lower lumbar spine in the paravertebral region. Nontender to palpation on rest of exam. Range of motion: Patient has full range of motion in bilateral upper and lower extremities on exam. Patient able to sit up at the edge of the bed on own during exam. Motor: 4+/5 in all major motor groups in bilateral upper and lower extremities Neurovascular: Radial pulse intact, 2+ bilaterally. Cap refill under 3 seconds in digits of upper extremities. Special test: Negative Genna bilaterally. Negative clonus bilaterally. Negative Margarito bilaterally. Results - Labs Labs: Abnormal Lab Results - Last 24 Hours (Table) 02/28/24 02/28/24 02/28/24 Range/Units 17:10 17:10 19:20 RBC 3.33 L (4.30-5.90) m/uL Hgb 11.6 L (13.0-17.5) gm/dL Hct 34.8 L (39.0-53.0) % MCV 104.5 H (80.0-100.0) fL Neutrophils # 8.2 H (1.3-7.7) k/uL Lymphocytes # 0.5 L (1.0-4.8) k/uL Sodium 125 L (137-145) mmol/L Chloride 93 L (98-107) mmol/L Creatinine 0.60 L (0.66-1.25) mg/dL Osmolality (275-295) mOsm/kg Calcium 8.1 L (8.4-10.2) mg/dL Total Protein 5.4 L (6.3-8.2) g/dL Albumin 3.1 L (3.5-5.0) g/dL Urine Osmolality 367 L (400-1100) mOsm/kg 02/28/24 02/29/24 02/29/24 Range/Units 19:22 00:04 03:25 RBC 3.78 L (4.30-5.90) m/uL Hgb (13.0-17.5) gm/dL Hct (39.0-53.0) % MCV 105.4 H (80.0-100.0) fL Neutrophils # 7.8 H (1.3-7.7) k/uL Lymphocytes # 0.7 L (1.0-4.8) k/uL Sodium 125 L (137-145) mmol/L Chloride 94 L (98-107) mmol/L Creatinine 0.52 L (0.66-1.25) mg/dL Osmolality 268 L (275-295) mOsm/kg Calcium (8.4-10.2) mg/dL Total Protein (6.3-8.2) g/dL Albumin (3.5-5.0) g/dL Urine Osmolality (400-1100) mOsm/kg 02/29/24 02/29/24 02/29/24 Range/Units 03:25 07:17 07:17 RBC 3.50 L (4.30-5.90) m/uL Hgb 12.0 L (13.0-17.5) gm/dL Hct 36.5 L (39.0-53.0) % MCV 104.2 H (80.0-100.0) fL Neutrophils # 8.3 H (1.3-7.7) k/uL Lymphocytes # 0.5 L (1.0-4.8) k/uL Sodium 124 L 125 L (137-145) mmol/L Chloride 96 L 94 L (98-107) mmol/L Creatinine 0.54 L 0.52 L (0.66-1.25) mg/dL Osmolality (275-295) mOsm/kg Calcium (8.4-10.2) mg/dL Total Protein (6.3-8.2) g/dL Albumin (3.5-5.0) g/dL Urine Osmolality (400-1100) mOsm/kg H & H 02/28/24 02/29/24 02/29/24 Range/Units 17:10 03:25 07:17 Hgb 11.6 L 13.0 12.0 L (13.0-17.5) gm/dL Hct 34.8 L 39.9 36.5 L (39.0-53.0) % Result Diagrams: 02/29/24 07:17 02/29/24 07:17 - Diagnostic results Comments: CT scan of the abdomen pelvis has been reviewed. There is evident compression fractures at T12, L2, L4. There is evident spondylosis throughout the lumbar spine on CT scan as well as degenerative disc disease. Assessment and Plan Assessment: 1. Left-sided low back pain; T12, L2, L4 vertebral compression fracture; lumbar spondylosis; degenerative disc disease Plan: 1. Left-sided low back pain; T12, L2, L4 vertebral compression fracture; lumbar spondylosis; degenerative disc disease - CT scan of the abdomen pelvis has been reviewed. There is evident compression fractures at T12, L2, L4. There is evident spondylosis throughout the lumbar spine on CT scan as well as degenerative disc disease. I did discuss the findings of the exam and imaging with my attending, Dr. Pop. At this time we are not recommending any emergent or urgent orthopedic surgical intervention. We are recommending conservative measures with the use of PT/OT and pain medication as needed. Patient may weight-bear as tolerated with a walker and assistance as needed during his stay in the hospital. No further intervention from an orthopedic standpoint during patient stay. We do recommend patient to follow-up in the outpatient setting with Dr. Pop for continued care. Orthopedics will be available as needed to see the patient. We will defer the rest of the management during the patient's stay to the primary medical team. 2. Appreciate medical management 3. Pain management -Tylenol; morphine 4. DVT prophylaxis -Lovenox 5. GI prophylaxis -Dulcolax; Protonix 6. PT/OT -weightbearing as tolerated with walker 7. Encourage incentive spirometer use 8. Appreciate consult Time with Patient: Less than 30
[2024-03-01] MEDS: IPRATROPIUM-ALBUTEROL 3 ML NEB INHALATION PRN (05:25)
--- NOTE | 2024-03-01 06:30 | XR ---
EXAM: XR Chest, 1 View CLINICAL HISTORY: shortness of breath TECHNIQUE: Frontal view of the chest. COMPARISON: 12/28/22 FINDINGS: Lungs: Scarring over left upper and right middle/lower lung zones, unchanged. Suspect superimposed interstitial opacity throughout both lungs which may suggest pulmonary edema Pleural space: Small-moderate bilateral pleural effusions are new, possibly loculated on the left. Mediastinum: Unchanged. Bones/joints: No acute findings. IMPRESSION: Small-moderate bilateral pleural effusions, possibly loculated on the left. Suspect mild pulmonary edema.
[2024-03-01 09:11] LABS: Basophils # (A) 0.03 X 10*3/uL (0.00-0.10); Basophils % (A) 0.3 %; Eosinophils # (A) 0.05 X 10*3/uL (0.04-0.35); Eosinophils % (A) 0.5 %; HCT 33.6 % (39.6-50.0); HGB 11.6 g/dL (13.0-17.0); Lymphocytes # (A) 0.53 X 10*3/uL (0.90-5.00); Lymphocytes % (A) 5.3 %; MCH 34.4 pg (27.0-32.0); MCHC 34.5 g/dL (32.0-37.0); MCV 99.7 FL (80.0-97.0); Mean Platelet Volume 9.4 FL (9.5-12.2); Monocytes # (A) 1.38 X 10*3/uL (0.20-1.00); Monocytes % (A) 13.9 %; NRBC Per 100 WBC 0 X 10*3/uL (0.00-0.01); Neutrophils # (A) 7.88 X 10*3/uL (1.80-7.70); Neutrophils % (A) 79.2 %; Platelet Count 405 X 10*3/uL (140-440); RBC 3.37 X 10*6/uL (4.40-5.60); RDW 12.9 % (11.5-14.5); WBC 9.95 X 10*3/uL (4.50-10.00)
[2024-03-01 10:04] LABS: Blood Urea Nitrogen 12.4 mg/dL (9.0-27.0); Calcium 8.5 mg/dL (8.7-10.3); Carbon Dioxide 22.3 mmol/L (21.6-31.8); Chloride 92 mmol/L (96-109); Glucose 100 mg/dL (70-110); Magnesium 1.5 mg/dL (1.5-2.4); Potassium 4.1 mmol/L (3.5-5.5); Sodium 125 mmol/L (135-145)
--- NOTE | 2024-03-01 11:17 | P.PN ---
Subjective Progress Note Date: 03/01/24 Hospital Course: 78-year-old male with history of lung cancer and follows with Dr. Lester (last treatment was a year ago with a combination of chemotherapy and radiation), GERD, osteoarthritis, history of pneumonia presented to the emergency department for evaluation of low back pain. Vitals on admission temperature 98.7, pulse rate 86, respiratory rate 16, blood pressure 145/75, O2 sat 95% on room air. CT of abdomen pelvis shows new findings from 12/10/2023 acute compression fracture of L1 vertebral body with up to 50% height loss. Minimal 5 mm of retropulsion. Stable L4 vertebral body compression fracture with up to 50% height loss. Moderate to severe degeneration changes of the spine. Small bilateral pleural effusions with associated atelectasis. Superimposed scarring and emphysema noted. Colonic diverticulosis. Labs on admission show WBC 9.8, hemoglobin 11.6, hematocrit 34.8, MCV 104.5, platelet 361, neutrophils 8.2, sodium 125, potassium 4.2, chloride 93, carbon dioxide 29, BUN 14, creatinine 0.60, glucose 85, calcium 8.1, albumin 3.1. UA shows negative for nitrites and leukocyte esterase. Patient admitted for acute lumbar vertebral compression fracture as well as hy ponatremia. Nephrology and orthopedic spine surgery consulted. Subjective: Patient seen and examined at bedside. Overnight patient became more dyspneic with minimal exertion. Complaining of occasional cough. Pulmonology was also consulted. Pertinent positives and negatives as discussed above, a complete review of systems was performed and all other systems are negative. Vitals Signs Reviewed. General: Nontoxic, no distress, appears at stated age Derm: Warm, dry Head: Atraumatic, normocephalic, symmetric Eyes: EOMI, no lid lag, anicteric sclera Mouth: No lip lesion, mucus membranes moist Cardiovascular: S1S2 reg, no murmur Lungs: Bilateral lower lung rhonchi, no accessory muscle use Abdominal: Soft, nontender to palpation, no guarding, no appreciable organomegaly Ext: No gross muscle atrophy, no edema, no contractures Neuro: CN II-XI grossly intact, no focal neuro deficits Psych: Alert, oriented, appropriate affect Data Reviewed Today: Pertinent Labs: WBC 9.95, hemoglobin 11.6, platelet 405, sodium 125, creatinine 0.5 a.m. cortisol 9.7, magnesium 1.5, B12 435, TSH 2.24 Imaging: Chest x-ray independently interpreted, shows bilateral small pleural effusion as well as fibrotic changes Assessment and Plan: Patient is severely ill, needs close monitoring. Prognosis guarded. Active: Acute dyspnea Small bilateral pleural effusions Acute COPD exacerbation History of lung cancer status post resection, Radiation, chemotherapy -Started on DuoNebs 4 times daily scheduled, also on 4 times daily as needed -Change oral prednisone to IV Solu-Medrol 40 every 6 hours -Wean oxygen -Pulmonology consulted, pending recommendations Euvolemic hyponatremia, likely SIADH -Nephrology following -Continued on urea 15 g daily -Possibility of relative adrenal insufficiency, consider cosyntropin stim test Acute L1 compression fracture, L4 compression fracture -Orthopedic surgery following, no acute interventions planned -Pain control with oral Tylenol as needed, IV Dilaudid as needed, IV morphine as needed, monitor for sedation Mild normocytic anemia -Likely secondary to acute illness Chronic: Anxiety GERD Hypothyroidism Depression DVT ppx: Lovenox Code status: Full code Anticipated discharge place: Pending clinical course Anticipated discharge time: Pending clinical course Objective - Vital Signs Vital signs: Vital Signs Temp 97.8 F 03/01/24 07:19 Pulse 79 03/01/24 07:19 Resp 17 03/01/24 07:19 BP 152/72 03/01/24 07:19 Pulse Ox 99 03/01/24 07:19 FiO2 Intake & Output 02/29/24 03/01/24 03/01/24 18:59 06:59 18:59 Output Total 2 Balance -2 Output: Stool 2 Other: # Bowel Movements 2 - Labs CBC & Chem 7: 03/01/24 03:07 03/01/24 03:07 Labs: Abnormal Lab Results - Last 24 Hours (Table) 03/01/24 03/01/24 Range/Units 03:07 03:07 RBC 3.37 L (4.40-5.60) X 10*6/uL Hgb 11.6 L (13.0-17.0) g/dL Hct 33.6 L (39.6-50.0) % MCV 99.7 H (80.0-97.0) FL MCH 34.4 H (27.0-32.0) pg MPV 9.4 L (9.5-12.2) FL Immature Gran # 0.08 H (0.00-0.04) X 10*3/uL Neutrophils # 7.88 H (1.80-7.70) X 10*3/uL Lymphocytes # 0.53 L (0.90-5.00) X 10*3/uL Monocytes # 1.38 H (0.20-1.00) X 10*3/uL Sodium 125 L (135-145) mmol/L Chloride 92 L (96-109) mmol/L Creatinine 0.5 L (0.6-1.5) mg/dL BUN/Creatinine Ratio 24.80 H (12.00-20.00) Ratio Calcium 8.5 L (8.7-10.3) mg/dL
[2024-03-01] MEDS: IPRATROPIUM-ALBUTEROL 3 ML NEB INHALATION SCH (12:03)
[2024-03-01] MEDS: methylPREDNISolone SOD SUCCI 40 MG/ML 1 ML VIAL IV SCH (12:18)
[2024-03-01] MEDS: DOXYCYCLINE 100 MG CAP PO SCH (13:09)
--- NOTE | 2024-03-01 13:16 | P.PN ---
Subjective Progress Note Date: 03/01/24 Principal diagnosis: Left-sided low back pain; T12, L2, L4 vertebral compression fracture; lumbar spondylosis; degenerative disc disease Patient was seen at bedside this morning lying semirecumbent position. Patient says he is still having some low back pain at this time. He says he is hoping to work with therapy. Patient denies any new changes in regards to his back pain. Patient is open to receiving a back brace to help with stability. Patient denies any other orthopedic complaints at this time. Objective - Vital Signs Vital signs: Vital Signs Temp 97.8 F 03/01/24 07:19 Pulse 79 03/01/24 07:19 Resp 17 03/01/24 07:19 BP 152/72 03/01/24 07:19 Pulse Ox 99 03/01/24 07:19 FiO2 Intake & Output 02/29/24 03/01/24 03/01/24 18:59 06:59 18:59 Output Total 2 Balance -2 Output: Stool 2 Other: # Bowel Movements 2 - Exam Inspection: Negative for any open fractures, significant erythema/ecchymosis/open wounds. Sensation: Equal, symmetric, bilat intact throughout the upper and lower extremities on exam. Palpation: There is some very mild tenderness with patient over the left lower lumbar spine in the paravertebral region. Nontender to palpation on rest of exam. Range of motion: Patient has full range of motion in bilateral upper and lower extremities on exam. Patient able to sit up at the edge of the bed on own during exam. Motor: 4+/5 in all major motor groups in bilateral upper and lower extremities Neurovascular: Radial pulse intact, 2+ bilaterally. Cap refill under 3 seconds in digits of upper extremities. Special test: Negative Genna bilaterally. Negative clonus bilaterally. Negative Margarito bilaterally - Labs CBC & Chem 7: 03/01/24 03:07 03/01/24 03:07 Labs: Abnormal Lab Results - Last 24 Hours (Table) 03/01/24 03/01/24 Range/Units 03:07 03:07 RBC 3.37 L (4.40-5.60) X 10*6/uL Hgb 11.6 L (13.0-17.0) g/dL Hct 33.6 L (39.6-50.0) % MCV 99.7 H (80.0-97.0) FL MCH 34.4 H (27.0-32.0) pg MPV 9.4 L (9.5-12.2) FL Immature Gran # 0.08 H (0.00-0.04) X 10*3/uL Neutrophils # 7.88 H (1.80-7.70) X 10*3/uL Lymphocytes # 0.53 L (0.90-5.00) X 10*3/uL Monocytes # 1.38 H (0.20-1.00) X 10*3/uL Sodium 125 L (135-145) mmol/L Chloride 92 L (96-109) mmol/L Creatinine 0.5 L (0.6-1.5) mg/dL BUN/Creatinine Ratio 24.80 H (12.00-20.00) Ratio Calcium 8.5 L (8.7-10.3) mg/dL Assessment and Plan Assessment: 1. Left-sided low back pain; T12, L2, L4 vertebral compression fracture; lumbar spondylosis; degenerative disc disease Plan: 1. Left-sided low back pain; T12, L2, L4 vertebral compression fracture; lumbar spondylosis; degenerative disc disease - CT scan of the abdomen pelvis has been reviewed. There is evident compression fractures at T12, L2, L4. There is evident spondylosis throughout the lumbar spine on CT scan as well as degenerative disc disease. I did discuss the findings of the exam and imaging with my attending, Dr. Pop. At this time we are not recommending any emergent or urgent orthopedic surgical intervention. We are recommending conservative measures with the use of PT/OT and pain medication as needed. Patient may weight-bear as tolerated with a walker and assistance as needed during his stay in the hospital. No further intervention from an orthopedic standpoint during patient stay. We do recommend patient to follow-up in the outpatient setting with Dr. Pop for continued care. Prescription for T LSO brace was signed and given to case management associate. media traffic manager working on this. Orthopedics is signing off at this time. Patient stable from orthopedics standpoint for discharge. Please do not hesitate to contact us for any further questions 2. Appreciate medical management 3. Pain management -Tylenol; morphine 4. DVT prophylaxis -Lovenox 5. GI prophylaxis -Dulcolax; Protonix 6. PT/OT -weightbearing as tolerated with walker 7. Encourage incentive spirometer use Time with Patient: Less than 30
[2024-03-01] MEDS: TOLVAPTAN 15 MG TABLET PO ONE (13:34)
--- NOTE | 2024-03-01 14:41 | P.PN ---
Subjective Progress Note Date: 03/01/24 Patient seen in follow-up for hyponatremia. Still having back pain. No other complaints. Vital signs are stable. General: No acute distress. HEENT: Head exam is unremarkable. LUNGS: No audible rhonchi or wheezes. HEART: Rate and Rhythm are regular. ABDOMEN: Nontender. EXTREMITITES: No edema. Objective - Vital Signs Vital signs: Vital Signs Temp 97.8 F 03/01/24 07:19 Pulse 79 03/01/24 07:19 Resp 17 03/01/24 07:19 BP 152/72 03/01/24 07:19 Pulse Ox 99 03/01/24 07:19 FiO2 Intake & Output 02/29/24 03/01/24 03/01/24 18:59 06:59 18:59 Output Total 2 Balance -2 Output: Stool 2 Other: # Bowel Movements 2 - Labs CBC & Chem 7: 03/01/24 03:07 03/01/24 03:07 Labs: Abnormal Lab Results - Last 24 Hours (Table) 03/01/24 03/01/24 Range/Units 03:07 03:07 RBC 3.37 L (4.40-5.60) X 10*6/uL Hgb 11.6 L (13.0-17.0) g/dL Hct 33.6 L (39.6-50.0) % MCV 99.7 H (80.0-97.0) FL MCH 34.4 H (27.0-32.0) pg MPV 9.4 L (9.5-12.2) FL Immature Gran # 0.08 H (0.00-0.04) X 10*3/uL Neutrophils # 7.88 H (1.80-7.70) X 10*3/uL Lymphocytes # 0.53 L (0.90-5.00) X 10*3/uL Monocytes # 1.38 H (0.20-1.00) X 10*3/uL Sodium 125 L (135-145) mmol/L Chloride 92 L (96-109) mmol/L Creatinine 0.5 L (0.6-1.5) mg/dL BUN/Creatinine Ratio 24.80 H (12.00-20.00) Ratio Calcium 8.5 L (8.7-10.3) mg/dL Assessment and Plan Assessment: 1. Hyponatremia. Euvolemic. No improvement with IV fluids. 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 Sodium level stable 125 today. Urine osmola lity 367 and urine sodium 99. 2. Low back pain with acute L1 vertebral body compression fracture. 3. Lung cancer. Plan: Avoid IVF 1200 cc fluid restriction. Continue urea. Encouraged protein intake. Will order tolvaptan 7.5mg once
--- NOTE | 2024-03-01 15:00 | P.CNPUL ---
History of Present Illness Consult date: 03/01/24 Requesting physician: Dania Watts Reason for consult: dyspnea, abnormal CXR/CT Chief complaint: Severe back pain History of present illness: This is a 78-year-old male patient with a known history of chronic and ongoing tobacco dependence, osteoarthritis, gastroesophageal reflux disease, hy pothyroidism, hyperlipidemia, anxiety. Also has a significant history of lung cancer dating back to 2003. He has had resections of the right lung in 2003 in 2008. He had recurrent lung cancer and multiple treatment since then. 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 Most recent PET scan from December 2023 revealed increasing radiotracer uptake within the left upper lobe anterior spiculated nodular density and a right lateral midline increasing size pleural- based density. There is also radiotracer activity in the right anterior midlung nodular density. Small residual radiotracer uptake within a spiculated left perihilar mass. Mild radiotracer activity in the subcarinal and right perihilar lymph node. Focal increased radiotracer signal within C5 vertebrae representing osseous metastasis. He follows with Dr. Lester on a regular basis. He presented here to the emergency room on 02/28/2024 with intractable back pain. He had been having issues for 1 week prior utilizing more [place] than he normally takes for pain control. CT scan of the abdomen pelvis revealed new acute compression fracture of L1 vertebral body with up to 50% height loss. Minimal 5 mm retropulsion. Stable L4 vertebral body compression fracture with up to 50% height loss. Moderate to severe degenerative changes of the spine. Small bilateral pleural effusions with associated atelectasis. Superimposed scarring and emphysema noted. He is seen today in consultation on the regular medical floor. He is currently resting in bed. Awake and alert in no acute distress. He does have back pain with minimal activity. He does have some dyspnea on exertion. Occasional cough and congestion. Chest x-ray does reveal small to moderate bilateral pleural effusions, loculated effusion on the left. He is currently maintaining O2 saturations in the 90s on 2 L/min per nasal cannula. He is afebrile. Hemodynamically stable. White count 9.9. Hemoglobin 11.6. Platelets 405. Sodium 125. Potassium 4.1. Bicarb 22. BUN 12. Creatinine 0.5. Glucose 100. Review of Systems REVIEW OF SYSTEMS: CONSTITUTIONAL: Denies any recent significant weight loss or weight gain. EYES: Denies change in vision. EARS, NOSE, MOUTH, THROAT: Denies headaches, denies sore throat. CARDIOVASCULAR: Denies chest pain, palpitations or syncopal episodes. RESPIRATORY: Positive for shortness of breath, cough, congestion no hemoptysis. GASTROINTESTINAL: Denies change in appetite, denies abdominal pain GENITOURINARY: Denies hematuria, denies infections. MUSKULOSKELETAL: Positive for significant back pain. INTEGUMENTARY: Denies rash, denies eczema. NEUROLOGICAL: Denies recent memory loss, no recent seizure activity. PSYCHIATRIC: Denies anxiety, denies depression. HEMATOLOGIC/LYMPHATIC: Denies anemia, denies enlarged lymph nodes. Past Medical History Past Medical History: Cancer, GERD/Reflux, Osteoarthritis (OA), Pneumonia Additional Past Medical History / Comment(s): Right lung cancer 2003 and first resection done (got MRSA at that time in incision), second resection in 2008, lung cancer reoccured in 12/2014 and found new nodule in right lung had radiation in February 2015. Pancreatitis,chronic back pain, lung CA reoccured 2020 History of Any Multi-Drug Resistant Organisms: MRSA Date of last positivie culture/infection: 2003 MDRO Source:: BACK Past Surgical History: Cholecystectomy, Orthopedic Surgery Additional Past Surgical History / Comment(s): RESECTION TO RIGHT LUNG TWICE (RT MIDDLE AND RT LOWER LOBECTOMY), RT KNEE SCOPE x2 Past Anesthesia/Blood Transfusion Reactions: Motion Sickness Past Psychological History: No Psychological Hx Reported Smoking Status: Current some day smoker Past Alcohol Use History: None Reported, Occasional Past Drug Use History: None Reported - Past Family History Mother Family Medical History: Dementia Additional Family Medical History / Comment(s): Crohn's disease Father Family Medical History: Cancer, Respiratory Disorder Additional Family Medical History / Comment(s): mesothelioma. Medications and Allergies Home Medications Medication Instructions Recorded Confirmed Type Ipratropium/Albuterol Sulfate 1 puff INHALATION RT-QID PRN 06/11/18 02/28/24 History [Combivent Respimat Inhaler] Meloxicam 15 mg PO DAILY 06/11/18 02/28/24 History Omeprazole 20 mg PO BID 06/11/18 02/28/24 History Escitalopram [Lexapro] 20 mg PO DAILY 01/04/21 02/28/24 History LORazepam [Ativan] 1 mg PO HS 01/04/21 02/28/24 History Atorvastatin [Lipitor] 40 mg PO DAILY 07/23/21 02/28/24 History Levothyroxine Sodium [Synthroid] 125 mcg PO DAILY 07/23/21 02/28/24 History HYDROcodone/APAP 5-325MG [[place] 1 tab PO 5XD 12/27/22 02/28/24 History 5-325] bisacodyL [Dulcolax] 10 mg PO BID 02/28/24 02/28/24 History Allergies Allergy/AdvReac Type Severity Reaction Status Date / Time No Known Allergies Allergy Verified 02/28/24 16:18 Physical Exam Vitals: Vital Signs Temp Pulse Pulse Resp BP Pulse Ox 03/01/24 13:07 98.7 F 95 18 154/86 89 L 03/01/24 07:19 97.8 F 79 17 152/72 99 03/01/24 05:38 78 03/01/24 05:27 78 03/01/24 02:00 97.5 F L 77 18 132/75 96 02/29/24 20:10 98.1 F 94 17 144/79 98 Intake and Output 02/29/24 03/01/24 03/01/24 22:59 06:59 14:59 Output Total 2 Balance -2 Output: Stool 2 Other: # Bowel Movements 2 GENERAL EXAM: Alert, frail, cachectic 78-year-old male, on 2 L nasal cannula, fairly comfortable in no apparent distress. HEAD: Normocephalic. EYES: Normal reaction of pupils, equal size. NOSE: Clear with pink turbinates. THROAT: No erythema or exudates. NECK: No masses, no JVD. CHEST: No chest wall deformity. LUNGS: Equal air entry with crackles in the bilateral bases. CVS: S1 and S2 normal with no audible murmur, regular rhythm. ABDOMEN: No hepatosplenomegaly, normal bowel sounds, no guarding or rigidity. SPINE: No scoliosis or deformity SKIN: No rashes CENTRAL NERVOUS SYSTEM: No focal deficits, tone is normal in all 4 extremities. EXTREMITIES: There is no peripheral edema. No clubbing, no cyanosis. Peripheral pulses are intact. Results - Laboratory Findings CBC and BMP: 03/01/24 03:07 03/01/24 03:07 Abnormal lab findings: Abnormal Labs 02/28/24 02/28/24 02/28/24 17:10 17:10 19:20 RBC 3.33 L Hgb 11.6 L Hct 34.8 L MCV 104.5 H MCH MPV Immature Gran # Neutrophils # 8.2 H Lymphocytes # 0.5 L Monocytes # Sodium 125 L Chloride 93 L Creatinine 0.60 L BUN/Creatinine Ratio Osmolality Calcium 8.1 L Total Protein 5.4 L Albumin 3.1 L Urine Osmolality 367 L 02/28/24 02/29/24 02/29/24 19:22 00:04 03:25 RBC 3.78 L Hgb Hct MCV 105.4 H MCH MPV Immature Gran # Neutrophils # 7.8 H Lymphocytes # 0.7 L Monocytes # Sodium 125 L Chloride 94 L Creatinine 0.52 L BUN/Creatinine Ratio Osmolality 268 L Calcium Total Protein Albumin Urine Osmolality 02/29/24 02/29/24 02/29/24 03:25 07:17 07:17 RBC 3.50 L Hgb 12.0 L Hct 36.5 L MCV 104.2 H MCH MPV Immature Gran # Neutrophils # 8.3 H Lymphocytes # 0.5 L Monocytes # Sodium 124 L 125 L Chloride 96 L 94 L Creatinine 0.54 L 0.52 L BUN/Creatinine Ratio Osmolality Calcium Total Protein Albumin Urine Osmolality 03/01/24 03/01/24 03:07 03:07 RBC 3.37 L Hgb 11.6 L Hct 33.6 L MCV 99.7 H MCH 34.4 H MPV 9.4 L Immature Gran # 0.08 H Neutrophils # 7.88 H Lymphocytes # 0.53 L Monocytes # 1.38 H Sodium 125 L Chloride 92 L Creatinine 0.5 L BUN/Creatinine Ratio 24.80 H Osmolality Calcium 8.5 L Total Protein Albumin Urine Osmolality - Diagnostic Findings Chest x-ray: image reviewed Assessment and Plan Assessment: Acute on chronic back pain. CT scan of the abdomen pelvis revealed new acute compression fracture of L1 vertebral body with up to 50% height loss. Minimal 5 mm retropulsion. Stable L4 vertebral body compression fracture with up to 50% height loss. Moderate to severe degenerative changes of the spine. Acute hypoxemic respiratory failure secondary to an acute exacerbation of chronic obstructive pulmonary disease, small loculated pleural effusions History of lung cancer dating back to 2003. He has had resections of the right lung in 2004 in 2008. He had recurrent lung cancer and multiple treatment since then. 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 Most recent PET scan from December 2023 revealed increasing radiotracer uptake within the left upper lobe anterior spiculated nodular density and a right lateral midline increasing size pleural-based density. There is also radiotracer activity in the right anterior midlung nodular density. Small residual radiotracer uptake within a spiculated left perihilar mass. Mild radiotracer activity in the subcarinal and right perihilar lymph node. Focal increased radiotracer signal within C5 vertebrae representing osseous metastasis. Chronic and ongoing tobacco dependence Hypothyroidism Hyperlipidemia Anxiety Osteoarthritis Gastroesophageal reflux disease Plan: The patient was seen and evaluated Imaging, labs and medications reviewed Add Symbicort, DuoNeb inhalations, Solu-Medrol Empiric antibiotics in the form of Vibramycin Lovenox for DVT prophylaxis Being followed by orthopedic surgery No plans for surgical intervention PT/OT, pain management TLSO brace ordered We will continue to follow and make further recommendations based on his clinical status I have personally seen and examined the patient, performed the documentation and the assessment and plan as written. Number of minutes spent on the visit: 20 Dictation was produced using [employer] dictation software. Please excuse any grammatical, word or spelling errors.
[2024-03-01] MEDS: SYMBICORT 160-4.5 MCG INHALER INHALATION SCH (20:38)
[2024-03-01] MEDS: LORazepam 1 MG TAB PO SCH (23:02)
[2024-03-02 09:58] LABS: Magnesium 1.7 mg/dL (1.5-2.4)
[2024-03-02 10:34] LABS: Carbon Dioxide 24.9 mmol/L (21.6-31.8); Chloride 95 mmol/L (96-109); Glucose 173 mg/dL (70-110); Potassium 4.2 mmol/L (3.5-5.5); Sodium 130 mmol/L (135-145)
--- NOTE | 2024-03-02 11:25 | P.PN ---
Subjective Progress Note Date: 03/02/24 Patient seen in follow-up for hyponatremia. No acute events over night. Vital signs are stable. General: No acute distress. HEENT: Head exam is unremarkable. LUNGS: No audible rhonchi or wheezes. HEART: Rate and Rhythm are regular. ABDOMEN: Nontender. EXTREMITITES: No edema. Objective - Vital Signs Vital signs: Vital Signs Temp 97.7 F 03/02/24 07:46 Pulse 76 03/02/24 07:46 Resp 18 03/02/24 07:46 BP 125/76 03/02/24 07:46 Pulse Ox 90 L 03/02/24 07:46 FiO2 Intake & Output 03/01/24 03/02/24 03/02/24 18:59 06:59 18:59 Intake Total 540 Output Total 1600 Balance -1060 Intake: Oral 540 Output: Urine 1600 Other: # Voids 6 # Bowel Movements 2 - Labs CBC & Chem 7: 03/01/24 03:07 03/02/24 04:18 Labs: Abnormal Lab Results - Last 24 Hours (Table) 03/01/24 Range/Units 03:07 Sodium 125 L (135-145) mmol/L Chloride 92 L (96-109) mmol/L Creatinine 0.5 L (0.6-1.5) mg/dL BUN/Creatinine Ratio 24.80 H (12.00-20.00) Ratio Calcium 8.5 L (8.7-10.3) mg/dL Assessment and Plan Assessment: 1. Hyponatremia. Euvolemic. No improvement with IV fluids. 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 Sodium level improved 130 today after Tolvaptan. Urine osmolality 367 and urine sodium 99. 2. Low back pain with acute L1 vertebral body compression fracture. 3. Lung cancer. Plan: Avoid IVF 1200 cc fluid restriction. Continue urea. Encouraged protein intake. s/p tolvaptan 7.5mg yesterday
--- NOTE | 2024-03-02 12:59 | P.PN ---
Subjective Progress Note Date: 03/02/24 Hospital Course: 78-year-old male with history of lung cancer and follows with Dr. Lester (last treatment was a year ago with a combination of chemotherapy and radiation), GERD, osteoarthritis, history of pneumonia presented to the emergency department for evaluation of low back pain. Vitals on admission temperature 98.7, pulse rate 86, respiratory rate 16, blood pressure 145/75, O2 sat 95% on room air. CT of abdomen pelvis shows new findings from 12/10/2023 acute compression fracture of L1 vertebral body with up to 50% height loss. Minimal 5 mm of retropulsion. Stable L4 vertebral body compression fracture with up to 50% height loss. Moderate to severe degeneration changes of the spine. Small bilateral pleural effusions with associated atelectasis. Superimposed scarring and emphysema noted. Colonic diverticulosis. Labs on admission show WBC 9.8, hemoglobin 11.6, hematocrit 34.8, MCV 104.5, platelet 361, neutrophils 8.2, sodium 125, potassium 4.2, chloride 93, carbon dioxide 29, BUN 14, creatinine 0.60, glucose 85, calcium 8.1, albumin 3.1. UA shows negative for nitrites and leukocyte esterase. Patient admitted for acute lumbar vertebral compression fracture as well as hy ponatremia. Nephrology and orthopedic spine surgery consulted. Subjective: Patient seen and examined at bedside. Claims that breathing is slightly improved. No acute events overnight. Pertinent positives and negatives as discussed above, a complete review of systems was performed and all other systems are negative. Vitals Signs Reviewed. General: Nontoxic, no distress, appears at stated age Derm: Warm, dry Head: Atraumatic, normocephalic, symmetric Eyes: EOMI, no lid lag, anicteric sclera Mouth: No lip lesion, mucus membranes moist Cardiovascular: S1S2 reg, no murmur Lungs: Bilateral lower lung rhonchi, no accessory muscle use Abdominal: Soft, nontender to palpation, no guarding, no appreciable organomegaly Ext: No gross muscle atrophy, no edema, no contractures Neuro: CN II-XI grossly intact, no focal neuro deficits Psych: Alert, oriented, appropriate affect Data Reviewed Today: Pertinent Labs: Sodium 130, creatinine 0.5, magnesium 1.7 Imaging: No new imaging Assessment and Plan: Active: Acute dyspnea Small bilateral pleural effusions Acute COPD exacerbation History of lung cancer status post resection, Radiation, chemotherapy -Continue DuoNebs 4 times daily scheduled, also on 4 times daily as needed, Symbicort twice daily -Continue IV Solu-Medrol 40 every 6 hours -Wean oxygen -Pulmonology consulted, pending recommendations Euvolemic hyponatremia, likely SIADH -Nephrology note reviewed, status post [place] x 1 -Continued on urea 15 g daily -Possibility of relative adrenal insufficiency, consider cosyntropin stim test Acute L1 compression fracture, L4 compression fracture -Orthopedic surgery following, no acute interventions planned -Pain control with oral Tylenol as needed, IV Dilaudid as needed, IV morphine as needed, monitor for sedation Mild normocytic anemia -Likely secondary to acute illness Chronic: Anxiety GERD Hypothyroidism Depression DVT ppx: Lovenox Code status: Full code Anticipated discharge place: Pending clinical course Anticipated discharge time: Pending clinical course Objective - Vital Signs Vital signs: Vital Signs Temp 97.7 F 03/02/24 07:46 Pulse 76 03/02/24 07:46 Resp 18 03/02/24 07:46 BP 125/76 03/02/24 07:46 Pulse Ox 90 L 03/02/24 07:46 FiO2 Intake & Output 03/01/24 03/02/24 03/02/24 18:59 06:59 18:59 Intake Total 540 Output Total 1600 Balance -1060 Intake: Oral 540 Output: Urine 1600 Other: # Voids 6 # Bowel Movements 2 - Labs CBC & Chem 7: 03/01/24 03:07 03/02/24 04:18 Labs: Abnormal Lab Results - Last 24 Hours (Table) 03/02/24 Range/Units 04:18 Sodium 130 L (135-145) mmol/L Chloride 95 L (96-109) mmol/L Creatinine 0.5 L (0.6-1.5) mg/dL Glucose 173 H (70-110) mg/dL
--- NOTE | 2024-03-02 13:35 | P.PN ---
Subjective Progress Note Date: 03/02/24 This is a 78-year-old male patient with a known history of chronic and ongoing tobacco dependence, osteoarthritis, gastroesophageal reflux disease, hypothyroidism, hyperlipidemia, anxiety. Also has a significant history of lung cancer dating back to 2003. He has had resections of the right lung in 2004 in 2008. He had recurrent lung cancer and multiple treatment since then. 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 Most recent PET scan from December 2023 revealed increasing radiotracer uptake within the left upper lobe anterior spiculated nodular density and a right lateral midline increasing size pleural- based density. There is also radiotracer activity in the right anterior midlung nodular density. Small residual radiotracer uptake within a spiculated left perihilar mass. Mild radiotracer activity in the subcarinal and right perihilar lymph node. Focal increased radiotracer signal within C5 vertebrae representing osseous metastasis. He follows with Dr. Lester on a regular basis. He presented here to the emergency room on 02/28/2024 with intractable back pain. He had been having issues for 1 week prior utilizing more [place] than he normally takes for pain control. CT scan of the abdomen pelvis revealed new acute compression fracture of L1 vertebral body with up to 50% height loss. Minimal 5 mm retropulsion. Stable L4 vertebral body compression fracture with up to 50% height loss. Moderate to severe degenerative changes of the spine. Small bilateral pleural effusions with associated atelectasis. Superimposed scarring and emphysema noted. He is seen today in consultation on the regular medical floor. He is currently resting in bed. Awake and alert in no acute distress. He does have back pain with minimal activity. He does have some dyspnea on exertion. Occasional cough and congestion. Chest x-ray does reveal small to moderate bilateral pleural effusions, loculated effusion on the left. He is currently maintaining O2 saturations in the 90s on 2 L/min per nasal cannula. He is afebrile. Hemodynamically stable. White count 9.9. Hemoglobin 11.6. Platelets 405. Sodium 125. Potassium 4.1. Bicarb 22. BUN 12. Creatinine 0.5. Glucose 100. The patient is seen today March 02, 2024 in follow-up on the regular medical floor. He is currently resting more comfortably in bed. Awake and alert in no acute distress. His back pain is better today compared to yesterday. No worsening shortness of breath, cough or congestion. He is maintaining O2 saturations in the 90s on 2 L/min per nasal cannula. He has normal saline at KVO. Sodium 130. Potassium 4.2. Bicarb 25. BUN 10. Creatinine 0.5. Glucose 173. He is continued on DuoNeb inhalations, Symbicort, Solu-Medrol. Antib iotics in the form of doxycycline. Lovenox for DVT prophylaxis. Objective - Vital Signs Vital signs: Vital Signs Temp 97.7 F 03/02/24 07:46 Pulse 78 03/02/24 13:21 Resp 18 03/02/24 07:46 BP 125/76 03/02/24 07:46 Pulse Ox 90 L 03/02/24 07:46 FiO2 Intake & Output 03/01/24 03/02/24 03/02/24 18:59 06:59 18:59 Intake Total 540 Output Total 1600 Balance -1060 Intake: Oral 540 Output: Urine 1600 Other: # Voids 6 # Bowel Movements 2 - Exam GENERAL EXAM: Alert, 78-year-old male, on 2 L nasal cannula, resting in bed, fairly comfortable in no apparent distress. HEAD: Normocephalic. EYES: Normal reaction of pupils, equal size. NOSE: Clear with pink turbinates. THROAT: No erythema or exudates. NECK: No masses, no JVD. CHEST: No chest wall deformity. LUNGS: Equal air entry with crackles in the bilateral bases. CVS: S1 and S2 normal with no audible murmur, regular rhythm. ABDOMEN: No hepatosplenomegaly, normal bowel sounds, no guarding or rigidity. SPINE: No scoliosis or deformity SKIN: No rashes CENTRAL NERVOUS SYSTEM: No focal deficits, tone is normal in all 4 extremities. EXTREMITIES: There is no peripheral edema. No clubbing, no cyanosis. Peripheral pulses are intact. - Labs CBC & Chem 7: 03/01/24 03:07 03/02/24 04:18 Labs: Abnormal Lab Results - Last 24 Hours (Table) 03/02/24 Range/Units 04:18 Sodium 130 L (135-145) mmol/L Chloride 95 L (96-109) mmol/L Creatinine 0.5 L (0.6-1.5) mg/dL Glucose 173 H (70-110) mg/dL Assessment and Plan Assessment: Acute on chronic back pain. CT scan of the abdomen pelvis revealed new acute compression fracture of L1 vertebral body with up to 50% height loss. Minimal 5 mm retropulsion. Stable L4 vertebral body compression fracture with up to 50% height loss. Moderate to severe degenerative changes of the spine. Acute hypoxemic respiratory failure secondary to an acute exacerbation of chronic obstructive pulmonary disease, small loculated pleural effusions History of lung cancer dating back to 2003. He has had resections of the right lung in 2003 in 2008. He had recurrent lung cancer and multiple treatment since then. 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 Most recent PET scan from December 2023 revealed increasing radiotracer uptake within the left upper lobe anterior spiculated nodular density and a right lateral midline increasing size pleural-based density. There is also radiotracer activity in the right anterior midlung nodular density. Small residual radiotracer uptake within a spiculated left perihilar mass. Mild radiotracer activity in the subcarinal and right perihilar lymph node. Focal increased radiotracer signal within C5 vertebrae representing osseous metastasis. Chronic and ongoing tobacco dependence Hypothyroidism Hyperlipidemia Anxiety Osteoarthritis Gastroesophageal reflux disease Plan: The patient was seen and evaluated Labs and medications reviewed Continue Symbicort, DuoNeb inhalations, Solu-Medrol Continue Vibramycin Lovenox for DVT prophylaxis Titrate down the FiO2 as tolerated We will continue to follow I have personally seen and examined the patient, performed the documentation and the assessment and plan as written. Number of minutes spent on the visit: 10 Dictation was produced using [employer] dictation software. Please excuse any grammatical, word or spelling errors.
[2024-03-03 08:04] VITALS: BP 103/64; RESP 15; TEMP 98.1
[2024-03-03 09:52] LABS: Blood Urea Nitrogen 17.7 mg/dL (9.0-27.0); Carbon Dioxide 24.4 mmol/L (21.6-31.8); Chloride 95 mmol/L (96-109); Glucose 150 mg/dL (70-110); Potassium 4.4 mmol/L (3.5-5.5); Sodium 130 mmol/L (135-145)
--- NOTE | 2024-03-03 11:36 | P.DS ---
Providers Date of admission: 02/28/24 20:46 Expected date of discharge: 03/03/24 Attending physician: Dania Watts MD Consults: 02/28/24 20:46 Consult Physician Routine Consulting Provider: Shaan Pop Consult Reason/Comments: compression fx Do you want consulting provider notified?: Yes, Notify in am 02/29/24 06:51 Consult Physician Routine Consulting Provider: Shahrzad Garay Consult Reason/Comments: hyponatremia Do you want consulting provider notified?: Yes 03/01/24 07:08 Consult Physician Routine Consulting Provider: Louisa Kilgore Consult Reason/Comments: pleural effusion, hx of lung cx Do you want consulting provider notified?: Yes [facility] Course: Discharge Diagnosis: Acute dyspnea Small bilateral pleural effusions Acute COPD exacerbation History of lung cancer status post resection, Radiation, chemotherapy Euvolemic hyponatremia, likely SIADH Acute L1 compression fracture, L4 compression fracture Mild normocytic anemia Hospital Course: 78-year-old male with history of lung cancer and follows with Dr. Lester (last treatment was a year ago with a combination of chemotherapy and radiation), GE RD, osteoarthritis, history of pneumonia presented to the emergency department for evaluation of low back pain. Vitals on admission temperature 98.7, pulse rate 86, respiratory rate 16, blood pressure 145/75, O2 sat 95% on room air. CT of abdomen pelvis shows new findings from 12/10/2023 acute compression fracture of L1 vertebral body with up to 50% height loss. Minimal 5 mm of retropulsion. Stable L4 vertebral body compression fracture with up to 50% height loss. Moderate to severe degeneration changes of the spine. Small bilateral pleural effusions with associated atelectasis. Superimposed scarring and emphysema noted. Colonic diverticulosis. Labs on admission show WBC 9.8, hemoglobin 11.6, hematocrit 34.8, MCV 104.5, platelet 361, neutrophils 8.2, sodium 125, potassium 4.2, chloride 93, carbon dioxide 29, BUN 14, creatinine 0.60, glucose 85, calcium 8.1, albumin 3.1. UA shows negative for nitrites and leukocyte esterase. Patient admitted for acute lumbar vertebral compression fracture as well as hyponatremia. Nephrology and orthopedic spine surgery consulted. Patient had Samsca x 1. Was continued on fluid restriction and urea. Sodium improved to 130. Orthopedic spine surgery recommending outpatient follow-up for compression fractures. Patient also had COPD exacerbation, requiring IV steroids as well as bronchodilators. Was followed up by pulmonology. Patient now stable. Outpatient follow-up with PCP, orthospine surgery, and pulmonology. Patient seen and examined at bedside. Vital signs reviewed and stable. General: Nontoxic, no distress, appears at stated age Derm: Warm, dry Head: Atraumatic, normocephalic, symmetric Eyes: EOMI, no lid lag, anicteric sclera Mouth: No lip lesion, mucus membranes moist Cardiovascular: S1S2 reg, no murmur Lungs: CTA bilateral, no rhonchi, no rales, no accessory muscle use Abdominal: Soft, nontender to palpation, no guarding, no appreciable organomegaly Ext: No gross muscle atrophy, no edema, no contractures Neuro: CN II-XI grossly intact, no focal neuro deficits Psych: Alert, oriented, appropriate affect A total of 38 minutes of time were spent preparing this complex discharge summary. Patient was discharged on 03/03/2024 at 959. Patient Condition at Discharge: Stable Plan - Discharge Summary Discharge Rx Participant: Yes New Discharge Prescriptions: New Doxycycline [Vibramycin] 100 mg PO BID #6 cap predniSONE [Deltasone] 40 mg PO DAILY #4 tab Mometasone/Formoterol [Dulera 100 Mcg-5 Mcg Inhaler] 1 puff INHALATION BID #13 gm Continue Ipratropium/Albuterol Sulfate [Combivent Respimat Inhaler] 1 puff INHALATION RT-QID PRN PRN Reason: Shortness Of Breath Omeprazole 20 mg PO BID Meloxicam 15 mg PO DAILY LORazepam [Ativan] 1 mg PO HS Atorvastatin [Lipitor] 40 mg PO DAILY Escitalopram [Lexapro] 20 mg PO DAILY Levothyroxine Sodium [Synthroid] 125 mcg PO DAILY HYDROcodone/APAP 5-325MG [[place] 5-325] 1 tab PO 5XD bisacodyL [Dulcolax] 10 mg PO BID Discharge Medication List Ipratropium/Albuterol Sulfate [Combivent Respimat Inhaler] 1 puff INHALATION RT- QID PRN 06/11/18 [History] Meloxicam 15 mg PO DAILY 06/11/18 [History] Omeprazole 20 mg PO BID 06/11/18 [History] Escitalopram [Lexapro] 20 mg PO DAILY 01/04/21 [History] LORazepam [Ativan] 1 mg PO HS 01/04/21 [History] Atorvastatin [Lipitor] 40 mg PO DAILY 07/23/21 [History] Levothyroxine Sodium [Synthroid] 125 mcg PO DAILY 07/23/21 [History] HYDROcodone/APAP 5-325MG [[place] 5-325] 1 tab PO 5XD 12/27/22 [History] bisacodyL [Dulcolax] 10 mg PO BID 02/28/24 [History] Doxycycline [Vibramycin] 100 mg PO BID #6 cap 03/03/24 [Rx] Mometasone/Formoterol [Dulera 100 Mcg-5 Mcg Inhaler] 1 puff INHALATION BID #13 gm 03/03/24 [Rx] predniSONE [Deltasone] 40 mg PO DAILY #4 tab 03/03/24 [Rx] Follow up Appointment(s)/Referral(s): Shahzrad Garay MD [STAFF PHYSICIAN] - 1 Week (office closed at time of discharge Please call to schedule appointment ) Shaan Pop DO [Doctor of Osteopathic Medicine] - 03/18/24 10:15 am (with [facility]) Cale Arenas DO [Primary Care Provider] - 03/19/24 1:20 pm (At [place] office. Office will call to see how doing also) Allan Becerra MD [STAFF PHYSICIAN] - 04/11/24 1:30 pm Lucas Velasco [NON-STAFF] - As Needed (LSO brace, any questions please call agency. ) Ambulatory/Diagnostic Orders: Basic Metabolic Panel [LAB.AMB] Time Frame: 3 Days, Location: None Selected Patient Instructions/Handouts: Vertebral Compression Fracture (DC), Hyponatremia (DC), COPD (Chronic Obstructive Pulmonary Disease) (DC) Activity/Diet/Wound Care/Special Instructions: Please see PCP, Orthospine, pulmonology and Nephrology. Restrict fluid intake to 1500 cc per day. Discharge Disposition: HOME SELF-CARE
[2024-03-03 12:34] VITALS: PULSE 79
--- NOTE | 2024-03-03 12:50 | P.PN ---
Subjective Progress Note Date: 03/03/24 Patient seen in follow-up for hyponatremia. No acute events over night. Vital signs are stable. General: No acute distress. HEENT: Head exam is unremarkable. LUNGS: No audible rhonchi or wheezes. HEART: Rate and Rhythm are regular. ABDOMEN: Nontender. EXTREMITITES: No edema. Objective - Vital Signs Vital signs: Vital Signs Temp 98.1 F 03/03/24 07:24 Pulse 80 03/03/24 11:24 Resp 15 03/03/24 07:24 BP 103/64 03/03/24 07:24 Pulse Ox 90 L 03/03/24 07:24 FiO2 Intake & Output 03/02/24 03/03/24 03/03/24 18:59 06:59 18:59 Intake Total 1080 Output Total 2 Balance 1078 Intake: Oral 1080 Output: Stool 2 Other: # Voids 3 5 - Labs CBC & Chem 7: 03/01/24 03:07 03/03/24 03:14 Labs: Abnormal Lab Results - Last 24 Hours (Table) 03/03/24 Range/Units 03:14 Sodium 130 L (135-145) mmol/L Chloride 95 L (96-109) mmol/L Creatinine 0.5 L (0.6-1.5) mg/dL BUN/Creatinine Ratio 35.40 H (12.00-20.00) Ratio Glucose 150 H (70-110) mg/dL Microbiology - Last 24 Hours (Table) 03/01/24 18:11 Gram Stain - Preliminary Sputum Sputum Culture - Preliminary Assessment and Plan Assessment: 1. Hyponatremia. Euvolemic. No improvement with IV fluids. 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 Sodium level stable 130 today. Urine osmolality 367 and urine sodium 99. 2. Low back pain with acute L1 vertebral body compression fracture. 3. Lung cancer. Plan: Avoid IVF 1200 cc fluid restriction. Continue urea. Encouraged protein intake. s/p tolvaptan 7.5mg 12/30 Clear for discharge
--- NOTE | 2024-03-03 14:41 | P.PN ---
Subjective Progress Note Date: 03/03/24 This is a 78-year-old male patient with a known history of chronic and ongoing tobacco dependence, osteoarthritis, gastroesophageal reflux disease, hypothyroidism, hyperlipidemia, anxiety. Also has a significant history of lung cancer dating back to 2003. He has had resections of the right lung in 2004 in 2008. He had recurrent lung cancer and multiple treatment since then. 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 Most recent PET scan from December 2023 revealed increasing radiotracer uptake within the left upper lobe anterior spiculated nodular density and a right lateral midline increasing size pleural- based density. There is also radiotracer activity in the right anterior midlung nodular density. Small residual radiotracer uptake within a spiculated left perihilar mass. Mild radiotracer activity in the subcarinal and right perihilar lymph node. Focal increased radiotracer signal within C5 vertebrae representing osseous metastasis. He follows with Dr. Lester on a regular basis. He presented here to the emergency room on 02/28/2024 with intractable back pain. He had been having issues for 1 week prior utilizing more [place] than he normally takes for pain control. CT scan of the abdomen pelvis revealed new acute compression fracture of L1 vertebral body with up to 50% height loss. Minimal 5 mm retropulsion. Stable L4 vertebral body compression fracture with up to 50% height loss. Moderate to severe degenerative changes of the spine. Small bilateral pleural effusions with associated atelectasis. Superimposed scarring and emphysema noted. He is seen today in consultation on the regular medical floor. He is currently resting in bed. Awake and alert in no acute distress. He does have back pain with minimal activity. He does have some dyspnea on exertion. Occasional cough and congestion. Chest x-ray does reveal small to moderate bilateral pleural effusions, loculated effusion on the left. He is currently maintaining O2 saturations in the 90s on 2 L/min per nasal cannula. He is afebrile. Hemodynamically stable. White count 9.9. Hemoglobin 11.6. Platelets 405. Sodium 125. Potassium 4.1. Bicarb 22. BUN 12. Creatinine 0.5. Glucose 100. The patient is seen today March 02, 2024 in follow-up on the regular medical floor. He is currently resting more comfortably in bed. Awake and alert in no acute distress. His back pain is better today compared to yesterday. No worsening shortness of breath, cough or congestion. He is maintaining O2 saturations in the 90s on 2 L/min per nasal cannula. He has normal saline at KVO. Sodium 130. Potassium 4.2. Bicarb 25. BUN 10. Creatinine 0.5. Glucose 173. He is continued on DuoNeb inhalations, Symbicort, Solu-Medrol. Antib iotics in the form of doxycycline. Lovenox for DVT prophylaxis. The patient is seen today March 03, 2024 in follow-up on the regular medical floor. He is awake and alert in no acute distress. Breathing easier today compared to yesterday. His back pain is better controlled. He denies any wor sening shortness of breath, cough or congestion. He is maintaining O2 saturations in the 90s on 2 L/min per nasal cannula. Normal saline at KVO. Sputum culture revealing no growth. Sodium 130. Potassium 4.4. Bicarb 24. BUN 18. Creatinine 0.5. Glucose 150. He is continued on DuoNeb inhalations, Symbicort, Solu-Medrol. Antibiotics in the form of doxycycline. Lovenox for DVT prophylaxis. Objective - Vital Signs Vital signs: Vital Signs Temp 98.1 F 03/03/24 07:24 Pulse 80 03/03/24 11:24 Resp 15 03/03/24 08:00 BP 103/64 03/03/24 07:24 Pulse Ox 90 L 03/03/24 07:24 FiO2 Intake & Output 03/02/24 03/03/24 03/03/24 18:59 06:59 18:59 Intake Total 1080 Output Total 2 2 Balance 1078 -2 Intake: Oral 1080 Output: Stool 2 2 Other: # Voids 3 5 - Exam GENERAL EXAM: Alert, cooperative 78-year-old male, on 2 L nasal cannula, resting in bed, in no apparent distress. HEAD: Normocephalic. EYES: Normal reaction of pupils, equal size. NOSE: Clear with pink turbinates. THROAT: No erythema or exudates. NECK: No masses, no JVD. CHEST: No chest wall deformity. LUNGS: Equal air entry with crackles in the bilateral bases. CVS: S1 and S2 normal with no audible murmur, regular rhythm. ABDOMEN: No hepatosplenomegaly, normal bowel sounds, no guarding or rigidity. SPINE: No scoliosis or deformity SKIN: No rashes CENTRAL NERVOUS SYSTEM: No focal deficits, tone is normal in all 4 extremities. EXTREMITIES: There is no peripheral edema. No clubbing, no cyanosis. Peripheral pulses are intact. - Labs CBC & Chem 7: 03/01/24 03:07 03/03/24 03:14 Labs: Abnormal Lab Results - Last 24 Hours (Table) 03/03/24 Range/Units 03:14 Sodium 130 L (135-145) mmol/L Chloride 95 L (96-109) mmol/L Creatinine 0.5 L (0.6-1.5) mg/dL BUN/Creatinine Ratio 35.40 H (12.00-20.00) Ratio Glucose 150 H (70-110) mg/dL Microbiology - Last 24 Hours (Table) 03/01/24 18:11 Gram Stain - Preliminary Sputum Sputum Culture - Preliminary Assessment and Plan Assessment: Acute on chronic back pain. CT scan of the abdomen pelvis revealed new acute compression fracture of L1 vertebral body with up to 50% height loss. Minimal 5 mm retropulsion. Stable L4 vertebral body compression fracture with up to 50% height loss. Moderate to severe degenerative changes of the spine. Acute hypoxemic respiratory failure secondary to an acute exacerbation of chronic obstructive pulmonary disease, small loculated pleural effusions History of lung cancer dating back to 2003. He has had resections of the right lung in 2004 in 2008. He had recurrent lung cancer and multiple treatment since then. 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 Most recent PET scan from December 2023 revealed increasing radiotracer uptake within the left upper lobe anterior spiculated nodular density and a right lateral midline increasing size pleural-based density. There is also radiotracer activity in the right anterior midlung nodular density. Small residual radiotracer uptake within a spiculated left perihilar mass. Mild radiotracer activity in the subcarinal and right perihilar lymph node. Focal increased radiotracer signal within C5 vertebrae representing osseous metastasis. Chronic and ongoing tobacco dependence Hypothyroidism Hyperlipidemia Anxiety Osteoarthritis Gastroesophageal reflux disease Plan: The patient was seen and evaluated Labs and medications reviewed Stable for discharge Complete a prednisone taper Complete a course of antibiotics Continue his home pulmonary medications Follow-up in our office in 1 week I have personally seen and examined the patient, performed the documentation and the assessment and plan as written. Number of minutes spent on the visit: 10 Dictation was produced using [employer] dictation software. Please excuse any grammatical, word or spelling errors.
== END 2024-03-03 15:41 | disposition home or self-care (01) | DRG 542 ==
LOC: EC 16:11 → 4SSUR 20:46 → OBSVTOIN 03-01 08:34
PROVIDERS: ADMIT Internal Medicine; ATTEND Internal Medicine
DX: M48.56XA Collapsed vertebra, not elsewhere classified, lumbar region, initial encounter for fracture (principal); J96.01 Acute respiratory failure with hypoxia; C34.31 Malignant neoplasm of lower lobe, right bronchus or lung; C79.51 Secondary malignant neoplasm of bone; E22.2 Syndrome of inappropriate secretion of antidiuretic hormone; J44.1 Chronic obstructive pulmonary disease with (acute) exacerbation; J90 Pleural effusion, not elsewhere classified; J98.11 Atelectasis; M47.816 Spondylosis without myelopathy or radiculopathy, lumbar region; M51.360 Other intervertebral disc degeneration, lumbar region with discogenic back pain only; D64.9 Anemia, unspecified; E03.9 Hypothyroidism, unspecified; E78.5 Hyperlipidemia, unspecified; F17.200 Nicotine dependence, unspecified, uncomplicated; F41.9 Anxiety disorder, unspecified; F32.A Depression, unspecified; G89.29 Other chronic pain; J43.9 Emphysema, unspecified; K21.9 Gastro-esophageal reflux disease without esophagitis; K57.30 Diverticulosis of large intestine without perforation or abscess without bleeding; Z79.1 Long term (current) use of non-steroidal anti-inflammatories (NSAID); Z79.890 Hormone replacement therapy; Z79.899 Other long term (current) drug therapy; Z87.01 Personal history of pneumonia (recurrent); Z92.21 Personal history of antineoplastic chemotherapy
CPT/HCPCS: 36415; 71045; 74176; 80048; 80053; 81003; 82533; 82607; 82747; 83735; 83930; 83935; 84300; 84443; 85025; 87070; 87205; 94640; 94760; 96361; 96374; 96375; 99285

== ENCOUNTER 2024-03-13 15:16 | Inpatient (IN) | payer MEDICARE ==
--- NOTE | 2024-03-13 16:16 | ED ---
SOB HPI - General Chief Complaint: Shortness of Breath Stated Complaint: SOB Time Seen by Provider: 03/13/24 15:31 Source: patient Mode of arrival: EMS Limitations: no limitations - History of Present Illness Initial Comments: This patient is a 78-year-old man with history of previous lung cancer, resected 20 years ago, and COPD, who presents to have evaluation for shortness of breath and coughing. The patient states that the symptoms started developing while he was actually admitted in the hospital. He had been here March 01 to for compression fracture in the spine. The patient states that he had been mostly resting in bed and since that time he is developed cough with some yellow to green sputum, wheezing, and shortness of breath. The patient does use oxygen at home as needed and has been using this more than usual for him. In addition on review of systems, the patient is complaining of back pain stating that when he was discharged after the compression fracture he was not prescribed any additional analgesic though he does take Easley 5mg at baseline for chronic pain. MD Complaint: shortness of breath, cough Onset/Timin -: days(s) Radiation: back Severity: moderate Quality: aching Consistency: constant Improves With: oxygen Worsens With: lying flat Known History Of: COPD Associated Symptoms: cough, sputum production Treatments Prior to Arrival: oxygen, bronchodilator - Related Data Home Oxygen Therapy: Yes Home Medications Medication Instructions Recorded Confirmed Ipratropium/Albuterol Sulfate 1 puff INHALATION RT-QID PRN 06/11/18 03/21/24 [Combivent Respimat Inhaler] Meloxicam 15 mg PO DAILY 06/11/18 03/22/24 Omeprazole 20 mg PO DAILY 06/11/18 03/22/24 Escitalopram [Lexapro] 20 mg PO DAILY 01/04/21 03/22/24 LORazepam [Ativan] 1 mg PO HS 01/04/21 03/22/24 Atorvastatin [Lipitor] 40 mg PO DAILY 07/23/21 03/22/24 Levothyroxine Sodium [Synthroid] 125 mcg PO DAILY 07/23/21 03/22/24 bisacodyL [Dulcolax] 10 mg PO BID 02/28/24 03/22/24 Albuterol Nebulized [Ventolin 2.5 mg INHALATION RT-QID 03/13/24 03/22/24 Nebulized] Budesonide/Formoterol Fumarate 2 puff INHALATION RT-BID 03/13/24 03/22/24 [Breyna 160-4.5 Mcg Inhaler] Doxazosin [Cardura] 2 mg PO PC-LUNCH 03/13/24 03/22/24 Ibandronate Sodium [Boniva] 150 mg PO Q30D 03/13/24 03/22/24 HYDROcodone/APAP 10-325MG [Easley 1 tab PO Q6HR PRN 03/22/24 03/22/24 10-325] Previous Rx's Medication Instructions Recorded Acetaminophen Tab [Tylenol] 650 mg PO Q6HR PRN tab 03/24/24 Ipratropium-Albuterol Nebulize 3 ml INHALATION RT-QID each 03/24/24 [Duoneb 0.5 mg-3 mg/3 ml Soln] Ipratropium-Albuterol Nebulize 3 ml INHALATION RT-QID PRN each 03/24/24 [Duoneb 0.5 mg-3 mg/3 ml Soln] Allergies Allergy/AdvReac Type Severity Reaction Status Date / Time No Known Allergies Allergy Verified 03/24/24 14:50 Review of Systems ROS Statement: Those systems with pertinent positive or pertinent negative responses have been documented in the HPI. ROS Other: All systems not noted in ROS Statement are negative. Constitutional: Reports: weakness. Denies: fever, chills Respiratory: Reports: cough, dyspnea, wheezes. Denies: hemoptysis Cardiovascular: Reports: dyspnea on exertion, orthopnea. Denies: chest pain, palpitations, edema, syncope Gastrointestinal: Denies: abdominal pain, nausea, vomiting, diarrhea Genitourinary: Denies: dysuria, hematuria Musculoskeletal: Reports: back pain Skin: Denies: rash Neurological: Denies: headache, weakness, numbness Past Medical History Past Medical History: Cancer, GERD/Reflux, Osteoarthritis (OA), Pneumonia Additional Past Medical History / Comment(s): Right lung cancer 2003 and first resection done (got MRSA at that time in incision), second resection in 2008, lung cancer reoccured in 12/2014 and found new nodule in right lung had radiation in February 2015. Pancreatitis,chronic back pain, lung CA reoccured 2020 History of Any Multi-Drug Resistant Organisms: MRSA Date of last positivie culture/infection: 2004 MDRO Source:: BACK Past Surgical History: Cholecystectomy, Orthopedic Surgery Additional Past Surgical History / Comment(s): RESECTION TO RIGHT LUNG TWICE (RT MIDDLE AND RT LOWER LOBECTOMY), RT KNEE SCOPE x2 Past Anesthesia/Blood Transfusion Reactions: Motion Sickness Past Psychological History: No Psychological Hx Reported Smoking Status: Current some day smoker, Former smoker Past Alcohol Use History: None Reported, Occasional Past Drug Use History: None Reported - Past Family History Mother Family Medical History: Dementia Additional Family Medical History / Comment(s): Crohn's disease Father Family Medical History: Cancer, Respiratory Disorder Additional Family Medical History / Comment(s): mesothelioma. General Exam Limitations: no limitations General appearance: alert, in no apparent distress Head exam: Present: atraumatic, normocephalic Eye exam: Present: normal appearance. Absent: scleral icterus, conjunctival injection ENT exam: Present: normal oropharynx Neck exam: Present: normal inspection Respiratory exam: Present: respiratory distress (Mild tachypnea), wheezes, rhonchi. Absent: rales, stridor, accessory muscle use, decreased breath sounds, prolonged expiratory Cardiovascular Exam: Present: regular rate, normal rhythm, normal heart sounds. Absent: systolic murmur, diastolic murmur, rubs, gallop GI/Abdominal exam: Present: soft. Absent: distended, tenderness, guarding, rebound, rigid, mass Extremities exam: Present: normal inspection, normal capillary refill. Absent: pedal edema, calf tenderness Back exam: Present: normal inspection. Absent: CVA tenderness (R), CVA tenderness (L) Neurological exam: Present: alert Skin exam: Present: warm, dry, intact, normal color. Absent: rash Course Vital Signs 03/13/24 03/13/24 03/13/24 15:18 15:28 16:56 Temperature 97.8 F 98.3 F Pulse Rate 97 89 Pulse Rate [ Pulse Oximetery ] Respiratory 22 24 20 Rate Blood Pressure 105/71 106/62 Blood Pressure [Right Arm] O2 Sat by Pulse 96 97 Oximetry 03/13/24 03/13/24 03/13/24 18:32 21:07 21:16 Temperature 97.6 F Pulse Rate 93 99 104 H Pulse Rate [ Pulse Oximetery ] Respiratory 25 H Rate Blood Pressure 132/70 Blood Pressure [Right Arm] O2 Sat by Pulse 96 Oximetry 03/13/24 03/14/24 03/14/24 21:30 01:30 05:55 Temperature Pulse Rate 105 H 92 94 Pulse Rate [ Pulse Oximetery ] Respiratory 20 20 Rate Blood Pressure 118/77 112/66 Blood Pressure [Right Arm] O2 Sat by Pulse 94 L 96 Oximetry 03/14/24 03/14/24 03/14/24 06:00 06:12 08:49 Temperature Pulse Rate 93 103 H 96 Pulse Rate [ Pulse Oximetery ] Respiratory 20 Rate Blood Pressure 109/65 Blood Pressure [Right Arm] O2 Sat by Pulse 100 Oximetry 03/14/24 03/14/24 03/14/24 08:50 09:01 10:00 Temperature Pulse Rate 96 92 Pulse Rate [ Pulse Oximetery ] Respiratory 18 Rate Blood Pressure 118/62 Blood Pressure [Right Arm] O2 Sat by Pulse 97 97 Oximetry 03/14/24 03/14/24 03/14/24 12:11 12:50 12:59 Temperature Pulse Rate 78 86 94 Pulse Rate [ Pulse Oximetery ] Respiratory 20 Rate Blood Pressure 103/64 Blood Pressure [Right Arm] O2 Sat by Pulse 96 Oximetry 03/14/24 03/14/24 03/14/24 16:02 16:55 17:05 Temperature Pulse Rate 92 94 88 Pulse Rate [ Pulse Oximetery ] Respiratory 16 Rate Blood Pressure 95/70 Blood Pressure [Right Arm] O2 Sat by Pulse 98 Oximetry 03/14/24 03/14/24 03/14/24 17:59 19:07 19:59 Temperature 98.8 F 98.8 F 97.9 F Pulse Rate 89 87 Pulse Rate [ 86 Pulse Oximetery ] Respiratory 18 16 18 Rate Blood Pressure 103/59 103/58 Blood Pressure 148/75 [Right Arm] O2 Sat by Pulse 98 95 96 Oximetry Medical Decision Making - Medical Decision Making The patient had chest x-ray that I interpreted as showing pleural effusion Was pt. sent in by a medical professional or institution (, PA, HOSTESS HOST, urgent care, hospital, or shelter...) When possible be specific @ -[No] Did you speak to anyone other than the patient for history (EMS, parent, family, police, friend...)? What history was obtained from this source @ -[No] Did you review nursing and triage notes (agree or disagree)? Why? @ -[I reviewed and agree with nursing and triage notes] Were old charts reviewed (outside hosp., previous admission, EMS record, old EKG, old radiological studies, urgent care reports/EKG's, shelter records)? Report findings @ -[No old charts were reviewed] Differential Diagnosis (chest pain, altered mental status, abdominal pain women, abdominal pain men, vaginal bleeding, weakness, fever, dyspnea, syncope, headache, dizziness, GI bleed, back pain, seizure, CVA, palpatations, mental health, musculoskeletal)? @ -[Differential Dyspnea: Coronary syndrome, arrhythmia, tamponade, asthma, COPD, pulmonary embolism, pneumonia, pneumothorax, pulmonary effusion, anaphylaxis, diabetic ketoacidosis, flailed chest, pulmonary contusion, diaphragmatic rupture, anemia, neuromuscular, this is not meant to be an all-inclusive list. EKG interpreted by me (3pts min.). @ -[I interpreted as above] X-rays interpreted by me (1pt min.). @ -[I interpreted as above CT interpreted by me (1pt min.). @ -[None done] U/S interpreted by me (1pt. min.). @ -[None done] What testing was considered but not performed or refused? (CT, X-rays, U/S, labs)? Why? @ -[None] What meds were considered but not given or refused? Why? @ -[None] Did you discuss the management of the patient with other professionals (professionals i.e. , PA, HOSTESS HOST, lab, RT, psych nurse, social work msw, dough panner, teacher, commercial account officer, housing case manager)? Give summary @ -[Case discussed with admitting physician and treatment recommendations incorporated Was smoking cessation discussed for >3mins.? @ -[No] Was critical care preformed (if so, how long)? @ -[No] Were there social determinants of health that impacted care today? How? (Homelessness, low income, unemployed, alcoholism, drug addiction, transportation, low edu. Level, literacy, decrease access to med. care, nursing home, rehab)? @ -[No] Was there de-escalation of care discussed even if they declined (Discuss DNR or withdrawal of care, Hospice)? DNR status @ -[No] What co-morbidities impacted this encounter? (DM, HTN, Smoking, COPD, CAD, Cancer, CVA, ARF, Chemo, Hep., AIDS, mental health diagnosis, sleep apnea, morbid obesity)? @ -[None] Was patient admitted / discharged? Hospital course, mention meds given and route, prescriptions, significant lab abnormalities, going to OR and other pertinent info. @ -[Patient is a 78-year-old man with dyspnea who is found to have pleural effusion and some congestive heart failure. Patient will be admitted to have further evaluation and treatment. Undiagnosed new problem with uncertain prognosis? @ -[No] Drug Therapy requiring intensive monitoring for toxicity (Heparin, Nitro, Insulin, Cardizem)? @ -[No] Were any procedures done? @ -[No] Diagnosis/symptom? @ -[Acute dyspnea Acute pleural effusion Acute leukocytosis Acute, or Chronic, or Acute on Chronic? @ -[Acute Uncomplicated (without systemic symptoms) or Complicated (systemic symptoms)? @ -[Complicated by dyspnea Side effects of treatment? @ -[No] Exacerbation, Progression, or Severe Exacerbation? @ -[No] Poses a threat to life or bodily function? How? (Chest pain, [place], [place], pneumonia, PE, COPD, DKA, ARF, appy, cholecystitis, CVA, Diverticulitis, Homicidal, Suicidal, threat to staff... and all critical care pts) @ -[No] All treatments are based on ideal body weight as in ED triage - Lab Data Result diagrams: 03/18/24 07:05 03/18/24 07:05 Lab Results 03/13/24 03/13/24 03/13/24 Range/Units 16:31 16:31 16:31 WBC 16.7 H (3.8-10.6) k/uL RBC 3.77 L (4.30-5.90) m/uL Hgb 12.9 L (13.0-17.5) gm/dL Hct 39.4 (39.0-53.0) % MCV 104.3 H (80.0-100.0) fL MCH 34.2 (25.0-35.0) pg MCHC 32.8 (31.0-37.0) g/dL RDW 12.7 (11.5-15.5) % Plt Count 533 H (150-450) k/uL Estimated Plt Count (Adequate) MPV 7.5 Immature Gran % (Auto) % Absolute Nucleated RBC % Neutrophils % 91 % Lymphocytes % 2 % Monocytes % 5 % Eosinophils % 0 % Basophils % 1 % Immature Gran # (0.00-0.04) X 10*3/uL Neutrophils # 15.3 H (1.3-7.7) k/uL Lymphocytes # 0.3 L (1.0-4.8) k/uL Monocytes # 0.9 (0-1.0) k/uL Eosinophils # 0.0 (0-0.7) k/uL Basophils # 0.1 (0-0.2) k/uL NRBC/100 WBC Diff (0.00-0.01) X 10*3/uL Manual Slide Review Macrocytosis Slight Macrocytosis (manual) (None Seen) PT 9.7 L (10.0-12.5) sec INR 0.9 (<1.2) APTT 23.0 (22.0-30.0) sec Sodium 127 L (137-145) mmol/L Potassium 4.8 (3.5-5.1) mmol/L Chloride 93 L (98-107) mmol/L Carbon Dioxide 26 (22-30) mmol/L Anion Gap 8 mmol/L BUN 15 (9-20) mg/dL Creatinine 0.54 L (0.66-1.25) mg/dL Est GFR (CKD-EPI) (>=60) Est GFR (CKD-EPI)AfAm >90 (>60 ml/min/1.73 sqM) Est GFR (CKD-EPI)NonAf >90 (>60 ml/min/1.73 sqM) BUN/Creatinine Ratio (12.00-20.00) Ratio Glucose 90 (74-99) mg/dL Plasma Lactic Acid Amado (0.7-2.0) mmol/L Calcium 8.4 (8.4-10.2) mg/dL Total Bilirubin 0.8 (0.2-1.3) mg/dL AST 18 (17-59) U/L ALT 13 (4-49) U/L Alkaline Phosphatase 96 (38-126) U/L Troponin I (0.000-0.034) ng/mL NT-Pro-B Natriuret Pep 252 pg/mL Total Protein 5.5 L (6.3-8.2) g/dL Albumin 3.2 L (3.5-5.0) g/dL Procalcitonin (0.02-0.50) ng/mL Fluid Source Fluid Volume mL Fluid Appearance (Clear) Fluid WBC /UL Fluid RBC (Auto) /UL Fld Polynuclear WBCs % % Fluid Lymphocytes % % Fluid Monocytes % % Fluid Eosinophils % % Body Fluid Glucose Source Fluid Glucose mg/dL Body Fluid Protein Source Fluid Total Protein mg/dL Body Fluid LDH Source Fluid LDH U/L Influenza Type A (PCR) (Not Detectd) Influenza Type B (PCR) (Not Detectd) RSV (PCR) (Not Detectd) SARS-CoV-2 (PCR) (Not Detectd) 03/13/24 03/13/24 03/13/24 Range/Units 16:31 16:31 22:27 WBC (3.8-10.6) k/uL RBC (4.30-5.90) m/uL Hgb (13.0-17.5) gm/dL Hct (39.0-53.0) % MCV (80.0-100.0) fL MCH (25.0-35.0) pg MCHC (31.0-37.0) g/dL RDW (11.5-15.5) % Plt Count (150-450) k/uL Estimated Plt Count (Adequate) MPV Immature Gran % (Auto) % Absolute Nucleated RBC % Neutrophils % % Lymphocytes % % Monocytes % % Eosinophils % % Basophils % % Immature Gran # (0.00-0.04) X 10*3/uL Neutrophils # (1.3-7.7) k/uL Lymphocytes # (1.0-4.8) k/uL Monocytes # (0-1.0) k/uL Eosinophils # (0-0.7) k/uL Basophils # (0-0.2) k/uL NRBC/100 WBC Diff (0.00-0.01) X 10*3/uL Manual Slide Review Macrocytosis Macrocytosis (manual) (None Seen) PT (10.0-12.5) sec INR (<1.2) APTT (22.0-30.0) sec Sodium (137-145) mmol/L Potassium (3.5-5.1) mmol/L Chloride (98-107) mmol/L Carbon Dioxide (22-30) mmol/L Anion Gap mmol/L BUN (9-20) mg/dL Creatinine (0.66-1.25) mg/dL Est GFR (CKD-EPI) (>=60) Est GFR (CKD-EPI)AfAm (>60 ml/min/1.73 sqM) Est GFR (CKD-EPI)NonAf (>60 ml/min/1.73 sqM) BUN/Creatinine Ratio (12.00-20.00) Ratio Glucose (74-99) mg/dL Plasma Lactic Acid Amado 1.2 (0.7-2.0) mmol/L Calcium (8.4-10.2) mg/dL Total Bilirubin (0.2-1.3) mg/dL AST (17-59) U/L ALT (4-49) U/L Alkaline Phosphatase (38-126) U/L Troponin I <0.012 (0.000-0.034) ng/mL NT-Pro-B Natriuret Pep pg/mL Total Protein (6.3-8.2) g/dL Albumin (3.5-5.0) g/dL Procalcitonin (0.02-0.50) ng/mL Fluid Source Fluid Volume mL Fluid Appearance (Clear) Fluid WBC /UL Fluid RBC (Auto) /UL Fld Polynuclear WBCs % % Fluid Lymphocytes % % Fluid Monocytes % % Fluid Eosinophils % % Body Fluid Glucose Source Fluid Glucose mg/dL Body Fluid Protein Source Fluid Total Protein mg/dL Body Fluid LDH Source Fluid LDH U/L Influenza Type A (PCR) Not Detected (Not Detectd) Influenza Type B (PCR) Not Detected (Not Detectd) RSV (PCR) Not Detected (Not Detectd) SARS-CoV-2 (PCR) Not Detected (Not Detectd) 03/14/24 03/14/24 03/14/24 Range/Units 05:44 05:44 05:44 WBC 10.6 (3.8-10.6) k/uL RBC 3.68 L (4.30-5.90) m/uL Hgb 12.3 L (13.0-17.5) gm/dL Hct 38.4 L (39.0-53.0) % MCV 104.5 H (80.0-100.0) fL MCH 33.6 (25.0-35.0) pg MCHC 32.1 (31.0-37.0) g/dL RDW 12.6 (11.5-15.5) % Plt Count 518 H (150-450) k/uL Estimated Plt Count (Adequate) MPV 6.9 Immature Gran % (Auto) % Absolute Nucleated RBC % Neutrophils % 94 % Lymphocytes % 3 % Monocytes % 3 % Eosinophils % 0 % Basophils % 0 % Immature Gran # (0.00-0.04) X 10*3/uL Neutrophils # 9.9 H (1.3-7.7) k/uL Lymphocytes # 0.3 L (1.0-4.8) k/uL Monocytes # 0.3 (0-1.0) k/uL Eosinophils # 0.0 (0-0.7) k/uL Basophils # 0.0 (0-0.2) k/uL NRBC/100 WBC Diff (0.00-0.01) X 10*3/uL Manual Slide Review Macrocytosis Slight Macrocytosis (manual) (None Seen) PT (10.0-12.5) sec INR (<1.2) APTT (22.0-30.0) sec Sodium 128 L (137-145) mmol/L Potassium 4.7 (3.5-5.1) mmol/L Chloride 97 L (98-107) mmol/L Carbon Dioxide 25 (22-30) mmol/L Anion Gap 6 mmol/L BUN 14 (9-20) mg/dL Creatinine 0.52 L (0.66-1.25) mg/dL Est GFR (CKD-EPI) (>=60) Est GFR (CKD-EPI)AfAm >90 (>60 ml/min/1.73 sqM) Est GFR (CKD-EPI)NonAf >90 (>60 ml/min/1.73 sqM) BUN/Creatinine Ratio (12.00-20.00) Ratio Glucose 117 H (74-99) mg/dL Plasma Lactic Acid Amado (0.7-2.0) mmol/L Calcium 8.3 L (8.4-10.2) mg/dL Total Bilirubin (0.2-1.3) mg/dL AST (17-59) U/L ALT (4-49) U/L Alkaline Phosphatase (38-126) U/L Troponin I (0.000-0.034) ng/mL NT-Pro-B Natriuret Pep pg/mL Total Protein (6.3-8.2) g/dL Albumin (3.5-5.0) g/dL Procalcitonin 0.07 (0.02-0.50) ng/mL Fluid Source Fluid Volume mL Fluid Appearance (Clear) Fluid WBC /UL Fluid RBC (Auto) /UL Fld Polynuclear WBCs % % Fluid Lymphocytes % % Fluid Monocytes % % Fluid Eosinophils % % Body Fluid Glucose Source Fluid Glucose mg/dL Body Fluid Protein Source Fluid Total Protein mg/dL Body Fluid LDH Source Fluid LDH U/L Influenza Type A (PCR) (Not Detectd) Influenza Type B (PCR) (Not Detectd) RSV (PCR) (Not Detectd) SARS-CoV-2 (PCR) (Not Detectd) 03/14/24 03/14/24 03/15/24 Range/Units 12:00 12:00 08:13 WBC 12.1 H (3.8-10.6) k/uL RBC 3.19 L (4.30-5.90) m/uL Hgb 10.8 L (13.0-17.5) gm/dL Hct 32.7 L (39.0-53.0) % MCV 102.4 H (80.0-100.0) fL MCH 33.9 (25.0-35.0) pg MCHC 33.1 (31.0-37.0) g/dL RDW 13.0 (11.5-15.5) % Plt Count 482 H (150-450) k/uL Estimated Plt Count (Adequate) MPV 7.5 Immature Gran % (Auto) % Absolute Nucleated RBC % Neutrophils % 86 % Lymphocytes % 3 % Monocytes % 9 % Eosinophils % 0 % Basophils % 0 % Immature Gran # (0.00-0.04) X 10*3/uL Neutrophils # 10.4 H (1.3-7.7) k/uL Lymphocytes # 0.4 L (1.0-4.8) k/uL Monocytes # 1.0 (0-1.0) k/uL Eosinophils # 0.0 (0-0.7) k/uL Basophils # 0.0 (0-0.2) k/uL NRBC/100 WBC Diff (0.00-0.01) X 10*3/uL Manual Slide Review Macrocytosis Slight Macrocytosis (manual) (None Seen) PT (10.0-12.5) sec INR (<1.2) APTT (22.0-30.0) sec Sodium (137-145) mmol/L Potassium (3.5-5.1) mmol/L Chloride (98-107) mmol/L Carbon Dioxide (22-30) mmol/L Anion Gap mmol/L BUN (9-20) mg/dL Creatinine (0.66-1.25) mg/dL Est GFR (CKD-EPI) (>=60) Est GFR (CKD-EPI)AfAm (>60 ml/min/1.73 sqM) Est GFR (CKD-EPI)NonAf (>60 ml/min/1.73 sqM) BUN/Creatinine Ratio (12.00-20.00) Ratio Glucose (74-99) mg/dL Plasma Lactic Acid Amado (0.7-2.0) mmol/L Calcium (8.4-10.2) mg/dL Total Bilirubin (0.2-1.3) mg/dL AST (17-59) U/L ALT (4-49) U/L Alkaline Phosphatase (38-126) U/L Troponin I (0.000-0.034) ng/mL NT-Pro-B Natriuret Pep pg/mL Total Protein (6.3-8.2) g/dL Albumin (3.5-5.0) g/dL Procalcitonin (0.02-0.50) ng/mL Fluid Source Pleural Fluid Fluid Volume Not Measured mL Fluid Appearance Bloody A (Clear) Fluid WBC 721 /UL Fluid RBC (Auto) 039363 /UL Fld Polynuclear WBCs % 43 % Fluid Lymphocytes % 54 % Fluid Monocytes % 2 % Fluid Eosinophils % 1 % Body Fluid Glucose Source Pleural Fluid Fluid Glucose 112 mg/dL Body Fluid Protein Source Pleural Fluid Fluid Total Protein 3210 mg/dL Body Fluid LDH Source Pleural Fluid Fluid LDH 395 U/L Influenza Type A (PCR) (Not Detectd) Influenza Type B (PCR) (Not Detectd) RSV (PCR) (Not Detectd) SARS-CoV-2 (PCR) (Not Detectd) 01/11/25 01/12/25 01/12/25 Range/Units 08:13 02:52 02:52 WBC 15.24 H (3.8-10.6) k/uL RBC 3.06 L (4.30-5.90) m/uL Hgb 10.4 L (13.0-17.5) gm/dL Hct 31.2 L (39.0-53.0) % MCV 102.0 H (80.0-100.0) fL MCH 34.0 H (25.0-35.0) pg MCHC 33.3 (31.0-37.0) g/dL RDW 13.1 (11.5-15.5) % Plt Count 422 (150-450) k/uL Estimated Plt Count Adequate (Adequate) MPV 8.8 L Immature Gran % (Auto) 0.70 % Absolute Nucleated RBC 0 % Neutrophils % 84.9 % Lymphocytes % 2.9 % Monocytes % 11.3 % Eosinophils % 0.1 % Basophils % 0.1 % Immature Gran # 0.10 H (0.00-0.04) X 10*3/uL Neutrophils # 12.95 H (1.3-7.7) k/uL Lymphocytes # 0.44 L (1.0-4.8) k/uL Monocytes # 1.72 H (0-1.0) k/uL Eosinophils # 0.01 L (0-0.7) k/uL Basophils # 0.02 (0-0.2) k/uL NRBC/100 WBC Diff 0 (0.00-0.01) X 10*3/uL Manual Slide Review Morph Only Macrocytosis Macrocytosis (manual) 2+ A (None Seen) PT (10.0-12.5) sec INR (<1.2) APTT (22.0-30.0) sec Sodium 129 L 130 L (137-145) mmol/L Potassium 3.8 3.7 (3.5-5.1) mmol/L Chloride 97 L 95 L (98-107) mmol/L Carbon Dioxide 26 25.7 (22-30) mmol/L Anion Gap 6 9.30 mmol/L BUN 11 9.1 (9-20) mg/dL Creatinine 0.54 L 0.6 (0.66-1.25) mg/dL Est GFR (CKD-EPI) 98 (>=60) Est GFR (CKD-EPI)AfAm >90 (>60 ml/min/1.73 sqM) Est GFR (CKD-EPI)NonAf >90 (>60 ml/min/1.73 sqM) BUN/Creatinine Ratio 15.17 (12.00-20.00) Ratio Glucose 96 132 H (74-99) mg/dL Plasma Lactic Acid Amado (0.7-2.0) mmol/L Calcium 8.0 L 8.2 L (8.4-10.2) mg/dL Total Bilirubin (0.2-1.3) mg/dL AST (17-59) U/L ALT (4-49) U/L Alkaline Phosphatase (38-126) U/L Troponin I (0.000-0.034) ng/mL NT-Pro-B Natriuret Pep pg/mL Total Protein (6.3-8.2) g/dL Albumin (3.5-5.0) g/dL Procalcitonin (0.02-0.50) ng/mL Fluid Source Fluid Volume mL Fluid Appearance (Clear) Fluid WBC /UL Fluid RBC (Auto) /UL Fld Polynuclear WBCs % % Fluid Lymphocytes % % Fluid Monocytes % % Fluid Eosinophils % % Body Fluid Glucose Source Fluid Glucose mg/dL Body Fluid Protein Source Fluid Total Protein mg/dL Body Fluid LDH Source Fluid LDH U/L Influenza Type A (PCR) (Not Detectd) Influenza Type B (PCR) (Not Detectd) RSV (PCR) (Not Detectd) SARS-CoV-2 (PCR) (Not Detectd) - EKG Data -: EKG Interpreted by Me EKG shows normal: sinus rhythm, axis (Normal), intervals (Normal), QRS complexes (Possible right bundle branch block, incomplete) Rate: normal (Rate 88 bpm) Interpretation: nonspecific ST-T wave changes Disposition Clinical Impression: Pleural effusion, Dyspnea, Leukocytosis Disposition: ADMITTED IP TO THIS HOSP Condition: Fair Is patient prescribed a controlled substance at d/c from ED?: No
[2024-03-13 16:40] LABS: Basophils # (A) 0.1 k/uL (0-0.2); Basophils % (A) 1 %; Eosinophils % (A) 0 %; HCT 39.4 % (39.0-53.0); HGB 12.9 gm/dL (13.0-17.5); Lymphocytes # (A) 0.3 k/uL (1.0-4.8); Lymphocytes % (A) 2 %; MCH 34.2 pg (25.0-35.0); MCHC 32.8 g/dL (31.0-37.0); MCV 104.3 fL (80.0-100.0); Macrocytosis Slight; Mean Platelet Volume 7.5; Monocytes # (A) 0.9 k/uL (0-1.0); Monocytes % (A) 5 %; Neutrophils # (A) 15.3 k/uL (1.3-7.7); Neutrophils % (A) 91 %; Platelet Count 533 k/uL (150-450); RBC 3.77 m/uL (4.30-5.90); RDW 12.7 % (11.5-15.5); WBC 16.7 k/uL (3.8-10.6)
[2024-03-13 16:54] LABS: INR 0.9 (<1.2); Prothrombin Time 9.7 sec (10.0-12.5)
[2024-03-13 16:59] LABS: ALT 13 U/L (4-49); AST 18 U/L (17-59); African American GFR (CKD) >90 (>60 ml/min/1.73 sqM); Albumin 3.2 g/dL (3.5-5.0); Alkaline Phosphatase 96 U/L (38-126); Anion Gap 8 mmol/L; Blood Urea Nitrogen 15 mg/dL (9-20); Calcium 8.4 mg/dL (8.4-10.2); Carbon Dioxide 26 mmol/L (22-30); Chloride 93 mmol/L (98-107); Glucose 90 mg/dL (74-99); Non-African American GFR(CKD) >90 (>60 ml/min/1.73 sqM); Potassium 4.8 mmol/L (3.5-5.1); Sodium 127 mmol/L (137-145); Total Bilirubin 0.8 mg/dL (0.2-1.3); Total Protein 5.5 g/dL (6.3-8.2)
[2024-03-13] MEDS: HYDROmorphone 0.5 MG/0.5 ML SYRINGE IVP STA (16:59)
[2024-03-13 17:07] LABS: NT-Pro-B-Type Natriuretic Pept 252 pg/mL
--- NOTE | 2024-03-13 17:33 | XR ---
EXAMINATION TYPE: XR chest 2V DATE OF EXAM: 03/13/2024 5:14 PM COMPARISON: Chest radiographs from 02/22/2024 CLINICAL INDICATION: Male, 78 years old with history of difficulty breathing; [facility] TECHNIQUE: XR chest 2V Frontal and lateral views of the chest. FINDINGS: Lungs/Pleura: Scattered interstitial prominence throughout the lungs similar prior. No evidence of fo mayra consolidation or pneumothorax. Blunting of the costophrenic angles is present. Pulmonary vascularity: Pulmonary vascular congestion. Heart/mediastinum: Cardiomediastinal silhouette is enlarged and stable. Musculoskeletal: No acute osseous pathology. IMPRESSION: Worsening congestive heart failure changes with increased size of left pleural effusion. [facility], , 03/13/2024 5:31 PM
[2024-03-13] MEDS: AZITHROMYCIN 500 MG in SODIUM CHLORIDE 0.9% 250 ML IVPB STA (18:14)
[2024-03-13] MEDS: predniSONE 20 MG TAB PO STA (18:19)
[2024-03-13] MEDS: SODIUM CHLORIDE 0.9% 1,000 ML IV ONE (18:20)
[2024-03-13] MEDS: SODIUM CHLORIDE 0.9% 500 ML 300 ML IV STA (18:20)
[2024-03-13] MEDS: SODIUM CHLORIDE 0.9% 1,000 ML IV STA (18:20)
[2024-03-13] MEDS: ALBUTEROL NEBULIZED 2.5 MG/3 ML INHALATION STA (21:07)
[2024-03-13] MEDS: MORPHINE SULFATE 4 MG/ML SYRINGE IV STA (21:45)
[2024-03-13 23:14] LABS: Influenza A Not Detected (Not Detectd); Influenza B Not Detected (Not Detectd); RSV Not Detected (Not Detectd)
--- NOTE | 2024-03-13 23:31 | P.HPIM ---
History of Present Illness H&P Date: 03/13/24 Chief Complaint: Shortness of Breath Patient is a 78-year-old male with history of lung cancer with 2 resections (last treatment was a year ago with combination of chemotherapy and radiation), GERD, osteoarthritis who presents to the ED with chief complaint of shortness of breath. Patient reports he was recently admitted from the to the for compression fracture in the spine and says he believes the shortness of breath is from laying in bed. He states recently he has gets short of breath with the slightest exertion, such as getting dressed. He also states that he has been unable to sleep flat and needs to be propped up by a few pillows. Patient denies cardiac history but states he was told to follow-up with a editor greeting card but has not been able to. Patient also reports a productive cough of yellowish sputum but denies any blood. Patient states he was recently discharged on 3 L of O2 and has been on this at home. He denies any chest pain, nausea, vomiting, diarrhea, fevers, leg swelling, or history blood thinner use. ED documentation reviewed. In the ED patient was treated with fluid bolus, steroid, and 1 dose of Zithromax. Vitals on admission temperature 97.8, heart rate 97 bpm, respiratory rate 22, blood pressure 105/71, O2 saturation 96% on 3 L nasal cannula EKG independently interpreted as sinus rhythm with ventricular rate 88 bpm and QTc of 393 ms CXR shows worsening congestive heart failure changes with increased size of left pleural effusion Labs on admission show WBCs of 16.7 with left shift, hemoglobin 12.9, MCV 104.3, platelets 533. PT 9.7, INR 0.9, PTT 23. Sodium 127, potassium 4.8, chloride 9 3, bicarb 26, BUN 15, creatinine 0.54, glucose 90. Lactic acid 1.2. Troponin negative. NT proBNP 252. Review of systems: Pertinent positives and negatives as discussed in HPI, a complete review of systems was performed and all other systems are negative. PMH: History of MRSA PSH: Resection of right middle and right lower lobes in 2003 and 2008 Allergies: NKDA Social history: Tobacco: former Alcohol: former Recreational drugs: none Travel: none Sick contacts: none Physical examination: Vital signs reviewed General: nontoxic, no distress, appears at stated age Derm: warm, dry, intact Head: atraumatic, normocephalic, symmetric Eyes: anicteric sclera Mouth: no lip lesion, mucus membranes moist Cardiovascular: S1 S2 reg, no murmur Lungs: Coarse crackles throughout bilaterally Abdominal: soft, non-tender to palpation, nondistended Extremities: No cyanosis, clubbing, or pedal edema. Neuro: Alert, Oriented to person, time and place, Gross neurological examination did not reveal any focal deficits. Cranial nerves II to XII grossly intact. Bilateral upper and lower extremity muscle strength intact and sensation intact. Psych: well appearing, appropriate affect Assessment/Plan: Patient is a 78-year-old male with history of lung cancer, GERD, osteoarthritis, hyperlipidemia, hypothyroidism who presented to the ER for evaluation of shortness of breath. Patient will be admitted to inpatient medicine service for further evaluation. 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 Pulm consult prednisone 40 mg po daily Continue Zithromax Continue Rocephin DuoNebs 4 times daily and every 2 hours as needed Cardiac monitoring Incentive spirometry Hypochloremic hyponatremia Continue 0.9% NS at 130 mL/h Continue to monitor Na 127 Macrocytic anemia and thrombocytosis hemoglobin 12.9, MCV 104.3, platelets 533 Continue to monitor Chronic: Chronic pain secondary to compression fracture Continue [place]land's every 6 hours as needed Continue meloxicam 15 mg daily GERD Restart home omeprazole 20 mg twice daily Hyperlipidemia Restart home Lipitor 40 mg daily Hypothyroidism Restart home Synthroid 125 mcg daily F: 0.9% normal saline at 130 mL/h E: Replete as needed N: Heart healthy diet A: EMS DVT prophylaxis: Lovenox 40 mg subcu daily The patient is admitted with an anticipated more than 2 midnight stay for evaluation of shortness of breath CODE STATUS: Full code Discussed with: Patient Anticipated discharge place: Home I have seen and evaluated the patient today. I Discussed the case with the resident and agree with the resident's findings I edited the assessment and plan as necessary as documented in the resident's note. Past Medical History Past Medical History: Cancer, GERD/Reflux, Osteoarthritis (OA), Pneumonia Additional Past Medical History / Comment(s): Right lung cancer 2003 and first resection done (got MRSA at that time in incision), second resection in 2008, lung cancer reoccured in 12/2014 and found new nodule in right lung had ra diation in February 2015. Pancreatitis,chronic back pain, lung CA reoccured 2019 History of Any Multi-Drug Resistant Organisms: MRSA Date of last positivie culture/infection: 2003 MDRO Source:: BACK Past Surgical History: Cholecystectomy, Orthopedic Surgery Additional Past Surgical History / Comment(s): RESECTION TO RIGHT LUNG TWICE (RT MIDDLE AND RT LOWER LOBECTOMY), RT KNEE SCOPE x2 Past Anesthesia/Blood Transfusion Reactions: Motion Sickness Past Psychological History: No Psychological Hx Reported Smoking Status: Current some day smoker, Former smoker Past Alcohol Use History: None Reported, Occasional Past Drug Use History: None Reported - Past Family History Mother Family Medical History: Dementia Additional Family Medical History / Comment(s): Crohn's disease Father Family Medical History: Cancer, Respiratory Disorder Additional Family Medical History / Comment(s): mesothelioma. Medications and Allergies Home Medications Medication Instructions Recorded Confirmed Type Ipratropium/Albuterol Sulfate 1 puff INHALATION RT-QID PRN 06/11/18 03/13/24 History [Combivent Respimat Inhaler] Meloxicam 15 mg PO DAILY 06/11/18 03/13/24 History Omeprazole 20 mg PO DAILY 06/11/18 03/13/24 History Escitalopram [Lexapro] 20 mg PO DAILY 01/04/21 03/13/24 History LORazepam [Ativan] 1 mg PO HS 01/04/21 03/13/24 History Atorvastatin [Lipitor] 40 mg PO DAILY 07/23/21 03/13/24 History Levothyroxine Sodium [Synthroid] 125 mcg PO DAILY 07/23/21 03/13/24 History bisacodyL [Dulcolax] 10 mg PO BID 02/28/24 03/13/24 History Albuterol Nebulized [Ventolin 2.5 mg INHALATION RT-QID 03/13/24 03/13/24 History Nebulized] Budesonide/Formoterol Fumarate 2 puff INHALATION RT-BID 03/13/24 03/13/24 History [Breyna 160-4.5 Mcg Inhaler] Doxazosin [Cardura] 2 mg PO PC-LUNCH 03/13/24 03/13/24 History HYDROcodone/APAP 7.5-325MG [[place] 1 tab PO Q6H PRN 03/13/24 03/13/24 History 7.5-325] Ibandronate Sodium [Boniva] 150 mg PO Q30D 03/13/24 03/13/24 History Allergies Allergy/AdvReac Type Severity Reaction Status Date / Time No Known Allergies Allergy Verified 03/13/24 19:05 Physical Exam Vitals: Vital Signs Temp Pulse Resp BP Pulse Ox 03/13/24 18:32 97.6 F 93 25 H 132/70 96 03/13/24 16:56 98.3 F 89 20 106/62 97 03/13/24 15:28 24 03/13/24 15:18 97.8 F 97 22 105/71 96 Intake and Output 03/13/24 03/13/24 03/13/24 06:59 14:59 22:59 Other: Weight 56.699 kg Results CBC & Chem 7: 03/13/24 16:31 03/13/24 16:31 Labs: Abnormal Lab Results - Last 24 Hours (Table) 03/13/24 03/13/24 03/13/24 Range/Units 16:31 16:31 16:31 WBC 16.7 H (3.8-10.6) k/uL RBC 3.77 L (4.30-5.90) m/uL Hgb 12.9 L (13.0-17.5) gm/dL MCV 104.3 H (80.0-100.0) fL Plt Count 533 H (150-450) k/uL Neutrophils # 15.3 H (1.3-7.7) k/uL Lymphocytes # 0.3 L (1.0-4.8) k/uL PT 9.7 L (10.0-12.5) sec Sodium 127 L (137-145) mmol/L Chloride 93 L (98-107) mmol/L Creatinine 0.54 L (0.66-1.25) mg/dL Total Protein 5.5 L (6.3-8.2) g/dL Albumin 3.2 L (3.5-5.0) g/dL
[2024-03-14] MEDS: HYDROcodone/APAP 7.5-325MG 1 EACH TAB PO PRN (00:31)
--- NOTE | 2024-03-14 00:43 | US ---
EXAM: US Chest CLINICAL HISTORY: ITS.REASON US Reason: Left Pleural effusion TECHNIQUE: Real-time ultrasound of the chest with image documentation. COMPARISON: No relevant prior studies available. FINDINGS/IMPRESSION: Left pleural effusion pocket size measuring 14.1 cm, at a depth of 2.4 cm from the skin surface.
[2024-03-14] MEDS: HYDROcodone/APAP 10-325MG 1 EACH TAB PO PRN (03:54)
--- NOTE | 2024-03-14 04:48 | P.CNPUL ---
History of Present Illness Consult date: 03/14/24 Requesting physician: Dania Watts Reason for consult: pleural effusion Chief complaint: Shortness of breath History of present illness: Patient is a 78-year-old male with past medical history significant for COPD and lung cancer and previous right upper lobectomy with disease recurrence. Also has underwent previous radiation and chemotherapy treatment. A follow-up PET scan done August, demonstrating right upper and lower lobe pulmonary nodules measuring 10 mm each with increased radiotracer uptake concerning for recurrent disease/metastasis. There was also left upper lobe pulmonary nodule that continued increase in size without FDG activity. December, patient did undergo robotic assisted bronchoscopy with sampling of the 2 right lower lobe nodules. 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 Follow-up PET scan done December, consistent with disease progression. There is increasing radiotracer uptake within the left upper lobe anterior spiculated nodular density and a right lateral midline increasing size pleural-based density. Decreased radiotracer activity within the right anterior midlung nodular density from prior exam. Similar uptake within a spiculated left perihilar mass, possibly representing treated disease. Mildly increased radiotracer activity within the subcarinal and right perihilar lymph node. Also, focal increased radiotracer signal within C5 vertebral body, which could possibly represent osseous metastasis. His established oncologist is Dr. eLster. Patient also has medical history significant for osteoarthritis, GERD, hypothyroidism, hyperlipidemia, anxiety, among other things. His primary care provider is Dr. Garcia. Of note, had a recent hospitalization back in February for intractable back pain. CT scan of the abdomen, pelvis and lumbar spine showed new acute compression fracture of the L1 vertebral body with up to 50% height loss. Minimal 5 mm retropulsion. Stable L4 vertebral body compression with up to 50% height loss. Moderate to severe degenerative change of the spine. Small bilateral pleural effusions with associated atelectasis. Orthopedics recommended outpatient follow up and discharge with TLSO brace. Pulmonary team was also involved during this admission for COPD exacerbation. He was discharged with home oxygen. Patient returns the emergency department yesterday afternoon complaining chiefly of shortness of breath and coughing. Cough is minimally productive with yellow sputum. Denies any fevers, chest pain, hemoptysis. He states nothing was sent over to his pharmacy on hospital discharge on March 03, and his breathing has progressively worsened. Admission chest x-ray showing chronic postsurgical and fibrotic changes along with an enlarging loculated left-sided pleural effusion. Associated atelectasis and/or infiltrate. Follow-up ultrasound of the chest demonstrates a left pleural effusion pocket size measuring up to 14.1 cm. CBC: WBC count 16.7, hemoglobin 12.9, hematocrit 39.4, platelets 533. INR 0.9. CMP: Sodium 127, potassium 4.8, chloride 93, serum bicarb 26, BUN 15, creatinine 0.54, glucose 90. Lactic 1.2. LFTs unremarkable. Troponin less than 0.012. NT proBNP 252. Negative for influenza, RSV, COVID. Patient is currently being evaluated in the emergency department. He is very frail and cachectic. He is on 3 L/min nasal cannula. Does have some mild conversational dyspnea and accessory muscle use. Presents without his TLSO brace. Continues to have lumbar level back pain and point tenderness. Denies any saddle anesthesia, bowel/bladder incontinence. Current vitals: Temperature 97.6 F, heart rate 92 bpm, blood pressure 112/66 mmHg, breathing the mid 20s, SpO2 is 96% on 3 L/min nasal cannula. Review of Systems Constitutional: Reports fatigue, Reports poor appetite, Reports weight loss, Denies chills, Denies fever, Denies weight gain Ears, nose, mouth and throat: Denies headache, Denies nasal congestion, Denies nasal discharge, Denies post-nasal drip, Denies sinus pain, Denies sinus pressure, Denies sore throat Cardiovascular: Reports dyspnea on exertion, Denies chest pain, Denies leg edema, Denies lightheadedness, Denies orthopnea, Denies palpitations, Denies paroxysmal nocturnal dyspnea, Denies syncope Respiratory: Reports congestion, Reports cough, Reports cough with sputum, Reports dyspnea, Reports home oxygen, Reports wheezing, Denies excessive sputum Gastrointestinal: Reports loss of appetite, Denies abdominal pain, Denies diarrhea, Denies nausea, Denies vomiting Genitourinary: Denies dysuria Musculoskeletal: Denies limitation of motion Integumentary: Denies rash Neurological: Denies seizures, Denies syncope Psychiatric: Denies anxiety, Denies depression Past Medical History Past Medical History: Cancer, GERD/Reflux, Osteoarthritis (OA), Pneumonia Additional Past Medical History / Comment(s): Right lung cancer 2003 and first resection done (got MRSA at that time in incision), second resection in 2008, lung cancer reoccured in 12/2014 and found new nodule in right lung had radiation in February 2015. Pancreatitis,chronic back pain, lung CA reoccured 2019 History of Any Multi-Drug Resistant Organisms: MRSA Date of last positivie culture/infection: 2003 MDRO Source:: BACK Past Surgical History: Cholecystectomy, Orthopedic Surgery Additional Past Surgical History / Comment(s): RESECTION TO RIGHT LUNG TWICE (RT MIDDLE AND RT LOWER LOBECTOMY), RT KNEE SCOPE x2 Past Anesthesia/Blood Transfusion Reactions: Motion Sickness Past Psychological History: No Psychological Hx Reported Smoking Status: Current some day smoker, Former smoker Past Alcohol Use History: None Reported, Occasional Past Drug Use History: None Reported - Past Family History Mother Family Medical History: Dementia Additional Family Medical History / Comment(s): Crohn's disease Father Family Medical History: Cancer, Respiratory Disorder Additional Family Medical History / Comment(s): mesothelioma. Medications and Allergies Home Medications Medication Instructions Recorded Confirmed Type Ipratropium/Albuterol Sulfate 1 puff INHALATION RT-QID PRN 06/11/18 03/13/24 History [Combivent Respimat Inhaler] Meloxicam 15 mg PO DAILY 06/11/18 03/13/24 History Omeprazole 20 mg PO DAILY 06/11/18 03/13/24 History Escitalopram [Lexapro] 20 mg PO DAILY 01/04/21 03/13/24 History LORazepam [Ativan] 1 mg PO HS 01/04/21 03/13/24 History Atorvastatin [Lipitor] 40 mg PO DAILY 07/23/21 03/13/24 History Levothyroxine Sodium [Synthroid] 125 mcg PO DAILY 07/23/21 03/13/24 History bisacodyL [Dulcolax] 10 mg PO BID 02/28/24 03/13/24 History Albuterol Nebulized [Ventolin 2.5 mg INHALATION RT-QID 03/13/24 03/13/24 History Nebulized] Budesonide/Formoterol Fumarate 2 puff INHALATION RT-BID 03/13/24 03/13/24 History [Breyna 160-4.5 Mcg Inhaler] Doxazosin [Cardura] 2 mg PO PC-LUNCH 03/13/24 03/13/24 History HYDROcodone/APAP 7.5-325MG [[place] 1 tab PO Q6H PRN 03/13/24 03/13/24 History 7.5-325] Ibandronate Sodium [Boniva] 150 mg PO Q30D 03/13/24 03/13/24 History Allergies Allergy/AdvReac Type Severity Reaction Status Date / Time No Known Allergies Allergy Verified 03/13/24 19:05 Physical Exam Vitals: Vital Signs Temp Pulse Resp BP Pulse Ox 03/14/24 01:30 92 20 112/66 96 03/13/24 21:30 105 H 20 118/77 94 L 03/13/24 21:16 104 H 03/13/24 21:07 99 03/13/24 18:32 97.6 F 93 25 H 132/70 96 03/13/24 16:56 98.3 F 89 20 106/62 97 03/13/24 15:28 24 03/13/24 15:18 97.8 F 97 22 105/71 96 Intake and Output 03/13/24 03/13/24 03/14/24 14:59 22:59 06:59 Other: Weight 56.699 kg GENERAL EXAM: Alert, cachectic/frail, 78-year-old male, tachypneic with mild conversational dyspnea. HEAD: Normocephalic and atraumatic EYES: Normal reaction of pupils, equal size. NOSE: Clear with pink turbinates. THROAT: No erythema or exudates. NECK: No masses, no JVD. CHEST: No chest wall deformity. LUNGS: Equal air entry with coarse rhonchi heard bilaterally with diminished left lower lung sounds. On 3 L/min nasal cannula. SpO2 92%. Speaking in short phrases. CVS: S1 and S2 normal with no audible murmur, regular rhythm. No extra heart sounds ABDOMEN: No hepatosplenomegaly, active bowel sounds, no guarding or rigidity. SPINE: No scoliosis or deformity. Positive for point tenderness. SKIN: No rashes CENTRAL NERVOUS SYSTEM: No focal deficits, tone is normal in all 4 extremities. EXTREMITIES: There is no peripheral edema, clubbing, or cyanosis. Peripheral pulses are intact. Results - Laboratory Findings CBC and BMP: 03/14/24 05:44 03/14/24 05:44 PT/INR, D-dimer PT 9.7 sec (10.0-12.5) L 03/13/24 16:31 INR 0.9 (<1.2) 03/13/24 16:31 Abnormal lab findings: Abnormal Labs 03/13/24 03/13/24 03/13/24 16:31 16:31 16:31 WBC 16.7 H RBC 3.77 L Hgb 12.9 L MCV 104.3 H Plt Count 533 H Neutrophils # 15.3 H Lymphocytes # 0.3 L PT 9.7 L Sodium 127 L Chloride 93 L Creatinine 0.54 L Total Protein 5.5 L Albumin 3.2 L - Diagnostic Findings Chest x-ray: image reviewed Assessment and Plan Assessment: Acute hypoxemic respiratory failure; secondary to acute COPD exacerbation, enlarging left sided pleural effusion, and associated atelectasis and/or consolidation Left lung pleural effusion, possibly malignant, ultrasound of the chest demo nstrates a left pleural effusion pocket size measuring up to 14.1 cm. Acute leukocytosis History of lung cancer, with disease recurrence and progression; He has had previous resections of the right lung in 2003 in 2008. He had recurrent lung cancer and multiple treatment since then. December, patient did undergo robotic assisted bronchoscopy with sampling of the 2 right lower lobe nodules. 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 Follow-up PET scan done December, consistent with disease progression. There is increasing radiotracer uptake within the left upper lobe anterior spiculated nodular density and a right lateral midline increasing size pleural-based density. Decreased radiotracer activity within the right anterior midlung nodular density from prior exam. Similar uptake within a spiculated left perihilar mass, possibly representing treated disease. Mildly increased radiotracer activity within the subcarinal and right perihilar lymph node. Also, focal increased radiotracer signal within C5 vertebral body, which could possibly represent osseous metastasis. His established oncologist is Dr. Lester. Lumbar compression fractures, CT scan of the abdomen, pelvis and lumbar spine showed new acute compression fracture of the L1 vertebral body with up to 50% height loss. Minimal 5 mm retropulsion. Stable L4 vertebral body compression with up to 50% height loss. Moderate to severe degenerative change of the spine. Patient was discharged on March 03 with TLSO brace. Chronic and ongoing tobacco dependence Hypothyroidism Hyperlipidemia Anxiety Osteoarthritis Gastroesophageal reflux disease . Plan: Patient's medications, labs, chest x-ray reviewed Continue supplemental oxygen to mean oxygen saturation of 92% or greater, currently on 3 L/min nasal cannula Continue combination of bronchodilators, Symbicort inhaler, and IV Solu-Medrol Continue empiric antibiotics check procalcitonin level Viral 4 Plex negative for influenza, RSV, COVID Case will be discussed with Dr. Becerra, to determine if patient is candidate for bedside thoracentesis on the left We will continue to follow, additional recommendations to follow I have personally seen and examined the patient, performed the documentation and the assessment and plan as written. Number of minutes spent on the visit:20 This is a joint evaluation that was done along with the nurse practitioner. The evaluation was done more than 30 minutes. The patient is hospitalized for worsening shortness of breath and hypoxic respiratory failure and enlarging left-sided pleural effusion. This could be essentially malignant pleural effusion as the patient is known to have metastatic non-small cell lung cancer. In terms of his cancer history, the patient has non-small cell lung cancer that was diagnosed originally in 2003. He had a right upper lobectomy. In 2008, he had a suspicious lesion in the right midlung and underwent a wedge resection and he was found to have necrotizing granuloma. In 2014, he had another suspicious lesion in the right midlung and the biopsy was positive for adenocarcinoma. He was treated with SBRT back in 2014 at [facility]. He had another recurrence treated with SBRT in July 2017. More recently, in January 2020, he was found to have progression of his disease and the patient was given systemic chemotherapy utilizing a combination of carboplatinum and Taxol and radiation therapy which she completed in March 2020. Subsequently, he was started on durvalumab. 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 Subsequently, he had a a robotic bronchoscopy and 2022 for ongoing abnormal lesions and biopsy of the right lower lobe pulmonary nodule was consistent with squamous cell carcinoma. The patient was treated with SBRT. Since then, the patient has been having serial CAT scans and the most recent PET/CT report that was done on 12/27/2023 showed increased metabolic activity in the left upper lobe spiculated nodular density and similar residual radiotracer uptake within the spiculated left perihilar mass and mildly increased activity in the subcarinal and right perihilar lymph nodes. Note that the last PET scan from December 2023 showed no significant pleural effusions. Since then, reviewing the serial imaging and the chest x-rays revealed development of an enlarging left- sided pleural effusion which could be potentially malignant. At this point in time the patient had 3 L of oxygen by nasal cannula with a pulse ox of 99%. White cell count was at 16, sodium level is at 128, BUN is 14 with a creatinine of 0.5. The viral screen is negative. The patient was started on empiric antibiotic coverage. The patient will need a diagnostic and therapeutic thoracentesis of the left lung. Ultrasound of the chest was also done revealing a 40 cm pocket in the left lung. Accordingly, we are proceeding with a thoracentesis of the left lung. Time with Patient: Greater than 30
[2024-03-14] MEDS: IPRATROPIUM-ALBUTEROL 3 ML NEB INHALATION STA (05:55)
[2024-03-14 05:58] LABS: Basophils % (A) 0 %; Eosinophils % (A) 0 %; HCT 38.4 % (39.0-53.0); HGB 12.3 gm/dL (13.0-17.5); Lymphocytes # (A) 0.3 k/uL (1.0-4.8); Lymphocytes % (A) 3 %; MCH 33.6 pg (25.0-35.0); MCHC 32.1 g/dL (31.0-37.0); MCV 104.5 fL (80.0-100.0); Macrocytosis Slight; Mean Platelet Volume 6.9; Monocytes # (A) 0.3 k/uL (0-1.0); Monocytes % (A) 3 %; Neutrophils # (A) 9.9 k/uL (1.3-7.7); Neutrophils % (A) 94 %; Platelet Count 518 k/uL (150-450); RBC 3.68 m/uL (4.30-5.90); RDW 12.6 % (11.5-15.5); WBC 10.6 k/uL (3.8-10.6)
[2024-03-14] MEDS: LEVOTHYROXINE 125 MCG TAB PO SCH (06:08)
[2024-03-14 06:14] LABS: African American GFR (CKD) >90 (>60 ml/min/1.73 sqM); Anion Gap 6 mmol/L; Blood Urea Nitrogen 14 mg/dL (9-20); Calcium 8.3 mg/dL (8.4-10.2); Carbon Dioxide 25 mmol/L (22-30); Chloride 97 mmol/L (98-107); Glucose 117 mg/dL (74-99); Non-African American GFR(CKD) >90 (>60 ml/min/1.73 sqM); Potassium 4.7 mmol/L (3.5-5.1); Sodium 128 mmol/L (137-145)
[2024-03-14] MEDS: PANTOPRAZOLE 40 MG TABLET PO SCH (07:42)
[2024-03-14] MEDS: IPRATROPIUM-ALBUTEROL 3 ML NEB INHALATION SCH (08:47)
[2024-03-14] MEDS ORDERED: methylPREDNISolone SOD SUCCI 125 MG/2 ML VIAL IV SCH (09:00)
[2024-03-14] MEDS: ATORVASTATIN 40 MG TAB PO SCH (09:50)
[2024-03-14] MEDS: MELOXICAM 7.5 MG TAB PO SCH (09:51)
[2024-03-14] MEDS: predniSONE 20 MG TAB PO SCH (09:52)
[2024-03-14] MEDS: ENOXAPARIN 40 MG/0.4 ML SYRINGE SQ SCH (09:53)
[2024-03-14] MEDS: AZITHROMYCIN 500 MG in SODIUM CHLORIDE 0.9% 250 ML IVPB SCH (10:24)
--- NOTE | 2024-03-14 13:09 | XR ---
EXAMINATION TYPE: XR chest 1V DATE OF EXAM: 03/14/2024 COMPARISON: 03/13/2024 CLINICAL INDICATION: Male, 78 years old with history of post thoracen; TECHNIQUE: Single frontal view of the chest is obtained. FINDINGS: Moderate bilateral pleural effusions remain, left greater than right though with interval decrease in size of the left effusion. Additional multifocal pleural parenchymal opacities remain especially at the left apex. There is a staple line from prior wedge resection of the right midlung with a probable chronic architectural distortion. Some calcified mediastinal lymph nodes suggest prior granulomatous disease. IMPRESSION: Extensive bilateral pleural parenchymal opacities persist with postsurgical change right midlung and architectural distortion related to chronic scarring. Ongoing thick left apical opacity. Ongoing mode rate pleural effusions, left greater than right though decreased now on the left. No appreciable pneumothorax. [facility], Workstation: [email or web address], 03/14/2024 1:07 PM
--- NOTE | 2024-03-14 14:47 | P.PN ---
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 No fevers, chills Of note, he was recently admitted at the end of February with acute L1 and L4 compression fractures, COPD exacerbation, he was discharged on 3 L of home oxygen. He was also been evaluated by nephrology at that time for concern for SIADH, was placed on 1200 fluid restriction, urea, had a dose of tolvaptan, sodium improved to 130 Vitals on admission temperature 97.8, heart rate 97 bpm, respiratory rate 22, blood pressure 105/71, O2 saturation 96% on 3 L nasal cannula EKG independently interpreted as sinus rhythm with ventricular rate 88 bpm and QTc of 393 ms CXR shows worsening congestive heart failure changes with increased size of left pleural effusion Labs on admission show WBCs of 16.7 with left shift, hemoglobin 12.9, MCV 104.3, platelets 533. PT 9.7, INR 0.9, PTT 23. Sodium 127, potassium 4.8, chloride 93, bicarb 26, BUN 15, creatinine 0.54, glucose 90. Lactic acid 1.2. Troponin negative. NT proBNP 252. He was admitted for evaluation of chronic hypoxic respiratory failure, left pleural effusion, pulmonology consulted for therapeutic and diagnostic thoracentesis. He was initially started on normal saline at 130 cc/h, no sodium improvement, suspect SIADH related to lung malignancy, fluid stopped Pertinent Imaging: Chest x-ray postthoracentesis, left pleural effusion decreased in size, no pneumothorax. Subjective: Seen and examined at bedside, continues to complain of shortness of breath with minimal exertion, generalized fatigue Pertinent positives and negatives as discussed above, a complete review of systems was performed and all other systems are negative. Vitals Signs Reviewed. General: [Cachectic, ill-appearing Derm: [warm], [dry] Head: [atraumatic], [normocephalic], [symmetric] Eyes: [EOMI], [no lid lag], [anicteric sclera] Mouth: [no lip lesion], [mucus membranes moist] Cardiovascular: [S1S2 reg], [no murmur] Lungs: Decreased breath sounds on the right side, coarse breath sounds in the left, decreased breath sounds bibasilar Abdominal: [soft], [ nontender to palpation], [no guarding], [no appreciable organomegaly] Ext: [no gross muscle atrophy], [no edema], [no contractures] Neuro: [ CN II-XI grossly intact], [no focal neuro deficits] Psych: [Alert], [oriented], [appropriate affect] Data Reviewed Today: Pertinent Labs: Leukocytosis resolved 10.6 now, hemoglobin stable at 12.3, platelet count increased 518, sodium 1 27-1 28 this morning, creatinine WNL, procalcitonin negative. Assessment and Plan: Shortness of breath secondary to bilateral pleural effusions status post left thoracentesis 03/14, pulmonary vascular congestion Acute hypoxic respiratory failure Acute COPD exacerbation Leukocytosis, resolved History of metastatic lung cancer -Procalcitonin negative -Continue breathing treatment -Continue prednisone -Continue supplemental oxygen, wean down as tolerated -Continue empiric antibiotics -Pulmonology following -Follow-up on pleural fluid analysis -PT OT Malnutrition in the settings of metastatic cancer -RD consult Euvolemic hyponatremia, likely SIADH -fluid restriction 1200c -bmp daily -Continued on urea 15 g daily -Sodium 127> 128, maria fernanda 124 on 02/29/2024 hx of L1 compression fracture, L4 compression fracture 02/2024 Mild normocytic anemia -Likely secondary to acute illness Chronic: Anxiety GERD Hypothyroidism Depression DVT ppx: Lovenox Code status: Full code Anticipated discharge place: Pending clinical course Anticipated discharge time: Pending clinical course Objective - Vital Signs Vital signs: Vital Signs Temp 97.6 F 03/13/24 18:32 Pulse 94 03/14/24 12:59 Resp 20 03/14/24 12:11 BP 103/64 03/14/24 12:11 Pulse Ox 96 03/14/24 12:11 FiO2 Intake & Output 03/13/24 03/14/24 03/14/24 18:59 06:59 18:59 Weight 56.699 kg - Labs CBC & Chem 7: 03/14/24 05:44 03/14/24 05:44 Labs: Abnormal Lab Results - Last 24 Hours (Table) 03/13/24 03/13/24 03/13/24 Range/Units 16:31 16:31 16:31 WBC 16.7 H (3.8-10.6) k/uL RBC 3.77 L (4.30-5.90) m/uL Hgb 12.9 L (13.0-17.5) gm/dL Hct (39.0-53.0) % MCV 104.3 H (80.0-100.0) fL Plt Count 533 H (150-450) k/uL Neutrophils # 15.3 H (1.3-7.7) k/uL Lymphocytes # 0.3 L (1.0-4.8) k/uL PT 9.7 L (10.0-12.5) sec Sodium 127 L (137-145) mmol/L Chloride 93 L (98-107) mmol/L Creatinine 0.54 L (0.66-1.25) mg/dL Glucose (74-99) mg/dL Calcium (8.4-10.2) mg/dL Total Protein 5.5 L (6.3-8.2) g/dL Albumin 3.2 L (3.5-5.0) g/dL 03/14/24 03/14/24 Range/Units 05:44 05:44 WBC (3.8-10.6) k/uL RBC 3.68 L (4.30-5.90) m/uL Hgb 12.3 L (13.0-17.5) gm/dL Hct 38.4 L (39.0-53.0) % MCV 104.5 H (80.0-100.0) fL Plt Count 518 H (150-450) k/uL Neutrophils # 9.9 H (1.3-7.7) k/uL Lymphocytes # 0.3 L (1.0-4.8) k/uL PT (10.0-12.5) sec Sodium 128 L (137-145) mmol/L Chloride 97 L (98-107) mmol/L Creatinine 0.52 L (0.66-1.25) mg/dL Glucose 117 H (74-99) mg/dL Calcium 8.3 L (8.4-10.2) mg/dL Total Protein (6.3-8.2) g/dL Albumin (3.5-5.0) g/dL
--- NOTE | 2024-03-14 16:18 | P.PCN ---
Date of Procedure: 03/14/24 Preoperative Diagnosis: Pleural effusion, left Postoperative Diagnosis: Pleural effusion, left Procedure(s) Performed: Thoracentesis, left Anesthesia: local Surgeon: Allan Becerra Estimated Blood Loss (ml): 0 Pathology: other Condition: stable Disposition: floor Operative Findings: A time out was performed and the chest x-ray was reviewed, the appropriate side was confirmed and marked. My hands were washed immediately prior to the procedure. I wore a surgical cap, mask with protective eyewear, sterile gown and sterile gloves throughout the procedure. The patient was prepped and draped in a sterile manner using chlorhexidine scrub after the appropriate level was percussed and confirmed by ultrasound. 1% lidocaine was used to anesthesize the skin, subcutaneous tissue, superior aspect of the rib periosteum and parietal pleura. A finder needle was then introduced over the superior aspect of the rib to locate the pleural fluid; 2colored fluid was aspirated at a depth of approximately 2 cm. A 10-blade scalpel was used to arnav the skin at the insertion site. The [id number] needle was then introduced through the skin incision into the pleural space using negative aspiration pressure and the red colometric indicator to confirm appropriate positioning of the needle. The thoracentesis catheter was then threaded without difficulty. 950 ml of turbid colored fluid was removed without difficulty. The catheter was then removed. No immediate complications were noted during the procedure. A post-procedure chest x-ray is pending at the time of this note. The fluid will be sent for studies. Estimated blood loss is 0cc
--- NOTE | 2024-03-14 18:17 | CA ---
Transthoracic Echo Report Name: Saulo Wen Age: 78 Gender: M : 1945 Exam Date: 03/14/2024 10:37 Exam Location: [place] [facility] Ht (in): 66 Wt (lb): 125 Ordering Physician: Danielle Valadez MD Attending/Referring Phys: [employer]er And Drain Technician Randi Eckert RDCS Procedure CPT: Indications: LV function Cardiac Hx: Technical Quality: Fair Contrast 1: Total Dose (mL): Contrast 2: Total Dose (mL): MEASUREMENTS (Male / Female) Normal Values 2D ECHO LV Diastolic Diameter PLAX 3.9 cm 4.2 - 5.9 / 3.9 - 5.3 cm LV Systolic Diameter PLAX 2.9 cm IVS Diastolic Thickness 0.7 cm 0.6 - 1.0 / 0.6 - 0.9 cm LVPW Diastolic Thickness 0.7 cm 0.6 - 1.0 / 0.6 - 0.9 cm LV Relative Wall Thickness 0.4 RV Internal Dim ED PLAX 2.5 cm LA Systolic Diameter LX 3.7 cm 3.0 - 4.0 / 2.7 - 3.8 cm LV Diastolic Volume MOD 4C 86.8 cm??? LV Systolic Volume MOD 4C 41.2 cm??? LV Ejection Fraction MOD 4C 52.6 % LV Cardiac Index MOD 4C 2644.7 cm???/min???m??? LV Diastolic Length 4C 8.3 cm LV Systolic Length 4C 8.0 cm LV Diastolic Volume MOD 2C 59.3 cm??? LV Systolic Volume MOD 2C 34.2 cm??? LV Ejection Fraction MOD 2C 42.3 % LV Cardiac Index MOD 2C 1454.1 cm???/min???m??? LV Diastolic Length 2C 8.3 cm LV Systolic Length 2C 7.6 cm M-MODE Aortic Root Diameter MM 3.5 cm DOPPLER AV Peak Velocity 104.2 cm/s AV Peak Gradient 4.3 mmHg MV Area PHT 4.6 cm??? Mitral E Point Velocity 65.0 cm/s Mitral A Point Velocity 76.0 cm/s Mitral E to A Ratio 0.9 MV Deceleration Time 165.0 ms TR Peak Velocity 247.2 cm/s TR Peak Gradient 24.4 mmHg Right Ventricular Systolic Press 28.0 mmHg FINDINGS Left Ventricle Left ventricular ejection fraction is estimated at 55-60 %. Small left ventricular cavity. Left ventricular wall thickness normal. Right Ventricle Normal right ventricular size and function. Right ventricular systolic pressure within normal limits. Right Atrium Normal right atrial size. No right atrial thrombus or mass seen. Left Atrium Normal left atrial size. No left atrial thrombus or mass present. Mitral Valve Structurally normal mitral valve. Trace mitral regurgitation. Aortic Valve Trileaflet aortic valve. No aortic valve stenosis or regurgitation. Tricuspid Valve Structurally normal tricuspid valve. Mild tricuspid regurgitation. Pulmonic Valve Pulmonic valve not well visualized. Pericardium Minimal pericardial effusion. Pleural effusion with fabrin Aorta Normal size aortic root and proximal ascending aorta. CONCLUSIONS LVEF 55% No obvious regional wall motion abnormality No significant valvular dysfunction Normal RV size and systolic function No significant chamber size abnormality Previewed by: Dr Hero Pacheco (Electronically Signed) Final Date: 14 March 2024 18:15
[2024-03-14] MEDS: bisacodyL 5 MG TABLET.DR PO SCH (23:13)
[2024-03-14] MEDS: LORazepam 1 MG TAB PO SCH (23:13)
[2024-03-15] MEDS: IPRATROPIUM-ALBUTEROL 3 ML NEB INHALATION PRN (00:37)
[2024-03-15 04:21] LABS: Appearance,BF Bloody (Clear)
[2024-03-15 04:29] LABS: Glucose, BF Source Pleural Fluid; Glucose, Body Fluid 112 mg/dL; LDH, Body Fluid Source Pleural Fluid; T. Protein, Body Fluid Source Pleural Fluid; Total Protein, Body Fluid 3210 mg/dL
[2024-03-15 08:32] LABS: Basophils % (A) 0 %; Eosinophils % (A) 0 %; HCT 32.7 % (39.0-53.0); HGB 10.8 gm/dL (13.0-17.5); Lymphocytes # (A) 0.4 k/uL (1.0-4.8); Lymphocytes % (A) 3 %; MCH 33.9 pg (25.0-35.0); MCHC 33.1 g/dL (31.0-37.0); MCV 102.4 fL (80.0-100.0); Macrocytosis Slight; Mean Platelet Volume 7.5; Monocytes % (A) 9 %; Neutrophils # (A) 10.4 k/uL (1.3-7.7); Neutrophils % (A) 86 %; Platelet Count 482 k/uL (150-450); RBC 3.19 m/uL (4.30-5.90); WBC 12.1 k/uL (3.8-10.6)
[2024-03-15 09:11] LABS: African American GFR (CKD) >90 (>60 ml/min/1.73 sqM); Anion Gap 6 mmol/L; Blood Urea Nitrogen 11 mg/dL (9-20); Carbon Dioxide 26 mmol/L (22-30); Chloride 97 mmol/L (98-107); Glucose 96 mg/dL (74-99); Non-African American GFR(CKD) >90 (>60 ml/min/1.73 sqM); Potassium 3.8 mmol/L (3.5-5.1); Sodium 129 mmol/L (137-145)
--- NOTE | 2024-03-15 13:07 | P.PN ---
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 No fevers, chills Of note, he was recently admitted at the end of February with acute L1 and L4 compression fractures, COPD exacerbation, he was discharged on 3 L of home oxygen. He was also been evaluated by nephrology at that time for concern for SIADH, was placed on 1200 fluid restriction, urea, had a dose of tolvaptan, sodium improved to 130 Vitals on admission temperature 97.8, heart rate 97 bpm, respiratory rate 22, blood pressure 105/71, O2 saturation 96% on 3 L nasal cannula EKG independently interpreted as sinus rhythm with ventricular rate 88 bpm and QTc of 393 ms CXR shows worsening congestive heart failure changes with increased size of left pleural effusion Labs on admission show WBCs of 16.7 with left shift, hemoglobin 12.9, MCV 104.3, platelets 533. PT 9.7, INR 0.9, PTT 23. Sodium 127, potassium 4.8, chloride 93, bicarb 26, BUN 15, creatinine 0.54, glucose 90. Lactic acid 1.2. Troponin negative. NT proBNP 252. 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 Pertinent Imaging: [] Subjective: Was seen and examined at bedside, shortness of breath has improved after thora centesis, continues to feel very fatigued, willing to work with physical therapy Pertinent positives and negatives as discussed above, a complete review of systems was performed and all other systems are negative. Vitals Signs Reviewed. General: [Cachectic, ill-appearing Derm: [warm], [dry] Head: [atraumatic], [normocephalic], [symmetric] Eyes: [EOMI], [no lid lag], [anicteric sclera] Mouth: [no lip lesion], [mucus membranes moist] Cardiovascular: [S1S2 reg], [no murmur] Lungs: Decreased breath sounds on the right side, coarse breath sounds in the left, decreased breath sounds bibasilar Abdominal: [soft], [ nontender to palpation], [no guarding], [no appreciable organomegaly] Ext: [no gross muscle atrophy], [no edema], [no contractures] Neuro: [ CN II-XI grossly intact], [no focal neuro deficits] Psych: [Alert], [oriented], [appropriate affect] Data Reviewed Today: Pertinent Labs: WBC 12.1, slightly increased likely from thoracentesis, hemoglobin 10.8, platelet count elevated 482, sodium rising slowly 129 today, creatinine normal Reviewed postthoracentesis chest x-ray Assessment and Plan: Shortness of breath secondary to bilateral pleural effusions status post left thoracentesis 03/14, pulmonary vascular congestion Acute hypoxic respiratory failure Acute COPD exacerbation Leukocytosis, History of metastatic lung cancer -950 cc removed from the left side 03/14 -Procalcitonin negative -Continue breathing treatment -Continue prednisone -Continue supplemental oxygen, wean down as tolerated -Continue empiric antibiotics -Pulmonology following -Follow-up on pleural fluid analysis -PT OT -TTE showed EF of 55%, no regional wall motion abnormality, no significant valvular dysfunction Malnutrition in the settings of metastatic cancer -RD consult Euvolemic hyponatremia, likely SIADH -fluid restriction 1200c -bmp daily -Sodium 127> 128>129, maria fernanda 124 on 02/29/2024 hx of L1 compression fracture, L4 compression fracture 02/2024 Mild normocytic anemia -Hemoglobin dropped from 12.3-10.8, no signs of bleeding, continue to monitor; Chronic: Anxiety GERD Hypothyroidism Depression DVT ppx: Lovenox Code status: Full code Anticipated discharge place: Pending clinical course Anticipated discharge time: Pending clinical course Objective - Vital Signs Vital signs: Vital Signs Temp 98.3 F 03/15/24 07:24 Pulse 86 03/15/24 13:02 Resp 15 03/15/24 07:24 BP 131/73 03/15/24 07:24 Pulse Ox 96 03/15/24 09:56 FiO2 Intake & Output 03/14/24 03/15/24 03/15/24 18:59 06:59 18:59 Intake Total 1080 Output Total 250 Balance 1080 -250 Weight 57 kg Intake: Oral 1080 Output: Urine 250 Other: # Voids 5 - Labs CBC & Chem 7: 03/15/24 08:13 03/15/24 08:13 Labs: Abnormal Lab Results - Last 24 Hours (Table) 03/14/24 03/15/24 03/15/24 Range/Units 12:00 08:13 08:13 WBC 12.1 H (3.8-10.6) k/uL RBC 3.19 L (4.30-5.90) m/uL Hgb 10.8 L (13.0-17.5) gm/dL Hct 32.7 L (39.0-53.0) % MCV 102.4 H (80.0-100.0) fL Plt Count 482 H (150-450) k/uL Neutrophils # 10.4 H (1.3-7.7) k/uL Lymphocytes # 0.4 L (1.0-4.8) k/uL Sodium 129 L (137-145) mmol/L Chloride 97 L (98-107) mmol/L Creatinine 0.54 L (0.66-1.25) mg/dL Calcium 8.0 L (8.4-10.2) mg/dL Fluid Appearance Bloody A (Clear) Microbiology - Last 24 Hours (Table) 03/13/24 16:31 Blood Culture - Preliminary Blood
--- NOTE | 2024-03-15 13:50 | P.PN ---
Subjective Progress Note Date: 03/15/24 Patient is a 78-year-old male with past medical history significant for COPD and lung cancer and previous right upper lobectomy with disease recurrence. Also has underwent previous radiation and chemotherapy treatment. A follow-up PET scan done August, demonstrating right upper and lower lobe pulmonary nodules measuring 10 mm each with increased radiotracer uptake concerning for recurrent disease/metastasis. There was also left upper lobe pulmonary nodule that continued increase in size without FDG activity. December, patient did undergo robotic assisted bronchoscopy with sampling of the 2 right lower lobe nodules. 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 Follow-up PET scan done December, consistent with disease progression. There is increasing radiotracer uptake within the left upper lobe anterior spiculated nodular density and a right lateral midline increasing size pleural-based density. Decreased radiotracer activity within the right anterior midlung nodular density from prior exam. Similar uptake within a spiculated left perihilar mass, possibly representing treated disease. Mildly increased radiotracer activity within the subcarinal and right perihilar lymph node. Also, focal increased radiotracer signal within C5 vertebral body, which could possibly represent osseous metastasis. His established oncologist is Dr. Lester. Patient also has medical history significant for osteoarthritis, GERD, hypothyroidism, hyperlipidemia, anxiety, among other things. His primary care provider is Dr. Garcia. Of note, had a recent hospitalization back in February for intractable back pain. CT scan of the abdomen, pelvis and lumbar spine showed new acute compression fracture of the L1 vertebral body with up to 50% height loss. Minimal 5 mm retropulsion. Stable L4 vertebral body compression with up to 50% height loss. Moderate to severe degenerative change of the spine. Small bilateral pleural effusions with associated atelectasis. Orthopedics recommended outpatient follow up and discharge with TLSO brace. Pulmonary team was also involved during this a dmission for COPD exacerbation. He was discharged with home oxygen. Patient returns the emergency department yesterday afternoon complaining chiefly of shortness of breath and coughing. Cough is minimally productive with yellow sputum. Denies any fevers, chest pain, hemoptysis. He states nothing was sent over to his pharmacy on hospital discharge on March 03, and his breathing has progressively worsened. Admission chest x-ray showing chronic postsurgical and fibrotic changes along with an enlarging loculated left-sided pleural effusion. Associated atelectasis and/or infiltrate. Follow-up ultrasound of the chest demonstrates a left pleural effusion pocket size measuring up to 14.1 cm. CBC: WBC count 16.7, hemoglobin 12.9, hematocrit 39.4, platelets 533. INR 0.9. CMP: Sodium 127, potassium 4.8, chloride 93, serum bicarb 26, BUN 15, creatinine 0.54, glucose 90. Lactic 1.2. LFTs unremarkable. Troponin less than 0.012. NT proBNP 252. Negative for influenza, RSV, COVID. Patient is currently being evaluated in the emergency department. He is very frail and cachectic. He is on 3 L/min nasal cannula. Does have some mild conversational dyspnea and accessory muscle use. Presents without his TLSO brace. Continues to have lumbar level back pain and point tenderness. Denies any saddle anesthesia, bowel/bladder incontinence. Current vitals: Temperature 97.6 F, he art rate 92 bpm, blood pressure 112/66 mmHg, breathing the mid 20s, SpO2 is 96% on 3 L/min nasal cannula. 03/15/2024, the patient is slightly improved compared to yesterday. Thoracentesis was done and a total of 950 cc of pleural fluid was aspirated from the left lung. The fluid is an exudate. Remains on bronchodilators with DuoNeb updrafts. Remains on IV Rocephin and Zithromax. Remains on steroids and the patient is currently on prednisone 40 mg p.o. daily. Remains on Lovenox for DVT prophylaxis. Follow-up chest x-ray following thoracentesis shows no complication. There is diminution of the left-sided pleural effusion. Extensive bilateral pleural parenchymal opacities with architectural distortion and chronic lung scarring related to treatment of previous lung cancer. Oxygenation remained stable and the patient remains on 2 L of O2 nasal cannula. Objective - Vital Signs Vital signs: Vital Signs Temp 98.3 F 03/15/24 07:24 Pulse 84 03/15/24 10:05 Resp 15 03/15/24 07:24 BP 131/73 03/15/24 07:24 Pulse Ox 96 03/15/24 09:56 FiO2 Intake & Output 03/14/24 03/15/24 03/15/24 18:59 06:59 18:59 Intake Total 1080 Balance 1080 Weight 57 kg Intake: Oral 1080 Other: # Voids 5 - Exam GENERAL EXAM: Alert, cachectic/frail, 78-year-old male, tachypneic with mild conversational dyspnea. HEAD: Normocephalic and atraumatic EYES: Normal reaction of pupils, equal size. NOSE: Clear with pink turbinates. THROAT: No erythema or exudates. NECK: No masses, no JVD. CHEST: No chest wall deformity. LUNGS: Equal air entry with coarse rhonchi heard bilaterally with diminished left lower lung sounds. On 3 L/min nasal cannula. SpO2 92%. Speaking in short phrases. CVS: S1 and S2 normal with no audible murmur, regular rhythm. No extra heart sounds ABDOMEN: No hepatosplenomegaly, active bowel sounds, no guarding or rigidity. SPINE: No scoliosis or deformity. Positive for point tenderness. SKIN: No rashes CENTRAL NERVOUS SYSTEM: No focal deficits, tone is normal in all 4 extremities. EXTREMITIES: There is no peripheral edema, clubbing, or cyanosis. Peripheral pulses are intact. - Labs CBC & Chem 7: 03/15/24 08:13 03/15/24 08:13 Labs: Abnormal Lab Results - Last 24 Hours (Table) 03/14/24 03/15/24 03/15/24 Range/Units 12:00 08:13 08:13 WBC 12.1 H (3.8-10.6) k/uL RBC 3.19 L (4.30-5.90) m/uL Hgb 10.8 L (13.0-17.5) gm/dL Hct 32.7 L (39.0-53.0) % MCV 102.4 H (80.0-100.0) fL Plt Count 482 H (150-450) k/uL Neutrophils # 10.4 H (1.3-7.7) k/uL Lymphocytes # 0.4 L (1.0-4.8) k/uL Sodium 129 L (137-145) mmol/L Chloride 97 L (98-107) mmol/L Creatinine 0.54 L (0.66-1.25) mg/dL Calcium 8.0 L (8.4-10.2) mg/dL Fluid Appearance Bloody A (Clear) Microbiology - Last 24 Hours (Table) 03/13/24 16:31 Blood Culture - Preliminary Blood Assessment and Plan Assessment: Acute hypoxemic respiratory failure; secondary to acute COPD exacerbation, enlarging left sided pleural effusion, and associated atelectasis and/or consolidation. The patient is status post left-sided thoracentesis and the patient remains on 2 L of oxygen by nasal cannula Left lung pleural effusion, postthoracentesis and the fluid is an exudate and a total of 950 cc of pleural fluid aspirated from the left lung Acute leukocytosis History of lung cancer, with disease recurrence and progression; He has had previous resections of the right lung in 2003 in 2008. He had recurrent lung cancer and multiple treatment since then. December, patient did undergo robotic assisted bronchoscopy with sampling of the 2 right lower lobe nodules. 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 Follow-up PET scan done December, c onsistent with disease progression. There is increasing radiotracer uptake within the left upper lobe anterior spiculated nodular density and a right lateral midline increasing size pleural-based density. Decreased radiotracer activity within the right anterior midlung nodular density from prior exam. Similar uptake within a spiculated left perihilar mass, possibly representing treated disease. Mildly increased radiotracer activity within the subcarinal and right perihilar lymph node. Also, focal increased radiotracer signal within C5 vertebral body, which could possibly represent osseous metastasis. His established oncologist is Dr. Lester. Lumbar compression fractures, CT scan of the abdomen, pelvis and lumbar spine showed new acute compression fracture of the L1 vertebral body with up to 50% height loss. Minimal 5 mm retropulsion. Stable L4 vertebral body compression with up to 50% height loss. Moderate to severe degenerative change of the spine. Patient was discharged on March 03 with TLSO brace. Chronic and ongoing tobacco dependence Hypothyroidism Hyperlipidemia Anxiety Osteoarthritis Gastroesophageal reflux disease . Plan: Thoracentesis was completed Awaiting pleural fluid cytology Fluid is an exudate Wean down FiO2 as tolerated currently on 3 L Continue Symbicort Continue DuoNeb updrafts Prednisone burst taper Continue empiric antibiotics check procalcitonin level is not elevated Viral 4 Plex negative for influenza, RSV, COVID We will continue to follow, additional recommendations to follow
[2024-03-15] MEDS: guaiFENesin-Coden 100-10MG/5ML 10 ML CUP PO PRN (16:05)
[2024-03-16 09:26] LABS: HCT 31.2 % (39.6-50.0); HGB 10.4 g/dL (13.0-17.0); MCHC 33.3 g/dL (32.0-37.0); Mean Platelet Volume 8.8 FL (9.5-12.2); NRBC Per 100 WBC 0 X 10*3/uL (0.00-0.01); Platelet Count 422 X 10*3/uL (140-440); RBC 3.06 X 10*6/uL (4.40-5.60); RDW 13.1 % (11.5-14.5); WBC 15.24 X 10*3/uL (4.50-10.00)
[2024-03-16 09:44] LABS: BUN/Creat Ratio 15.17 Ratio (12.00-20.00); Blood Urea Nitrogen 9.1 mg/dL (9.0-27.0); Calcium 8.2 mg/dL (8.7-10.3); Carbon Dioxide 25.7 mmol/L (21.6-31.8); Chloride 95 mmol/L (96-109); Glucose 132 mg/dL (70-110); Potassium 3.7 mmol/L (3.5-5.5); Sodium 130 mmol/L (135-145)
[2024-03-16 10:34] LABS: Basophils # (A) 0.02 X 10*3/uL (0.00-0.10); Basophils % (A) 0.1 %; Eosinophils # (A) 0.01 X 10*3/uL (0.04-0.35); Eosinophils % (A) 0.1 %; Lymphocytes # (A) 0.44 X 10*3/uL (0.90-5.00); Lymphocytes % (A) 2.9 %; Macrocytosis (M) 2+ (None Seen); Monocytes # (A) 1.72 X 10*3/uL (0.20-1.00); Monocytes % (A) 11.3 %; Neutrophils # (A) 12.95 X 10*3/uL (1.80-7.70); Neutrophils % (A) 84.9 %
--- NOTE | 2024-03-16 13:26 | P.PN ---
Subjective Progress Note Date: 03/16/24 Patient is a 78-year-old male with past medical history significant for COPD and lung cancer and previous right upper lobectomy with disease recurrence. Also has underwent previous radiation and chemotherapy treatment. A follow-up PET scan done August, demonstrating right upper and lower lobe pulmonary nodules measuring 10 mm each with increased radiotracer uptake concerning for recurrent disease/metastasis. There was also left upper lobe pulmonary nodule that continued increase in size without FDG activity. December, patient did undergo robotic assisted bronchoscopy with sampling of the 2 right lower lobe nodules. 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 Follow-up PET scan done December, consistent with disease progression. There is increasing radiotracer uptake within the left upper lobe anterior spiculated nodular density and a right lateral midline increasing size pleural-based density. Decreased radiotracer activity within the right anterior midlung nodular density from prior exam. Similar uptake within a spiculated left perihilar mass, possibly representing treated disease. Mildly increased radiotracer activity within the subcarinal and right perihilar lymph node. Also, focal increased radiotracer signal within C5 vertebral body, which could possibly represent osseous metastasis. His established oncologist is Dr. Lester. Patient also has medical history significant for osteoarthritis, GERD, hypothyroidism, hyperlipidemia, anxiety, among other things. His primary care provider is Dr. Garcia. Of note, had a recent hospitalization back in February for intractable back pain. CT scan of the abdomen, pelvis and lumbar spine showed new acute compression fracture of the L1 vertebral body with up to 50% height loss. Minimal 5 mm retropulsion. Stable L4 vertebral body compression with up to 50% height loss. Moderate to severe degenerative change of the spine. Small bilateral pleural effusions with associated atelectasis. Orthopedics recommended outpatient follow up and discharge with TLSO brace. Pulmonary team was also involved during this a dmission for COPD exacerbation. He was discharged with home oxygen. Patient returns the emergency department yesterday afternoon complaining chiefly of shortness of breath and coughing. Cough is minimally productive with yellow sputum. Denies any fevers, chest pain, hemoptysis. He states nothing was sent over to his pharmacy on hospital discharge on March 03, and his breathing has progressively worsened. Admission chest x-ray showing chronic postsurgical and fibrotic changes along with an enlarging loculated left-sided pleural effusion. Associated atelectasis and/or infiltrate. Follow-up ultrasound of the chest demonstrates a left pleural effusion pocket size measuring up to 14.1 cm. CBC: WBC count 16.7, hemoglobin 12.9, hematocrit 39.4, platelets 533. INR 0.9. CMP: Sodium 127, potassium 4.8, chloride 93, serum bicarb 26, BUN 15, creatinine 0.54, glucose 90. Lactic 1.2. LFTs unremarkable. Troponin less than 0.012. NT proBNP 252. Negative for influenza, RSV, COVID. Patient is currently being evaluated in the emergency department. He is very frail and cachectic. He is on 3 L/min nasal cannula. Does have some mild conversational dyspnea and accessory muscle use. Presents without his TLSO brace. Continues to have lumbar level back pain and point tenderness. Denies any saddle anesthesia, bowel/bladder incontinence. Current vitals: Temperature 97.6 F, he art rate 92 bpm, blood pressure 112/66 mmHg, breathing the mid 20s, SpO2 is 96% on 3 L/min nasal cannula. 03/15/2024, the patient is slightly improved compared to yesterday. Thoracentesis was done and a total of 950 cc of pleural fluid was aspirated from the left lung. The fluid is an exudate. Remains on bronchodilators with DuoNeb updrafts. Remains on IV Rocephin and Zithromax. Remains on steroids and the patient is currently on prednisone 40 mg p.o. daily. Remains on Lovenox for DVT prophylaxis. Follow-up chest x-ray following thoracentesis shows no complication. There is diminution of the left-sided pleural effusion. Extensive bilateral pleural parenchymal opacities with architectural distortion and chronic lung scarring related to treatment of previous lung cancer. Oxygenation remained stable and the patient remains on 2 L of O2 nasal cannula. 03/16/2024, the patient is less bronchospastic compared to yesterday. Seems to be less short of breath. He is status post thoracentesis of the left lung. Fluid cytology still pending for now. Remains on DuoNeb of chest. Remains on IV Rocephin. Remains on prednisone as part of a burst taper starting with 40 mg p.o. daily. White cell count is 15 with a hemoglobin 10.4 and a platelet count of 422. Sodium is at 130, BUN is at 9 with a creatinine of 0.6. Potassium level is at 3.7. He remains on 3 L of oxygen by nasal cannula with a pulse ox of 98%. Objective - Vital Signs Vital signs: Vital Signs Temp 98.2 F 03/16/24 06:59 Pulse 95 03/16/24 06:59 Resp 21 03/16/24 06:59 BP 132/79 03/16/24 06:59 Pulse Ox 98 03/16/24 06:59 FiO2 Intake & Output 03/15/24 03/16/24 03/16/24 18:59 06:59 18:59 Output Total 250 Balance -250 Weight 57 kg Output: Urine 250 Other: Voiding Method Toilet Urinal # Voids 4 2 # Bowel Movements 1 - Exam GENERAL EXAM: Alert, cachectic/frail, 78-year-old male, tachypneic with mild conversational dyspnea. HEAD: Normocephalic and atraumatic EYES: Normal reaction of pupils, equal size. NOSE: Clear with pink turbinates. THROAT: No erythema or exudates. NECK: No masses, no JVD. CHEST: No chest wall deformity. LUNGS: Equal air entry with coarse rhonchi heard bilaterally with diminished left lower lung sounds. On 3 L/min nasal cannula. SpO2 92%. Speaking in short phrases. CVS: S1 and S2 normal with no audible murmur, regular rhythm. No extra heart sounds ABDOMEN: No hepatosplenomegaly, active bowel sounds, no guarding or rigidity. SPINE: No scoliosis or deformity. Positive for point tenderness. SKIN: No rashes CENTRAL NERVOUS SYSTEM: No focal deficits, tone is normal in all 4 extremities. EXTREMITIES: There is no peripheral edema, clubbing, or cyanosis. Peripheral pulses are intact. - Labs CBC & Chem 7: 03/16/24 02:52 03/16/24 02:52 Labs: Abnormal Lab Results - Last 24 Hours (Table) 03/16/24 03/16/24 Range/Units 02:52 02:52 WBC 15.24 H (4.50-10.00) X 10*3/uL RBC 3.06 L (4.40-5.60) X 10*6/uL Hgb 10.4 L (13.0-17.0) g/dL Hct 31.2 L (39.6-50.0) % MCV 102.0 H (80.0-97.0) FL MCH 34.0 H (27.0-32.0) pg MPV 8.8 L (9.5-12.2) FL Immature Gran # 0.10 H (0.00-0.04) X 10*3/uL Neutrophils # 12.95 H (1.80-7.70) X 10*3/uL Lymphocytes # 0.44 L (0.90-5.00) X 10*3/uL Monocytes # 1.72 H (0.20-1.00) X 10*3/uL Eosinophils # 0.01 L (0.04-0.35) X 10*3/uL Macrocytosis (manual) 2+ A (None Seen) Sodium 130 L (135-145) mmol/L Chloride 95 L (96-109) mmol/L Glucose 132 H (70-110) mg/dL Calcium 8.2 L (8.7-10.3) mg/dL Microbiology - Last 24 Hours (Table) 03/14/24 12:00 Gram Stain - Preliminary Pleural Fluid Body Fluid Culture - Preliminary 03/13/24 16:31 Blood Culture - Preliminary Blood Assessment and Plan Assessment: Acute hypoxemic respiratory failure; secondary to acute COPD exacerbation, enlarging left sided pleural effusion, and associated atelectasis and/or consolidation. The patient is status post left-sided thoracentesis and the patient remains on 3 L of oxygen by nasal cannula Left lung pleural effusion, postthoracentesis and the fluid is an exudate and a total of 950 cc of pleural fluid aspirated from the left lung Acute leukocytosis Acute COPD exacerbation History of lung cancer, with disease recurrence and progression; He has had previous resections of the right lung in 2003 in 2008. He had recurrent lung cancer and multiple treatment since then. December, patient did undergo robotic assisted bronchoscopy with sampling of the 2 right lower lobe nodules. 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 Follow-up PET scan done December, consistent with disease progression. There is increasing radiotracer uptake within the left upper lobe anterior spiculated nodular density and a right lateral midline increasing size pleural-based density. Decreased radiotracer activity within the right anterior midlung nodular density from prior exam. Similar uptake within a spiculated left perihilar mass, possibly representing treated disease. Mildly increased radiotracer activity within the subcarinal and right perihilar lymph node. Also, focal increased radiotracer signal within C5 vertebral body, which could possibly represent osseous metastasis. His established oncologist is Dr. Lester. Lumbar compression fractures, CT scan of the abdomen, pelvis and lumbar spine showed new acute compression fracture of the L1 vertebral body with up to 50% height loss. Minimal 5 mm retropulsion. Stable L4 vertebral body compression with up to 50% height loss. Moderate to severe degenerative change of the spine. Patient was discharged on March 03 with TLSO brace. Chronic and ongoing tobacco dependence Hypothyroidism Hyperlipidemia Anxiety Osteoarthritis Gastroesophageal reflux disease . Plan: Thoracentesis was completed Awaiting pleural fluid cytology Fluid is an exudate Wean down FiO2 as tolerated currently on 3 L Continue Symbicort Continue DuoNeb updrafts Prednisone burst taper currently at 40 mg p.o. daily as part of a burst taper Continue empiric antibiotics check procalcitonin level is not elevated Viral 4 Plex negative for influenza, RSV, COVID We will continue to follow, overall improving
--- NOTE | 2024-03-16 14:58 | P.PN ---
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 No fevers, chills Of note, he was recently admitted at the end of February with acute L1 and L4 compression fractures, COPD exacerbation, he was discharged on 3 L of home oxygen. He was also been evaluated by nephrology at that time for concern for SIADH, was placed on 1200 fluid restriction, urea, had a dose of tolvaptan, sodium improved to 130 Vitals on admission temperature 97.8, heart rate 97 bpm, respiratory rate 22, blood pressure 105/71, O2 saturation 96% on 3 L nasal cannula EKG independently interpreted as sinus rhythm with ventricular rate 88 bpm and QTc of 393 ms CXR shows worsening congestive heart failure changes with increased size of left pleural effusion Labs on admission show WBCs of 16.7 with left shift, hemoglobin 12.9, MCV 104.3, platelets 533. PT 9.7, INR 0.9, PTT 23. Sodium 127, potassium 4.8, chloride 93, bicarb 26, BUN 15, creatinine 0.54, glucose 90. Lactic acid 1.2. Troponin negative. NT proBNP 252. 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 Thoracentesis performed on 03/14 with 950 cc fluid removed, pending cytology. Continued on prednisone, breathing treatment, empiric antibiotics, pulmonology following Pertinent Imaging: No new imaging Subjective: Shortness of breath is somewhat improved, still feels fatigued Pertinent positives and negatives as discussed above, a complete review of systems was performed and all other systems are negative. Vitals Signs Reviewed. General: [Cachectic, ill-appearing Derm: [warm], [dry] Head: [atraumatic], [normocephalic], [symmetric] Eyes: [EOMI], [no lid lag], [anicteric sclera] Mouth: [no lip lesion], [mucus membranes moist] Cardiovascular: [S1S2 reg], [no murmur] Lungs: Decreased breath sounds on the right side, coarse breath sounds in the left, decreased breath sounds bibasilar Abdominal: [soft], [ nontender to palpation], [no guarding], [no appreciable organomegaly] Ext: [no gross muscle atrophy], [no edema], [no contractures] Neuro: [ CN II-XI grossly intact], [no focal neuro deficits] Psych: [Alert], [oriented], [appropriate affect] Data Reviewed Today: Pertinent Labs: Leukocytosis trending up likely in the settings of steroid use, hemoglobin stable, platelet count normal today, sodium improved to 130, creatinine stable and normal. Assessment and Plan: Shortness of breath secondary to bilateral pleural effusions status post left thoracentesis 03/14, pulmonary vascular congestion Acute hypoxic respiratory failure Acute COPD exacerbation Leukocytosis, likely reactive in the settings of steroid. History of metastatic lung cancer -950 cc removed from the left side 03/14 -Procalcitonin negative -Continue breathing treatment -Continue prednisone -Continue supplemental oxygen, wean down as tolerated -Continue empiric antibiotics -Pulmonology following -Follow-up on pleural fluid analysis -PT OT -TTE showed EF of 55%, no regional wall motion abnormality, no significant valvular dysfunction Malnutrition in the settings of metastatic cancer -RD consult Euvolemic hyponatremia, likely SIADH -fluid restriction 1200c -bmp daily -Sodium 127> 128>129>130, maria fernanda 124 on 02/29/2024 hx of L1 compression fracture, L4 compression fracture 02/2024 Mild normocytic anemia -Hemoglobin dropped from 12.3-10.8, no signs of bleeding, continue to monitor; Chronic: Anxiety GERD Hypothyroidism Depression DVT ppx: Lovenox Code status: Full code Anticipated discharge place: Pending PT OT evaluation, cytology Anticipated discharge time: 03/17 Objective - Vital Signs Vital signs: Vital Signs Temp 97.7 F 03/16/24 13:44 Pulse 102 H 03/16/24 13:44 Resp 19 03/16/24 13:44 BP 146/62 03/16/24 13:44 Pulse Ox 93 L 03/16/24 13:44 FiO2 Intake & Output 03/15/24 03/16/24 03/16/24 18:59 06:59 18:59 Output Total 250 150 Balance -250 -150 Weight 57 kg Output: Urine 250 150 Other: Voiding Method Toilet Urinal # Voids 4 2 # Bowel Movements 1 - Labs CBC & Chem 7: 03/16/24 02:52 03/16/24 02:52 Labs: Abnormal Lab Results - Last 24 Hours (Table) 03/16/24 03/16/24 Range/Units 02:52 02:52 WBC 15.24 H (4.50-10.00) X 10*3/uL RBC 3.06 L (4.40-5.60) X 10*6/uL Hgb 10.4 L (13.0-17.0) g/dL Hct 31.2 L (39.6-50.0) % MCV 102.0 H (80.0-97.0) FL MCH 34.0 H (27.0-32.0) pg MPV 8.8 L (9.5-12.2) FL Immature Gran # 0.10 H (0.00-0.04) X 10*3/uL Neutrophils # 12.95 H (1.80-7.70) X 10*3/uL Lymphocytes # 0.44 L (0.90-5.00) X 10*3/uL Monocytes # 1.72 H (0.20-1.00) X 10*3/uL Eosinophils # 0.01 L (0.04-0.35) X 10*3/uL Macrocytosis (manual) 2+ A (None Seen) Sodium 130 L (135-145) mmol/L Chloride 95 L (96-109) mmol/L Glucose 132 H (70-110) mg/dL Calcium 8.2 L (8.7-10.3) mg/dL Microbiology - Last 24 Hours (Table) 03/14/24 12:00 Gram Stain - Preliminary Pleural Fluid Body Fluid Culture - Preliminary 03/13/24 16:31 Blood Culture - Preliminary Blood
[2024-03-17 11:28] LABS: Basophils % (A) 0 %; Eosinophils # (A) 0.1 k/uL (0-0.7); Eosinophils % (A) 1 %; HCT 33.7 % (39.0-53.0); HGB 11.1 gm/dL (13.0-17.5); Lymphocytes # (A) 0.4 k/uL (1.0-4.8); Lymphocytes % (A) 2 %; MCH 33.7 pg (25.0-35.0); MCV 102.2 fL (80.0-100.0); Macrocytosis Slight; Mean Platelet Volume 7.7; Monocytes # (A) 0.8 k/uL (0-1.0); Monocytes % (A) 5 %; Neutrophils # (A) 13.5 k/uL (1.3-7.7); Neutrophils % (A) 91 %; Platelet Count 477 k/uL (150-450); RDW 13.1 % (11.5-15.5); WBC 14.9 k/uL (3.8-10.6)
[2024-03-17 11:37] LABS: African American GFR (CKD) >90 (>60 ml/min/1.73 sqM); Anion Gap 6 mmol/L; Blood Urea Nitrogen 7 mg/dL (9-20); Calcium 8.3 mg/dL (8.4-10.2); Carbon Dioxide 26 mmol/L (22-30); Chloride 97 mmol/L (98-107); Glucose 128 mg/dL (74-99); Non-African American GFR(CKD) >90 (>60 ml/min/1.73 sqM); Sodium 129 mmol/L (137-145)
--- NOTE | 2024-03-17 13:19 | P.PN ---
Subjective Progress Note Date: 03/17/24 Patient is a 78-year-old male with past medical history significant for COPD and lung cancer and previous right upper lobectomy with disease recurrence. Also has underwent previous radiation and chemotherapy treatment. A follow-up PET scan done August, demonstrating right upper and lower lobe pulmonary nodules measuring 10 mm each with increased radiotracer uptake concerning for recurrent disease/metastasis. There was also left upper lobe pulmonary nodule that continued increase in size without FDG activity. December, patient did undergo robotic assisted bronchoscopy with sampling of the 2 right lower lobe nodules. 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 Follow-up PET scan done December, consistent with disease progression. There is increasing radiotracer uptake within the left upper lobe anterior spiculated nodular density and a right lateral midline increasing size pleural-based density. Decreased radiotracer activity within the right anterior midlung nodular density from prior exam. Similar uptake within a spiculated left perihilar mass, possibly representing treated disease. Mildly increased radiotracer activity within the subcarinal and right perihilar lymph node. Also, focal increased radiotracer signal within C5 vertebral body, which could possibly represent osseous metastasis. His established oncologist is Dr. Lester. Patient also has medical history significant for osteoarthritis, GERD, hypothyroidism, hyperlipidemia, anxiety, among other things. His primary care provider is Dr. Garcia. Of note, had a recent hospitalization back in February for intractable back pain. CT scan of the abdomen, pelvis and lumbar spine showed new acute compression fracture of the L1 vertebral body with up to 50% height loss. Minimal 5 mm retropulsion. Stable L4 vertebral body compression with up to 50% height loss. Moderate to severe degenerative change of the spine. Small bilateral pleural effusions with associated atelectasis. Orthopedics recommended outpatient follow up and discharge with TLSO brace. Pulmonary team was also involved during this admission for COPD exacerbation. He was discharged with home oxygen. Patient returns the emergency department yesterday afternoon complaining chiefly of shortness of breath and coughing. Cough is minimally productive with yellow sputum. Denies any fevers, chest pain, hemoptysis. He states nothing was sent over to his pharmacy on hospital discharge on March 03, and his breathing has progressively worsened. Admission chest x-ray showing chronic postsurgical and fibrotic changes along with an enlarging loculated left-sided pleural effusion. Associated atelectasis and/or infiltrate. Follow-up ultrasound of the chest demonstrates a left pleural effusion pocket size measuring up to 14.1 cm. CBC: WBC count 16.7, hemoglobin 12.9, hematocrit 39.4, platelets 533. INR 0.9. CMP: Sodium 127, potassium 4.8, chloride 93, serum bicarb 26, BUN 15, creatinine 0.54, glucose 90. Lactic 1.2. LFTs unremarkable. Troponin less than 0.012. NT proBNP 252. Negative for influenza, RSV, COVID. Patient is currently being evaluated in the emergency department. He is very frail and cachectic. He is on 3 L/min nasal cannula. Does have some mild conversational dyspnea and accessory muscle use. Presents without his TLSO brace. Continues to have lumbar level back pain and point tenderness. Denies any saddle anesth esia, bowel/bladder incontinence. Current vitals: Temperature 97.6 F, heart rate 92 bpm, blood pressure 112/66 mmHg, breathing the mid 20s, SpO2 is 96% on 3 L/min nasal cannula. 03/15/2024, the patient is slightly improved compared to yesterday. Thoracentesis was done and a total of 950 cc of pleural fluid was aspirated from the left lung. The fluid is an exudate. Remains on bronchodilators with DuoNeb updrafts. Remains on IV Rocephin and Zithromax. Remains on steroids and the patient is currently on prednisone 40 mg p.o. daily. Remains on Lovenox for DVT prophylaxis. Follow-up chest x-ray following thoracentesis shows no complication. There is diminution of the left-sided pleural effusion. Extensive bilateral pleural parenchymal opacities with architectural distortion and chronic lung scarring related to treatment of previous lung cancer. Oxygenation remained stable and the patient remains on 2 L of O2 nasal cannula. 03/16/2024, the patient is less bronchospastic compared to yesterday. Seems to be less short of breath. He is status post thoracentesis of the left lung. Fluid cytology still pending for now. Remains on DuoNeb of chest. Remains on IV Rocephin. Remains on prednisone as part of a burst taper starting with 40 mg p.o. daily. White cell count is 15 with a hemoglobin 10.4 and a platelet count of 422. Sodium is at 130, BUN is at 9 with a creatinine of 0.6. Potassium level is at 3.7. He remains on 3 L of oxygen by nasal cannula with a pulse ox of 98%. The patient is seen today March 17, 2024 in follow-up on the regular medical floor. He is currently sitting up in bed. Awake and alert in no acute distress. Maintaining good O2 saturations in the 90s on 3 L/min per nasal cannula. He did undergo a left-sided thoracentesis with 950 mL of fluid returned. Cultures and cytology pending. Denies any worsening shortness of breath, cough or congestion. White count 14.9. Hemoglobin 11.1. Platelets 477. Sodium 129. Potassium 4.0. Bicarb 26. BUN 7. Creatinine 0.51. Glucose 128. He remains on DuoNeb inhalations, Symbicort, prednisone taper. Lovenox for DVT prophylaxis. Objective - Vital Signs Vital signs: Vital Signs Temp 98.0 F 03/17/24 07:18 Pulse 94 03/17/24 12:35 Resp 16 03/17/24 09:17 BP 137/80 03/17/24 07:18 Pulse Ox 94 L 03/17/24 07:18 FiO2 Intake & Output 03/16/24 03/17/24 03/17/24 18:59 06:59 18:59 Intake Total 1022 Output Total 150 1150 Balance -150 -128 Weight 57.3 kg Intake: Oral 1022 Output: Urine 150 1150 Other: Voiding Method Toilet Toilet Urinal Urinal - Exam GENERAL EXAM: Alert, 78-year-old male, on 3 L cannula, comfortable in no apparent distress. HEAD: Normocephalic. EYES: Normal reaction of pupils, equal size. NOSE: Clear with pink turbinates. THROAT: No erythema or exudates. NECK: No masses, no JVD. CHEST: No chest wall deformity. LUNGS: Equal air entry with coarse rhonchi bilaterally. CVS: S1 and S2 normal with no audible murmur, regular rhythm. ABDOMEN: No hepatosplenomegaly, normal bowel sounds, no guarding or rigidity. SPINE: No scoliosis or deformity SKIN: No rashes CENTRAL NERVOUS SYSTEM: No focal deficits, tone is normal in all 4 extremities. EXTREMITIES: There is no peripheral edema. No clubbing, no cyanosis. Peripheral pulses are intact. - Labs CBC & Chem 7: 03/17/24 10:59 03/17/24 10:59 Labs: Abnormal Lab Results - Last 24 Hours (Table) 03/17/24 03/17/24 Range/Units 10:59 10:59 WBC 14.9 H (3.8-10.6) k/uL RBC 3.30 L (4.30-5.90) m/uL Hgb 11.1 L (13.0-17.5) gm/dL Hct 33.7 L (39.0-53.0) % MCV 102.2 H (80.0-100.0) fL Plt Count 477 H (150-450) k/uL Neutrophils # 13.5 H (1.3-7.7) k/uL Lymphocytes # 0.4 L (1.0-4.8) k/uL Sodium 129 L (137-145) mmol/L Chloride 97 L (98-107) mmol/L BUN 7 L (9-20) mg/dL Creatinine 0.51 L (0.66-1.25) mg/dL Glucose 128 H (74-99) mg/dL Calcium 8.3 L (8.4-10.2) mg/dL Microbiology - Last 24 Hours (Table) 03/14/24 12:00 Gram Stain - Preliminary Pleural Fluid Body Fluid Culture - Preliminary 03/13/24 16:31 Blood Culture - Preliminary Blood Assessment and Plan Assessment: Acute hypoxemic respiratory failure; secondary to acute COPD exacerbation, enlarging left sided pleural effusion, and associated atelectasis and/or consolidation. The patient is status post left-sided thoracentesis and the patient remains on 3 L of oxygen by nasal cannula Left lung pleural effusion, post thoracentesis and the fluid is an exudate and a total of 950 cc of pleural fluid aspirated from the left lung. Cytology pending Acute leukocytosis Acute COPD exacerbation History of lung cancer, with disease recurrence and progression; He has had previous resections of the right lung in 2003 in 2008. He had recurrent lung cancer and multiple treatment since then. December, patient did undergo robotic assisted bronchoscopy with sampling of the 2 right lower lobe nodules. 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 Follow-up PET scan done December, consistent with disease progression. There is increasing radiotracer uptake within the left upper lobe anterior spiculated nodular density and a right lateral midline increasing size pleural-based density. Decreased radiotracer activity within the right anterior midlung nodular density from prior exam. Similar uptake within a spiculated left perihilar mass, possibly representing treated disease. Mildly increased radiotracer activity within the subcarinal and right perihilar lymph node. Also, focal increased radiotracer signal within C5 vertebral body, which could possibly represent osseous metastasis. His established oncologist is Dr. Lester. Lumbar compression fractures, CT scan of the abdomen, pelvis and lumbar spine showed new acute compression fracture of the L1 vertebral body with up to 50% height loss. Minimal 5 mm retropulsion. Stable L4 vertebral body compression w ith up to 50% height loss. Moderate to severe degenerative change of the spine. Patient was discharged on March 03 with TLSO brace. Chronic and ongoing tobacco dependence Hypothyroidism Hyperlipidemia Anxiety Osteoarthritis Gastroesophageal reflux disease Plan: The patient was seen and evaluated Labs and medications reviewed Stable on 3 L nasal cannula Pleural fluid cytology pending Cleared for discharge Continue his home pulmonary medications, oxygen Follow-up in the office in 1 week I have personally seen and examined the patient, performed the documentation and the assessment and plan as written. Number of minutes spent on the visit: 10 Dictation was produced using [employer] dictation software. Please excuse any grammatical, word or spelling errors.
[2024-03-17] MEDS: DOXAZOSIN 2 MG TAB PO SCH (13:23)
--- NOTE | 2024-03-17 16:44 | P.PN ---
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 No fevers, chills. Of note, he was recently admitted at the end of February with acute L1 and L4 compression fractures, COPD exacerbation, he was discharged on 3 L of home oxygen. He was also been evaluated by nephrology at that time for concern for SIADH, was placed on 1200 fluid restriction, urea, had a dose of tolvaptan, sodium improved to 130. Vitals on admission temperature 97.8, heart rate 97 bpm, respiratory rate 22, blood pressure 105/71, O2 saturation 96% on 3 L nasal cannula EKG independently interpreted as sinus rhythm with ventricular rate 88 bpm and QTc of 393 ms CXR shows worsening congestive heart failure changes with increased size of left pleural effusion Labs on admission show WBCs of 16.7 with left shift, hemoglobin 12.9, MCV 104.3, platelets 533. PT 9.7, INR 0.9, PTT 23. Sodium 127, potassium 4.8, chloride 93, bicarb 26, BUN 15, creatinine 0.54, glucose 90. Lactic acid 1.2. Troponin negative. NT proBNP 252. 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 Thoracentesis performed on 03/14 with 950 cc fluid removed, pending cytology. Continued on prednisone, breathing treatment, empiric antibiotics, pulmonology following Subjective: 03/16/2024: Shortness of breath is somewhat improved, still feels fatigued 03/17/2024: Patient seen and evaluated bedside. No acute events overnight. Patient complaining of shortness of breath. Pertinent positives and negatives as discussed above, a complete review of systems was performed and all other systems are negative. Vitals Signs Reviewed. General: Cachectic, ill-appearing Derm: warm, dry Head: atraumatic, normocephalic, symmetric Eyes: EOMI, anicteric sclera Mouth: no lip lesion, mucus membranes moist Cardiovascular: S1S2 reg, no murmur Lungs: coarse breath sounds in the left, decreased breath sounds bilateral lung base, no wheezing Abdominal: soft, nontender to palpation, no guarding, no appreciable organomegaly Ext: no gross muscle atrophy, no edema, no contractures Neuro: CN II-XI grossly intact, no focal neuro deficits Psych: Alert, oriented, appropriate affect Data Reviewed Today: Pertinent Labs: Pleural analysis pending. 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 #. Shortness of breath secondary to bilateral pleural effusions status post left thoracentesis 03/14, pulmonary vascular congestion #. Acute hypoxic respiratory failure #. Acute COPD exacerbation #. Leukocytosis, likely reactive in the settings of steroid. #. History of metastatic lung cancer 950 cc removed from the left side 03/14 Procalcitonin negative Currently saturating at 94% on 3 L nasal cannula. Continue breathing treatment of DuoNeb's 3 mL [id number] Continue prednisone 40 mg p.o. daily (day 4) Continue supplemental oxygen, wean down as tolerated Rocephin discontinued Pleural analysis 03/14 displayed bloody in appearance, glucose 112, total protein 3.21, fluid LDH 390 suggestive of exudative effusion Pleural analysis 03/16 pending TTE showed EF of 55%, no regional wall motion abnormality, no significant valvular dysfunction Discussed with pulmonology, okay to be discharged, follow-up in 1 week postdischarge. Patient extremely short of breath when getting up to walk, PT/OT consulted Discussed with counseling case manager on home health care, patient and agreeable. #. Malnutrition in the settings of metastatic cancer -RD consult #. Euvolemic hyponatremia, likely SIADH -fluid restriction 1200c -bmp daily -Sodium 127> 128>129>130 >129. Abdias 124 on 02/29/2024 #. Hx of L1 compression fracture, L4 compression fracture 02/2024 #. Mild normocytic anemia -Hemoglobin dropped from 12.3-10.8, no signs of bleeding, continue to monitor; Chronic: Anxiety GERD Hypothyroidism Depression F: N/A E: Replete electrolytes as needed N: Heart healthy diet A: PT/OT DVT ppx: Lovenox 40 SQ daily Code status: Full code Anticipated discharge place: Pending PT OT evaluation, cytology Anticipated discharge time: Likely 03/18/2024 Patient is still extremely weak, has difficulty ambulating due to dyspnea. Will monitor for another day. I have seen and evaluated the patient today. Discussed with the resident and agree with the residents finding and plan as documented in the resident's note. Changes highlighted in blue font. Objective - Vital Signs Vital signs: Vital Signs Temp 98.0 F 03/17/24 07:18 Pulse 95 03/17/24 07:53 Resp 16 03/17/24 07:18 BP 137/80 03/17/24 07:18 Pulse Ox 94 L 03/17/24 07:18 FiO2 Intake & Output 03/16/24 03/17/24 03/17/24 18:59 06:59 18:59 Intake Total 1022 Output Total 150 1150 Balance -150 -128 Weight 57.3 kg Intake: Oral 1022 Output: Urine 150 1150 Other: Voiding Method Toilet Urinal - Labs CBC & Chem 7: 03/17/24 10:59 03/17/24 10:59 Labs: Abnormal Lab Results - Last 24 Hours (Table) 03/16/24 03/16/24 Range/Units 02:52 02:52 WBC 15.24 H (4.50-10.00) X 10*3/uL RBC 3.06 L (4.40-5.60) X 10*6/uL Hgb 10.4 L (13.0-17.0) g/dL Hct 31.2 L (39.6-50.0) % MCV 102.0 H (80.0-97.0) FL MCH 34.0 H (27.0-32.0) pg MPV 8.8 L (9.5-12.2) FL Immature Gran # 0.10 H (0.00-0.04) X 10*3/uL Neutrophils # 12.95 H (1.80-7.70) X 10*3/uL Lymphocytes # 0.44 L (0.90-5.00) X 10*3/uL Monocytes # 1.72 H (0.20-1.00) X 10*3/uL Eosinophils # 0.01 L (0.04-0.35) X 10*3/uL Macrocytosis (manual) 2+ A (None Seen) Sodium 130 L (135-145) mmol/L Chloride 95 L (96-109) mmol/L Glucose 132 H (70-110) mg/dL Calcium 8.2 L (8.7-10.3) mg/dL Microbiology - Last 24 Hours (Table) 03/14/24 12:00 Gram Stain - Preliminary Pleural Fluid Body Fluid Culture - Preliminary 03/13/24 16:31 Blood Culture - Preliminary Blood
[2024-03-17] MEDS: SYMBICORT 160-4.5 MCG INHALER INHALATION SCH (21:08)
[2024-03-18 07:23] LABS: Basophils % (A) 0 %; Eosinophils # (A) 0.1 k/uL (0-0.7); Eosinophils % (A) 1 %; HCT 36.8 % (39.0-53.0); HGB 11.9 gm/dL (13.0-17.5); Lymphocytes # (A) 0.4 k/uL (1.0-4.8); Lymphocytes % (A) 3 %; MCH 33.3 pg (25.0-35.0); MCHC 32.2 g/dL (31.0-37.0); MCV 103.2 fL (80.0-100.0); Macrocytosis Slight; Mean Platelet Volume 7.2; Monocytes # (A) 0.8 k/uL (0-1.0); Monocytes % (A) 6 %; Neutrophils # (A) 10.6 k/uL (1.3-7.7); Neutrophils % (A) 88 %; Platelet Count 427 k/uL (150-450); RBC 3.57 m/uL (4.30-5.90); RDW 13.2 % (11.5-15.5); WBC 12.1 k/uL (3.8-10.6)
[2024-03-18 07:35] LABS: ALT 14 U/L (4-49); AST 18 U/L (17-59); African American GFR (CKD) >90 (>60 ml/min/1.73 sqM); Albumin/Globulin Ratio 1.3; Alkaline Phosphatase 79 U/L (38-126); Anion Gap 5 mmol/L; Blood Urea Nitrogen 8 mg/dL (9-20); Calcium 8.4 mg/dL (8.4-10.2); Carbon Dioxide 30 mmol/L (22-30); Chloride 94 mmol/L (98-107); Globulin 2.4 g/dL; Glucose 102 mg/dL (74-99); Non-African American GFR(CKD) >90 (>60 ml/min/1.73 sqM); Potassium 4.1 mmol/L (3.5-5.1); Sodium 129 mmol/L (137-145); Total Bilirubin 0.4 mg/dL (0.2-1.3); Total Protein 5.4 g/dL (6.3-8.2)
[2024-03-18 07:59] VITALS: BP 139/84; RESP 17; TEMP 98
[2024-03-18] MEDS: ESCITALOPRAM 20 MG TAB PO SCH (08:14)
[2024-03-18 08:56] VITALS: PULSE 88
--- NOTE | 2024-03-18 12:14 | P.DS ---
Providers Date of admission: 03/17/24 07:47 Expected date of discharge: 03/18/24 Attending physician: Dania Watts MD Consults: 03/13/24 22:20 Consult Physician Routine Consulting Provider: Allan Becerra Consult Reason/Comments: Left pleural effusion Do you want consulting provider notified?: Yes, Notify in am [facility] Course: Discharge Diagnosis: Shortness of breath secondary to bilateral pleural effusion status post left thoracentesis 03/14 Acute hypoxic respiratory failure Acute COPD exacerbation Leukocytosis, likely in setting of steroids History of metastatic lung cancer Malnutrition is setting of metastatic lung cancer Euvolemic hyponatremia, likely SIADH History of L1 compression fracture, L4 compression fracture Mild normocytic anemia Hospital Course: A 78-year-old male with history of metastatic non-small lung cancer diagnosed in 2003, status post right upper lobectomy, radiation therapy 2014, 2017, 2022, chemotherapy, PET scan from 12/26 with concern for disease progression, 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 No fevers, chills. Of note, he was recently admitted at the end of February with acute L1 and L4 compression fractures, COPD exacerbation, he was discharged on 3 L of home oxygen. He was also been evaluated by nephrology at that time for concern for SIADH, was placed on 1200 fluid restriction, urea, had a dose of tolvaptan, sodium improved to 130. Vitals on admission temperature 97.8, heart rate 97 bpm, respiratory rate 22, blood pressure 105/71, O2 saturation 96% on 3 L nasal cannula EKG independently interpreted as sinus rhythm with ventricular rate 88 bpm and QTc of 393 ms CXR shows worsening congestive heart failure changes with increased size of left pleural effusion Labs on admission show WBCs of 16.7 with left shift, hemoglobin 12.9, MCV 104.3, platelets 533. PT 9.7, INR 0.9, PTT 23. Sodium 127, potassium 4.8, chloride 93, bicarb 26, BUN 15, creatinine 0.54, glucose 90. Lactic acid 1.2. Troponin negative. NT proBNP 252. 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 Thoracentesis performed on 03/14 with 950 cc fluid removed, pending cytology. Continued on prednisone, breathing treatment, empiric antibiotics, pulmonology following 03/16/2024: Shortness of breath is somewhat improved, still feels fatigued 03/17/2024: Patient seen and evaluated bedside. No acute events overnight. Patient complaining of shortness of breath. Discussed with patient about having home health services to help manage his medications. Patient and agreeable to home health services. 03/18/2024: Patient seen evaluated bedside. No acute events overnight. Pt still fatigued and short of breath. Denies any worsening cough or sputum production. States he is ready to go home. Patient saturating at 94% on 3 L nasal cannula. Cleared by pulmonology yesterday. Discussed with patient progression of his terminal illness, and to consider looking into end-of-life care if symptoms worsen. Patient understood and agreeable. He is to follow-up with his PCP, parlor maid, oncologist. He is being discharged home with health services. Vital signs reviewed and stable. Physical examination: Vital signs reviewed General: non toxic, no distress, appears at stated age, normal weight Derm: no unusual rashes/lesions, warm Head: atraumatic, normocephalic, symmetric Eyes: EOMI, anicteric sclera, pupils equal round reactive to light ENT: Nose and ears atraumatic Neck: No cervical lymphadenopathy, trachea midline, supple Mouth: no lip lesion, mucus membranes moist Cardiovascular: S1S2 reg, no murmur, positive dorsalis pedis pulse bilateral, no edema Lungs: Coarse rhonchi bilaterally, no wheezing Abdominal: soft, nontender to palpation, no guarding Ext: muscle strength 5 out of 5 in all 4 extremities grossly, no gross muscle atrophy Neuro: CN II-XI grossly intact, no gross focal neuro deficits Psych: Alert, oriented to person, place, and time A total of greater than 30 minutes of time were spent preparing this complex discharge summary. Patient was discharge on September 15, 2024 at 10:22. Angela Germain MD PGY-1 IM Dictation was produced using [employer] dictation software. please excuse any grammatical, word or spelling errors. I have seen and evaluated the patient today. Discussed with the resident and agree with the residents finding and plan as documented in the resident's note. Changes highlighted in blue font. Plan - Discharge Summary Discharge Rx Participant: No New Discharge Prescriptions: Continue Ipratropium/Albuterol Sulfate [Combivent Respimat Inhaler] 1 puff INHALATION RT-QID PRN PRN Reason: Shortness Of Breath Omeprazole 20 mg PO DAILY Meloxicam 15 mg PO DAILY LORazepam [Ativan] 1 mg PO HS Atorvastatin [Lipitor] 40 mg PO DAILY Ibandronate Sodium [Boniva] 150 mg PO Q30D Budesonide/Formoterol Fumarate [Breyna 160-4.5 Mcg Inhaler] 2 puff INHALATION RT-BID Albuterol Nebulized [Ventolin Nebulized] 2.5 mg INHALATION RT-QID HYDROcodone/APAP 7.5-325MG [[place] 7.5-325] 1 tab PO Q6H PRN PRN Reason: Pain Escitalopram [Lexapro] 20 mg PO DAILY Levothyroxine Sodium [Synthroid] 125 mcg PO DAILY bisacodyL [Dulcolax] 10 mg PO BID Doxazosin [Cardura] 2 mg PO PC-LUNCH Discharge Medication List Ipratropium/Albuterol Sulfate [Combivent Respimat Inhaler] 1 puff INHALATION RT- QID PRN 06/11/18 [History] Meloxicam 15 mg PO DAILY 06/11/18 [History] Omeprazole 20 mg PO DAILY 06/11/18 [History] Escitalopram [Lexapro] 20 mg PO DAILY 01/04/21 [History] LORazepam [Ativan] 1 mg PO HS 01/04/21 [History] Atorvastatin [Lipitor] 40 mg PO DAILY 07/23/21 [History] Levothyroxine Sodium [Synthroid] 125 mcg PO DAILY 07/23/21 [History] bisacodyL [Dulcolax] 10 mg PO BID 02/28/24 [History] Albuterol Nebulized [Ventolin Nebulized] 2.5 mg INHALATION RT-QID 03/13/24 [History] Budesonide/Formoterol Fumarate [Breyna 160-4.5 Mcg Inhaler] 2 puff INHALATION RT-BID 03/13/24 [History] Doxazosin [Cardura] 2 mg PO PC-LUNCH 03/13/24 [History] HYDROcodone/APAP 7.5-325MG [[place] 7.5-325] 1 tab PO Q6H PRN 03/13/24 [History] Ibandronate Sodium [Boniva] 150 mg PO Q30D 03/13/24 [History] Follow up Appointment(s)/Referral(s): [facility] [NON-STAFF] - As Needed ([facility] [NON-STAFF] - 03/19/24 3:00 pm [facility] [NON-STAFF] - As Needed Allan Becerra MD [STAFF PHYSICIAN] - 04/11/24 1:30 pm Aurora Lester MD [STAFF PHYSICIAN] - 1 Week (Please call office for appointment) Patient Instructions/Handouts: COPD (Chronic Obstructive Pulmonary Disease) (GEN) Activity/Diet/Wound Care/Special Instructions: Please see PCP and follow up with parlor maid and oncology. Discharge Disposition: HOME WITH HOME HEALTH SERVICES
--- NOTE | 2024-03-18 12:57 | P.PN ---
Subjective Progress Note Date: 03/18/24 Patient is a 78-year-old male with past medical history significant for COPD and lung cancer and previous right upper lobectomy with disease recurrence. Also has underwent previous radiation and chemotherapy treatment. A follow-up PET scan done August, demonstrating right upper and lower lobe pulmonary nodules measuring 10 mm each with increased radiotracer uptake concerning for recurrent disease/metastasis. There was also left upper lobe pulmonary nodule that continued increase in size without FDG activity. December, patient did undergo robotic assisted bronchoscopy with sampling of the 2 right lower lobe nodules. 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 Follow-up PET scan done December, consistent with disease progression. There is increasing radiotracer uptake within the left upper lobe anterior spiculated nodular density and a right lateral midline increasing size pleural-based density. Decreased radiotracer activity within the right anterior midlung nodular density from prior exam. Similar uptake within a spiculated left perihilar mass, possibly representing treated disease. Mildly increased radiotracer activity within the subcarinal and right perihilar lymph node. Also, focal increased radiotracer signal within C5 vertebral body, which could possibly represent osseous metastasis. His established oncologist is Dr. Lester. Patient also has medical history significant for osteoarthritis, GERD, hypothyroidism, hyperlipidemia, anxiety, among other things. His primary care provider is Dr. Garcia. Of note, had a recent hospitalization back in February for intractable back pain. CT scan of the abdomen, pelvis and lumbar spine showed new acute compression fracture of the L1 vertebral body with up to 50% height loss. Minimal 5 mm retropulsion. Stable L4 vertebral body compression with up to 50% height loss. Moderate to severe degenerative change of the spine. Small bilateral pleural effusions with associated atelectasis. Orthopedics recommended outpatient follow up and discharge with TLSO brace. Pulmonary team was also involved during this admission for COPD exacerbation. He was discharged with home oxygen. Patient returns the emergency department yesterday afternoon complaining chiefly of shortness of breath and coughing. Cough is minimally productive with yellow sputum. Denies any fevers, chest pain, hemoptysis. He states nothing was sent over to his pharmacy on hospital discharge on March 03, and his breathing has progressively worsened. Admission chest x-ray showing chronic postsurgical and fibrotic changes along with an enlarging loculated left-sided pleural effusion. Associated atelectasis and/or infiltrate. Follow-up ultrasound of the chest demonstrates a left pleural effusion pocket size measuring up to 14.1 cm. CBC: WBC count 16.7, hemoglobin 12.9, hematocrit 39.4, platelets 533. INR 0.9. CMP: Sodium 127, potassium 4.8, chloride 93, serum bicarb 26, BUN 15, creatinine 0.54, glucose 90. Lactic 1.2. LFTs unremarkable. Troponin less than 0.012. NT proBNP 252. Negative for influenza, RSV, COVID. Patient is currently being evaluated in the emergency department. He is very frail and cachectic. He is on 3 L/min nasal cannula. Does have some mild conversational dyspnea and accessory muscle use. Presents without his TLSO brace. Continues to have lumbar level back pain and point tenderness. Denies any saddle anesth esia, bowel/bladder incontinence. Current vitals: Temperature 97.6 F, heart rate 92 bpm, blood pressure 112/66 mmHg, breathing the mid 20s, SpO2 is 96% on 3 L/min nasal cannula. 03/15/2024, the patient is slightly improved compared to yesterday. Thoracentesis was done and a total of 950 cc of pleural fluid was aspirated from the left lung. The fluid is an exudate. Remains on bronchodilators with DuoNeb updrafts. Remains on IV Rocephin and Zithromax. Remains on steroids and the patient is currently on prednisone 40 mg p.o. daily. Remains on Lovenox for DVT prophylaxis. Follow-up chest x-ray following thoracentesis shows no complication. There is diminution of the left-sided pleural effusion. Extensive bilateral pleural parenchymal opacities with architectural distortion and chronic lung scarring related to treatment of previous lung cancer. Oxygenation remained stable and the patient remains on 2 L of O2 nasal cannula. 03/16/2024, the patient is less bronchospastic compared to yesterday. Seems to be less short of breath. He is status post thoracentesis of the left lung. Fluid cytology still pending for now. Remains on DuoNeb of chest. Remains on IV Rocephin. Remains on prednisone as part of a burst taper starting with 40 mg p.o. daily. White cell count is 15 with a hemoglobin 10.4 and a platelet count of 422. Sodium is at 130, BUN is at 9 with a creatinine of 0.6. Potassium level is at 3.7. He remains on 3 L of oxygen by nasal cannula with a pulse ox of 98%. The patient is seen today March 17, 2024 in follow-up on the regular medical floor. He is currently sitting up in bed. Awake and alert in no acute distress. Maintaining good O2 saturations in the 90s on 3 L/min per nasal cannula. He did undergo a left-sided thoracentesis with 950 mL of fluid returned. Cultures and cytology pending. Denies any worsening shortness of breath, cough or congestion. White count 14.9. Hemoglobin 11.1. Platelets 477. Sodium 129. Potassium 4.0. Bicarb 26. BUN 7. Creatinine 0.51. Glucose 128. He remains on DuoNeb inhalations, Symbicort, prednisone taper. Lovenox for DVT prophylaxis. The patient is seen today March 18, 2024 in follow-up on the regular medical floor. He is currently resting comfortably in bed. Awake and alert in no acute distress. Denies any worsening shortness of breath, cough or congestion. Feeling back to his baseline. He is maintaining O2 saturations in the 90s on 3 L/min per nasal cannula. He does have home oxygen. He is continued on DuoNeb inhalations, Symbicort, prednisone taper. Pleural fluid cytology is pending. Pleural fluid cultures revealed no growth. Fluid is exudate. White count 12.1. Hemoglobin 11.9. Platelets 427. Sodium 129. Potassium 4.1. Bicarb 30. BUN 8. Creatinine 0.52. Glucose 102. Lovenox for DVT prophylaxis. Objective - Vital Signs Vital signs: Vital Signs Temp 98.0 F 03/18/24 07:58 Pulse 88 03/18/24 08:55 Resp 17 03/18/24 07:58 BP 139/84 03/18/24 07:58 Pulse Ox 94 L 03/18/24 08:42 FiO2 Intake & Output 03/17/24 03/18/24 03/18/24 18:59 06:59 18:59 Intake Total 480 Output Total 700 550 Balance -700 -70 Weight 55.5 kg Intake: Oral 480 Output: Urine 700 550 Other: Voiding Method Toilet Toilet Urinal Urinal # Voids 6 2 - Exam GENERAL EXAM: Alert, 78-year-old male, resting comfortably in bed, on 3 L cannula, in no apparent distress. HEAD: Normocephalic. EYES: Normal reaction of pupils, equal size. NOSE: Clear with pink turbinates. THROAT: No erythema or exudates. NECK: No masses, no JVD. CHEST: No chest wall deformity. LUNGS: Equal air entry with coarse rhonchi bilaterally. CVS: S1 and S2 normal with no audible murmur, regular rhythm. ABDOMEN: No hepatosplenomegaly, normal bowel sounds, no guarding or rigidity. SPINE: No scoliosis or deformity SKIN: No rashes CENTRAL NERVOUS SYSTEM: No focal deficits, tone is normal in all 4 extremities. EXTREMITIES: There is no peripheral edema. No clubbing, no cyanosis. Peripheral pulses are intact. - Labs CBC & Chem 7: 03/18/24 07:05 03/18/24 07:05 Labs: Abnormal Lab Results - Last 24 Hours (Table) 03/18/24 03/18/24 Range/Units 07:05 07:05 WBC 12.1 H (3.8-10.6) k/uL RBC 3.57 L (4.30-5.90) m/uL Hgb 11.9 L (13.0-17.5) gm/dL Hct 36.8 L (39.0-53.0) % MCV 103.2 H (80.0-100.0) fL Neutrophils # 10.6 H (1.3-7.7) k/uL Lymphocytes # 0.4 L (1.0-4.8) k/uL Sodium 129 L (137-145) mmol/L Chloride 94 L (98-107) mmol/L BUN 8 L (9-20) mg/dL Creatinine 0.52 L (0.66-1.25) mg/dL Glucose 102 H (74-99) mg/dL Total Protein 5.4 L (6.3-8.2) g/dL Albumin 3.0 L (3.5-5.0) g/dL Microbiology - Last 24 Hours (Table) 03/14/24 12:00 Gram Stain - Preliminary Pleural Fluid Body Fluid Culture - Preliminary 03/14/24 12:00 Anaerobic Culture - Preliminary Pleural Fluid Assessment and Plan Assessment: Acute hypoxemic respiratory failure; secondary to acute COPD exacerbation, enlarging left sided pleural effusion, and associated atelectasis and/or consolidation. The patient remains on 3 L of oxygen by nasal cannula Left lung pleural effusion, post thoracentesis March 14, 2024 and the fluid is an exudate and a total of 950 cc of pleural fluid aspirated from the left lung. Cytology pending Acute leukocytosis Acute COPD exacerbation History of lung cancer, with disease recurrence and progression; He has had previous resections of the right lung in 2004 in 2008. He had recurrent lung cancer and multiple treatment since then. December, patient did undergo robotic assisted bronchoscopy with sampling of the 2 right lower lobe nodules. 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 Follow-up PET scan done December, consistent with disease progression. There is increasing radiotracer uptake within the left upper lobe anterior spiculated nodular density and a right lateral midline increasing size pleural-based density. Decreased radiotracer activity within the right anterior midlung nodular density from prior exam. Similar uptake within a spiculated left perihilar mass, possibly representing treated disease. Mildly increased radiotracer activity within the subcarinal and right perihilar lymph node. Also, focal increased radiotracer signal within C5 vertebral body, which could possibly represent osseous metastasis. His established oncologist is Dr. Lester. Lumbar compression fractures, CT scan of the abdomen, pelvis and lumbar spine showed new acute compression fracture of the L1 vertebral body with up to 50% height loss. Minimal 5 mm retropulsion. Stable L4 vertebral body compression with up to 50% height loss. Moderate to severe degenerative change of the spine. Patient was discharged on March 03 with TLSO brace. Chronic and ongoing tobacco dependence Hypothyroidism Hyperlipidemia Anxiety Osteoarthritis Gastroesophageal reflux disease Plan: The patient was seen and evaluated Labs and medications reviewed Continue his home pulmonary medications, oxygen Complete a prednisone taper Follow-up in the office in 1 week I have personally seen and examined the patient, performed the documentation and the assessment and plan as written. Number of minutes spent on the visit: 10 Dictation was produced using [employer] dictation software. Please excuse any grammatical, word or spelling errors.
== END 2024-03-18 13:42 | disposition home health service (06) | DRG 180 ==
LOC: EC 15:16 → 4SSUR 22:26 → OBSVTOIN 03-17 07:47
PROVIDERS: ADMIT Internal Medicine; ATTEND Internal Medicine
PROC: 0W9B3ZZ Drainage of Left Pleural Cavity, Percutaneous Approach (ICD-10-PCS; principal; 2024-03-14)
DX: C34.91 Malignant neoplasm of unspecified part of right bronchus or lung (principal); J96.21 Acute and chronic respiratory failure with hypoxia; E46 Unspecified protein-calorie malnutrition; E22.2 Syndrome of inappropriate secretion of antidiuretic hormone; C79.51 Secondary malignant neoplasm of bone; M48.56XA Collapsed vertebra, not elsewhere classified, lumbar region, initial encounter for fracture; J44.1 Chronic obstructive pulmonary disease with (acute) exacerbation; J91.0 Malignant pleural effusion; Z68.1 Body mass index [BMI] 19.9 or less, adult; E88.A Wasting disease (syndrome) due to underlying condition; Z99.81 Dependence on supplemental oxygen; J70.4 Drug-induced interstitial lung disorders, unspecified; I50.9 Heart failure, unspecified; E03.9 Hypothyroidism, unspecified; D63.0 Anemia in neoplastic disease; F32.A Depression, unspecified; E78.5 Hyperlipidemia, unspecified; K21.9 Gastro-esophageal reflux disease without esophagitis; T45.1X5A Adverse effect of antineoplastic and immunosuppressive drugs, initial encounter; T38.0X5A Adverse effect of glucocorticoids and synthetic analogues, initial encounter; D72.828 Other elevated white blood cell count; G89.29 Other chronic pain; Z79.1 Long term (current) use of non-steroidal anti-inflammatories (NSAID); Z79.891 Long term (current) use of opiate analgesic; Z79.51 Long term (current) use of inhaled steroids; R54 Age-related physical debility; M19.90 Unspecified osteoarthritis, unspecified site; F41.9 Anxiety disorder, unspecified; Z92.21 Personal history of antineoplastic chemotherapy; Z79.890 Hormone replacement therapy; Z79.899 Other long term (current) drug therapy; Z86.14 Personal history of Methicillin resistant Staphylococcus aureus infection; Z87.891 Personal history of nicotine dependence; Z90.2 Acquired absence of lung [part of]; Z92.3 Personal history of irradiation; Z85.118 Personal history of other malignant neoplasm of bronchus and lung
CPT/HCPCS: 36415; 71045; 71046; 76604; 80048; 80053; 82945; 83605; 83615; 83735; 83880; 84145; 84157; 84484; 85025; 85610; 85730; 87040; 87070; 87075; 87205; 87636; 88108; 88305; 89050; 93005; 93306; 94640; 94760; 96361; 96365; 96367; 96372; 96375; 99285

== ENCOUNTER 2024-03-21 20:12 | Inpatient (IN) | payer MEDICARE ==
[2024-03-21] MEDS ORDERED: bisacodyL 5 MG TABLET.DR PO PRN (21:15)
[2024-03-21] MEDS ORDERED: NON FORMULARY DRUG (Ipratropium/Albuterol Sulfate [Combivent Respimat Inhaler] 1 INHALER M INHALATION PRN (21:15)
[2024-03-21] MEDS ORDERED: ONDANSETRON 4 MG/2 ML VIAL IVP PRN (21:16)
[2024-03-21] MEDS: HYDROcodone/APAP 7.5-325MG 1 EACH TAB PO PRN (21:55)
[2024-03-21] MEDS: FUROSEMIDE 10 MG/ML 4 ML VIAL IV STA (21:55)
[2024-03-21 22:02] LABS: Basophils % (A) 0 %; Eosinophils # (A) 0.1 k/uL (0-0.7); Eosinophils % (A) 0 %; Hypochromasia Slight; Lymphocytes # (A) 0.3 k/uL (1.0-4.8); Lymphocytes % (A) 2 %; MCH 34.2 pg (25.0-35.0); MCHC 33.1 g/dL (31.0-37.0); MCV 103.1 fL (80.0-100.0); Macrocytosis Slight; Monocytes % (A) 6 %; Neutrophils % (A) 90 %; Platelet Count 455 k/uL (150-450); RDW 12.9 % (11.5-15.5); WBC 15.5 k/uL (3.8-10.6)
[2024-03-21 22:15] LABS: HGB 9.9 gm/dL (13.0-17.5)
[2024-03-21 22:50] LABS: African American GFR (CKD) >90 (>60 ml/min/1.73 sqM); Anion Gap 3 mmol/L; Blood Urea Nitrogen 23 mg/dL (9-20); Calcium 8.3 mg/dL (8.4-10.2); Carbon Dioxide 34 mmol/L (22-30); Chloride 92 mmol/L (98-107); Glucose 126 mg/dL (74-99); Non-African American GFR(CKD) >90 (>60 ml/min/1.73 sqM); Potassium 3.8 mmol/L (3.5-5.1); Sodium 129 mmol/L (137-145)
[2024-03-22] MEDS: IPRATROPIUM-ALBUTEROL 3 ML NEB INHALATION PRN (02:51)
[2024-03-22] MEDS: LEVOTHYROXINE 125 MCG TAB PO SCH (06:12)
[2024-03-22 07:34] LABS: Basophils % (A) 0 %; Eosinophils % (A) 0 %; HCT 30.7 % (39.0-53.0); HGB 10.2 gm/dL (13.0-17.5); Lymphocytes # (A) 0.5 k/uL (1.0-4.8); Lymphocytes % (A) 3 %; MCH 33.8 pg (25.0-35.0); MCHC 33.2 g/dL (31.0-37.0); Macrocytosis Slight; Monocytes # (A) 1.2 k/uL (0-1.0); Monocytes % (A) 8 %; Neutrophils # (A) 13.4 k/uL (1.3-7.7); Neutrophils % (A) 88 %; Platelet Count 446 k/uL (150-450); RBC 3.01 m/uL (4.30-5.90); RDW 12.8 % (11.5-15.5); WBC 15.2 k/uL (3.8-10.6)
[2024-03-22] MEDS: MELOXICAM 7.5 MG TAB PO SCH (07:45)
[2024-03-22] MEDS: PANTOPRAZOLE 40 MG TABLET PO SCH (07:45)
[2024-03-22] MEDS: ESCITALOPRAM 20 MG TAB PO SCH (07:45)
[2024-03-22] MEDS: ATORVASTATIN 40 MG TAB PO SCH (07:46)
[2024-03-22] MEDS: SYMBICORT 160-4.5 MCG INHALER INHALATION SCH (07:47)
[2024-03-22] MEDS: IPRATROPIUM-ALBUTEROL 3 ML NEB INHALATION SCH (07:47)
[2024-03-22 07:59] LABS: African American GFR (CKD) >90 (>60 ml/min/1.73 sqM); Anion Gap 6 mmol/L; Blood Urea Nitrogen 21 mg/dL (9-20); Calcium 8.6 mg/dL (8.4-10.2); Carbon Dioxide 34 mmol/L (22-30); Chloride 92 mmol/L (98-107); Glucose 107 mg/dL (74-99); Non-African American GFR(CKD) >90 (>60 ml/min/1.73 sqM); Potassium 3.5 mmol/L (3.5-5.1); Sodium 132 mmol/L (137-145)
--- NOTE | 2024-03-22 08:49 | XR ---
EXAMINATION TYPE: XR chest 1V portable DATE OF EXAM: 03/22/2024 8:36 AM COMPARISON: Chest radiographs from 03/14/2024 CLINICAL INDICATION: Male, 78 years old with history of pleural effusion; [facility] TECHNIQUE: XR chest 1V portable Frontal view of the chest. FINDINGS: Lungs/Pleura small right large left pleural effusion with associated interstitial scarring and Pulmon asher vascularity: Pulmonary vascular congestion. Heart/mediastinum: Cardiomediastinal silhouette is enlarged and stable. Musculoskeletal: No acute osseous pathology. IMPRESSION: Enlarging left pleural effusion and small right pleural effusion with interstitial lung markings bila terally not significantly changed. [facility], , 03/22/2024 8:47 AM
--- NOTE | 2024-03-22 10:42 | P.GSCN ---
History of Present Illness Consult date: 03/22/24 Reason for Consult: This is a 78-year-old gentleman who follows on an outpatient basis with Dr. Cale owens for his primary care. 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 The patient had a recent admission to the hospital here at [facility] for complaints of shortness of breath, and cough. During that stay he was found to have a loculated left pleural effusion pocket measuring up to 14.1 cm and subsequently underwent a left thoracentesis on March 14, [address] Becerra with 950 mL of turbid colored fluid drained. He was subsequently discharged on March 18, 2024 and subsequently presented to the emergency department at [facility] on March 20, 2024. He presented to the emergency department at [facility] with complaints of shortness of breath and back pain. He denies any recent fever, chills, nausea, vomiting, constipation, diarrhea, headache, hemoptysis, hematemesis, presyncope or syncope. He also reports he quit smoking around 3 weeks ago. During his hospitalization at [facility] he underwent a CT scan of his chest with the report findings suggestive of left upper lobe primary bronchogenic malignancy diffuse pleural metastasis and likely a moderately sized malignant left pleural effusion, pleural thickening and nod ularity in the lower right lung which may represent additional focus of metastasis, spiculated right lung nodule which may represent scarring or additional focus of metastasis, and postsurgical changes consistent with cholecystectomy and vertebroplasty, multiple thoracolumbar compression deformities. Due to the findings of a recurrent left-sided pleural effusion the patient was recommended to to be transferred to [facility] for further evaluation for Pleurx catheter placement. The patient has decided to going to hospice and was told the Pleurx catheter needed to be placed prior to hospice care. Subsequently a consult was placed to cardiothoracic surgery for further evaluation and treatment recommendations including Pleurx catheter placement. Review of Systems A review of system was completed and was negative except as mentioned in the HPI. Past Medical History Past Medical History: Cancer, COPD, GERD/Reflux, Osteoarthritis (OA), Pneumonia Additional Past Medical History / Comment(s): Right lung cancer 2003 and first resection done (got MRSA at that time in incision), second resection in 2008, lung cancer reoccured in 12/2014 and found new nodule in right lung had radia tion in February 2015. Pancreatitis,chronic back pain, lung CA reoccured 2019 History of Any Multi-Drug Resistant Organisms: MRSA Year Discovered:: 2003 MDRO Source:: BACK Past Surgical History: Cholecystectomy, Orthopedic Surgery Additional Past Surgical History / Comment(s): RESECTION TO RIGHT LUNG TWICE (RT MIDDLE AND RT LOWER LOBECTOMY), RT KNEE SCOPE x2 Past Anesthesia/Blood Transfusion Reactions: Motion Sickness Past Psychological History: Anxiety Smoking Status: Former smoker (Quit smoking 3 weeks ago) Past Alcohol Use History: None Reported, Occasional Additional Past Alcohol Use History / Comment(s): Started smoking at age 14-15 on and off and is currently a sometimes smoker. Stopped since being on oxygen Has cut back on drinking. Past Drug Use History: None Reported - Past Family History Mother Family Medical History: Dementia Additional Family Medical History / Comment(s): Crohn's disease Father Family Medical History: Cancer, Respiratory Disorder Additional Family Medical History / Comment(s): mesothelioma. Medications and Allergies Home Medications Medication Instructions Recorded Confirmed Type Ipratropium/Albuterol Sulfate 1 puff INHALATION RT-QID PRN 06/11/18 03/21/24 History [Combivent Respimat Inhaler] Meloxicam 15 mg PO DAILY 06/11/18 03/21/24 History Omeprazole 20 mg PO DAILY 06/11/18 03/21/24 History Escitalopram [Lexapro] 20 mg PO DAILY 01/04/21 03/21/24 History LORazepam [Ativan] 1 mg PO HS 01/04/21 03/21/24 History Atorvastatin [Lipitor] 40 mg PO DAILY 07/23/21 03/21/24 History Levothyroxine Sodium [Synthroid] 125 mcg PO DAILY 07/23/21 03/21/24 History bisacodyL [Dulcolax] 10 mg PO BID 02/28/24 03/21/24 History Albuterol Nebulized [Ventolin 2.5 mg INHALATION RT-QID 03/13/24 03/21/24 History Nebulized] Budesonide/Formoterol Fumarate 2 puff INHALATION RT-BID 03/13/24 03/21/24 History [Breyna 160-4.5 Mcg Inhaler] Doxazosin [Cardura] 2 mg PO PC-LUNCH 03/13/24 03/21/24 History HYDROcodone/APAP 7.5-325MG [[place] 1 tab PO Q6H PRN 03/13/24 03/21/24 History 7.5-325] Ibandronate Sodium [Boniva] 150 mg PO Q30D 03/13/24 03/21/24 History Allergies Allergy/AdvReac Type Severity Reaction Status Date / Time No Known Allergies Allergy Verified 03/13/24 19:05 Surgical - Exam Vital Signs Temp Pulse Resp BP Pulse Ox 97.8 F 107 H 26 H 115/62 98 03/21/24 20:37 03/21/24 20:37 03/21/24 20:37 03/21/24 20:37 03/21/24 20:37 - General no distress, moderate pain (Back pain), cachectic, chronically ill - Eyes PERRL, normal ocular movement, no pale, no icteric - ENT normal pinna, normal nares, normal mucosa, no hearing loss, no congestion - Neck Neck is supple, no lymphadenopathy. no masses, no bruits, trachea midline, no venous distension - Respiratory Lung sounds diminished throughout left greater than right, scattered expiratory wheezes and few scattered rhonchi. Respirations are symmetrical and nonlabored, on 10 L high flow nasal cannula with oxygen saturations 97%. - Cardiovascular Regular rhythm and rate. S1 and S2 present, negative for S3, gallop or murmur. - Abdomen Abdomen is soft, nontender nondistended. Active bowel sounds present all 4 abdo lilliam quadrants. No guarding rigidity. No organomegaly appreciated. - Genitourinary Deferred - Rectum Deferred - Integumentary Skin is warm and dry. No clubbing or cyanosis is present. no rash, no growths, no abnormal pigmentation - Neurologic No focal deficits. - Musculoskeletal Moves all 4 extremities with equal strength bilateral. Generalized weakness. - Psychiatric oriented to time, oriented to person, oriented to place, speech is normal, memory intact Results - Labs 03/22/24 06:57 03/22/24 06:57 Abnormal Lab Results - Last 24 Hours (Table) 03/21/24 03/21/2425 Range/Units 21:42 21:42 06:57 WBC 15.5 H 15.2 H (3.8-10.6) k/uL RBC 2.90 L 3.01 L (4.30-5.90) m/uL Hgb 9.9 L D 10.2 L (13.0-17.5) gm/dL Hct 30.0 L 30.7 L (39.0-53.0) % MCV 103.1 H 102.0 H (80.0-100.0) fL Plt Count 455 H (150-450) k/uL Neutrophils # 14.0 H 13.4 H (1.3-7.7) k/uL Lymphocytes # 0.3 L 0.5 L (1.0-4.8) k/uL Monocytes # 1.2 H (0-1.0) k/uL Sodium 129 L (137-145) mmol/L Chloride 92 L (98-107) mmol/L Carbon Dioxide 34 H (22-30) mmol/L BUN 23 H (9-20) mg/dL Creatinine 0.55 L (0.66-1.25) mg/dL Glucose 126 H (74-99) mg/dL Calcium 8.3 L (8.4-10.2) mg/dL 03/22/24 Range/Units 06:57 WBC (3.8-10.6) k/uL RBC (4.30-5.90) m/uL Hgb (13.0-17.5) gm/dL Hct (39.0-53.0) % MCV (80.0-100.0) fL Plt Count (150-450) k/uL Neutrophils # (1.3-7.7) k/uL Lymphocytes # (1.0-4.8) k/uL Monocytes # (0-1.0) k/uL Sodium 132 L (137-145) mmol/L Chloride 92 L (98-107) mmol/L Carbon Dioxide 34 H (22-30) mmol/L BUN 21 H (9-20) mg/dL Creatinine 0.57 L (0.66-1.25) mg/dL Glucose 107 H (74-99) mg/dL Calcium (8.4-10.2) mg/dL Diabetes panel 03/21/24 03/22/24 Range/Units 21:42 06:57 Sodium 129 L 132 L (137-145) mmol/L Potassium 3.8 3.5 (3.5-5.1) mmol/L Chloride 92 L 92 L (98-107) mmol/L Carbon Dioxide 34 H 34 H (22-30) mmol/L BUN 23 H 21 H (9-20) mg/dL Creatinine 0.55 L 0.57 L (0.66-1.25) mg/dL Glucose 126 H 107 H (74-99) mg/dL Calcium 8.3 L 8.6 (8.4-10.2) mg/dL Thyroid panel 03/21/24 Range/Units 21:42 TSH 2.640 (0.465-4.680) mIU/L Calcium panel 03/21/24 03/22/24 Range/Units 21:42 06:57 Calcium 8.3 L 8.6 (8.4-10.2) mg/dL Pituitary panel 03/21/24 03/21/24 03/22/24 Range/Units 21:42 21:42 06:57 Sodium 129 L 132 L (137-145) mmol/L Potassium 3.8 3.5 (3.5-5.1) mmol/L Chloride 92 L 92 L (98-107) mmol/L Carbon Dioxide 34 H 34 H (22-30) mmol/L BUN 23 H 21 H (9-20) mg/dL Creatinine 0.55 L 0.57 L (0.66-1.25) mg/dL Glucose 126 H 107 H (74-99) mg/dL Calcium 8.3 L 8.6 (8.4-10.2) mg/dL TSH 2.640 (0.465-4.680) mIU/L Adrenal panel 03/21/24 03/22/24 Range/Units 21:42 06:57 Sodium 129 L 132 L (137-145) mmol/L Potassium 3.8 3.5 (3.5-5.1) mmol/L Chloride 92 L 92 L (98-107) mmol/L Carbon Dioxide 34 H 34 H (22-30) mmol/L BUN 23 H 21 H (9-20) mg/dL Creatinine 0.55 L 0.57 L (0.66-1.25) mg/dL Glucose 126 H 107 H (74-99) mg/dL Calcium 8.3 L 8.6 (8.4-10.2) mg/dL - Imaging CT scan - chest: report reviewed Assessment and Plan Assessment: Recurrent left pleural effusion, possibly malignant status post left thoracentesis on March 14, [address] Becerra Acute hypoxic respiratory failure, likely secondary to COPD exacerbation and left-sided pleural effusion History of lung cancer, with disease recurrence and progression Chronic obstructive pulmonary disease Thyroid disorder Hyperlipidemia Chronic ongoing tobacco dependence Osteoarthritis GERD Medical debility Plan: The patient was seen and examined at his bedside on the third floor cardiac stepdown unit. His chart and diagnostics reviewed. His case was discussed in detail with Dr. Atkins from cardiothoracic surgery. Discussed with the patient the usual course of Pleurx catheter placement, the patient would like to proceed with Pleurx catheter placement. The patient will be scheduled for left Pleurx catheter placement likely on Sunday, March 24, 2024 to be performed by Dr. Cole Atkins. Medical management of other comorbidities per primary care and pulmonary medicine. More recommendations to follow based on patient's clinical course. Thank you for this consult and we look forward to working with you in the care of this patient. I have personally seen and examined the patient, performed the documentation and the assessment and plan as written. Number of minutes spent on the visit: 30. SOCRATES Hanley
[2024-03-22] MEDS: HYDROcodone/APAP 7.5-325MG 1 EACH TAB PO PRN (11:41)
[2024-03-22] MEDS: DOXAZOSIN 4 MG TAB PO SCH (11:47)
--- NOTE | 2024-03-22 12:24 | P.HPIM ---
History of Present Illness Patient is a 78-year-old male was transferred from [facility] for evaluation by cardiothoracic surgery and Pleurx catheter placement. Patient had history of bronchogenic carcinoma in the past which probably recurred resulting in pleural effusion when patient presented with shortness of breath on March 18, 2024. At the time pleural tap was done and subsequently discharged patient opted for hospice and was admitted at [facility] [place] couple days ago for shortness of breath patient has pleural effusion and findings consistent with pulmonary edema, patient was subsequently transferred here for Pleurx catheter placement before he can be started on hospice. CT of the chest that was done at [facility] [place] showed left upper lobe primary bronchogenic mass malignancy with diffuse pleural metastasis and malignant left pleural effusion pleural thickening and nodularity there is also has additional spiculated right lung nodule. 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 REVIEW OF SYSTEMS: All other systems are negative except those mentioned in the HPI PHYSICAL EXAMINATION: GENERAL: The patient is alert and oriented x3, not in any acute distress. Well developed, well nourished. Thin built cachectic, cancer cachexia HEENT: Pupils are round and equally reacting to light. EOMI. No scleral icterus. No conjunctival pallor. Normocephalic, atraumatic. No pharyngeal erythema. No thyromegaly. CARDIOVASCULAR: S1 and S2 present. No murmurs, rubs, or gallops. PULMONARY: Rhonchi bilaterally ABDOMEN: Soft, nontender, nondistended, normoactive bowel sounds. No palpable organomegaly. MUSCULOSKELETAL: No joint swelling or deformity. EXTREMITIES: No cyanosis, clubbing, or pedal edema. NEUROLOGICAL: Gross neurological examination did not reveal any focal deficits. SKIN: No rashes. Assessment and plan -Acute hypoxic respiratory failure, shortness of breath secondary to pleural effusion lung cancer with metastatic disease along with some mild pulmonary edema possibly. Patient will undergo Pleurx catheter placement after which patient will go on hospice as per patient and family wishes. Patient was given a dose of Lasix with improvement of serum sodium and improvement of his respiratory status was requiring 7 to 10 L of oxygen. Patient today feels like his fluid is building up again because of which patient received an additional dose of Lasix today. -Diffuse metastatic non-small cell lung cancer possibly adenocarcinoma of the lung no further treatment the CHF finding on x-ray can be secondary to metastatic disease low possibility of pneumonia -Hyponatremia secondary to SIADH patient was started on 1500 cc fluid restriction -COPD with acute exacerbation -Gastroesophageal reflux disease DVT prophylaxis: After Pleurx catheter placement patient will be hospice because of which I am not starting him on any pharmacological DVT prophylaxis Past Medical History Past Medical History: Cancer, COPD, GERD/Reflux, Osteoarthritis (OA), Pneumonia Additional Past Medical History / Comment(s): Right lung cancer 2003 and first resection done (got MRSA at that time in incision), second resection in 2008, lung cancer reoccured in 12/2014 and found new nodule in right lung had radiation in February 2015. Pancreatitis,chronic back pain, lung CA reoccured 2020 History of Any Multi-Drug Resistant Organisms: MRSA Date of last positivie culture/infection: 2003 MDRO Source:: BACK Past Surgical History: Cholecystectomy, Orthopedic Surgery Additional Past Surgical History / Comment(s): RESECTION TO RIGHT LUNG TWICE (RT MIDDLE AND RT LOWER LOBECTOMY), RT KNEE SCOPE x2 Past Anesthesia/Blood Transfusion Reactions: Motion Sickness Past Psychological History: Anxiety Smoking Status: Former smoker (Quit smoking 3 weeks ago) Past Alcohol Use History: None Reported, Occasional Additional Past Alcohol Use History / Comment(s): Started smoking at age 14-15 on and off and is currently a sometimes smoker. Stopped since being on oxygen Has cut back on drinking. Past Drug Use History: None Reported - Past Family History Mother Family Medical History: Dementia Additional Family Medical History / Comment(s): Crohn's disease Father Family Medical History: Cancer, Respiratory Disorder Additional Family Medical History / Comment(s): mesothelioma. Medications and Allergies Home Medications Medication Instructions Recorded Confirmed Type Ipratropium/Albuterol Sulfate 1 puff INHALATION RT-QID PRN 06/11/18 03/21/24 Hi story [Combivent Respimat Inhaler] Meloxicam 15 mg PO DAILY 06/11/18 03/22/24 History Omeprazole 20 mg PO DAILY 06/11/18 03/22/24 History Escitalopram [Lexapro] 20 mg PO DAILY 01/04/21 03/22/24 History LORazepam [Ativan] 1 mg PO HS 01/04/21 03/22/24 History Atorvastatin [Lipitor] 40 mg PO DAILY 07/23/21 03/22/24 History Levothyroxine Sodium [Synthroid] 125 mcg PO DAILY 07/23/21 03/22/24 History bisacodyL [Dulcolax] 10 mg PO BID 02/28/24 03/22/24 History Albuterol Nebulized [Ventolin 2.5 mg INHALATION RT-QID 03/13/24 03/22/24 History Nebulized] Budesonide/Formoterol Fumarate 2 puff INHALATION RT-BID 03/13/24 03/22/24 History [Breyna 160-4.5 Mcg Inhaler] Doxazosin [Cardura] 2 mg PO PC-LUNCH 03/13/24 03/22/24 History Ibandronate Sodium [Boniva] 150 mg PO Q30D 03/13/24 03/22/24 History HYDROcodone/APAP 10-325MG [[place] 1 tab PO Q6HR PRN 03/22/24 03/22/24 History 10-325] Allergies Allergy/AdvReac Type Severity Reaction Status Date / Time No Known Allergies Allergy Verified 03/13/24 19:05 Physical Exam Vitals: Vital Signs Temp Pulse Pulse Resp BP Pulse Ox 03/22/24 11:24 94 03/22/24 11:13 94 03/22/24 08:02 90 03/22/24 07:49 97.4 F L 90 89 24 126/76 97 03/22/24 04:10 97.6 F 93 28 H 144/65 92 L 03/22/24 02:51 93 98 03/21/24 23:40 97.6 F 96 25 H 149/67 92 L 03/21/24 20:37 97.8 F 107 H 26 H 115/62 98 Intake and Output 03/21/24 03/22/24 03/22/24 22:59 06:59 14:59 Intake Total 20 20 20 Output Total 1600 200 Balance 20 -1580 -180 Intake: IV 20 20 20 Invasive Line 1 10 10 10 Invasive Line 2 10 10 10 Output: Urine 1600 200 Other: Voiding Method Urinal Urinal Urinal # Voids 1 1 Weight 54.54 kg 54.5 kg Results CBC & Chem 7: 03/22/24 06:57 03/22/24 06:57 Labs: Abnormal Lab Results - Last 24 Hours (Table) 03/21/24 03/21/24 03/22/24 Range/Units 21:42 21:42 06:57 WBC 15.5 H 15.2 H (3.8-10.6) k/uL RBC 2.90 L 3.01 L (4.30-5.90) m/uL Hgb 9.9 L D 10.2 L (13.0-17.5) gm/dL Hct 30.0 L 30.7 L (39.0-53.0) % MCV 103.1 H 102.0 H (80.0-100.0) fL Plt Count 455 H (150-450) k/uL Neutrophils # 14.0 H 13.4 H (1.3-7.7) k/uL Lymphocytes # 0.3 L 0.5 L (1.0-4.8) k/uL Monocytes # 1.2 H (0-1.0) k/uL Sodium 129 L (137-145) mmol/L Chloride 92 L (98-107) mmol/L Carbon Dioxide 34 H (22-30) mmol/L BUN 23 H (9-20) mg/dL Creatinine 0.55 L (0.66-1.25) mg/dL Glucose 126 H (74-99) mg/dL Calcium 8.3 L (8.4-10.2) mg/dL 03/22/24 Range/Units 06:57 WBC (3.8-10.6) k/uL RBC (4.30-5.90) m/uL Hgb (13.0-17.5) gm/dL Hct (39.0-53.0) % MCV (80.0-100.0) fL Plt Count (150-450) k/uL Neutrophils # (1.3-7.7) k/uL Lymphocytes # (1.0-4.8) k/uL Monocytes # (0-1.0) k/uL Sodium 132 L (137-145) mmol/L Chloride 92 L (98-107) mmol/L Carbon Dioxide 34 H (22-30) mmol/L BUN 21 H (9-20) mg/dL Creatinine 0.57 L (0.66-1.25) mg/dL Glucose 107 H (74-99) mg/dL Calcium (8.4-10.2) mg/dL Thrombosis Risk Factor Assmnt - Choose All That Apply Any of the Below Risk Factors Present?: Yes Other Risk Factors: Yes Each Risk Factor Represents 3 Points: Age 75 years or older Other congenital or acquired thrombophilia - If yes, enter type in comment: No Thrombosis Risk Factor Assessment Total Risk Factor Score: 3 Thrombosis Risk Factor Assessment Level: Moderate Risk
--- NOTE | 2024-03-22 12:49 | P.CNPUL ---
History of Present Illness Consult date: 03/22/24 Requesting physician: Ricardo Cedeno Reason for consult: dyspnea, pleural effusion, abnormal CXR/CT Chief complaint: Shortness of breath History of present illness: This is a 78-year-old male patient with a known history of lung cancer with recurrence and progression with previous resections of the right lung in 2004 in 2008. He has had recurrent lung cancer with multiple treatment since then. He has been admitted here frequently lately due to recurrent left pleural effusions. He had undergone a thoracentesis March 14, 2024 with 950 mL removed and cytology negative for malignancy. He was discharged home on 03/18/2024. He was readmitted yesterday March 21 2024 for complaints of of increasing shortness of breath. X-ray shows enlarging left pleural effusion with a small right effusion and interstitial lung markings bilaterally. White count 15.2. Hemoglobin 10.2. Platelets 446. Sodium 132. Potassium 3.5. Bicarb 34. BUN 21. Creatinine 0.57. Glucose 107. He is seen today in consultation on the selective care unit. He is awake and alert in no acute distress. He is requiring 10 L high flow nasal cannula. He does have some dyspnea with exertion. He is on home oxygen at 4 L/min per nasal cannula. He was given Lasix 40 mg IVP x 2 since arrival. He is currently in a negative balance. He is on DuoNeb inhalations, Symbicort. Review of Systems REVIEW OF SYSTEMS: CONSTITUTIONAL: Denies any recent significant weight loss or weight gain. EYES: Denies change in vision. EARS, NOSE, MOUTH, THROAT: Denies headaches, denies sore throat. CARDIOVASCULAR: Denies chest pain, palpitations or syncopal episodes. RESPIRATORY: Positive for shortness of breath, cough, congestion no hemoptysis. GASTROINTESTINAL: Denies change in appetite, denies abdominal pain GENITOURINARY: Denies hematuria, denies infections. MUSKULOSKELETAL: Denies pain, denies swelling. INTEGUMENTARY: Denies rash, denies eczema. NEUROLOGICAL: Denies recent memory loss, no recent seizure activity. PSYCHIATRIC: Denies anxiety, denies depression. HEMATOLOGIC/LYMPHATIC: Denies anemia, denies enlarged lymph nodes. Past Medical History Past Medical History: Cancer, COPD, GERD/Reflux, Osteoarthritis (OA), Pneumonia Additional Past Medical History / Comment(s): Right lung cancer 2003 and first resection done (got MRSA at that time in incision), second resection in 2008, lung cancer reoccured in 12/2014 and found new nodule in right lung had radiation in February 2015. Pancreatitis,chronic back pain, lung CA reoccured 2019 History of Any Multi-Drug Resistant Organisms: MRSA Date of last positivie culture/infection: 2003 MDRO Source:: BACK Past Surgical History: Cholecystectomy, Orthopedic Surgery Additional Past Surgical History / Comment(s): RESECTION TO RIGHT LUNG TWICE (RT MIDDLE AND RT LOWER LOBECTOMY), RT KNEE SCOPE x2 Past Anesthesia/Blood Transfusion Reactions: Motion Sickness Past Psychological History: Anxiety Smoking Status: Former smoker (Quit smoking 3 weeks ago) Past Alcohol Use History: None Reported, Occasional Additional Past Alcohol Use History / Comment(s): Started smoking at age 14-15 on and off and is currently a sometimes smoker. Stopped since being on oxygen Has cut back on drinking. Past Drug Use History: None Reported - Past Family History Mother Family Medical History: Dementia Additional Family Medical History / Comment(s): Crohn's disease Father Family Medical History: Cancer, Respiratory Disorder Additional Family Medical History / Comment(s): mesothelioma. Medications and Allergies Home Medications Medication Instructions Recorded Confirmed Type Ipratropium/Albuterol Sulfate 1 puff INHALATION RT-QID PRN 06/11/18 03/21/24 History [Combivent Respimat Inhaler] Meloxicam 15 mg PO DAILY 06/11/18 03/22/24 History Omeprazole 20 mg PO DAILY 06/11/18 03/22/24 History Escitalopram [Lexapro] 20 mg PO DAILY 01/04/21 03/22/24 History LORazepam [Ativan] 1 mg PO HS 01/04/21 03/22/24 History Atorvastatin [Lipitor] 40 mg PO DAILY 07/23/21 03/22/24 History Levothyroxine Sodium [Synthroid] 125 mcg PO DAILY 07/23/21 03/22/24 History bisacodyL [Dulcolax] 10 mg PO BID 02/28/24 03/22/24 History Albuterol Nebulized [Ventolin 2.5 mg INHALATION RT-QID 03/13/24 03/22/24 History Nebulized] Budesonide/Formoterol Fumarate 2 puff INHALATION RT-BID 03/13/24 03/22/24 Histo ry [Breyna 160-4.5 Mcg Inhaler] Doxazosin [Cardura] 2 mg PO PC-LUNCH 03/13/24 03/22/24 History Ibandronate Sodium [Boniva] 150 mg PO Q30D 03/13/24 03/22/24 History HYDROcodone/APAP 10-325MG [[place] 1 tab PO Q6HR PRN 03/22/24 03/22/24 History 10-325] Allergies Allergy/AdvReac Type Severity Reaction Status Date / Time No Known Allergies Allergy Verified 03/13/24 19:05 Physical Exam Vitals: Vital Signs Temp Pulse Pulse Resp BP Pulse Ox 03/22/24 11:24 94 03/22/24 11:13 94 03/22/24 08:02 90 03/22/24 07:49 97.4 F L 90 89 24 126/76 97 03/22/24 04:10 97.6 F 93 28 H 144/65 92 L 03/22/24 02:51 93 98 03/21/24 23:40 97.6 F 96 25 H 149/67 92 L 03/21/24 20:37 97.8 F 107 H 26 H 115/62 98 Intake and Output 03/21/24 03/22/24 03/22/24 22:59 06:59 14:59 Intake Total 20 20 20 Output Total 1600 200 Balance 20 -1580 -180 Intake: IV 20 20 20 Invasive Line 1 10 10 10 Invasive Line 2 10 10 10 Output: Urine 1600 200 Other: Voiding Method Urinal Urinal Urinal # Voids 1 1 Weight 54.54 kg 54.5 kg 54.5 kg GENERAL EXAM: Alert, 78-year-old male, on 10 L high flow nasal cannula, fairly comfortable in no apparent distress. HEAD: Normocephalic. EYES: Normal reaction of pupils, equal size. NOSE: Clear with pink turbinates. THROAT: No erythema or exudates. NECK: No masses, no JVD. CHEST: No chest wall deformity. LUNGS: Equal air entry with basilar crackles left greater than right, diminished. CVS: S1 and S2 normal with no audible murmur, regular rhythm. ABDOMEN: No hepatosplenomegaly, normal bowel sounds, no guarding or rigidity. SPINE: No scoliosis or deformity SKIN: No rashes CENTRAL NERVOUS SYSTEM: No focal deficits, tone is normal in all 4 extremities. EXTREMITIES: There is no peripheral edema. No clubbing, no cyanosis. Peripheral pulses are intact. Results - Laboratory Findings CBC and BMP: 03/22/24 06:57 03/22/24 06:57 Abnormal lab findings: Abnormal Labs 03/21/24 03/21/24 03/22/24 21:42 21:42 06:57 WBC 15.5 H 15.2 H RBC 2.90 L 3.01 L Hgb 9.9 L D 10.2 L Hct 30.0 L 30.7 L MCV 103.1 H 102.0 H Plt Count 455 H Neutrophils # 14.0 H 13.4 H Lymphocytes # 0.3 L 0.5 L Monocytes # 1.2 H Sodium 129 L Chloride 92 L Carbon Dioxide 34 H BUN 23 H Creatinine 0.55 L Glucose 126 H Calcium 8.3 L 03/22/24 06:57 WBC RBC Hgb Hct MCV Plt Count Neutrophils # Lymphocytes # Monocytes # Sodium 132 L Chloride 92 L Carbon Dioxide 34 H BUN 21 H Creatinine 0.57 L Glucose 107 H Calcium - Diagnostic Findings Chest x-ray: image reviewed Assessment and Plan Assessment: Acute on chronic hypoxemic respiratory failure; secondary to enlarging current left sided pleural effusion, and associated atelectasis and/or consolidation. The patient remains on 10 L of oxygen by nasal cannula Recurrent left sided pleural effusion Left lung pleural effusion, post thoracentesis March 14, 2024 and the fluid is an exudate and a total of 950 cc of pleural fluid aspirated from the left lung. Cytology for malignancy Acute COPD exacerbation secondary to above History of lung cancer, with disease recurrence and progression; He has had previous resections of the right lung in 2004 in 2008. He had recurrent lung cancer and multiple treatment since then. December, patient did undergo robotic assisted bronchoscopy with sampling of the 2 right lower lobe nodules. 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 Follow-up PET scan done December, consistent with disease progression. There is increasing radiotracer uptake within the left upper lobe anterior spiculated nodular density and a right lateral midline increasing size pleural-based density. Decreased radiotracer activity within the right anterior midlung nodular density from prior exam. Similar uptake within a spiculated left perihilar mass, possibly representing treated disease. Mildly increased radiotracer activity within the subcarinal and right perihilar lymph node. Also, focal increased radiotracer signal within C5 vertebral body, which could possibly represent osseous metastasis. His established oncologist is Dr. Lester. Lumbar compression fractures, CT scan of the abdomen, pelvis and lumbar spine showed new acute compression fracture of the L1 vertebral body with up to 50% height loss. Minimal 5 mm retropulsion. Stable L4 vertebral body compression with up to 50% height loss. Moderate to severe degenerative change of the spine. Patient was discharged on March 03 with TLSO brace. Chronic and ongoing tobacco dependence Hypothyroidism Hyperlipidemia Anxiety Osteoarthritis Gastroesophageal reflux disease Plan: The patient was seen and evaluated Chest x-ray, labs and medications reviewed Give Lasix 40 mg IVP x 1 Titrate down the FiO2 as tolerated CT services consulted for Pleurx catheter placement Educated regarding smoking cessation Continue DuoNeb inhalations, Symbicort DNR/DNI CODE STATUS Will continue to follow and make further recommendations based on his clinical status I have personally seen and examined the patient, performed the documentation and the assessment and plan as written. Number of minutes spent on the visit: 20 Dictation was produced using [employer] dictation software. Please excuse any grammatical, word or spelling errors.
[2024-03-22] MEDS: LORazepam 0.5 MG TAB PO SCH (23:13)
[2024-03-23] MEDS: FUROSEMIDE 10 MG/ML 4 ML VIAL IV STA (10:23)
--- NOTE | 2024-03-23 11:05 | P.PN ---
Subjective Progress Note Date: 03/23/24 Principal diagnosis: Recurrent left pleural effusion. Past medical history significant for lung cancer with previous right upper lobectomy with disease recurrence, COPD, hyperlipidemia, thyroid disorder, anxiety, medical debility, chronic ongoing tobacco dependence, history of MRSA to his incision post his lobectomy and GERD. The patient was seen and examined in follow-up today March 23, 2024 at his bedside on the third floor cardiac stepdown unit. He is currently laying in bed, is awake, alert, oriented x 3 and is in no acute apparent distress. Denies any complaints of pain at this time, although is complaining of some episodes of shortness of breath with activity. Oxygen saturations are 95% on 10 L high flow nasal cannula. He is tentatively scheduled for a left Pleurx catheter placement tomorrow April 01, 2024 to be placed by Dr. Cole Atkins. The Pleurx catheter procedure was discussed with the patient in detail, preoperative teaching has been completed. Objective - Vital Signs Vital signs: Vital Signs Temp 97.7 F 03/23/24 10:57 Pulse 102 H 03/23/24 10:57 Resp 28 H 03/23/24 10:57 BP 119/71 03/23/24 10:57 Pulse Ox 92 L 03/23/24 10:57 FiO2 Intake & Output 03/22/24 03/23/24 03/23/24 18:59 06:59 18:59 Intake Total 20 20 110 Output Total 400 800 Balance -380 -780 110 Weight 54.5 kg 54.6 kg Intake: IV 20 20 10 Invasive Line 1 10 Invasive Line 2 10 20 10 Oral 100 Output: Urine 400 800 Other: Voiding Method Urinal Urinal Urinal - Exam CONSTITUTIONAL: Appears comfortable, cooperative, no acute distress RESPIRATORY: Lungs sounds diminished bilaterally. Respirations even, nonlabored. Currently on 10 L high flow nasal cannula oxygen with oxygen saturation 95%. Strong cough. CARDIOVASCULAR: S1, S2 present. Regular rate and rhythm, sinus rhythm on te lemetry. Palpable peripheral pulses bilaterally. No edema present. No calf pain or tenderness noted. SCDs present. GASTROINTESTINAL: Abdomen soft, nontender, nondistended. Active bowel sounds present 4 quadrants. Tolerating diet. GENITOURINARY: Continues to void. INTEGUMENTARY: Skin is warm and dry with evidence of good perfusion. NEUROLOGIC: Cranial nerves II through XII intact. No focal deficits. MUSKULOSKELETAL: Able to move all extremities, strength equal bilaterally, gait normal, generalized weakness. PSYCHIATRIC: Alert and oriented to person place and time, appropriate affect, intact judgment and insight - Allied health notes Allied health notes reviewed: nursing - Labs CBC & Chem 7: 03/22/24 06:57 03/22/24 06:57 Assessment and Plan Assessment: Recurrent left pleural effusion, possibly malignant status post left thoracentesis on March 14, [address] Becerra Acute hypoxic respiratory failure, likely secondary to COPD exacerbation and left-sided pleural effusion History of lung cancer, with disease recurrence and progression Chronic obstructive pulmonary disease Thyroid disorder Hyperlipidemia Chronic ongoing tobacco dependence Osteoarthritis GERD Medical debility Plan: The patient is tentatively scheduled for placement of left Pleurx catheter tomorrow to be performed by Dr. Cole Atkins N.p.o. after midnight. Encourage use of incentive spirometry 10 times every hour while awake. Medical management of other comorbidities per primary care and pulmonology service. More recommendations to follow based on patient's clinical course. Time with Patient: Less than 30
--- NOTE | 2024-03-23 13:07 | P.PN ---
Subjective Progress Note Date: 03/23/24 Principal diagnosis: cute on chronic hypoxemic respiratory failure; secondary to enlarging current left sided pleural effusion, and associated atelectasis and/or consolidation. This is a 78-year-old male patient with a known history of lung cancer with recurrence and progression with previous resections of the right lung in 2004 in 2008. He has had recurrent lung cancer with multiple treatment since then. He has been admitted here frequently lately due to recurrent left pleural effusions. He had undergone a thoracentesis March 14, 2024 with 950 mL removed and cytology negative for malignancy. He was discharged home on 03/18/2024. He was readmitted yesterday March 21 2024 for complaints of of increasing shortness of breath. X-ray shows enlarging left pleural effusion with a small right effusion and interstitial lung markings bilaterally. White count 15.2. Hemoglobin 10.2. Platelets 446. Sodium 132. Potassium 3.5. Bicarb 34. BUN 21. Creatinine 0.57. Glucose 107. He is seen today in consultation on the selective care unit. He is awake and alert in no acute distress. He is requiring 10 L high flow nasal cannula. He does have some dyspnea with exertion. He is on home oxygen at 4 L/min per nasal cannula. He was given Lasix 40 mg IVP x 2 since arrival. He is currently in a negative balance. He is on DuoNeb inhalations, Symbicort. Seen today on 03/23/2024, patient is about the same, on nasal cannula, looks extremely frail, patient is short of breath upon any activity, he is supposedly scheduled for possible Pleurx catheter placement tomorrow for his recurrent pleural effusion. WBC is 15.2 hemoglobin 10.2 electrolytes are normal renal profile is normal. Patient is aware that he is tentatively scheduled for placement of left Pleurx catheter tomorrow by thoracic surgery. Objective - Vital Signs Vital signs: Vital Signs Temp 97.7 F 03/23/24 10:57 Pulse 92 03/23/24 12:07 Resp 28 H 03/23/24 10:57 BP 119/71 03/23/24 10:57 Pulse Ox 92 L 03/23/24 10:57 FiO2 Intake & Output 03/22/24 03/23/24 03/23/24 18:59 06:59 18:59 Intake Total 20 20 110 Output Total 400 800 Balance -380 -780 110 Weight 54.5 kg 54.6 kg Intake: IV 20 20 10 Invasive Line 1 10 Invasive Line 2 10 20 10 Oral 100 Output: Urine 400 800 Other: Voiding Method Urinal Urinal Urinal - Exam GENERAL EXAM: Revealed 78-year-old white male extremely frail chronically ill in no distress HEAD: Normocephalic. EYES: Normal reaction of pupils, equal size. NOSE: Clear with pink turbinates. THROAT: No erythema or exudates. NECK: No masses, no JVD. CHEST: No chest wall deformity. LUNGS: Diminished breath sounds specially at the left base, no rhonchi no wheezes CVS: S1 and S2 normal with no audible murmur, regular rhythm. ABDOMEN: No hepatosplenomegaly, normal bowel sounds, no guarding or rigidity. SKIN: No rashes CENTRAL NERVOUS SYSTEM: Alert and oriented x 3, quite frail and weak EXTREMITIES: No clubbing edema or cyanosis - Labs CBC & Chem 7: 03/22/24 06:57 03/22/24 06:57 Assessment and Plan Assessment: Impression: Acute on chronic hypoxemic respiratory failure; multifactorial Recurrent left sided pleural effusion Left lung pleural effusion, post thoracentesis March 14, 2024 and the fluid is an exudate and a total of 950 cc of pleural fluid aspirated from the left lung. Cytology for malignancy Acute COPD exacerbation secondary to above History of non-small cell lung cancer, with disease recurrence and progression; He has had previous resections of the right lung in 2004 in 2008. He had recurrent lung cancer and multiple treatment since then. December, patient did undergo robotic assisted bronchoscopy with sampling of the 2 right lower lobe nodules. 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 Follow-up PET scan done December, consistent with disease progression. There is increasing radiotracer uptake within the left upper lobe anterior spiculated nodular density and a right lateral midline increasing size pleural-based density. Decreased radiotracer activity within the right anterior midlung nodular density from prior exam. Similar uptake within a spiculated left perihilar mass, possibly representing treated disease. Mildly increased radiotracer activity within the subcarinal and right perihilar lymph node. Also, focal increased radiotracer signal within C5 vertebral body, which could possibly represent osseous metastasis. His established oncologist is Dr. Lester. Lumbar compression fractures, CT scan of the abdomen, pelvis and lumbar spine showed new acute compression fracture of the L1 vertebral body with up to 50% height loss. Minimal 5 mm retropulsion. Stable L4 vertebral body compression with up to 50% height loss. Moderate to severe degenerative change of the spine. Patient was discharged on March 03 with TLSO brace. Chronic and ongoing tobacco dependence Hypothyroidism Hyperlipidemia Anxiety Osteoarthritis Gastroesophageal reflux disease Recommendation: Continue present supportive care measures Continue oxygen and titrate accordingly Continue updrafts Continue CODE STATUS/DNR Patient is tentatively scheduled for Pleurx catheter placement tomorrow Overall prognosis is extremely poor and guarded. Purpose of the Pleurx catheter would be more of comfort care measures and to avoid frequent thoracentesis procedures considering the rapid reaccumulation of the fluid after his last thoracentesis. And again the fluid is malignant unless were otherwise although cytology was negative. Will continue to follow Time with Patient: Less than 30
[2024-03-23] MEDS: ACETAMINOPHEN TAB 325 MG TAB PO PRN (16:44)
--- NOTE | 2024-03-24 03:25 | P.PN ---
Subjective Progress Note Date: 03/23/24 Patient is a 78-year-old male was transferred from [facility] for evaluation by cardiothoracic surgery and Pleurx catheter placement. Patient had history of bronchogenic carcinoma in the past which probably recurred resulting in pleural effusion when patient presented with shortness of breath on March 18, 2024. At the time pleural tap was done and subsequently discharged patient opted for hospice and was admitted at [facility] couple days ago for shortness of breath patient has pleural effusion and findings consistent with pulmonary edema, patient was subsequently transferred here for Pleurx catheter placement before he can be started on hospice. CT of the chest that was done at [facility] showed left upper lobe primary bronchogenic mass malignancy with diffuse pleural metastasis and malignant left pleural effusion pleural thickening and nodularity there is also has additional spiculated right lung nodule. 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 03/23/2024 Patient is seen in follow-up today with pulmonary and CT surgery. Plan is for Rx catheter placement on 03/24/2024 and then working on home with hospice. Patient currently maintained on nasal cannula reporting continued shortness of breath with minimal exertion. Patient is afebrile with no reported nausea or vomiting. Patient is tolerating some diet although not much of an appetite. Continue incentive spirometer use at least 10 times every hour. Review of systems: Constitutional: No reports of fatigue, fever, or chills Cardiovascular: No reports of chest pain or palpitations Respiratory: reports of shortness of breath with minimal exertion GI: No reports of nausea, vomiting, or diarrhea : No reports of dysuria or retention Neurovascular: reports of generalized weakness or numbness All medications have been reviewed PHYSICAL EXAMINATION: GENERAL: The patient is alert and oriented x3, not in any acute distress. Well developed, ill-appearing, elderly appearing, thin built cachectic, cancer cachexia HEENT: Pupils are round and equally reacting to light. EOMI. No scleral icterus. No conjunctival pallor. Normocephalic, atraumatic. No pharyngeal erythema. No thyromegaly. CARDIOVASCULAR: S1 and S2 present. No murmurs, rubs, or gallops. PULMONARY: Rhonchi bilaterally with diminished breath sounds ABDOMEN: Soft, thin, nontender, nondistended, normoactive bowel sounds. No palpable organomegaly. MUSCULOSKELETAL: No joint swelling or deformity. EXTREMITIES: No cyanosis, clubbing, or pedal edema. NEUROLOGICAL: Gross neurological examination did not reveal any focal deficits. Diffusely weak SKIN: No rashes. Assessment: -Acute hypoxic respiratory failure, shortness of breath secondary to pleural effusion, lung cancer with metastatic disease along with some mild pulmonary edema possibly. Patient will undergo Pleurx catheter placement after which patient will go on hospice as per patient and family wishes. Patient was given a dose of Lasix with improvement of serum sodium and improvement of his respiratory status was requiring 7 to 10 L of oxygen. Patient today feels like his fluid is building up again because of which patient received an additional dose of Lasix today. -Diffuse metastatic non-small cell lung cancer possibly adenocarcinoma of the lung no further treatment the CHF finding on x-ray can be secondary to m etastatic disease low possibility of pneumonia -Hyponatremia secondary to SIADH patient was started on 1500 cc fluid restriction slightly improved -COPD with acute exacerbation -Gastroesophageal reflux disease GI prophylaxis DVT prophylaxis: After Pleurx catheter placement patient will be hospice because of which I am not starting him on any pharmacological DVT prophylaxis No code Plan: Patient being followed by CT surgery along with pulmonary continue breathing treatments and supplemental oxygen. Plan is for patient to receive Pleurx catheter on 03/24/2024. Patient will be going home on hospice Continue other supportive care and encouraged increase activity as tolerated with continued small frequent meals Overall prognosis is extremely poor and guarded Possible discharge planning in the next 24 to 48 hours once Pleurx catheter has been placed. The impression and plan of care has been dictated by Sybil Alexander, Nurse Practitioner as directed. Dr. Pao MD I have performed a history and examination and MDM of this patient, discussed the same with the dictator, and agree with the dictator's assessment and plan as written ,documented as a scribe. Based on total visit time, I have performed more than 50% of the visit. Objective - Vital Signs Vital signs: Vital Signs Temp 97.7 F 03/23/24 04:55 Pulse 80 03/23/24 04:55 Resp 20 03/23/24 04:55 BP 128/74 03/23/24 04:55 Pulse Ox 96 03/23/24 04:55 FiO2 Intake & Output 03/22/24 03/22/24 03/23/24 06:59 18:59 06:59 Intake Total 40 20 20 Output Total 1600 400 800 Balance -7979 -306 -748 Weight 54.5 kg 54.5 kg 54.6 kg Intake: IV 40 20 20 Invasive Line 1 20 10 Invasive Line 2 20 10 20 Output: Urine 1600 400 800 Other: Voiding Method Urinal Urinal Urinal # Voids 1 - Labs CBC & Chem 7: 03/22/24 06:57 03/22/24 06:57 Labs: Abnormal Lab Results - Last 24 Hours (Table) 03/22/24 03/22/24 Range/Units 06:57 06:57 WBC 15.2 H (3.8-10.6) k/uL RBC 3.01 L (4.30-5.90) m/uL Hgb 10.2 L (13.0-17.5) gm/dL Hct 30.7 L (39.0-53.0) % MCV 102.0 H (80.0-100.0) fL Neutrophils # 13.4 H (1.3-7.7) k/uL Lymphocytes # 0.5 L (1.0-4.8) k/uL Monocytes # 1.2 H (0-1.0) k/uL Sodium 132 L (137-145) mmol/L Chloride 92 L (98-107) mmol/L Carbon Dioxide 34 H (22-30) mmol/L BUN 21 H (9-20) mg/dL Creatinine 0.57 L (0.66-1.25) mg/dL Glucose 107 H (74-99) mg/dL
--- NOTE | 2024-03-24 07:17 | XR ---
EXAMINATION TYPE: XR chest 1V portable DATE OF EXAM: 03/24/2024 COMPARISON: I 03/22/2024 CLINICAL INDICATION: Male, 78 years old with history of Recurrent left pleural effusion; , TECHNIQUE: XR chest 1V portable views of the chest. FINDINGS: Bilateral areas of consolidation and pleural effusion with large left pleural effusion and apical ple ural density stable. Calcified granuloma right lung. Postsurgical changes. Underlying neoplasm within the left lung has been previously reported. Emphysematous changes. Diffuse osteopenia, arthropathy o f the shoulders and degenerative change of the spine. IMPRESSION: 1. Diffuse pleural-parenchymal changes are stable with large left pleural effusion and small right pl eural effusion. Underlying pneumonia or neoplasm as previously reported. [facility], , 03/24/2024 7:14 AM
[2024-03-24] MEDS: IV FLUID CONTINUATION 1,000 ML with ceFAZolin 2,000 MG IV ONE (14:40)
[2024-03-24] MEDS: IV FLUID CONTINUATION 1,000 ML IV ONE (14:48)
--- NOTE | 2024-03-24 15:28 | P.PN ---
Subjective Progress Note Date: 03/24/24 Principal diagnosis: Shortness of breath. This is a 78-year-old male patient with a known history of lung cancer with recurrence and progression with previous resections of the right lung in 2004 in 2008. He has had recurrent lung cancer with multiple treatment since then. He has been admitted here frequently lately due to recurrent left pleural effusions. He had undergone a thoracentesis March 14, 2024 with 950 mL removed and cytology negative for malignancy. He was discharged home on 03/18/2024. He was readmitted yesterday March 21 2024 for complaints of of increasing shortness of breath. X-ray shows enlarging left pleural effusion with a small right effusion and interstitial lung markings bilaterally. White count 15.2. Hemoglobin 10.2. Platelets 446. Sodium 132. Potassium 3.5. Bicarb 34. BUN 21. Creatinine 0.57. Glucose 107. He is seen today in consultation on the selective care unit. He is awake and alert in no acute distress. He is requiring 10 L high flow nasal cannula. He does have some dyspnea with exertion. He is on home oxygen at 4 L/min per nasal cannula. He was given Lasix 40 mg IVP x 2 since arrival. He is currently in a negative balance. He is on DuoNeb inhalations, Symbicort. Seen today on 03/23/2024, patient is about the same, on nasal cannula, looks extremely frail, patient is short of breath upon any activity, he is supposedly scheduled for possible Pleurx catheter placement tomorrow for his recurrent pleural effusion. WBC is 15.2 hemoglobin 10.2 electrolytes are normal renal profile is normal. Patient is aware that he is tentatively scheduled for placement of left Pleurx catheter tomorrow by thoracic surgery. Progress note dated April 01, 2024. 78-year-old male seen today in room 376. He was admitted with shortness of breath, and pleural effusion. The patient is scheduled to have a Pleurx cath eter placed today on the left side. He has a history of non-small cell lung cancer. Currently he is on 8 L high flow nasal cannula, with saturations at 96%. The plan is to discharge him home with hospice, after Pleurx catheter placement, and education. No new labs today. The patient is a DO NOT RESUSCITATE patient. Objective - Vital Signs Vital signs: Vital Signs Temp 97.9 F 03/24/24 14:46 Pulse 93 03/24/24 14:46 Resp 16 03/24/24 14:46 BP 125/55 03/24/24 14:46 Pulse Ox 96 03/24/24 14:46 FiO2 Intake & Output 03/23/24 03/24/24 03/24/24 18:59 06:59 18:59 Intake Total 110 20 20 Output Total 300 150 Balance -190 -130 20 Weight 53.5 kg Intake: IV 10 20 20 Invasive Line 2 10 20 20 Oral 100 Output: Urine 300 150 Other: Voiding Method Urinal Urinal Urinal # Voids 1 - Exam No acute distress, oriented 3. Patient is very cachectic and frail appearing. HEENT examination is grossly unremarkable. Mucous membranes are moist. No oral lesions. Neck supple. Full range of motion. No adenopathy thyromegaly or neck vein distention. Cardiovascular examination reveals regular rhythm rate. S1-S2 normal. No S3 or S4. No discernible murmur noted. Heart sounds are distant. Lungs reveal diminished breath sounds throughout, especially at the left lung base. Crackles are also noted. Abdomen soft bowel sounds are heard. No masses or tenderness. Extremities are intact. No cyanosis clubbing or edema. Skin is without rash or lesion. Neurologic examination is brief but nonfocal. - Labs CBC & Chem 7: 03/22/24 06:57 03/22/24 06:57 Assessment and Plan Assessment: Acute on chronic hypoxemic respiratory failure, multifactorial. Recurrent left-sided pleural effusion. Thoracentesis, left side, March 14, 2024. Acute COPD exacerbation. History of non-small cell lung cancer, with disease recurrence and progression. Lumbar compression fracture. Chronic and ongoing tobacco dependence. History of hypothyroidism. Hyperlipidemia. Anxiety. Osteoarthritis. Gastroesophageal reflux disease. Plan: Plan dated March 24, 2024. The patient is scheduled to have a Pleurx catheter placed today on the left side. After placement, and education, the patient is to be discharged home with hospice. Currently, the patient is on quite a bit of oxygen, 8 L high flow nasal cannula with saturations are 96%. Once the fluid in the left chest is evacuated, hopefully his oxygen requirements are reduced. Labs, x-rays, and all medications are reviewed. Prognosis is poor. He has a DO NOT RESUSCITATE patient. Time with Patient: Less than 30
[2024-03-24] MEDS ORDERED: KETAMINE HCL IN 0.9 % NACL 50 MG/5 ML SYRINGE ONE (16:40)
[2024-03-24] MEDS ORDERED: MIDAZOLAM 2 MG/2 ML VIAL ONE (16:40)
[2024-03-24] MEDS: LIDOCAINE 1%/EPI 1:200,000 MPF 10 ML VIAL SQ ONE ×2 (17:08)
[2024-03-24] MEDS ORDERED: LIDOCAINE 1%-EPI 1:100,000 20 ML VIAL ONE (17:08)
--- NOTE | 2024-03-24 17:42 | FL ---
EXAMINATION TYPE: FL guided central line placemt DATE OF EXAM: 03/24/2024 5:32 PM COMPARISON: Pre Operative Images if available both CT/MRI or plain film CLINICAL INDICATION: Male, 78 years old with history of PLEURX CATH; TECHNIQUE: FL guided central line placemt, multiple fluoroscopic images provided for procedure. Total fluoroscopy time: 33.8 seconds Total submitted images to PACS: 1 DAP: [id number] mGym2 Gycm2 uGym2 cGycm2 or equivalent. FINDINGS: Fluoroscopic images during central line placement. No evidence for pneumothorax. Tip terminating at t he superior vena cava. IMPRESSION: 1. No evidence for intraoperative complication. 2. Please see the operative/procedural note for further details. [facility], , 03/24/2024 5:40 PM
--- NOTE | 2024-03-24 17:55 | P.PCN ---
Date of Procedure: 03/24/24 Preoperative Diagnosis: Recurrent left pleural effusion Postoperative Diagnosis: Recurrent left pleural effusion Procedure(s) Performed: Left Pleurx catheter placement Implants: Standard Pleurx catheter Anesthesia: MAC, local Surgeon: Cole Atkins Estimated Blood Loss (ml): 5 Pathology: none sent Condition: stable Disposition: PACU Indications for Procedure: Recurrent left serosanguineous pleural effusion Operative Findings: Mostly sanguinous effusion with appropriate cough reflex on reexpansion. Pleur- evac catheter in good position dependently in the left chest Description of Procedure: After consent was obtained, the patient was brought to the operating room where he underwent monitored anesthesia care with a dose of ketamine given. He was placed in semirecumbent position with the left arm tucked to the side and a bump placed under the right chest. After a timeout was observed whereby the patient, the procedure, the site, the side, antibiotic delivery and personnel were all confirmed with the films reviewed we proceeded to jeb and inject the patient with local anesthetic. He was injected over the tract as well as the entry and exit sites and the chest wall was anesthetized deep at the entry site. We then proceeded to make a small incision with an 11 blade knife and through that small incision posterior laterally on the right chest at roughly the eighth intercostal space, we accessed the pleural effusion. We removed the needle from the Angiocath and used the Angiocath to feed a 0.035 inch guidewire into the chest. We brought the fluoroscopy into confirm that the wire was in good position and once we had that confirmation, we went ahead and tunneled the Pleurx catheter subcutaneously from an anterior counterincision of 5 mm through the site where the wire was accessing the chest cavity. Once that was brought through and the felt cuff was located directly beneath the skin at the exit site, we were able to place our dilator and peel-away sheath over the wire and into the chest. We then remove the wire and dilator leaving the peel-away sheath through which we were able to place the end of the Pleurx catheter. We advanced the Pleurx catheter until it was at the chest wall and then we removed the peel-away sheath holding the catheter in place and feeding the catheter and without kinks into the chest cavity. We verified that there were no kinks on the fluoroscope as well as location of the entire catheter with all sideholes in the dependent chest cavity. We also verified that there was no evidence of a pneumothorax and once that was complete, we fixed the Pleurx catheter in place with a 2-0 silk suture at the exit site and we closed the access site in 2 layers with a 4-0 Vicryl deep buried interrupted as well as a 4-0 Monocryl suture for the skin. He was dressed with skin glue at the entry site and with the included dressing at the exit site. Of note we did hooked the catheter to suction and removed 500 cc of serosanguineous fluid. The patient had a significant reexpansion cough reflex and we slow down the removal of fluid and hooked him to a Pleur-evac container on -20 cm of suction. He was then able to be returned to the PACU in stable condition.
[2024-03-24] MEDS: HYDROmorphone 0.5 MG/0.5 ML SYRINGE IVP PRN (18:00)
[2024-03-25 04:35] VITALS: TEMP 97.8
[2024-03-25 08:07] VITALS: BP 110/55
--- NOTE | 2024-03-25 08:24 | XR ---
EXAMINATION TYPE: XR chest 1V portable DATE OF EXAM: 03/25/2024 COMPARISON: 03/24/2024 CLINICAL INDICATION: Male, 78 years old with history of Postop Pleux catheter placement; , TECHNIQUE: XR chest 1V portable views of the chest. FINDINGS: Bilateral areas of consolidation and pleural effusion with left pleural effusion and apical pleural d ensity stable. Calcified granuloma right lung. Postsurgical changes. Underlying neoplasm within the l eft lung has been previously reported. Emphysematous changes. Diffuse osteopenia, arthropathy of the shoulders and degenerative change of the spine. Tubing or drainage catheter overlying the left chest. Cannot exclude destructive change posterior mar gin left third rib. IMPRESSION: 1. Interval reduction in amount of pleural fluid on the left with persistent lobulated left apical de nsity or mass and pleural effusion. 2. Small right pleural effusion, bilateral consolidation and postsurgical changes stable. [facility], , 03/25/2024 8:22 AM
--- NOTE | 2024-03-25 08:41 | P.PN ---
Subjective Progress Note Date: 03/24/24 Patient is a 78-year-old male was transferred from [facility] for evaluation by cardiothoracic surgery and Pleurx catheter placement. Patient had history of bronchogenic carcinoma in the past which probably recurred resulting in pleural effusion when patient presented with shortness of breath on March 18, 2024. At the time pleural tap was done and subsequently discharged patient opted for hospice and was admitted at [facility] couple days ago for shortness of breath patient has pleural effusion and findings consistent with pulmonary edema, patient was subsequently transferred here for Pleurx catheter placement before he can be started on hospice. CT of the chest that was done at [facility] showed left upper lobe primary bronchogenic mass malignancy with diffuse pleural metastasis and malignant left pleural effusion pleural thickening and nodularity there is also has additional spiculated right lung nodule. 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 03/23/2024 Patient is seen in follow-up today with pulmonary and CT surgery. Plan is for Rx catheter placement on 03/24/2024 and then working on home with hospice. Patient currently maintained on nasal cannula reporting continued shortness of breath with minimal exertion. Patient is afebrile with no reported nausea or vomiting. Patient is tolerating some diet although not much of an appetite. Continue incentive spirometer use at least 10 times every hour. 03/24/2024 Patient is seen in follow-up this morning scheduled to undergo Pleurx catheter placement with Dr. Atkins. Will await report and plan is for patient to be discharged home on hospice. Patient is requiring 10 L high flow at this time and will wean as tolerated. Patient is afebrile with no reports of chest pain or worsening shortness of breath. Overall prognosis is guarded at this time Review of systems: Constitutional: No reports of fatigue, fever, or chills Cardiovascular: No reports of chest pain or palpitations Respiratory: reports of shortness of breath with minimal exertion GI: No reports of nausea, vomiting, or diarrhea : No reports of dysuria or retention Neurovascular: reports of generalized weakness or numbness All medications have been reviewed PHYSICAL EXAMINATION: GENERAL: The patient is alert and oriented x3, not in any acute distress. Well developed, ill-appearing, elderly appearing, thin built cachectic, cancer cachexia HEENT: Pupils are round and equally reacting to light. EOMI. No scleral icterus. No conjunctival pallor. Normocephalic, atraumatic. No pharyngeal erythema. No thyromegaly. CARDIOVASCULAR: S1 and S2 present. No murmurs, rubs, or gallops. PULMONARY: Rhonchi bilaterally with diminished breath sounds ABDOMEN: Soft, thin, nontender, nondistended, normoactive bowel sounds. No palpable organomegaly. MUSCULOSKELETAL: No joint swelling or deformity. EXTREMITIES: No cyanosis, clubbing, or pedal edema. NEUROLOGICAL: Gross neurological examination did not reveal any focal deficits. Diffusely weak SKIN: No rashes. Assessment: -Acute hypoxic respiratory failure, shortness of breath secondary to pleural effusion, lung cancer with metastatic disease along with some mild pulmonary edema possibly. Patient will undergo Pleurx catheter placement today 03/24/2024 -Diffuse metastatic non-small cell lung cancer possibly adenocarcinoma of the l [place] no further treatment the CHF finding on x-ray can be secondary to metastatic disease low possibility of pneumonia -Hyponatremia secondary to SIADH -COPD with acute exacerbation -Gastroesophageal reflux disease GI prophylaxis DVT prophylaxis: After Pleurx catheter placement patient will be hospice because of which I am not starting him on any pharmacological DVT prophylaxis No code Plan: Patient being followed by CT surgery along with pulmonary continue breathing treatments and supplemental oxygen. Plan is for patient to receive Pleurx catheter today 03/24/[address] Atkins. Patient will be going home on hospice after procedure if patient tolerated well. According to nursing staff it was done late and was instructed by Dr. Atkins to monitor the patient overnight and discussed discharge planning in the morning Continue other supportive care and encouraged increase activity as tolerated with continued small frequent meals Overall prognosis is extremely poor and guarded Plan is for discharge in 24 hours home with hospice The impression and plan of care has been dictated by Sybil Alexander, Nurse Practitioner as directed. Dr. Armen MD I have performed a history and examination and MDM of this patient, discussed the same with the dictator, and agree with the dictator's assessment and plan as written ,documented as a scribe. Based on total visit time, I have performed more than 50% of the visit. Objective - Vital Signs Vital signs: Vital Signs Temp 97.8 F 03/25/24 08:06 Pulse 86 03/25/24 08:06 Resp 18 03/25/24 08:06 BP 110/55 03/25/24 08:06 Pulse Ox 97 03/25/24 08:06 FiO2 Intake & Output 03/24/24 03/25/24 03/25/24 18:59 06:59 18:59 Intake Total 520 720 Output Total 5 350 Balance 515 370 Intake: IV 520 Invasive Line 2 20 Oral 720 Output: Chest Tube Drainage 200 Pleural Catheter Left 200 Urine 150 Estimated Blood Loss 5 Other: Voiding Method Urinal Urinal # Voids 1 - Labs CBC & Chem 7: 03/22/24 06:57 03/22/24 06:57
--- NOTE | 2024-03-25 09:13 | P.PN ---
Subjective Progress Note Date: 03/25/24 Principal diagnosis: Recurrent left pleural effusion. Past medical history significant for lung cancer with previous right upper lobectomy with disease recurrence, COPD, hyperlipidemia, thyroid disorder, anxiety, medical debility, chronic ongoing tobacco dependence, history of MRSA to his incision post his lobectomy and GERD. POD #1 left Pleurx catheter placement. The patient was seen and examined at his bedside on the third floor cardiac stepdown unit this morning March 25, 2024. He is currently laying in bed, is awake, alert, oriented x 3 and is in no acute apparent distress. The patient denies any complaints of pain at this time and reports that his shortness of breath is much improved today from yesterday. Oxygen saturations are 98% on 4 L nasal cannula. His left Pleurx catheter is connected to a Pleur-evac system on low continuous wall suction -20 cm H2O. No air leak is present. Draining thin serosanguineous drainage with 200 mL output in the last 8 hours and 1.4 L output in 24 hours. We will His Pleurx catheter drained today and he can be discharged home with hospice per the cardiothoracic surgery standpoint. Objective - Vital Signs Vital signs: Vital Signs Temp 97.8 F 03/25/24 08:06 Pulse 86 03/25/24 08:06 Resp 18 03/25/24 08:06 BP 110/55 03/25/24 08:06 Pulse Ox 97 03/25/24 08:06 FiO2 Intake & Output 03/24/24 03/25/24 03/25/24 18:59 06:59 18:59 Intake Total 520 720 Output Total 5 350 Balance 515 370 Intake: IV 520 Invasive Line 2 20 Oral 720 Output: Chest Tube Drainage 200 Pleural Catheter Left 200 Urine 150 Estimated Blood Loss 5 Other: Voiding Method Urinal Urinal # Voids 1 - Exam CONSTITUTIONAL: Appears comfortable, cooperative, no acute distress RESPIRATORY: Lungs sounds diminished bilaterally. Respirations even, nonlabored. Currently on 4 L high flow nasal cannula oxygen with oxygen saturation 98%. Strong cough. CARDIOVASCULAR: S1, S2 present. Regular rate and rhythm, sinus rhythm on telemetry. Palpable peripheral pulses bilaterally. No edema present. No calf pain or tenderness noted. SCDs present. GASTROINTESTINAL: Abdomen soft, nontender, nondistended. Active bowel sounds present 4 quadrants. Tolerating diet. GENITOURINARY: Continues to void. INTEGUMENTARY: Skin is warm and dry with evidence of good perfusion. NEUROLOGIC: Cranial nerves II through XII intact. No focal deficits. MUSKULOSKELETAL: Able to move all extremities, strength equal bilaterally, gait normal, generalized weakness. PSYCHIATRIC: Alert and oriented to person place and time, appropriate affect, intact judgment and insight - Allied health notes Allied health notes reviewed: nursing - Labs CBC & Chem 7: 03/22/24 06:57 03/22/24 06:57 - Imaging and Cardiology Chest x-ray: report reviewed, image reviewed Assessment and Plan Assessment: Recurrent left pleural effusion, possibly malignant status post left thoracentesis on March 14, [address] Becerra, status post placement of left Pleurx catheter Acute hypoxic respiratory failure, likely secondary to COPD exacerbation and left-sided pleural effusion History of lung cancer, with disease recurrence and progression Chronic obstructive pulmonary disease Thyroid disorder Hyperlipidemia Chronic ongoing tobacco dependence Osteoarthritis GERD Medical debility Plan: We we will His left Pleurx catheter today and redress it, Pleurx catheter t eaching will be completed and he can be discharged to home with hospice when okay with primary service and other consultants. Encourage use of incentive spirometry 10 times every hour while awake. Medical management of other comorbidities per primary care and pulmonology service. More recommendations to follow based on patient's clinical course. Time with Patient: Greater than 30
--- NOTE | 2024-03-25 10:29 | P.DS ---
Providers Date of admission: 03/21/24 20:12 Expected date of discharge: 03/24/24 Attending physician: Ricardo Cedeno Consults: 03/21/24 21:11 Consult Physician Routine Consulting Provider: Louisa Kilgore Consult Reason/Comments: Pleural effusion recent thoracentesis Do you want consulting provider notified?: Yes Placement Type Exists?: Yes 03/21/24 23:30 Consult Physician Routine Consulting Provider: Jarrell Osorio Consult Reason/Comments: Pleur-X catheter placement? Do you want consulting provider notified?: Yes, Notify in am [facility] Course: Final diagnosis Acute hypoxic respiratory failure, shortness of breath secondary to pleural effusion, lung cancer with metastatic disease along with some mild pulmonary edema possibly. Status post Pleurx catheter placement 03/24/2024 -Diffuse metastatic non-small cell lung cancer possibly adenocarcinoma of the lung, no further treatment per family and patient -Hyponatremia secondary to SIADH -COPD with acute exacerbation -Gastroesophageal reflux disease GI prophylaxis DVT prophylaxis No code Discharge disposition Patient is being discharged in a stable condition with guarded prognosis to home with hospice. Patient will follow-up with Dr. Lopez in the outpatient setting upon discharge. Patient is to continue with hospice at home. Total time taken is greater than 35 minutes. Hospital course This is a 78-year-old male who was recently admitted with increasing shortness of breath with acute hypoxic respiratory failure secondary to recurrent pleural effusion with significant history of lung cancer with metastatic disease. Patient evaluated by CT surgery and is status post Pleurx catheter placement with Dr. Atkins. Patient will be educated on Pleurx drainage and is being discharged home on hospice per patient and family request. They do not want to seek any further oncological care. The patient has been cleared by consultations for discharge home with hospice. Please refer to other consultation notes for further HPI. Currently no reports of chest pain, shortness of breath, or palpitations. Patient is afebrile. No reports of nausea or vomiting and patient is tolerating diet. Patient will be discharged home on hospice today. Overall poor and guarded prognosis Physical exam: Gen: This is a 78-year-old male who is awake, alert and oriented x 3, thin built, elderly appearing HEENT: Head is atraumatic, normocephalic. Pupils equal, round. Sclerae is anicteric. NECK: Supple. No JVD. No lymphadenopathy. No thyromegaly. LUNGS: Diminished breath sounds bilaterally clear to auscultation. No wheezes or rhonchi. No intercostal retractions. HEART: Regular rate and rhythm. No murmur. ABDOMEN: Soft. Bowel sounds are present. No masses. No tenderness. EXTREMITIES: No pedal edema. No calf tenderness. NEUROLOGICAL: Patient is awake, alert and oriented x3. Cranial nerves 2 through 12 are grossly intact. Diffusely weak Please refer to medication reconciliation sheet for a list of medications. The impression and plan of care has been dictated by Sybil Alexander, Nurse Practitioner as directed. Dr. Armen MD I have performed a history and examination and MDM of this patient, discussed the same with the dictator, and agree with the dictator's assessment and plan as written ,documented as a scribe. Based on total visit time, I have performed more than 50% of the visit. Patient Condition at Discharge: Fair Plan - Discharge Summary Discharge Rx Participant: No New Discharge Prescriptions: New Ipratropium-Albuterol Nebulize [Duoneb 0.5 mg-3 mg/3 ml Soln] 3 ml INHALATION RT-QID PRN each PRN Reason: Shortness Of Breath Or Wheezing Acetaminophen Tab [Tylenol] 650 mg PO Q6HR PRN tab PRN Reason: Fever and/ or Mild Pain Ipratropium-Albuterol Nebulize [Duoneb 0.5 mg-3 mg/3 ml Soln] 3 ml INHALATION RT-QID each Continue Ipratropium/Albuterol Sulfate [Combivent Respimat Inhaler] 1 puff INHALATION RT-QID PRN PRN Reason: Shortness Of Breath Omeprazole 20 mg PO DAILY Meloxicam 15 mg PO DAILY LORazepam [Ativan] 1 mg PO HS Atorvastatin [Lipitor] 40 mg PO DAILY Ibandronate Sodium [Boniva] 150 mg PO Q30D Budesonide/Formoterol Fumarate [Breyna 160-4.5 Mcg Inhaler] 2 puff INHALATION RT-BID Albuterol Nebulized [Ventolin Nebulized] 2.5 mg INHALATION RT-QID Escitalopram [Lexapro] 20 mg PO DAILY Levothyroxine Sodium [Synthroid] 125 mcg PO DAILY bisacodyL [Dulcolax] 10 mg PO BID Doxazosin [Cardura] 2 mg PO PC-LUNCH HYDROcodone/APAP 10-325MG [Gilsum 10-325] 1 tab PO Q6HR PRN PRN Reason: Pain Discharge Medication List Ipratropium/Albuterol Sulfate [Combivent Respimat Inhaler] 1 puff INHALATION RT- QID PRN 06/11/18 [History] Meloxicam 15 mg PO DAILY 06/11/18 [History] Omeprazole 20 mg PO DAILY 06/11/18 [History] Escitalopram [Lexapro] 20 mg PO DAILY 01/04/21 [History] LORazepam [Ativan] 1 mg PO HS 01/04/21 [History] Atorvastatin [Lipitor] 40 mg PO DAILY 07/23/21 [History] Levothyroxine Sodium [Synthroid] 125 mcg PO DAILY 07/23/21 [History] bisacodyL [Dulcolax] 10 mg PO BID 02/28/24 [History] Albuterol Nebulized [Ventolin Nebulized] 2.5 mg INHALATION RT-QID 03/13/24 [History] Budesonide/Formoterol Fumarate [Breyna 160-4.5 Mcg Inhaler] 2 puff INHALATION RT-BID 03/13/24 [History] Doxazosin [Cardura] 2 mg PO PC-LUNCH 03/13/24 [History] Ibandronate Sodium [Boniva] 150 mg PO Q30D 03/13/24 [History] HYDROcodone/APAP 10-325MG [Gilsum 10-325] 1 tab PO Q6HR PRN 03/22/24 [History] Acetaminophen Tab [Tylenol] 650 mg PO Q6HR PRN tab 03/24/24 [Rx] Ipratropium-Albuterol Nebulize [Duoneb 0.5 mg-3 mg/3 ml Soln] 3 ml INHALATION RT-QID each 03/24/24 [Rx] Ipratropium-Albuterol Nebulize [Duoneb 0.5 mg-3 mg/3 ml Soln] 3 ml INHALATION RT-QID PRN each 03/24/24 [Rx] Follow up Appointment(s)/Referral(s): Cale Arenas DO [Primary Care Provider] - 1 Week Activity/Diet/Wound Care/Special Instructions: PLEURX discharge instructions: 1. Home Care is ordered, they will obtain new bottles. 2. May shower after 24 hours, no tub baths/hot tubs. 3. Do not drain more than 1 liter or 1000 mL in 24 hours. 4. New drainage bottle needed with each drainage. 5. Drainage frequency dictated by patient symptoms, may be every day, every other day, weekly, or however often the patient is symptomatic. 6. Please notify DETECTIVE CHIEF or office if temperature >101F, excessive pain at insertion site, drainage consistency changes to cloudy or smells bad, catheter falls out, or anything else that concerns you. 7. Contact surgery office with weekly drainage amounts. May fax the amounts. 8. Once drainage is less than 50 mL three times in a row, notify the surgery office for possible removal. Surgery office: , fax Order for pleurex supplies sent to [email or web address] ([phone]) . Patient is going home on hospice Activity as tolerated Continue current breathing regimen Patient received Pleurx catheter with education on drainage Discharge Disposition: HOME WITH HOSPICE
[2024-03-25 10:47] VITALS: RESP 22
[2024-03-25 12:30] VITALS: BMI 19.0
[2024-03-25 12:48] VITALS: PULSE 100
--- NOTE | 2024-03-25 21:26 | PN ---
PROGRESS NOTE DATE OF SERVICE: 03/25/2024 SUBJECTIVE: A 78-year-old male seen today in room 376. The patient is currently on 4 L of oxygen. He is not receiving any IV fluids. Yesterday, March 24, he had a PleurX catheter placed in the left pleural space for his malignant pleural effusion. The patient is a do not resuscitate patient. He is resting comfortably in bed without any distress. Yesterday, he was on 8 L, and he has been able to be weaned down to 4. No new labs today. Chest x-ray from March 25, shows significant interval reduction in the amount of pleural fluid on the left, with persistent lobulated left apical density or mass. OBJECTIVE: VITAL SIGNS: Include temperature 97.8, heart rate 96, respiratory rate 22, blood pressure 110/55, and saturations are 96% to 97% on 4 L. GENERAL: He appears in no acute distress. He is very frail-appearing. HEENT: Grossly unremarkable. NECK: Supple, full range of motion. No adenopathy. Neck veins are flat. CARDIOVASCULAR: Reveals regular rhythm and rate. S1, S2 normal. No S3, S4, or murmur. LUNGS: Reveal clear breath sounds on the right. Breath sounds on the left are improved, but diminished. Some basilar crackles are noted. ABDOMEN: Soft. Bowel sounds are heard. EXTREMITIES: Intact. No cyanosis, clubbing, or edema. SKIN: Without rash. NEUROLOGIC: Brief, but nonfocal. ASSESSMENT: 1. Acute on chronic hypoxemic respiratory failure, multifactorial. 2. Recurrent left-sided pleural effusion. 3. Thoracentesis, left side, March 14, 2024. 4. Acute chronic obstructive pulmonary disease exacerbation. 5. History of non-small cell lung cancer, with disease recurrence and progression. 6. Lumbar compression fracture. 7. Chronic and ongoing tobacco dependence. 8. History of hypothyroidism. 9. Hyperlipidemia. 10.Anxiety. 11.Osteoarthritis. 12.Gastroesophageal reflux disease. PLAN: The patient is seen today in room 376. He is on 4 L. The left PleurX catheter was placed on March 24. His chest x-ray certainly improved. His oxygenation has improved. The patient is a do not resuscitate patient. He is going home with home hospice. No additional recommendations are made. Labs, x-rays, and all medications have been reviewed. MMODL / IJN: [id number] /
== END 2024-03-25 12:54 | disposition hospice, inpatient (51) | DRG 180 ==
LOC: 3SCARD 20:12
PROVIDERS: ADMIT Internal Medicine; ATTEND Internal Medicine
PROC: 0W9B30Z Drainage of Left Pleural Cavity with Drainage Device, Percutaneous Approach (ICD-10-PCS; principal; 2024-03-24 09:05)
DX: C34.91 Malignant neoplasm of unspecified part of right bronchus or lung (principal); J96.21 Acute and chronic respiratory failure with hypoxia; C78.2 Secondary malignant neoplasm of pleura; C79.51 Secondary malignant neoplasm of bone; E22.2 Syndrome of inappropriate secretion of antidiuretic hormone; J91.0 Malignant pleural effusion; J44.1 Chronic obstructive pulmonary disease with (acute) exacerbation; E88.A Wasting disease (syndrome) due to underlying condition; Z51.5 Encounter for palliative care; Z66 Do not resuscitate; J81.1 Chronic pulmonary edema; S32.019A Unspecified fracture of first lumbar vertebra, initial encounter for closed fracture; M48.56XA Collapsed vertebra, not elsewhere classified, lumbar region, initial encounter for fracture; Z68.1 Body mass index [BMI] 19.9 or less, adult; Z99.81 Dependence on supplemental oxygen; E03.9 Hypothyroidism, unspecified; E78.5 Hyperlipidemia, unspecified; F41.9 Anxiety disorder, unspecified; M19.90 Unspecified osteoarthritis, unspecified site; R54 Age-related physical debility; K21.9 Gastro-esophageal reflux disease without esophagitis; Z90.2 Acquired absence of lung [part of]; Z87.891 Personal history of nicotine dependence; Z79.1 Long term (current) use of non-steroidal anti-inflammatories (NSAID); Z79.51 Long term (current) use of inhaled steroids; Z85.118 Personal history of other malignant neoplasm of bronchus and lung; Z86.14 Personal history of Methicillin resistant Staphylococcus aureus infection; Z79.890 Hormone replacement therapy; Z79.899 Other long term (current) drug therapy
CPT/HCPCS: 71045; 77001; 80048; 83735; 84443; 85025; 94640; 94760